=== PATIENT | male | born 1965 | race Caucasian/White ===

== ENCOUNTER → 2017-06-13 12:29 | Outpatient (CLI) | payer BC, SELFPAY ==
[2017-06-13 13:40] LABS: Absolute Lymphocyte Count 2.05 X10^3/ul (0.83-4.51); Absolute Neutrophil Count 2.7 X10^3/uL (2.0-7.7); Basophil# 0.02 X10^3/uL; Basophil% 0.4 % (0-1); Eosinophil# 0.04 X10^3/uL; Eosinophils% 0.7 % (0-5); Hematocrit 43.2 % (40-54); Hemoglobin 14.8 g/dl (13.0-16.5); Lymphocyte # 2.05 X10^3/ul (4.0); Lymphocyte % 38.2 % (19-41); Mean Corp Hgb Conc 34.3 g/gl (32-36); Mean Corpuscular Hgb 34.1 pg (27.0-32.0); Mean Corpuscular Volume 99.5 fL (80-94); Mean Platelet Vol. 9.3 fl (6.2-12.0); Monocyte# 0.57 X10^3/uL; Monocyte% 10.6 % (0-10); Neutrophil # 2.67 X10^3/uL (2.7-7.7); Neutrophil % 49.9 % (47-70); POSITIVE COUNT NO; POSITIVE DIFFERENTIAL NO; POSITIVE MORPHOLOGY NO; Platelet Count 180 K/mm3 (150-450); RBC Distribution Width CV 12.7 % (11.6-14.6); RBC Distribution Width SD 46.1 fl (35.1-43.9); Red Blood Count 4.34 M/mm3 (4.6-6.2); White Blood Count 5.4 K/mm3 (4.4-11.0)
[2017-06-13 14:53] LABS: AST(SGOT) 21 U/L (15-37); Alanine Aminotransfer ALT/SGPT 25 U/L (16-61); Alkaline Phosphatase 82 U/L (45-117); Anion Gap 7 (5-15); BUN 16 mg/dL (7-18); BUN/Creat Ratio 18.9 RATIO (10-20); Calcium,Total 8.7 mg/dL (8.5-10.1); Chloride 103 mmol/L (98-107); Cholesterol 200 mg/dL (200); Creatinine, Serum 0.84 mg/dL (0.70-1.30); EST Glomerular Filtration Rate 101 mL/min (>60); Est Glom Filt Rate - Afr Amer 123 mL/min (>60); Globulin 4.2 g/dL (2.2-4.2); Glucose 82 mg/dL (74-106); High Density Lipoprotein 40 mg/dL; Potassium 3.8 mmol/L (3.5-5.1); Protein, Total 8.2 g/dL (6.4-8.2); Sodium Level 139 mmol/L (136-145); Triglycerides 254 mg/dL; Very Low Density Lipoprotein 51 mg/dL (5-40)
[2017-06-13 16:47] LABS: HIV - WCH Preliminary Reactive (Nonreactive)
[2017-06-16 09:16] LABS: HIV-1 RNA by PCR, Quant. < 20 copies/mL (.)
== END ==
PROVIDERS: Family Provider Family Medicine; PCP Family Medicine
DX: B20 Human immunodeficiency virus [HIV] disease (principal)
CPT/HCPCS: 36415; 80053; 80061; 85025; 86703; 87536

== ENCOUNTER → 2017-06-14 13:16 | Outpatient (CLI) | payer BC, SELFPAY ==
[2017-06-15 14:08] LABS: Absolute CD4 Helper 695 /uL (359-1519); Basophils (Absolute) 0 x10E3/uL (0.0-0.2); CD4/CD8 Ratio 0.82 (0.92-3.72); Eosinophils 1 % (Not Estab.); Eosinophils (Absolute) 0 x10E3/uL (0.0-0.4); Hematocrit 42.4 % (37.5-51.0); Hemoglobin 15.1 g/dL (13.0-17.7); Immature Granulocytes 0 % (Not Estab.); Lymphs 38 % (Not Estab.); Lymphs (Absolute) 2.1 x10E3/uL (0.7-3.1); MCH 34.3 pg (26.6-33.0); MCHC 35.6 g/dL (31.5-35.7); MCV 96 fL (79-97); Monocytes 9 % (Not Estab.); Monocytes (Absolute) 0.5 x10E3/uL (0.1-0.9); Neutrophils 52 % (Not Estab.); Neutrophils (Absolute) 2.9 x10E3/uL (1.4-7.0); Percent % CD4 Pos. Lymph. 33.1 % (30.8-58.5); Percent % CD8 Pos. Lymph. 40.3 % (12.0-35.5); Platelets 181 x10E3/uL (150-379); RDW 12.8 % (12.3-15.4); WBC Count 5.5 x10E3/uL (3.4-10.8)
[2017-06-15 14:34] LABS: Immature Granulocytes Absolute 0 x10E3/uL (0.0-0.1)
== END ==
PROVIDERS: Family Provider Family Medicine; PCP Family Medicine
DX: B20 Human immunodeficiency virus [HIV] disease (principal)
CPT/HCPCS: 86360

== ENCOUNTER 2017-08-03 09:30 | Outpatient (RCR) | payer BC, SELFPAY ==
--- NOTE | 2017-07-20 15:47 | HP.PTEVAL_ITS ---
Patient's Visit Information YAIR MILLS is a 52 year old M referred to Physical Therapy by Alessandro Roberson with a diagnosis of Left Shoulder Pain. Date of Evaluation: 07/20/17 Physical Therapist: Ioana Cline - Visit Plan Frequency: 2x /Week Duration: 2 Weeks Plan: Focus on HEP for scap s/s. - Subjective Subjective: Left shoulder has been bothering him for years- 3-5 years- insidious onset- Has had and CANDE and has a torn RTC - physical therapy helped. Flared it back up flipping his house sledge hammer overhead April 2016- worked through it and had a - sucked it up until December then had surgery on his hand/ ulnar nerve and bilateral carpal tunnel- Cortisone injection drastically helped - and had another one a week ago. Helped but is confused about the ulnar nerve inflammation. Pain at end range flexion/abduction. Sleep: not disturbed- before it was miserable- thats when he knows he needs to get it taken care of. Left hand dominate. 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 Does have aches in the arm from the ulnar nerve distribution. PMhx: ulnar nerve and carpal tunnel, Meds: metroprolol, triumec, visomere.Shoulder pain is in the deltoid muscle. - Objective Posture: fh, rs, increased kyphosis- mildly raised at C7-T1. Gait: no deviation good arm swing/trunk rotation. Palpation: tender tip of acromion and upper trap. ROM: WFL- tight at end range Cervical: wnl with tightness. Strength: Scap: fair Shoulder: 4+/5 throughout Elbow: 5/5, Wrist: 5/5 Watermelon Harvesting Supervisor; equal. IMpingment: positive Empty Can: positive. Sensation/Reflex: WNL - Goals Goal 1:: Patient will be I with HEP and progression Goal Time Frame: 4-6 Weeks Goal 2:: Patient will maintain proper posture t/o tx session to demo increased scap s/s Goal Time Frame: 4-6 Weeks Goal 3:: Patient will report 0/10 pain for 1 week Goal Time Frame: 4-6 Weeks - Rehabilitation Potential Physical Therapy Diagnosis: Patient presents with hypmobility- he has decreased strength, flex and muscular endurance leading to poor posture and impingment of the shoulder Rehabilitation Potential: Good - Anticipated Interventions Patient/Client Instruction: Educate patient on: Benefits of Fitness Program For the Purpose of:: To improve ability to perform ADL's Therapeutic Exercise to Include: Strength training, Endurance training, Agility training, Body mechanics, Postural training, Flexibilty training, Gait and locomotor training, Scapular Strength/Stabilization For the Purpose of:: To improve muscle performance and motor function Thank you for the opportunity to evaluate your patient. For Medicare and Medicare HMO plans, please review the plan of care and approve it. It will need to be FAXED BACK to us at [phone] for Medicare purposes. Please let me know if there are questions or concerns regarding this plan of care. Physician Signature: Date:
--- NOTE | 2017-08-03 10:03 | HP.PTDCSUM ---
HP - PT D/C Summary It has been my pleasure to treat YAIR MILLS under orders from Alessandro Roberson, for the diagnosis of Left Shoulder Pain for a total of 5 visit(s). Discharge Date: Please see the following information for a summary of their discharge status. - Subjective Subjective: Patient reports that he has learned a lot at therapy and will continue the exercises at home. He would like a print out of HEP. He feels that he is 80% better. Still has some soreness but the sharp pin point pain is gone. happy with progress - Overall Improvement % Improvement: 80 - Objective Objective/Function: Posture: fh, rs, increased kyphosis- mildly raised at C7-T1- will correct with VC's and maintains for 5 minutes. Gait: no deviation good arm swing/trunk rotation. Palpation: tender along supraspinatus. ROM: WFL- tight at end range Cervical: wnl with tightness. Strength: Scap: fair Shoulder: 5/5 throughout Elbow: 5/5, Wrist: 5/5 Automobile Racer; equal. IMpingment: positive Empty Can: positive. Sensation/Reflex: - Goals Goal 1:: Patient will be I with HEP and progression Goal Progress: Goal Met Goal 2:: Patient will maintain proper posture t/o tx session to demo increased scap s/s Goal Progress: Progressing Goal 3:: Patient will report 0/10 pain for 1 week Goal Progress: Progressing - Plan Plan: Discharge to I HEP - D/C Information If there are questions or concerns regarding this patient's physical therapy, please feel free to call me at [phone]. Thank you for the referral of this patient. Sincerely, Ioana Cline
--- NOTE | 2017-08-03 10:23 | HP.PTDCSUM_ITS ---
HP - PT D/C Summary It has been my pleasure to treat YAIR MILLS under orders from Alessandro Roberson, for the diagnosis of Left Shoulder Pain for a total of 5 visit(s). Discharge Date: Please see the following information for a summary of their discharge status. - Subjective Subjective: Patient reports that he has learned a lot at therapy and will continue the exercises at home. He would like a print out of HEP. He feels that he is 80% better. Still has some soreness but the sharp pin point pain is gone. happy with progress - Overall Improvement % Improvement: 80 - Objective Objective/Function: Posture: fh, rs, increased kyphosis- mildly raised at C7-T1 - will correct with VC's and maintains for 5 minutes. Gait: no deviation good arm swing/trunk rotation. Palpation: tender along supraspinatus. ROM: WFL- tight at end range Cervical: wnl with tightness. Strength: Scap: fair Shoulder: 5/5 throughout Elbow: 5/5, Wrist: 5/5 Drafting Instructor; equal. IMpingment: positive Empty Can: positive. Sensation/Reflex: - Goals Goal 1:: Patient will be I with HEP and progression Goal Progress: Goal Met Goal 2:: Patient will maintain proper posture t/o tx session to demo increased scap s/s Goal Progress: Progressing Goal 3:: Patient will report 0/10 pain for 1 week Goal Progress: Progressing - Plan Plan: Discharge to I HEP - D/C Information If there are questions or concerns regarding this patient's physical therapy, please feel free to call me at [phone]. Thank you for the referral of this patient. Sincerely, Ioana Cline
== END 2017-08-03 18:31 | disposition home or self-care (01) ==
LOC: PT 09:30
PROVIDERS: Family Provider Family Medicine; PCP Family Medicine; Visit Provider Family Medicine
DX: M25.519 Pain in unspecified shoulder (principal)
CPT/HCPCS: 97110; 97161; 97164

== ENCOUNTER → 2017-08-11 13:34 | Outpatient (CLI) | payer BC, SELFPAY | PROVIDERS: Family Provider Family Medicine; PCP Family Medicine | DX: B20 Human immunodeficiency virus [HIV] disease (principal) | CPT/HCPCS: 36415; 84403 ==

== ENCOUNTER → 2018-01-27 09:08 | Outpatient (CLI) | payer BC, SELFPAY ==
[2018-01-27 11:11] LABS: Absolute Lymphocyte Count 1.95 X10^3/ul (0.83-4.51); Absolute Neutrophil Count 3.2 X10^3/uL (2.0-7.7); Basophil# 0.01 X10^3/uL; Basophil% 0.2 % (0-1); Eosinophil# 0.05 X10^3/uL; Eosinophils% 0.9 % (0-5); Hematocrit 45.2 % (40-54); Hemoglobin 15.1 g/dl (13.0-16.5); Lymphocyte # 1.95 X10^3/ul (4.0); Lymphocyte % 33.5 % (19-41); Mean Corp Hgb Conc 33.4 g/gl (32-36); Mean Corpuscular Hgb 34.2 pg (27.0-32.0); Mean Corpuscular Volume 102.5 fL (80-94); Monocyte% 10.3 % (0-10); Neutrophil # 3.19 X10^3/uL (2.7-7.7); Neutrophil % 54.8 % (47-70); POSITIVE COUNT NO; POSITIVE DIFFERENTIAL NO; POSITIVE MORPHOLOGY NO; Platelet Count 221 K/mm3 (150-450); RBC Distribution Width CV 12.5 % (11.6-14.6); RBC Distribution Width SD 46.3 fl (35.1-43.9); Red Blood Count 4.41 M/mm3 (4.6-6.2); White Blood Count 5.8 K/mm3 (4.4-11.0)
[2018-01-27 11:41] LABS: ALB/GLOB Ratio 1.1 RATIO (0.9-2.4); AST(SGOT) 24 U/L (15-37); Alanine Aminotransfer ALT/SGPT 33 U/L (16-61); Alkaline Phosphatase 82 U/L (45-117); Anion Gap 8 (5-15); BUN 15 mg/dL (7-18); BUN/Creat Ratio 19.1 RATIO (10-20); Calcium,Total 8.5 mg/dL (8.5-10.1); Chloride 104 mmol/L (98-107); Cholesterol 218 mg/dL (200); Creatinine, Serum 0.78 mg/dL (0.70-1.30); EST Glomerular Filtration Rate 110 mL/min (>60); Est Glom Filt Rate - Afr Amer 133 mL/min (>60); Globulin 3.7 g/dL (2.2-4.2); Glucose 92 mg/dL (74-106); High Density Lipoprotein 47 mg/dL; Potassium 3.9 mmol/L (3.5-5.1); Protein, Total 7.7 g/dL (6.4-8.2); Sodium Level 138 mmol/L (136-145); Triglycerides 226 mg/dL; Very Low Density Lipoprotein 45 mg/dL (5-40)
[2018-01-28 16:13] LABS: Absolute CD4 Helper 566 /uL (359-1519); Basophils (Absolute) 0 x10E3/uL (0.0-0.2); Eosinophils 1 % (Not Estab.); Eosinophils (Absolute) 0 x10E3/uL (0.0-0.4); Hematocrit 44.4 % (37.5-51.0); Hemoglobin 14.9 g/dL (13.0-17.7); Immature Granulocytes 0 % (Not Estab.); Lymphs 35 % (Not Estab.); MCH 33.9 pg (26.6-33.0); MCHC 33.6 g/dL (31.5-35.7); MCV 101 fL (79-97); Monocytes 11 % (Not Estab.); Monocytes (Absolute) 0.6 x10E3/uL (0.1-0.9); Neutrophils 53 % (Not Estab.); Neutrophils (Absolute) 3.1 x10E3/uL (1.4-7.0); Percent % CD4 Pos. Lymph. 28.3 % (30.8-58.5); Platelets 218 x10E3/uL (150-379); RDW 13.5 % (12.3-15.4); WBC Count 5.8 x10E3/uL (3.4-10.8)
[2018-01-29 08:40] LABS: Immature Granulocytes Absolute 0 x10E3/uL (0.0-0.1)
[2018-01-30 12:39] LABS: HIV-1 RNA by PCR, Quant. < 20 copies/mL (.)
[2018-02-03 03:22] LABS: Rapid Plasmin Reagin (RPR) NONREACTIVE (NONREACTIVE)
== END ==
PROVIDERS: Family Provider Family Medicine; PCP Family Medicine
DX: B20 Human immunodeficiency virus [HIV] disease (principal); Z79.2 Long term (current) use of antibiotics
CPT/HCPCS: 36415; 80053; 80061; 85025; 86361; 86592; 87536

== ENCOUNTER 2018-06-12 21:54 | Emergency (ER) | payer BC, SELFPAY ==
[2018-06-12 21:54] VITALS: BP 156/99; PULSE 100; RESP 16; TEMP 36.7; O2SAT 98; BMI 25.0
--- NOTE | 2018-06-12 22:15 | ED.VISSUMM ---
- ER Visit Summary Date of Service: 06/12/18 Chief Complaint: Left forearm pain History of Present Illness: The patient is a 53 M with pain to the left forearm that he noted while using the weedeater this afternoon. There is a small swollen area noted and family's concern for possible blood clot. He does not remember specific injury to that area. Physical Examination: Vital signs include blood pressure 156/99. Patient sitting upright in bed no acute distress. Left upper extremity examination reveals mild tenderness along the extensor surface of the left forearm. He has full range of motion but does have increased pain noted with wrist flexion. There is a small area of edema noted that likely represents a blood vessel. No overlying skin changes. Strong distal pulses are noted. Test Results: [] Emergency Department Course and Treatment: I expressed to the patient I believe he likely has tendinitis. He is treated with Naprosyn and prednisone. He will return tomorrow for an outpatient ultrasound of his upper arm to ensure no sign of clot. Treatment Plan: [] Disposition: Discharge Impression: Tendinitis left forearm This note was generated with [employer] dictation software. It may contain incorrect words, spelling, and punctuation that were not noted in review of the chart prior to signing ED Disposition - Plan for ED Patient: Disposition: Home or Assisted Living Instructions: ED Strain Muscle Ext Prescriptions: Naproxen [Naprosyn] 500 mg PO BID PRN PRN #20 tablet PRN Reason: Pain Prednisone [Deltasone] 40 mg PO DAILY #10 tablet Referrals: Alessandro Roberson MD [Primary Care Provider] - 1 Week
== END 2018-06-12 22:40 | disposition home or self-care (01) ==
PROVIDERS: Emergency Provider Emergency Medicine; Family Provider Family Medicine; PCP Family Medicine
DX: M77.9 Enthesopathy, unspecified (principal); K21.9 Gastro-esophageal reflux disease without esophagitis; Z79.899 Other long term (current) drug therapy
CPT/HCPCS: 99282

== ENCOUNTER → 2018-07-13 15:55 | Outpatient (CLI) | payer BC, SELFPAY ==
[2018-07-13 16:25] LABS: Absolute Lymphocyte Count 2.27 X10^3/ul (0.83-4.51); Absolute Neutrophil Count 3.6 X10^3/uL (2.0-7.7); Basophil# 0.02 X10^3/uL; Basophil% 0.3 % (0-1); Eosinophil# 0.06 X10^3/uL; Eosinophils% 0.9 % (0-5); Hematocrit 43.1 % (40-54); Hemoglobin 14.4 g/dl (13.0-16.5); Lymphocyte # 2.27 X10^3/ul (4.0); Lymphocyte % 33.8 % (19-41); Mean Corp Hgb Conc 33.4 g/gl (32-36); Mean Corpuscular Hgb 33.9 pg (27.0-32.0); Mean Corpuscular Volume 101.4 fL (80-94); Mean Platelet Vol. 8.9 fl (6.2-12.0); Monocyte# 0.73 X10^3/uL; Monocyte% 10.9 % (0-10); Neutrophil # 3.61 X10^3/uL (2.7-7.7); Neutrophil % 53.8 % (47-70); Platelet Count 210 K/mm3 (150-450); RBC Distribution Width CV 13.3 % (11.6-14.6); Red Blood Count 4.25 M/mm3 (4.6-6.2); White Blood Count 6.7 K/mm3 (4.4-11.0)
[2018-07-13 16:26] LABS: POSITIVE COUNT NO; POSITIVE DIFFERENTIAL NO; POSITIVE MORPHOLOGY NO
[2018-07-13 16:50] LABS: AST(SGOT) 26 U/L (15-37); Alanine Aminotransfer ALT/SGPT 30 U/L (16-61); Albumin, Serum 3.8 g/dL (3.2-5.0); Alkaline Phosphatase 78 U/L (45-117); Anion Gap 6 (5-15); BUN 16 mg/dL (7-18); BUN/Creat Ratio 19.2 RATIO (10-20); Calcium,Total 8.6 mg/dL (8.5-10.1); Chloride 105 mmol/L (98-107); Creatinine, Serum 0.83 mg/dL (0.70-1.30); EST Glomerular Filtration Rate 103 mL/min (>60); Est Glom Filt Rate - Afr Amer 124 mL/min (>60); Globulin 3.7 g/dL (2.2-4.2); Glucose 88 mg/dL (74-106); Protein, Total 7.5 g/dL (6.4-8.2); Sodium Level 140 mmol/L (136-145)
[2018-07-15 16:07] LABS: Absolute CD4 Helper 711 /uL (359-1519); Basophils (Absolute) 0 x10E3/uL (0.0-0.2); Eosinophils 1 % (Not Estab.); Eosinophils (Absolute) 0.1 x10E3/uL (0.0-0.4); Hematocrit 42.4 % (37.5-51.0); Hemoglobin 13.8 g/dL (13.0-17.7); Immature Granulocytes 0 % (Not Estab.); Lymphs 35 % (Not Estab.); Lymphs (Absolute) 2.3 x10E3/uL (0.7-3.1); MCH 33.7 pg (26.6-33.0); MCHC 32.5 g/dL (31.5-35.7); MCV 103 fL (79-97); Monocytes 10 % (Not Estab.); Monocytes (Absolute) 0.7 x10E3/uL (0.1-0.9); Neutrophils 54 % (Not Estab.); Neutrophils (Absolute) 3.5 x10E3/uL (1.4-7.0); Percent % CD4 Pos. Lymph. 30.9 % (30.8-58.5); Platelets 247 x10E3/uL (150-450); RDW 13.6 % (12.3-15.4); WBC Count 6.5 x10E3/uL (3.4-10.8)
[2018-07-17 08:50] LABS: Immature Granulocytes Absolute 0 x10E3/uL (0.0-0.1)
[2018-07-17 12:11] LABS: HIV-1 RNA by PCR, Quant. < 20 copies/mL (.)
== END ==
PROVIDERS: Family Provider Family Medicine; PCP Family Medicine
DX: B20 Human immunodeficiency virus [HIV] disease (principal); Z79.2 Long term (current) use of antibiotics
CPT/HCPCS: 36415; 80053; 85025; 86361; 87536

== ENCOUNTER → 2018-12-22 14:19 | Outpatient (CLI) | payer BC, SELFPAY ==
[2018-12-22 15:40] LABS: Absolute Lymphocyte Count 1.81 X10^3/uL (0.83-4.51); Absolute Neutrophil Count 3.5 X10^3/uL (2.0-7.7); Basophil# 0.02 X10^3/uL; Basophil% 0.3 % (0-1); Eosinophil# 0.06 X10^3/uL; Hematocrit 40.8 % (40-54); Hemoglobin 13.6 g/dL (13.0-16.5); Lymphocyte # 1.81 X10^3/ul (4.0); Mean Corp Hgb Conc 33.3 g/dL (32-36); Mean Corpuscular Hgb 33.9 pg (27.0-32.0); Mean Corpuscular Volume 101.7 fL (80-94); Mean Platelet Vol. 9.2 fl (6.2-12.0); Monocyte# 0.61 X10^3/uL; Monocyte% 10.1 % (0-10); NRBC Flagged by Analyzer 0 % (0-5); Neutrophil # 3.51 X10^3/uL (2.7-7.7); Neutrophil % 58.3 % (47-70); Platelet Count 188 K/mm3 (150-450); RBC Distribution Width CV 12.2 % (11.6-14.6); RBC Distribution Width SD 46.1 fl (35.1-43.9); Red Blood Count 4.01 M/mm3 (4.6-6.2)
[2018-12-22 16:20] LABS: ALB/GLOB Ratio 1.2 RATIO (0.9-2.4); AST(SGOT) 32 U/L (15-37); Alanine Aminotransfer ALT/SGPT 34 U/L (16-61); Albumin, Serum 3.9 g/dL (3.2-5.0); Alkaline Phosphatase 74 U/L (45-117); Anion Gap 6 (5-15); BUN 15 mg/dL (7-18); BUN/Creat Ratio 17.7 RATIO (10-20); Calcium,Total 8.8 mg/dL (8.5-10.1); Chloride 106 mmol/L (98-107); Creatinine, Serum 0.85 mg/dL (0.70-1.30); EST Glomerular Filtration Rate 101 mL/min (>60); Est Glom Filt Rate - Afr Amer 122 mL/min (>60); Globulin 3.2 g/dL (2.2-4.2); Glucose 77 mg/dL (74-106); Potassium 3.7 mmol/L (3.5-5.1); Protein, Total 7.1 g/dL (6.4-8.2); Sodium Level 140 mmol/L (136-145)
[2018-12-25 20:07] LABS: Absolute CD4 Helper 656 /uL (359-1519); Basophils (Absolute) 0 x10E3/uL (0.0-0.2); Eosinophils 1 % (Not Estab.); Eosinophils (Absolute) 0.1 x10E3/uL (0.0-0.4); Hematocrit 41.3 % (37.5-51.0); Hemoglobin 13.8 g/dL (13.0-17.7); Immature Granulocytes 0 % (Not Estab.); Lymphs 29 % (Not Estab.); Lymphs (Absolute) 1.7 x10E3/uL (0.7-3.1); MCH 34.1 pg (26.6-33.0); MCHC 33.4 g/dL (31.5-35.7); MCV 102 fL (79-97); Monocytes 10 % (Not Estab.); Monocytes (Absolute) 0.6 x10E3/uL (0.1-0.9); Neutrophils 60 % (Not Estab.); Neutrophils (Absolute) 3.5 x10E3/uL (1.4-7.0); Percent % CD4 Pos. Lymph. 38.6 % (30.8-58.5); Platelets 211 x10E3/uL (150-450); RBC Count 4.05 x10E6/uL (4.14-5.80); RDW 13.5 % (12.3-15.4); WBC Count 5.9 x10E3/uL (3.4-10.8)
[2018-12-25 20:42] LABS: Immature Granulocytes Absolute 0 x10E3/uL (0.0-0.1)
[2018-12-26 14:05] LABS: HIV-1 RNA by PCR, Quant. < 20 copies/mL (.)
[2018-12-28 03:11] LABS: Rapid Plasmin Reagin (RPR) NONREACTIVE (NONREACTIVE)
== END ==
PROVIDERS: Family Provider Family Medicine; PCP Family Medicine
DX: B20 Human immunodeficiency virus [HIV] disease (principal)
CPT/HCPCS: 36415; 80053; 85025; 86361; 86592; 87536

== ENCOUNTER → 2019-02-12 13:20 | Outpatient (CLI) | payer BC, SELFPAY ==
--- NOTE | 2019-01-15 04:52 | HP_ITS ---
Intake Vital Signs 01/15/19 Body Mass Index (BMI) 25.0 01/15/19 Height 5 ft 8 in 01/15/19 Weight: 158 lb 01/15/19 Body Mass Index (BMI) 24.0 01/15/19 Blood Pressure 129/84 H 01/15/19 Blood Pressure Location Rt brachial 01/15/19 Blood Pressure Position Sitting 01/15/19 Respiratory Rate 18 01/15/19 Pulse Rate 98 01/15/19 Pulse Source Monitor 01/15/19 Temperature 98.4 F 01/15/19 Temperature Source Oral 01/15/19 Pulse Ox 96 01/15/19 Oxygen Delivery Method room air Intake Visit Reasons: ABD PAIN/CRAMPING/WEIGHT LOSS Chief Complaint: abdominal pain/nausea/weight loss Customer Service Dispatcher Required: No Is patient in pain?: No Allergies amoxicillin [From Augmentin] Adverse Reaction (Verified 01/15/19 16:04) Hives clavulanic acid [From Augmentin] Adverse Reaction (Verified 01/15/19 16:04) Hives Medications Abacavir/Dolutegravir/Lamivudi [Triumeq 600-50-300 mg Tablet] 1 tab PO DAILY 06/12/18 [History Confirmed 01/15/19] Naproxen [Naprosyn] 500 mg PO BID PRN PRN #20 tab 06/12/18 [Rx Confirmed 01/15/19] Omeprazole 40 mg PO DAILY 06/12/18 [History Confirmed 01/15/19] Valacyclovir HCl [Valacyclovir] 1 tab PO DAILY 06/12/18 [History Confirmed 01/15/19] loperamide 2 mg capsule 6 mg PO BID cap 01/15/19 [History Confirmed 01/15/19] promethazine 12.5 mg tablet 12.5 mg PO Q6H 01/15/19 [History Confirmed 01/15/19] PFS Medical History (Updated 01/15/19 @ 16:49 by Jeremiah Raines MD) Diarrhea (Acute) Abdominal pain (Acute) GERD (gastroesophageal reflux disease) (Acute) AIDS (Acute) Abdominal pain (Acute) Anal condyloma (Acute) Anal dysplasia (Acute) Diarrhea (Acute) GERD (gastroesophageal reflux disease) (Acute) Nausea & vomiting (Acute) Weight loss (Acute) Surgical History (Updated 01/15/19 @ 15:52 by Kailey Soliz) History of bilateral carpal tunnel release (Acute) history left bicep tendon repair (Acute) history left ulnar nerve repair (Acute) Family History (Updated 01/15/19 @ 16:01 by Kailey Soliz) Mother Asthma Arthritis Diabetes Heart disease Hypertension High cholesterol Grandfather Cancer lung cancer Father Heart disease High cholesterol Hypertension Cancer skin cancer Social History (Updated 01/15/19 @ 16:52 by Jeremiah Raines MD) Smoking Status: Never smoker alcohol intake: never substance use type: does not use HPI HPI HPI: YAIR MILLS, is a 53 M who presents to the office today for HPI HPI Surgical H&P: Yes HPI: YAIR MILLS, is a 53 M who presents to the office today for surgical consultation. Patient is referred by Dr. Alessandro Roberson for surgical consultation regarding GERD and right lower quadrant abdominal pain and explosive diarrhea. A written copy of my surgical consult recommendations will be returned to. Patient claims that for over 2 years he has been having problems with awakening in the middle the night with right lower quadrant pain nausea volume vomiting and severe right lower quadrant pain. He then has explosive diarrhea. He has not noticed any bright red blood per rectum or melena. He states that after period of time he gets better. 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 He has had a 20 pound weight loss. Not sure if it simply secondary to his increased physical activity. He was just seen by his infectious disease physician Dr. Juno Garcia. Primary diagnosis is human immunodeficiency virus (HIV) disease (HCC). By report Dr. Garcia has been trying to get the patient to see a welfare interviewer for an extended period of time. The patient makes a comment that he has seen welfare interviewer Dr. Carrillo Eckert in the past in 2013 but that he missed something that then had to be treated by Dr. Ajit Friedman. This included a segment of squamous mucosa with low- grade dysplasia possibly from a condyloma which Dr. Friedman excised December 17, 2013 from the perianal area. Dr. Friedman apparently did not perform a colonoscopy at that time but rather a flexible sigmoidoscopy. An acidic acid wash was used and a raised lesion was destroyed with hot biopsy forceps posterior anus. As of December 22, 2018 HIV?1 RNA, PCR was less than 20. The patient has not had any additional abdominal imaging. Currently no CT scan or small bowel imaging. The patient states that he is not in any pain now. He states that physical exercise does not aggravate the pain. He claims that he is awakened at night with the discomfort. This can be intermittent. It was more severe 2 years ago then seemed to marianne and now seems to be recurring. He also complains of having GERD type symptoms. He states that his HIV medicines in the past aggressively gave him diarrhea for which he was taking significant amounts of loperamide greater than 12 tablets daily. Now he feels that he is down to more reasonable number of 6 or slightly more daily ROS General General: Yes weight change; no appetite, fatigue, colon cancer, breast cancer or weakness HEENT HEENT: No difficulty swallowing, eye injury, eye surgery, swollen glands or hoarseness Endo Endocrine: No thyroid disease, diabetes mellitus, thyroid cancer, Hair loss, heat intolerance or cold intolerance Skin Skin: Yes rash and changing moles Breast Breast: No left breast lump, right breast lump, nipple discharge, breast pain, abnormal mammogram, abnormal US or breast enlargement Musc Musculoskeletal: No back problems, arthritis, rheumatoid arthritis, gout or joint pain Cardio Cardiovascular: No murmur, pacemaker, heart disease, atrial fibrillation, high blood pressure, heart attack, heart stent, palpitations, shortness of breat with exertion or chest pain Psych Psychiatric: No depression, anxiety or hearing voices Resp Respiratory: No shortness of breath, No sleep apnea, No cough, No COPD, No asthma, No emphysema, No wheezing Gastro Gastrointestinal: Yes abdominal pain, Yes nausea or vomiting, Yes diarrhea, No constipation, No blood in stool, Yes acid reflux, No hemorrhoids, No ulcers, No gallbladder problem, No black,tarry stools Benito Hematologic: No blood thinners, No blood disorders, No bleeding, No anemia, No blood clots Neuro Neurologic: No system reviewed and no additional complaints, except as docu, No as per HPI, No abnormal walking, No abnormal hearing, No abnormal movements, No abnormal speech, No behavioral changes, No burning sensations, No confusion, No seizure-like activity, No unsteadiness, No dizziness, No localized weakness, No frequent falls, No headache(s), No lack of coordination, No loss of vision, No memory loss, No numbness, No other visual disturbances, No radiating pain, No restless legs, No sensory deficit, No fainting, No tingling, No tremor(s), No weakness, No other Exam Const General: cooperative, comfortable, no acute distress Nutritional Appearance: average body habitus Orientation: alert, awake, oriented x3 HENMT Head: normal to inspection Chest Breast Palpation: No nipple discharge Resp Effort & Inspection: normal respiratory effort Auscultation: clear to auscultation bilaterally Cardio Rate: regular rate Rhythm: regular rhythm Heart Sounds: no murmurs GI Palpation: soft, no hepatosplenomegaly Auscultation: normal bowel sounds Other: Inguinal areas nontender no gross defects Neuro Cognition: normal cognition Extrem General: no calf tenderness bilaterally Psych Affect: normal affect Assessment & Plan Problems 1. Gastroesophageal reflux disease, esophagitis presence not specified K21.9 2. Right lower quadrant abdominal pain R10.31 3. Diarrhea, unspecified type R19.7 Plan I appreciate the opportunity of assisting with his surgical care. 53-year-old gentleman with reflux symptoms right lower quadrant intermittent abdominal pain and explosive diarrhea. Dr. Garcia infectious diseases not of the opinion that this is related to the patient's HIV at this time. The patient is referred by both Dr. Garcia and Dr. Roberson to pursue endoscopic evaluation and the patient favors general surgery in part due to ability to expedite his investigation. I have proposed for him a esophagogastroduodenoscopy with anticipated kitchen biopsies as well as colonoscopy with anticipated random biopsies and polypectomy if indicated. He is aware of the technique, benefits, risks, alternatives. We will schedule and proceed at his discretion. I anticipate utilizing monitored anesthesia care. He has had an opportunity to ask and have questions answered. We will schedule and proceed as noted. Cc: Dr. Garcia and Dr. Karol Raines M.D., F.A.C.S. Coding Level of Care Code 47948 Diagnoses Gastroesophageal reflux disease, esophagitis presence not specified K21.9 ??Esophagitis presence: esophagitis presence not specified Right lower quadrant abdominal pain R10.31 ??Abdominal location: right lower quadrant Diarrhea, unspecified type R19.7 ??Diarrhea type: unspecified type 01/15/19 8704 <Electronically signed by Jeremiah smith MD> Date _ Jeremiah Raines MD
[2019-01-15 16:13] VITALS: BMI 25.0
== END ==
PROVIDERS: Family Provider Family Medicine; PCP Family Medicine; Referring Provider Family Medicine; Visit Provider Surgery
DX: Z00.00 Encounter for general adult medical examination without abnormal findings (principal)

== ENCOUNTER → 2020-01-22 10:39 | Outpatient (CLI) | payer BC, SELFPAY ==
[2019-01-15 16:13] VITALS: BMI 25.0
[2020-01-22 11:30] LABS: Absolute Lymphocyte Count 2.43 X10^3/uL (0.83-4.51); Absolute Neutrophil Count 3.2 X10^3/uL (2.0-7.7); Basophil# 0.03 X10^3/uL; Basophil% 0.5 % (0-1); Eosinophil# 0.05 X10^3/uL; Eosinophils% 0.8 % (0-5); Hematocrit 45.2 % (40-54); Hemoglobin 14.8 g/dL (13.0-16.5); Lymphocyte # 2.43 X10^3/ul (4.0); Lymphocyte % 38.1 % (19-41); Mean Corp Hgb Conc 32.7 g/dL (32-36); Mean Corpuscular Hgb 33.5 pg (27.0-32.0); Mean Corpuscular Volume 102.3 fL (80-94); Mean Platelet Vol. 8.6 fl (6.2-12.0); Monocyte# 0.62 X10^3/uL; Monocyte% 9.7 % (0-10); NRBC Flagged by Analyzer 0 % (0-5); Neutrophil # 3.21 X10^3/uL (2.7-7.7); Neutrophil % 50.4 % (47-70); Platelet Count 201 K/mm3 (150-450); RBC Distribution Width CV 12.5 % (11.6-14.6); Red Blood Count 4.42 M/mm3 (4.6-6.2); White Blood Count 6.4 K/mm3 (4.4-11.0)
[2020-01-22 11:57] LABS: AST(SGOT) 17 U/L (15-37); Alanine Aminotransfer ALT/SGPT 24 U/L (16-61); Albumin, Serum 3.9 g/dL (3.2-5.0); Alkaline Phosphatase 84 U/L (45-117); Bilirubin, Direct 0.11 mg/dL (0.00-0.30); Creatinine, Serum 0.91 mg/dL (0.70-1.30); EST Glomerular Filtration Rate 92 mL/min (>60); Est Glom Filt Rate - Afr Amer 111 mL/min (>60); Globulin 3.7 g/dL (2.2-4.2); Protein, Total 7.6 g/dL (6.4-8.2)
[2020-01-23 14:09] LABS: Absolute CD4 Helper 711 /uL (359-1519); Basophils (Absolute) 0 x10E3/uL (0.0-0.2); Eosinophils 1 % (Not Estab.); Eosinophils (Absolute) 0.1 x10E3/uL (0.0-0.4); Hematocrit 42.7 % (37.5-51.0); Hemoglobin 15.1 g/dL (13.0-17.7); Immature Granulocytes 1 % (Not Estab.); Lymphs 37 % (Not Estab.); Lymphs (Absolute) 2.3 x10E3/uL (0.7-3.1); MCH 34.5 pg (26.6-33.0); MCHC 35.4 g/dL (31.5-35.7); MCV 98 fL (79-97); Monocytes 10 % (Not Estab.); Monocytes (Absolute) 0.6 x10E3/uL (0.1-0.9); Neutrophils 50 % (Not Estab.); Neutrophils (Absolute) 3.3 x10E3/uL (1.4-7.0); Percent % CD4 Pos. Lymph. 30.9 % (30.8-58.5); Platelets 196 x10E3/uL (150-450); RBC Count 4.38 x10E6/uL (4.14-5.80); RDW 13.1 % (11.6-15.4); WBC Count 6.4 x10E3/uL (3.4-10.8)
[2020-01-23 15:17] LABS: Immature Granulocytes Absolute 0 x10E3/uL (0.0-0.1)
[2020-01-24 04:22] LABS: HIV-1 RNA by PCR, Quant. < 20 copies/mL (.)
== END ==
PROVIDERS: PCP Family Medicine; Referring Provider Internal Medicine Infectious Disease; Visit Provider Internal Medicine Infectious Disease
DX: B20 Human immunodeficiency virus [HIV] disease (principal); Z79.2 Long term (current) use of antibiotics
CPT/HCPCS: 36415; 80076; 82565; 85025; 86361; 87536

== ENCOUNTER → 2020-03-12 11:51 | Outpatient (CLI) | payer BC, SELFPAY ==
[2019-01-15 16:13] VITALS: BMI 25.0
[2020-03-12 15:29] LABS: Absolute Lymphocyte Count 1.81 X10^3/uL (0.83-4.51); Absolute Neutrophil Count 2.5 X10^3/uL (2.0-7.7); Basophil# 0.03 X10^3/uL; Basophil% 0.6 % (0-1); Eosinophil# 0.07 X10^3/uL; Eosinophils% 1.4 % (0-5); Hematocrit 41.2 % (40-54); Lymphocyte # 1.81 X10^3/ul (4.0); Lymphocyte % 36.6 % (19-41); Mean Corpuscular Hgb 34.2 pg (27.0-32.0); Mean Corpuscular Volume 100.7 fL (80-94); Mean Platelet Vol. 9.1 fl (6.2-12.0); Monocyte# 0.55 X10^3/uL; Monocyte% 11.1 % (0-10); NRBC Flagged by Analyzer 0 % (0-5); Neutrophil # 2.47 X10^3/uL (2.7-7.7); Neutrophil % 49.9 % (47-70); Platelet Count 201 K/mm3 (150-450); RBC Distribution Width CV 12.5 % (11.6-14.6); RBC Distribution Width SD 46.1 fl (35.1-43.9); Red Blood Count 4.09 M/mm3 (4.6-6.2)
[2020-03-12 15:46] LABS: ALB/GLOB Ratio 1.1 RATIO (0.9-2.4); AST(SGOT) 16 U/L (15-37); Alanine Aminotransfer ALT/SGPT 22 U/L (16-61); Albumin, Serum 3.8 g/dL (3.2-5.0); Alkaline Phosphatase 77 U/L (45-117); Anion Gap 6 (5-15); BUN 18 mg/dL (7-18); BUN/Creat Ratio 22.5 RATIO (10-20); Chloride 106 mmol/L (98-107); Cholesterol 196 mg/dL (200); EST Glomerular Filtration Rate 107 mL/min (>60); Est Glom Filt Rate - Afr Amer 129 mL/min (>60); Globulin 3.6 g/dL (2.2-4.2); Glucose 89 mg/dL (74-106); High Density Lipoprotein 50 mg/dL; Potassium 3.9 mmol/L (3.5-5.1); Protein, Total 7.4 g/dL (6.4-8.2); Sodium Level 140 mmol/L (136-145); Triglycerides 136 mg/dL; Very Low Density Lipoprotein 27 mg/dL (5-40)
== END ==
PROVIDERS: PCP Family Medicine; Referring Provider Family Medicine; Visit Provider Family Medicine
DX: Z01.818 Encounter for other preprocedural examination (principal)
CPT/HCPCS: 36415; 80053; 80061; 85025

== ENCOUNTER → 2020-09-02 14:45 | Outpatient (CLI) | payer BC, SELFPAY ==
[2019-01-15 16:13] VITALS: BMI 25.0
[2020-09-02 15:09] LABS: Absolute Lymphocyte Count 2.17 X10^3/uL (0.83-4.51); Basophil# 0.02 X10^3/uL; Basophil% 0.3 % (0-1); Eosinophil# 0.05 X10^3/uL; Eosinophils% 0.7 % (0-5); Hematocrit 44.7 % (40-54); Hemoglobin 15.4 g/dL (13.0-16.5); Lymphocyte # 2.17 X10^3/ul (0.83-4.51); Lymphocyte % 31.7 % (19-41); Mean Corp Hgb Conc 34.5 g/dL (32-36); Mean Corpuscular Hgb 33.6 pg (27.0-32.0); Mean Corpuscular Volume 97.6 fL (80-94); Mean Platelet Vol. 8.7 fl (6.2-12.0); Monocyte# 0.59 X10^3/uL; Monocyte% 8.6 % (0-10); NRBC Flagged by Analyzer 0 % (0-5); Neutrophil % 58.4 % (47-70); Platelet Count 217 K/mm3 (150-450); RBC Distribution Width CV 12.1 % (11.6-14.6); RBC Distribution Width SD 43.7 fl (35.1-43.9); Red Blood Count 4.58 M/mm3 (4.6-6.2); White Blood Count 6.9 K/mm3 (4.4-11.0)
[2020-09-02 15:33] LABS: Anion Gap 5 (5-15); BUN 14 mg/dL (7-18); BUN/Creat Ratio 17.4 RATIO (10-20); Calcium,Total 9.3 mg/dL (8.5-10.1); Chloride 102 mmol/L (98-107); EST Glomerular Filtration Rate 106 mL/min (>60); Est Glom Filt Rate - Afr Amer 128 mL/min (>60); Glucose 87 mg/dL (74-106); Potassium 3.6 mmol/L (3.5-5.1); Sodium Level 136 mmol/L (136-145)
[2020-09-04 16:08] LABS: Absolute CD4 Helper 754 /uL (359-1519); Basophils (Absolute) 0 x10E3/uL (0.0-0.2); Eosinophils 1 % (Not Estab.); Eosinophils (Absolute) 0.1 x10E3/uL (0.0-0.4); Hematocrit 44.2 % (37.5-51.0); Hemoglobin 15.3 g/dL (13.0-17.7); Immature Granulocytes 0 % (Not Estab.); Lymphs 31 % (Not Estab.); Lymphs (Absolute) 2.1 x10E3/uL (0.7-3.1); MCH 34.5 pg (26.6-33.0); MCHC 34.6 g/dL (31.5-35.7); MCV 100 fL (79-97); Monocytes 8 % (Not Estab.); Monocytes (Absolute) 0.6 x10E3/uL (0.1-0.9); Neutrophils 59 % (Not Estab.); Neutrophils (Absolute) 3.9 x10E3/uL (1.4-7.0); Percent % CD4 Pos. Lymph. 35.9 % (30.8-58.5); Platelets 235 x10E3/uL (150-450); RBC Count 4.44 x10E6/uL (4.14-5.80); RDW 12.3 % (11.6-15.4); WBC Count 6.7 x10E3/uL (3.4-10.8)
[2020-09-04 16:41] LABS: Immature Granulocytes Absolute 0 x10E3/uL (0.0-0.1)
[2020-09-05 13:02] LABS: HIV-1 RNA by PCR, Quant. < 20 copies/mL (.)
== END ==
PROVIDERS: PCP Family Medicine; Referring Provider Internal Medicine Infectious Disease; Visit Provider Internal Medicine Infectious Disease
DX: B20 Human immunodeficiency virus [HIV] disease (principal)
CPT/HCPCS: 36415; 80048; 85025; 86361; 87536

== ENCOUNTER → 2020-12-16 12:43 | Outpatient (CLI) | payer BC, SELFPAY ==
--- NOTE | 2020-12-16 13:05 | EKG12_ITS ---
Test Reason : PRE OP Blood Pressure : / mmHG Vent. Rate : 092 BPM Atrial Rate : 092 BPM P-R Int : 148 ms QRS Dur : 086 ms QT Int : 354 ms P-R-T Axes : 049 019 017 degrees QTc Int : 437 ms Normal sinus rhythm with sinus arrhythmia Normal ECG Confirmed by SHANNAN ROSAS, JENNA ([id number]), state editor DAMARI MARTE ([id number]) on 12/17/2020 9:28:29 AM Referred By: Brandon Mitchell Confirmed By:JENNA CAMPBELL MD
--- NOTE | 2020-12-16 13:06 | CT_ITS ---
STUDY: CT ABDOMEN AND PELVIS WITH CONTRAST REASON FOR EXAM: Male, 55 years old. Left inguinal hernia RADIATION DOSAGE (If Supplied By Facility): CTDIvol = ( 5.35 ) mGy, DLP = ( 407.94 ) mGycm TECHNIQUE: Transaxial images were obtained from the dome of the diaphragm to the symphysis pubis without oral contrast. IV 100ML ISOVUE 300 was administered. Sagittal and coronal images were reconstructed. Individualized dose optimization techniques were used for this CT. COMPARISON: Comparison is made with prior study dated 01/22/2011. FINDINGS: The visualized lung bases are unremarkable. Coronary artery calcification. Normal liver. Normal gallbladder and extrahepatic biliary system. Normal spleen. Normal pancreas. Normal bilateral adrenal glands. There is a 4 mm nonobstructive calculus in the upper pole calyx of the right kidney. Normal left kidney. Normal visualized stomach. Normal small intestine. Normal colon. The appendix is visualized and appears normal. There is scattered atherosclerotic calcification of the abdominal aorta, without a demonstrated aneurysm. Normal inferior vena cava. Normal retroperitoneum. Normal urinary bladder. Small left inguinal hernia containing nondilated small bowel. There are degenerative changes of the visualized lumbar spine. CT/Abdomen/Pelvis W IV Cont ONLY IMPRESSION: Small left inguinal hernia containing nondilated small bowel. Electronically Signed: Ector Funes MD at 13:43 EST , Service support ,
[2020-12-16 13:26] LABS: Hematocrit 42.3 % (40-54); Hemoglobin 14.4 g/dL (13.0-16.5); Mean Platelet Vol. 8.8 fl (6.2-12.0); Platelet Count 211 K/mm3 (150-450); RBC Distribution Width CV 12.6 % (11.6-14.6); RBC Distribution Width SD 46.7 fl (35.1-43.9); Red Blood Count 4.23 M/mm3 (4.6-6.2); White Blood Count 7.4 K/mm3 (4.4-11.0)
[2020-12-16 14:18] LABS: Anion Gap 5 (5-15); BUN 16 mg/dL (7-18); BUN/Creat Ratio 16.6 RATIO (10-20); Calcium,Total 9.2 mg/dL (8.5-10.1); Chloride 104 mmol/L (98-107); Creatinine, Serum 0.96 mg/dL (0.70-1.30); EST Glomerular Filtration Rate 86 mL/min (>60); Est Glom Filt Rate - Afr Amer 104 mL/min (>60); Glucose 133 mg/dL (74-106); Potassium 3.9 mmol/L (3.5-5.1); Sodium Level 137 mmol/L (136-145)
== END ==
PROVIDERS: Orthopaedic Surgery; PCP Family Medicine; Referring Provider Surgery; Visit Provider Surgery
DX: Z01.810 Encounter for preprocedural cardiovascular examination (principal); K40.90 Unilateral inguinal hernia, without obstruction or gangrene, not specified as recurrent; R10.31 Right lower quadrant pain
CPT/HCPCS: 36415; 74177; 80048; 85027; 93005; Q9967; A4216

== ENCOUNTER → 2021-01-19 08:28 | Outpatient (CLI) | payer BC, SELFPAY ==
[2021-01-19 10:15] LABS: Absolute Lymphocyte Count 2.06 X10^3/uL (0.83-4.51); Absolute Neutrophil Count 2.7 X10^3/uL (2.0-7.7); Basophil# 0.03 X10^3/uL; Basophil% 0.6 % (0-1); Eosinophil# 0.08 X10^3/uL; Eosinophils% 1.5 % (0-5); Hematocrit 41.3 % (40-54); Hemoglobin 13.8 g/dL (13.0-16.5); Lymphocyte # 2.06 X10^3/ul (0.83-4.51); Mean Corp Hgb Conc 33.4 g/dL (32-36); Mean Corpuscular Hgb 34.1 pg (27.0-32.0); Mean Platelet Vol. 8.8 fl (6.2-12.0); Monocyte# 0.53 X10^3/uL; Monocyte% 9.8 % (0-10); NRBC Flagged by Analyzer 0 % (0-5); Neutrophil % 49.7 % (47-70); Platelet Count 215 K/mm3 (150-450); RBC Distribution Width CV 12.6 % (11.6-14.6); RBC Distribution Width SD 47.8 fl (35.1-43.9); Red Blood Count 4.05 M/mm3 (4.6-6.2); White Blood Count 5.4 K/mm3 (4.4-11.0)
[2021-01-19 10:42] LABS: AST(SGOT) 18 U/L (15-37); Alanine Aminotransfer ALT/SGPT 24 U/L (16-61); Albumin, Serum 3.4 g/dL (3.2-5.0); Alkaline Phosphatase 79 U/L (45-117); Bilirubin, Direct 0.07 mg/dL (0.00-0.30); Globulin 3.8 g/dL (2.2-4.2); Protein, Total 7.2 g/dL (6.4-8.2)
[2021-01-20 13:07] LABS: Absolute CD4 Helper 657 /uL (359-1519); Basophils (Absolute) 0 x10E3/uL (0.0-0.2); Eosinophils 2 % (Not Estab.); Eosinophils (Absolute) 0.1 x10E3/uL (0.0-0.4); Hematocrit 40.1 % (37.5-51.0); Hemoglobin 13.9 g/dL (13.0-17.7); Immature Granulocytes 1 % (Not Estab.); Lymphs 38 % (Not Estab.); Lymphs (Absolute) 2.1 x10E3/uL (0.7-3.1); MCH 34.1 pg (26.6-33.0); MCHC 34.7 g/dL (31.5-35.7); MCV 98 fL (79-97); Monocytes 10 % (Not Estab.); Monocytes (Absolute) 0.6 x10E3/uL (0.1-0.9); Neutrophils 48 % (Not Estab.); Neutrophils (Absolute) 2.7 x10E3/uL (1.4-7.0); Percent % CD4 Pos. Lymph. 31.3 % (30.8-58.5); Platelets 211 x10E3/uL (150-450); RBC Count 4.08 x10E6/uL (4.14-5.80); RDW 12.6 % (11.6-15.4); WBC Count 5.6 x10E3/uL (3.4-10.8)
[2021-01-20 15:33] LABS: Immature Granulocytes Absolute 0 x10E3/uL (0.0-0.1)
[2021-01-21 16:19] LABS: HIV-1 RNA by PCR, Quant. < 20 copies/mL (.)
== END ==
PROVIDERS: PCP Internal Medicine; Referring Provider Internal Medicine Infectious Disease; Visit Provider Internal Medicine Infectious Disease
DX: B20 Human immunodeficiency virus [HIV] disease (principal)
CPT/HCPCS: 36415; 80076; 85025; 86361; 87536

== ENCOUNTER 2021-01-29 08:09 | Day surgery (SDC) | payer BC, SELFPAY ==
[2021-01-29] VITALS (9 sets, daily range): BP systolic 120–149; BP diastolic 70–99; PULSE 67–98; RESP 16; TEMP 36–36.4; O2SAT 95–99; BMI 24.5
--- NOTE | 2021-01-29 08:46 | HP.PCM_ITS ---
History and Physical Date of Admission: 01/29/21 Intake Vital Signs 01/05/21 13:21 Height 5 ft 8 in Weight: 160 lb BMI 24.3 BP 134/97 H Blood Pressure Location Rt brachial Position Sitting Respiration 18 Intake Visit Reasons: Hernia Surgery 01/12 Chief Complaint: hernia surgery Entry Level Account Representative Required: No Is patient in pain?: No Allergies amoxicillin [From Augmentin] Adverse Reaction (Verified 01/05/21 13:23) Hives clavulanic acid [From Augmentin] Adverse Reaction (Verified 01/05/21 13:23) Hives Medications itgqmaok-saxkvivtzsny-xdfdcia 1 tab PO DAILY 06/12/18 [History Confirmed 01/05/21] naproxen 500 mg PO BID PRN PRN #20 tab 06/12/18 [Rx Confirmed 01/05/21] omeprazole 40 mg PO DAILY 06/12/18 [History Confirmed 01/05/21] loperamide 2 mg capsule 6 mg PO BID cap 01/15/19 [History Confirmed 01/05/21] apremilast 30 mg tablet 30 mg PO BID 12/09/20 [History Confirmed 01/05/21] cetirizine 10 mg tablet 20 mg PO DAILY PRN tab 12/09/20 [History Confirmed 01/05/21] nelfinavir 250 mg tablet 750 mg PO TID 12/09/20 [History Confirmed 01/05/21] PFSH Medical History Abdominal pain Abdominal pain AIDS Anal condyloma Anal dysplasia Diarrhea Diarrhea GERD (gastroesophageal reflux disease) GERD (gastroesophageal reflux disease) Left inguinal hernia Nausea & vomiting Weight loss Surgical History history left bicep tendon repair history left ulnar nerve repair History of bilateral carpal tunnel release Family History Mother Asthma Arthritis Diabetes Heart disease Hypertension High cholesterol Grandfather Cancer lung cancer Father Heart disease High cholesterol Hypertension Cancer skin cancer Social History Smoking Status: Never smoker alcohol intake: never substance use type: does not use HPI HPI HPI: YAIR MILLS, is a 55 M who presents to the office today for consultation for inguinal hernia. The patient has a left inguinal hernia which is symptomatic. Patient is not having any symptoms on the opposite side. No nausea or vomiting. ROS General General: No weight change, appetite, fatigue, colon cancer, breast cancer or weakness HEENT HEENT: No difficulty swallowing, eye injury, eye surgery, swollen glands or hoarseness Endo Endocrine: No thyroid disease, diabetes mellitus, thyroid cancer, Hair loss, heat intolerance or cold intolerance Skin Skin: No rash or changing moles Breast Breast: No left breast lump, right breast lump, nipple discharge, breast pain, abnormal mammogram, abnormal US or breast enlargement Musc Musculoskeletal: No back problems, arthritis, rheumatoid arthritis, gout or join t pain Cardio Cardiovascular: No murmur, pacemaker, heart disease, atrial fibrillation, high blood pressure, heart attack, heart stent, palpitations, shortness of breat with exertion or chest pain Psych Psychiatric: No depression, anxiety or hearing voices Resp Respiratory: No shortness of breath, No sleep apnea, No cough, No COPD, No asthma, No emphysema and No wheezing Gastro Gastrointestinal: No abdominal pain, No nausea or vomiting, Yes diarrhea, No constipation, No blood in stool, Yes acid reflux, No hemorrhoids, No ulcers, No gallbladder problem and No black,tarry stools Benito Hematologic: No blood thinners, No blood disorders, No bleeding, No anemia and No blood clots Neuro Neurologic: No system reviewed and no additional complaints, except as documented, No as per HPI, No abnormal gait, No abnormal hearing, No abnormal movements, No abnormal speech, No behavioral changes, No burning sensations, No confusion, No convulsions, No disequilibrium, No dizziness, No localized weakness, No frequent falls, No headache(s), No lack of coordination, No loss of vision, No memory loss, No numbness, No other visual disturbances, No radicular pain, No restless legs, No sensory deficit, No syncope, No tingling, No tremor(s), No weakness and No other Exam Const General: cooperative Orientation: alert and oriented x3 HENMT Head: normal to inspection Neck Neck: normal visual inspection and full ROM Chest Chest palpation & inspection: normal inspection of the chest Resp Effort & Inspection: normal respiratory effort Auscultation: clear to auscultation bilaterally Cardio Rate: regular rate Rhythm: regular rhythm GI Inspection: non-distended Palpation: soft, hernia indirect inguinal on the left and nontender Skin General: no rashes or lesions noted Neuro General: patient alert and patient oriented x3 Extrem General: full ROM Psych Appearance: grossly normal Mental Status: mental status grossly normal Assessment and Plan Assessment and Plan (1) Left inguinal hernia: Status: Acute Plan - Dr. Shaheen Powers MD: Patient has a symptomatic left inguinal hernia. This was seen on CT scan as well. There is also a possible small right inguinal hernia on CT. I discussed inguinal hernia repair with him in detail. I discussed robotic assisted laparoscopic approach. I discussed the procedure in detail as well as the risks including but not limited to bleeding, infection, injury to other organ such as the bowel, spermatic cord, blood supply to the leg. I also discussed the possibility of chronic groin pain. Patient understands all the risks and is willing to proceed. Plan for robotic assisted laparoscopic left inguinal hernia repair with mesh. The patient would like the contralateral side repaired if hernia is present. Shaheen Powers MD Pager: [facility] [address] [place] [address] [address] [place] [address] Office: I have re-examined the patient. There are no clinical changes since date of exam.
[2021-01-29] MEDS: Lactated Ringers 1,000 ML 15 ML IV (08:53)
--- NOTE | 2021-01-29 09:45 | LIP_PTH ---
PATIENT: YAIR MILLS LOC: [facility] [place] U#:[id number] AGE/SX: 55/M ROOM: RE01/29/[address]: Dr. Shaheen Powers MD : [id number] BED: DIS: 01/29/2021 SPEC #: [id number] RECD: 01/29/21 10:53 STATUS: UBALDO SANDERS #: [id number] JOHN: 01/29/21 09:[address]: Shaheen Powers DEPT: SURGICAL PATHOLOGY RECD BY: Opal Solrozano ENTERED: 01/29/21 11:08 SP TYPE: LIPOMA OTHR DR: Dr. Edwina Johnson MD Tissues: Soft tissues, NOS Procedures: Surgery Specimen Level III HEADER OPERATION: Lap robotic inguinal hernia with mesh PRE-OP DIAGNOSIS: Left inguinal hernia TISSUE SUBMITTED: Lipoma of left cord MICROSCOPIC DIAGNOSIS Lipoma of left cord: Mature adipose tissue, consistent with lipoma. SJ:giulia 02/02/2021 MICROSCOPIC DESCRIPTION Slides are reviewed. GROSS DESCRIPTION Received in fixative is one container labeled with the patient's name and designated lipoma of left cord. The specimen consists of multiple irregular fragments of brandt-yellow fatty tissue that in aggregate measure 6 x 5.5 x 1 cm. Serial sections do not reveal mass lesions. Sections are submitted in two cassettes. / AM:giulia 01/29/21 TC:1 CPT: 19217
[2021-01-29] MEDS: Bupivacaine Mpf 0.5% 30 ML VIAL (10:30)
--- NOTE | 2021-01-29 11:02 | PCM.OPRPT ---
Problems Associated Problem List Diagnoses (1) Left inguinal hernia: Report of Operation Date of Procedure: 01/29/21 Pre-Operative Diagnosis: Left inguinal hernia Post-Operative Diagnosis: Same Surgery/Procedure Performed:: Robotic assisted laparoscopic left inguinal hernia repair with mesh Specimen's removed: Lipoma of the left cord Description of Procedure: Patient was brought back the operating room and general anesthesia was induced. The abdomen was prepped and draped in usual sterile fashion. An incision was made superior to the umbilicus deep to the fascia was was elevated and a Veress needle was placed into the abdomen. Drop test was performed and then the abdomen was insufflated 15 mmHg. Veress needle was removed and a camera port was placed into the abdomen. The camera was placed in the abdomen and inspected and there were no injuries from entry and the patient had a left inguinal hernia without right inguinal hernia. Under direct visualization a right lateral and left lateral 8 mm robotic port were placed. The patient was then placed in Trendelenburg position and the robot was docked. Next using electrocautery scissors the peritoneum in the left lower quadrant was incised and dissection was carried inferiorly until the hernia sac was identified and reduced. There is also a large lipoma of the left cord which was dissected free using electrocautery and removed. Next ProGrip mesh was trimmed and placed in the left lower quadrant and unfolded over the hernia defect allowing for good overlap. The peritoneum was then reapproximated using a running 3 OV lock suture. There was good coverage of the mesh completely with peritoneum. Next the robot was undocked and the ports were removed allowing the abdomen to desufflate. The incisions were injected with local anesthetic and then closed with interrupted 4-0 Monocryl sutures as well as Steri-Strips and OpSite's. The scrotum was checked at the end the case and contain both testicles. Patient was then awoken and taken to PACU in stable condition tolerated the procedure well. Grafts/Implants Used: ProGrip mesh in the left inguinal region Admit VTE Documentation VTE Mechan Device Prophylaxis: SCD's
--- NOTE | 2021-01-29 11:05 | EX.PCM.DISCH ---
Discharge Instructions Procedure Hernia Diet Discharge Diet: Light diet - advance as tolerated Activity Discharge Activity: May Not Drive (for 2-3 days or while taking narcotic pain meds.) and May Shower (with the bandage in place 1-2 days after surgery.) Lifting Restrictions: 20 pounds for 4 weeks. Additional Activity Instructions:: Climbing stairs is fine, walking is encouraged. Sitting in bed may be uncomfortable. Sitting up using your lateral muscles (sitting up sideways) is usually more comfortable. Do not drive, work heavy equipment of sign legal documents for 24 hours. If your hernia repair was an ingunial repair, you may have scrotal swelling, an ice pack and/or athletic support can provide more comfort. Pain medications may cause nausea, you should typically eat light foods as you take your pain medications. Pain medications may also cause constipation. If you have difficulty with this, discuss with your doctor. Dressing / Incision Call your doctor if your incision/area has: Continuous Slow Oozing, Sudden Increased Bleeding, Increased Pain/ Swelling, Increased Redness and Foul Smelling Discharge Call your doctor if you observe: Fever of 101 or Higher Suture Line Care: Avoid Pulling/Pushing and Avoid Pinching/Bending Remove Dressing in: 2 days Cleanse incision/area with: Soap & Water Follow Up Care Please Follow Up With: Shaheen Powers MD When: Please call to schedule 2 week follow up appointment. [phone] Test Results: Test results from this visit will be discussed in further detail at your follow-up appointment, if applicable. Discharge Plan Admission Attending Provider: Shaheen Powers Primary Care Provider: Edwina Johnson Discharge Orders/Prescriptions Prescriptions: New oxycodone-acetaminophen [Percocet] 5-325 mg tablet 1 tab PO Q4H PRN (Reason: pain) 5 Days Qty: 10 RF: 0 No Action loperamide [Imodium A-D] 2 mg capsule 6 mg PO PRN PRN (Reason: Constipation) RF: 0 cetirizine [Zyrtec] 10 mg tablet 20 mg PO DAILY PRN (Reason: ALLERGIES) RF: 0 valacyclovir 1 gram tablet 1,000 mg PO DAILY RF: 0 epinephrine 0.3 mg/0.3 mL auto-injector 0.3 mg IM Q5-15M PRN (Reason: anaphylaxis) Qty: 2 RF: 0 omeprazole 40 MG capsule,delayed release(DR/EC) 40 mg PO DAILY RF: 0 hmlwcbfs-gopzjcjtkexz-cssxcba 600-50- tablet 1 tab PO DAILY RF: 0 Referrals / Follow Up: Edwina Johnson MD [Primary Care Provider] - Disposition Disposition (needs filled in before D/C Order can be placed): Home, Self Care
[2021-01-29] MEDS: Acetaminophen 500 MG Tablet 1000 MG PO (11:57)
== END 2021-01-29 14:32 | disposition home or self-care (01) ==
LOC: SDC 08:12 → AC 08:15
PROVIDERS: PCP Internal Medicine; Referring Provider Surgery; Visit Provider Surgery
PROC: 0YQ64ZZ Repair Left Inguinal Region, Percutaneous Endoscopic Approach (ICD-10-PCS; CPT 49650; principal; 2021-01-29 09:25)
DX: K40.90 Unilateral inguinal hernia, without obstruction or gangrene, not specified as recurrent (principal); D17.6 Benign lipomatous neoplasm of spermatic cord; B20 Human immunodeficiency virus [HIV] disease; Z79.899 Other long term (current) drug therapy; K21.9 Gastro-esophageal reflux disease without esophagitis
CPT/HCPCS: 49650; S2900; 88304; J7120; J2405

== ENCOUNTER 2021-01-30 09:28 | Emergency (ER) | payer BC, SELFPAY ==
[2021-01-30 09:33] VITALS: BP 167/142; PULSE 67; RESP 18; TEMP 36.2; O2SAT 98; BMI 24.6
[2021-01-30 09:51] VITALS: BP 154/99; PULSE 81
--- NOTE | 2021-01-30 09:59 | EKG12_ITS ---
Test Reason : Blood Pressure : / mmHG Vent. Rate : 072 BPM Atrial Rate : 072 BPM P-R Int : 146 ms QRS Dur : 088 ms QT Int : 408 ms P-R-T Axes : 038 000 010 degrees QTc Int : 446 ms Normal sinus rhythm Normal ECG Confirmed by PHIL ROSAS, KELVIN ([id number]), state editor DAMARI MARTE ([id number]) on 02/03/2021 9:37:41 AM Referred By: МАРИЯ Confirmed By:KELVIN VILLARREAL MD
--- NOTE | 2021-01-30 09:59 | CT_ITS ---
STUDY: CTA CHEST REASON FOR EXAM: Male, 55 years old. Acute substernal chest pain RADIATION DOSAGE (If Supplied By Facility): CTDIvol = ( 12.53 ) mGy, DLP = ( 421.66 ) mGycm TECHNIQUE: The examination was performed with the intravenous administration of IV 100mL Isovue-370. Post-processing of the angiographic images was performed, with multiplanar reformation and 3D reconstruction. Individualized dose optimization techniques were used for this CT. COMPARISON: None. FINDINGS: Normal enhancement of the main pulmonary artery and right and left pulmonary arteries. Normal enhancement of the bilateral peripheral pulmonary arteries. There is no demonstrated pulmonary embolism. Normal thoracic aorta and visualized great vessels. There is no demonstrated aortic dissection. Normal heart and pericardium. Normal mediastinum. Normal hilar regions. Normal visualized trachea and bronchi. The lungs are well expanded. Chronic interstitial changes in both lung swan without a superimposed acute pulmonary process. Normal pleura. Normal chest wall structures. There are degenerative changes of thoracic spine. There is subcutaneous emphysema within the anterior pericardial fat as well as within the diaphragm, and a few bubbles of free intraperitoneal air. The free intraperitoneal air suggests a ruptured viscus, the source is not apparent on this study. The air within the anterior pericardial fat and diaphragm muscle is of unknown certain etiology. CT/CTA Chest W/WO Contrast IMPRESSION: No demonstrated PE, or thoracic aortic aneurysm or dissection Chronic interstitial changes in both lung swan without a superimposed acute pulmonary process There are bubbles of free intraperitoneal air as well as bubbles of air within the anterior pericardial fat and within the diaphragm muscle. Etiology of these is unknown, the free intraperitoneal air suggests a ruptured abdominal viscus Further evaluation with CT abd/pelvis suggested N.B. : The above Results were Read Back by Prabhu Espinoza MD to JAMES HSIEH MD, and understanding confirmed on 01/30/2021 11:05:17 (ET). Electronically Signed: Prabhu Espinoza MD at 11:06 EST , Service support ,
--- NOTE | 2021-01-30 10:01 | EX.ED.DYSGE1 ---
HPI History of Present Illness Chief Complaint: Chest Pain Informant: patient Narrative Narrative: Patient presents with chest discomfort. He also has pain across the back of his shoulders and neck area. He felt as though he needed to take a deep breath. No syncope or presyncope. Nothing specifically makes this better or worse. He states he just does not feel right. Patient had laparoscopic repair of left inguinal hernia done yesterday. That area is actually doing well. He is eating and drinking. He is urinating well. He has not moved his bowels yet but does not feel as though he needs to. He has had no fevers or chills. Nothing specifically makes his symptoms better or worse or changes them. [facility] Medical History Abdominal pain Abdominal pain AIDS Anal condyloma Anal dysplasia Arthritis Back pain Cancer Diarrhea Diarrhea Gastric reflux GERD (gastroesophageal reflux disease) GERD (gastroesophageal reflux disease) History of steroid therapy Kidney stones Left inguinal hernia Nausea & vomiting Weight loss Home Medications yxufkjzn-wjopxbckjvbn-ztsamok 1 tab PO DAILY 06/12/18 [History Last Taken Unknown] omeprazole 40 mg PO DAILY 06/12/18 [History Last Taken 01/29/21] loperamide 2 mg capsule 6 mg PO PRN PRN cap 01/15/19 [History Last Taken 01/29/21] cetirizine 10 mg tablet 20 mg PO DAILY PRN tab 12/09/20 [History Last Taken Unknown] epinephrine 0.3 mg/0.3 mL injection, auto-injector 0.3 mg IM Q5-15M PRN #2 ea 01/07/21 [Rx Last Taken Unknown] valacyclovir 1 gram tablet 1,000 mg PO DAILY 01/07/21 [History Last Taken Unknown] oxycodone-acetaminophen [Percocet] 1 tab PO Q4H PRN 5 Days #10 tab 01/29/21 [Rx Last Taken Unknown] tramadol 50 mg PO Q6H PRN 3 Days #12 tab 01/30/21 [Rx Last Taken Unknown] Allergy/AdvReac Type Severity Reaction Status Date / Time bee venom protein (honey bee) Allergy Severe Anaphylaxis Verified 01/29/21 08:41 adhesive tape AdvReac Rash Verified 01/29/21 08:41 amoxicillin [From Augmentin] AdvReac Hives Verified 01/29/21 08:41 clavulanic acid AdvReac Hives Verified 01/29/21 08:41 [From Augmentin] Family History Mother Asthma Arthritis Diabetes Heart disease Hypertension High cholesterol Grandfather Cancer lung cancer Father Heart disease High cholesterol Hypertension Cancer skin cancer Surgical History history left bicep tendon repair history left ulnar nerve repair History of bilateral carpal tunnel release History of shoulder surgery Social History Smoking Status: Never smoker alcohol intake: never substance use type: does not use ROS ROS ED Constitutional Constitutional ED: Denies chills or fever(s) Eyes Eyes: Denies blurry vision or diplopia ENT ENT ED: Denies rhinorrhea or sore throat Cardiovascular Cardiovascular: Reports chest pain; Denies palpitations or racing heartbeat Respiratory/Chest Respiratory/Chest: Reports dyspnea; Denies cough or sputum Gastrointestinal Gastrointestinal: Denies nausea or vomiting Genitourinary Genitourinary ED: Denies dysuria, hematuria or urinary frequency Musculoskeletal Musculoskeletal: Reports neck pain; Denies myalgias Integumentary Denies rash Neurologic Neurologic: Denies paresthesias or weakness Endocrine Endocrinology: Denies polydipsia or polyuria Allergic/Immunologic Allergic/Immunologic ED: Denies mouth swelling or urticaria EXAM Physical Exam Const Vital Signs: 01/30/21 09:33 01/30/21 09:51 01/30/21 10:18 Temperature 97.1 F L Temperature Source Temporal Pulse Rate 67 81 Respiratory Rate 18 Blood Pressure 167/142 H 154/99 H Blood Pressure Mean 150 117 Pulse Ox 98 Oxygen Delivery Method Room Air Room Air 01/30/21 12:02 01/30/21 12:52 Temperature Temperature Source Pulse Rate 70 85 Respiratory Rate 16 17 Blood Pressure 140/90 H 115/68 Blood Pressure Mean 106 83 Pulse Ox 99 94 Oxygen Delivery Method Room Air Positive well nourished and well developed General Appearance ED: well developed and NAD HEENT Reports moist mucous membranes Eyes General Eye ED: Negative for pale conjunctiva or scleral icterus Neck no JVD Chest Wall inspection of chest normal and palpation of chest normal Resp normal respiratory effort and clear to auscultation bilaterally Resp Narrative: Patient's lungs are clear. It does not appear to hurt at all with a deep breath. He does state that he feels as though he needs to take a deeper breath than normal. No asymmetry of breath sounds. No subcu air on palpation. Effort and Inspection: Negative for pain with movement Auscultation: Negative for rales, rhonchi or wheezes Cardio regular rate, regular rhythm and no murmurs GI normal to inspection, nondistended, normoactive bowel sounds GI Narrative: Patient's port sites look good. There is no abnormal tenderness around these areas, abdomen or the inguinal area. Considering he is 1 day postop, his exam is relatively benign. Palpation: soft Back/Spine no CVA tenderness Extremity normal to inspection Neuro oriented x3 Sensorium / Orientation: alert Psych mental status grossly normal Skin no rashes or lesions noted MDM MDM MDM Narrative Medical decision making narrative: Patient's blood work show mild nonspecific elevation white count 11.7. Electrolytes are normal. First troponin and second troponin are still negative. CT showed no pulmonary embolus dissection or aneurysm. There was some signs of free intraperitoneal air as well as some air bubbling into the diaphragm and pericardium. This is likely from his surgery. I rechecked the patient. He states he now knows what happened. He forgot that he has an allergy to Percocet. He states same thing happen when he last took it. He had forgotten all about this. He states he felt kind of tight in the chest and throat. He had a sense of uneasiness. His symptoms are now resolved. I will write for some tramadol which he has tolerated before. I told him not to take the Percocet again. I will call his surgeon, Dr. Powers to let him know the events and that this patient came to the emergency department the day following surgery. We discussed reasons to return with the patient. Lab Data Attestation: I reviewed the patient's lab results. Labs: Laboratory Results - last 24 hr 01/30/21 01/30/21 01/30/21 09:40 09:40 11:50 WBC 11.7 H RBC 4.38 L Hgb 15.2 Hct 44.5 MCV 101.6 H MCH 34.7 H MCHC 34.2 RDW Std Deviation 47.8 H RDW Coeff of Micheline 12.7 Plt Count 228 MPV 8.9 Immature Gran % (Auto) 0.400 Neut % (Auto) 64.9 Lymph % (Auto) 24.1 [place] % (Auto) 10.1 H Eos % (Auto) 0.3 Baso % (Auto) 0.2 Absolute Neuts (auto) 7.6 Absolute Lymphs (auto) 2.81 Nucleated RBC % 0 Sodium 138 Potassium 3.5 Chloride 104 Carbon Dioxide 29.0 Anion Gap 5 BUN 13 Creatinine 0.81 Estim Creat Clear Calc 99.69 Est GFR (MDRD) Af Amer 128 Est GFR (MDRD) Non-Af 105 BUN/Creatinine Ratio 16.1 Glucose 108 H Calcium 9.2 Troponin I High Sens < 3 L 4 Radiography Diagnostic Testing: Clinical Impression(s) from Imaging Studies Chest CTA 01/30/21 09:59 IMPRESSION: No demonstrated PE, or thoracic aortic aneurysm or dissection Chronic interstitial changes in both lung swan without a superimposed acute pulmonary process There are bubbles of free intraperitoneal air as well as bubbles of air within the anterior pericardial fat and within the diaphragm muscle. Etiology of these is unknown, the free intraperitoneal air suggests a ruptured abdominal viscus Further evaluation with CT abd/pelvis suggested N.B. : The above Results were Read Back by Prabhu Espinoza MD to JAMES VALE MD, and understanding confirmed on 01/30/2021 11:05:17 (ET). Electronically Signed: Prabhu Espinoza MD at 11:06 EST , Service support , ADDENDUM: 01/30/21 1113 IMPRESSION: No demonstrated PE, or thoracic aortic aneurysm or dissection Chronic interstitial changes in both lung swan without a superimposed acute pulmonary process There are bubbles of free intraperitoneal air as well as bubbles of air within the anterior pericardial fat and within the diaphragm muscle. Etiology of these is unknown, the free intraperitoneal air suggests a ruptured abdominal viscus Further evaluation with CT abd/pelvis suggested N.B. : The above Results were Read Back by Prabhu Espinoza MD to JAMES VALE MD, and understanding confirmed on 01/30/2021 11:05:17 (ET). Electronically Signed: Prabhu Espinoza MD at 11:06 EST , Service support , ADDENDUM: 01/30/21 1117 EKG Initial EKG: Comments: EKG done for chest pain read by me shows a normal sinus rhythm with rate of 72. There is some irregular baseline but no acute ST elevation or depression. No ectopy. SD interval, QRS duration and QTc are normal. No apparent significant change from 16 December 2020. Discharge Plan Triage Chief Complaint: Chest Pain ED Provider: James Vale Dx/Rx/DC Orders Clinical Impression: Chest pain, Medication adverse effect Instructions: ED Chest Pain, Noncardiac, ED Drug Reaction, Other Prescriptions: New tramadol 50 mg tablet 50 mg PO Q6H PRN (Reason: pain) 3 Days Qty: 12 RF: 0 No Action loperamide [Imodium A-D] 2 mg capsule 6 mg PO PRN PRN (Reason: Constipation) RF: 0 cetirizine [Zyrtec] 10 mg tablet 20 mg PO DAILY PRN (Reason: ALLERGIES) RF: 0 valacyclovir 1 gram tablet 1,000 mg PO DAILY RF: 0 epinephrine 0.3 mg/0.3 mL auto-injector 0.3 mg IM Q5-15M PRN (Reason: anaphylaxis) Qty: 2 RF: 0 omeprazole 40 MG capsule,delayed release(DR/EC) 40 mg PO DAILY RF: 0 gjorzgvy-xphqabdiygke-enjspwp 600-50- tablet 1 tab PO DAILY RF: 0 oxycodone-acetaminophen [Percocet] 5-325 mg tablet 1 tab PO Q4H PRN (Reason: pain) 5 Days Qty: 10 RF: 0 Primary Care Provider: Alessandro Roberson Referrals: Alessandro Roberson MD [Primary Care Provider] - Disposition Disposition: Home, Self Care
[2021-01-30 10:12] LABS: Absolute Lymphocyte Count 2.81 X10^3/uL (0.83-4.51); Absolute Neutrophil Count 7.6 X10^3/uL (2.0-7.7); Basophil# 0.02 X10^3/uL; Basophil% 0.2 % (0-1); Eosinophil# 0.04 X10^3/uL; Eosinophils% 0.3 % (0-5); Hematocrit 44.5 % (40-54); Hemoglobin 15.2 g/dL (13.0-16.5); Lymphocyte # 2.81 X10^3/ul (0.83-4.51); Lymphocyte % 24.1 % (19-41); Mean Corp Hgb Conc 34.2 g/dL (32-36); Mean Corpuscular Hgb 34.7 pg (27.0-32.0); Mean Corpuscular Volume 101.6 fL (80-94); Mean Platelet Vol. 8.9 fl (6.2-12.0); Monocyte# 1.18 X10^3/uL; Monocyte% 10.1 % (0-10); NRBC Flagged by Analyzer 0 % (0-5); Neutrophil # 7.58 X10^3/uL (2.7-7.7); Neutrophil % 64.9 % (47-70); Platelet Count 228 K/mm3 (150-450); RBC Distribution Width CV 12.7 % (11.6-14.6); RBC Distribution Width SD 47.8 fl (35.1-43.9); Red Blood Count 4.38 M/mm3 (4.6-6.2); White Blood Count 11.7 K/mm3 (4.4-11.0)
[2021-01-30] MEDS: Ondansetron 4 MG/2 ML Vial IV (10:12)
[2021-01-30] MEDS: Morphine 4 MG/ML Syringe IV (10:12)
[2021-01-30 10:34] LABS: Anion Gap 5 (5-15); BUN 13 mg/dL (7-18); BUN/Creat Ratio 16.1 RATIO (10-20); Calcium,Total 9.2 mg/dL (8.5-10.1); Chloride 104 mmol/L (98-107); Creatinine, Serum 0.81 mg/dL (0.70-1.30); EST Glomerular Filtration Rate 105 mL/min (>60); Est Glom Filt Rate - Afr Amer 128 mL/min (>60); Estimated Creatinine Clearance 99.69 ml/min; Glucose 108 mg/dL (74-106); Potassium 3.5 mmol/L (3.5-5.1); Sodium Level 138 mmol/L (136-145); Troponin-I HS < 3 pg/mL (3.0-78.0)
[2021-01-30 12:02] VITALS: BP 140/90; PULSE 70; RESP 16; O2SAT 99
[2021-01-30 12:15] LABS: Troponin-I HS 4 pg/mL (3.0-78.0)
[2021-01-30] MEDS: Acetaminophen 500 MG Tablet 1000 MG PO (12:45)
[2021-01-30 12:52] VITALS: BP 115/68; PULSE 85; RESP 17; O2SAT 94
== END 2021-01-30 13:34 | disposition home or self-care (01) ==
PROVIDERS: Emergency Provider Emergency Medicine; PCP Family Medicine
DX: R07.89 Other chest pain (principal); M54.2 Cervicalgia; M25.512 Pain in left shoulder; M25.511 Pain in right shoulder; T40.2X5A Adverse effect of other opioids, initial encounter; Y92.9 Unspecified place or not applicable; M19.90 Unspecified osteoarthritis, unspecified site; K21.9 Gastro-esophageal reflux disease without esophagitis; Z79.899 Other long term (current) drug therapy
CPT/HCPCS: 71275; 80048; 84484; 85025; 93005; 96374; 96375; 99284; J7030; Q9967; A4216; J2405

== ENCOUNTER → 2021-06-03 | Outpatient (CLI) | payer MEDICAID, SELFPAY ==
[2021-06-03 17:10] LABS: Hematocrit 40.6 % (40-54); Hemoglobin 13.9 g/dL (13.0-16.5); Mean Corp Hgb Conc 34.2 g/dL (32-36); Mean Corpuscular Hgb 34.5 pg (27.0-32.0); Mean Corpuscular Volume 100.7 fL (80-94); Platelet Count 213 K/mm3 (150-450); RBC Distribution Width CV 12.2 % (11.6-14.6); RBC Distribution Width SD 45.5 fl (35.1-43.9); Red Blood Count 4.03 M/mm3 (4.6-6.2); White Blood Count 5.3 K/mm3 (4.4-11.0)
[2021-06-03 19:11] LABS: Anion Gap 7 (5-15); BUN 12 mg/dL (7-18); BUN/Creat Ratio 14.5 RATIO (10-20); Calcium,Total 8.6 mg/dL (8.5-10.1); Chloride 111 mmol/L (98-107); Creatinine, Serum 0.82 mg/dL (0.70-1.30); EST Glomerular Filtration Rate 103 mL/min (>60); Est Glom Filt Rate - Afr Amer 124 mL/min (>60); Glucose 128 mg/dL (74-106); Potassium 3.7 mmol/L (3.5-5.1); Sodium Level 142 mmol/L (136-145)
[2021-06-04 09:36] LABS: Syphilis Antibodies Non-reactive
[2021-06-05 14:09] LABS: Absolute CD4 Helper 844 /uL (359-1519); Basophils (Absolute) 0 x10E3/uL (0.0-0.2); Eosinophils 2 % (Not Estab.); Eosinophils (Absolute) 0.1 x10E3/uL (0.0-0.4); Hematocrit 41.1 % (37.5-51.0); Hemoglobin 14.2 g/dL (13.0-17.7); Immature Granulocytes 0 % (Not Estab.); Lymphs 36 % (Not Estab.); MCH 34.8 pg (26.6-33.0); MCHC 34.5 g/dL (31.5-35.7); MCV 101 fL (79-97); Monocytes 10 % (Not Estab.); Monocytes (Absolute) 0.5 x10E3/uL (0.1-0.9); Neutrophils 51 % (Not Estab.); Neutrophils (Absolute) 2.8 x10E3/uL (1.4-7.0); Percent % CD4 Pos. Lymph. 42.2 % (30.8-58.5); Platelets 215 x10E3/uL (150-450); RBC Count 4.08 x10E6/uL (4.14-5.80); RDW 12.6 % (11.6-15.4); WBC Count 5.4 x10E3/uL (3.4-10.8)
[2021-06-05 18:08] LABS: Immature Granulocytes Absolute 0 x10E3/uL (0.0-0.1)
[2021-06-09 11:09] LABS: HIV-1 RNA by PCR, Quant. < 20 copies/mL (.)
== END | disposition home or self-care (01) ==
LOC: BIMLAB 16:01 → LAB 16:23
PROVIDERS: PCP Family Medicine; Visit Provider Internal Medicine Infectious Disease
DX: B20 Human immunodeficiency virus [HIV] disease (principal)
CPT/HCPCS: 36415; 80048; 85027; 86361; 86780; 87536

== ENCOUNTER 2021-06-22 00:11 | Emergency (ER) | payer MEDICAID, SELFPAY ==
[2021-06-22 00:12] VITALS: BP 159/101; PULSE 68; RESP 18; TEMP 36; O2SAT 98; BMI 25.0
--- NOTE | 2021-06-22 00:21 | CT_ITS ---
STUDY: CT ABDOMEN AND PELVIS WITHOUT CONTRAST REASON FOR EXAM: Male, 56 years old. Pain RADIATION DOSAGE (If Supplied By Facility): CTDIvol = ( 7.54 ) mGy, DLP = ( 500.97 ) mGycm TECHNIQUE: Transaxial images were obtained from the dome of the diaphragm to the symphysis pubis without oral contrast, and without intravenous contrast. Sagittal and coronal images were reconstructed. Individualized dose optimization techniques were used for this CT. COMPARISON: None. FINDINGS: The visualized lung bases are unremarkable. The visualized portions of the heart are within normal limits. Normal liver. Normal gallbladder and extrahepatic biliary system. Normal spleen. Normal pancreas. Normal bilateral adrenal glands. Normal right kidney. Normal left kidney. Normal visualized stomach. Normal small intestine. Normal colon. The appendix is visualized and appears normal. Normal abdominal aorta. Normal inferior vena cava. Normal retroperitoneum. Normal urinary bladder. Normal abdominal wall. Normal osseous structures. CT/Abdomen/Pelvis without Cont IMPRESSION: Normal unenhanced CT of the abdomen and pelvis. Electronically Signed: Salvador Soto MD at 3:19 EDT ,
--- NOTE | 2021-06-22 00:22 | EDS_ITS ---
HPI History of Present Illness Chief Complaint: Flank Pain Informant: patient Narrative Narrative: Patient states that an hour or so ago he was going into move his bowels. He had the sudden onset of right lateral flank pain. It was sharp. He started with nausea and vomiting. It is now moved to the right lower quadrant. He states he has had kidney stones but this is nothing like a kidney stone. He felt perfectly fine before this happened. He has not been ill recently. He has not noted blood in the urine. Nothing makes it better or worse. Of note, he has an allergy to Percocet but he has had morphine without any problems in the past. [facility] Medical History Abdominal pain Abdominal pain AIDS Anal condyloma Anal dysplasia Arthritis Back pain Cancer Diarrhea Diarrhea Gastric reflux GERD (gastroesophageal reflux disease) GERD (gastroesophageal reflux disease) History of steroid therapy Kidney stones Left inguinal hernia Nausea & vomiting Weight loss Home Medications tasxtwdc-pgzmjvytlyfr-tiqmgoq 1 tab PO DAILY 06/12/18 [History Last Taken Unknown] valacyclovir 1 gram tablet 1,000 mg PO DAILY 01/07/21 [History Last Taken Unknown] omeprazole 40 mg capsule,delayed release 40 mg PO DAILY #90 cap 02/10/21 [Rx Last Taken Unknown] naproxen 500 mg PO BID #20 tab 06/22/21 [Rx Last Taken Unknown] promethazine 25 mg PO Q6H PRN #10 tab 06/22/21 [Rx Last Taken Unknown] tamsulosin [Flomax] 0.4 mg PO DAILY #10 cap 06/22/21 [Rx Last Taken Unknown] tramadol 50 mg PO Q6H PRN 3 Days #12 tab 06/22/21 [Rx Last Taken Unknown] Allergy/AdvReac Type Severity Reaction Status Date / Time bee venom protein (honey bee) Allergy Severe Anaphylaxis Verified 06/22/21 00:14 acetaminophen [From Percocet] Allergy chest Verified 06/22/21 00:14 tightness, HTN adhesive tape AdvReac Rash Verified 06/22/21 00:14 amoxicillin [From Augmentin] AdvReac Hives Verified 06/22/21 00:14 clavulanic acid AdvReac Hives Verified 06/22/21 00:14 [From Augmentin] oxycodone [From Percocet] AdvReac elevated Verified 06/22/21 00:14 bp, felt funny, chest tightness Family History Mother Asthma Arthritis Diabetes Heart disease Hypertension High cholesterol Grandfather Cancer lung cancer Father Heart disease High cholesterol Hypertension Cancer skin cancer Surgical History history left bicep tendon repair history left ulnar nerve repair History of bilateral carpal tunnel release History of left inguinal hernia repair History of shoulder surgery Social History Smoking Status: Never smoker alcohol intake: never substance use type: does not use ROS ROS ED Constitutional Constitutional ED: Denies chills or fever(s) Eyes Eyes: Denies blurry vision ENT ENT ED: Denies rhinorrhea or sore throat Cardiovascular Cardiovascular: Denies chest pain or palpitations Respiratory/Chest Respiratory/Chest: Denies cough or dyspnea Gastrointestinal Gastrointestinal: Reports abdominal pain, nausea and vomiting; Denies constipation, diarrhea or melena Genitourinary Genitourinary ED: Denies dysuria, hematuria or urinary frequency Musculoskeletal Musculoskeletal: Reports back pain and other Details: Right flank pain Integumentary Denies rash Neurologic Neurologic: Denies paresthesias or weakness Endocrine Endocrinology: Denies polydipsia or polyuria Allergic/Immunologic Allergic/Immunologic ED: Denies urticaria EXAM Physical Exam Const Vital Signs: 06/22/21 00:12 06/22/21 03:21 Temperature 96.8 F L Temperature Source Temporal Pulse Rate 68 97 Respiratory Rate 18 16 Blood Pressure 159/101 H 133/89 H Blood Pressure Mean 120 103 Pulse Ox 98 96 Oxygen Delivery Method Room Air Room Air Positive well nourished and well developed Constitutional Narrative: Patient looks uncomfortable General Appearance ED: well developed; Negative for cyanotic or diaphoretic HEENT Reports moist mucous membranes Eyes General Eye ED: Negative for pale conjunctiva or scleral icterus Neck no JVD Chest Wall inspection of chest normal Resp normal respiratory effort and clear to auscultation bilaterally Cardio regular rate and regular rhythm GI normal to inspection, nondistended, normoactive bowel sounds and non-tender GI Narrative: Patient is in discomfort but there is no obvious tenderness. Palpation: soft Back/Spine Back/Spine Narrative: Mild right CVA tender General Back: CVA tenderness Extremity normal to inspection Neuro oriented x3 Sensorium / Orientation: alert Psych mental status grossly normal Skin no rashes or lesions noted Skin Narrative: No vesicles. MDM MDM MDM Narrative Medical decision making narrative: Blood work shows normal CBC. Electrolytes show minimally decreased potassium. Liver function tests are overall unremarkable. Urine shows a large number of red cells. CAT scan was read as normal. However, there is perinephric stranding hydronephrosis and a 3 to 4 mm stone at the proximal mid ureteral area. This is consistent with his area of pain his presentation his urinalysis and his exam. On recheck, the pain is essentially completely gone. He feels as though he is p assed it but he has not seen it in the urine. There is a good chance this may be in the bladder. It took moderate mount of pain meds to get this patient controlled. But he is essentially pain-free now. Plan will still be to get him home. We will have him follow-up with urology. We discussed reasons to return which would include increased pain, vomiting, fevers. Lab Data Attestation: I reviewed the patient's lab results. Labs: Laboratory Results - last 24 hr 06/22/21 06/22/21 06/22/21 00:15 00:15 02:10 WBC 9.1 RBC 4.23 L Hgb 14.7 Hct 43.1 MCV 101.9 H MCH 34.8 H MCHC 34.1 RDW Std Deviation 45.8 H RDW Coeff of Micheline 12.2 Plt Count 271 MPV 8.7 Immature Gran % (Auto) 0.400 Neut % (Auto) 38.9 L Lymph % (Auto) 48.7 H [place] % (Auto) 10.6 H Eos % (Auto) 1.1 Baso % (Auto) 0.3 Absolute Neuts (auto) 3.5 Absolute Lymphs (auto) 4.43 Nucleated RBC % 0 Sodium 142 Potassium 3.2 L Chloride 107 Carbon Dioxide 28.0 Anion Gap 7 BUN 18 Creatinine 1.10 Estim Creat Clear Calc 72.55 Est GFR (MDRD) Af Amer 89 Est GFR (MDRD) Non-Af 74 BUN/Creatinine Ratio 16.4 Glucose 113 H Calcium 8.6 Total Bilirubin 0.50 AST 32 ALT 35 Alkaline Phosphatase 70 Total Protein 7.7 Albumin 4.0 Globulin 3.7 Albumin/Globulin Ratio 1.1 Urine Color Yellow Urine Clarity Clear Urine pH 7.0 Ur Specific [place] 1.010 Urine Protein 15 H Urine Glucose (UA) Normal Urine Ketones 15 H Urine Occult Blood 250 H Urine Nitrite Negative Urine Bilirubin Negative Urine Urobilinogen Normal Ur Leukocyte Esterase Negative Urine RBC 50-100 SEEN Urine WBC 0-5 SEEN Ur Squamous Epith Cells 0 SEEN Urine Bacteria RARE Urine Mucus 0 SEEN Radiography Diagnostic Testing: Clinical Impression(s) from Imaging Studies Abdomen/Pelvis CT 06/22/21 00:21 IMPRESSION: Normal unenhanced CT of the abdomen and pelvis. Electronically Signed: Salvador Soto MD at 3:19 EDT , Discharge Plan Triage Chief Complaint: Flank Pain ED Provider: Shin Vale Dx/Rx/DC Orders Clinical Impression: Kidney stone on right side Instructions: ED Kidney Stone w/ Colic Prescriptions: New naproxen 500 MG tablet 500 mg PO BID Qty: 20 RF: 0 tramadol 50 mg tablet 50 mg PO Q6H PRN (Reason: pain) 3 Days Qty: 12 RF: 0 tamsulosin [Flomax] 0.4 mg capsule 0.4 mg PO DAILY Qty: 10 RF: 0 promethazine 25 mg tablet 25 mg PO Q6H PRN (Reason: nausea and vomiting) Qty: 10 RF: 0 No Action valacyclovir 1 gram tablet 1,000 mg PO DAILY RF: 0 omeprazole 40 mg capsule,delayed release(DR/EC) 40 mg PO DAILY Qty: 90 RF: 3 udkzlezg-mitakrxpsxwd-qzmkgoi 600-50- tablet 1 tab PO DAILY RF: 0 Primary Care Provider: Alessandro Roberson Referrals: Tang Andrea MD [STAFF PHYSICIAN] - 3-5 Days Alessandro Roberson MD [Primary Care Provider] - Disposition Disposition: Home, Self Care
[2021-06-22 00:27] LABS: Absolute Lymphocyte Count 4.43 X10^3/uL (0.83-4.51); Absolute Neutrophil Count 3.5 X10^3/uL (2.0-7.7); Basophil# 0.03 X10^3/uL; Basophil% 0.3 % (0-1); Eosinophils% 1.1 % (0-5); Hematocrit 43.1 % (40-54); Hemoglobin 14.7 g/dL (13.0-16.5); Lymphocyte # 4.43 X10^3/ul (0.83-4.51); Lymphocyte % 48.7 % (19-41); Mean Corp Hgb Conc 34.1 g/dL (32-36); Mean Corpuscular Hgb 34.8 pg (27.0-32.0); Mean Corpuscular Volume 101.9 fL (80-94); Mean Platelet Vol. 8.7 fl (6.2-12.0); Monocyte# 0.96 X10^3/uL; Monocyte% 10.6 % (0-10); NRBC Flagged by Analyzer 0 % (0-5); Neutrophil # 3.53 X10^3/uL (2.7-7.7); Neutrophil % 38.9 % (47-70); Platelet Count 271 K/mm3 (150-450); RBC Distribution Width CV 12.2 % (11.6-14.6); RBC Distribution Width SD 45.8 fl (35.1-43.9); Red Blood Count 4.23 M/mm3 (4.6-6.2); White Blood Count 9.1 K/mm3 (4.4-11.0)
[2021-06-22] MEDS: Morphine 4 MG/ML Syringe IV ×2 (00:30→01:08)
[2021-06-22] MEDS: Ondansetron 4 MG/2 ML Vial IV (00:31)
[2021-06-22] MEDS: DiphenhydrAMINE 50 MG/ML Syringe 25 MG IV (00:32)
[2021-06-22] MEDS: 0.9% Normal Saline 1,000 ML 1000 ML IV (00:32)
[2021-06-22 00:43] LABS: ALB/GLOB Ratio 1.1 RATIO (0.9-2.4); AST(SGOT) 32 U/L (15-37); Alanine Aminotransfer ALT/SGPT 35 U/L (16-61); Alkaline Phosphatase 70 U/L (45-117); Anion Gap 7 (5-15); BUN 18 mg/dL (7-18); BUN/Creat Ratio 16.4 RATIO (10-20); Calcium,Total 8.6 mg/dL (8.5-10.1); Chloride 107 mmol/L (98-107); EST Glomerular Filtration Rate 74 mL/min (>60); Est Glom Filt Rate - Afr Amer 89 mL/min (>60); Estimated Creatinine Clearance 72.55 ml/min; Globulin 3.7 g/dL (2.2-4.2); Glucose 113 mg/dL (74-106); Potassium 3.2 mmol/L (3.5-5.1); Protein, Total 7.7 g/dL (6.4-8.2); Sodium Level 142 mmol/L (136-145)
[2021-06-22] MEDS: HYDROmorphone 1 MG/ML Syringe IV (01:38)
[2021-06-22 02:14] LABS: Mucous, Urine 0 SEEN /hpf (<or=2+); Squamous Epithelial Cells - UA 0 SEEN /hpf (0-5)
[2021-06-22 02:15] LABS: Color, Urine Yellow (Yellow); Glucose, Dipstick Normal (Normal); Ketone-Dipstick 15 mg/dl (Negative); Leukocyte Esterase-Dipstick Negative /ul (Negative); Nitrite-Dipstick Negative (Negative); Occult Blood-Urine 250 /ul (Negative); Protein-Dipstick 15 mg/dl (Negative); Urine Bilirubin Dipstick Negative (Negative); Urine Clarity Clear (Clear); Urine Urobilinogen Normal (Normal)
[2021-06-22 02:25] LABS: Bacteria RARE /hpf (None Seen); Red Blood Cells-Urine 50-100 SEEN /hpf (0-5); White Blood Cells 0-5 SEEN /hpf (0-5)
[2021-06-22 03:21] VITALS: BP 133/89; PULSE 97; RESP 16; O2SAT 96
[2021-06-22 04:24] VITALS: BP 131/89; PULSE 115; RESP 20; O2SAT 96
== END 2021-06-22 04:26 | disposition home or self-care (01) ==
PROVIDERS: Emergency Provider Emergency Medicine; PCP Family Medicine; Visit Provider Emergency Medicine
DX: N13.2 Hydronephrosis with renal and ureteral calculous obstruction (principal); M19.90 Unspecified osteoarthritis, unspecified site; K21.9 Gastro-esophageal reflux disease without esophagitis; Z79.1 Long term (current) use of non-steroidal anti-inflammatories (NSAID); Z79.899 Other long term (current) drug therapy; Z87.442 Personal history of urinary calculi
CPT/HCPCS: 74176; 80053; 81001; 85025; 96361; 96374; 96375; 96376; 99284; J7030; A4216; J2405

== ENCOUNTER → 2021-06-25 | Outpatient (CLI) | payer MEDICAID, SELFPAY ==
[2021-06-25 12:32] LABS: Erythrocyte Sedimentation Rate 11 mm/hr (0-20)
[2021-06-25 12:39] LABS: Absolute Neutrophil Count 2.1 X10^3/uL (2.0-7.7); Basophil# 0.02 X10^3/uL; Basophil% 0.4 % (0-1); Eosinophil# 0.07 X10^3/uL; Eosinophils% 1.6 % (0-5); Hematocrit 41.4 % (40-54); Lymphocyte % 37.9 % (19-41); Mean Corp Hgb Conc 33.8 g/dL (32-36); Mean Corpuscular Hgb 34.4 pg (27.0-32.0); Mean Corpuscular Volume 101.7 fL (80-94); Mean Platelet Vol. 9.2 fl (6.2-12.0); Monocyte# 0.59 X10^3/uL; Monocyte% 13.2 % (0-10); NRBC Flagged by Analyzer 0.4 % (0-5); Neutrophil # 2.09 X10^3/uL (2.7-7.7); Neutrophil % 46.7 % (47-70); Platelet Count 226 K/mm3 (150-450); Red Blood Count 4.07 M/mm3 (4.6-6.2); White Blood Count 4.5 K/mm3 (4.4-11.0)
[2021-06-25 12:40] LABS: Vitamin D,25 Hydroxy 21.9 ng/mL
[2021-06-25 12:48] LABS: ALB/GLOB Ratio 1.1 RATIO (0.9-2.4); AST(SGOT) 20 U/L (15-37); Alanine Aminotransfer ALT/SGPT 28 U/L (16-61); Albumin, Serum 3.8 g/dL (3.2-5.0); Alkaline Phosphatase 72 U/L (45-117); Anion Gap 5 (5-15); BUN 20 mg/dL (7-18); BUN/Creat Ratio 28.6 RATIO (10-20); CRP 5.14 mg/L (0.0-3.0); Calcium,Total 8.4 mg/dL (8.5-10.1); Chloride 106 mmol/L (98-107); EST Glomerular Filtration Rate 124 mL/min (>60); Est Glom Filt Rate - Afr Amer 150 mL/min (>60); Free T3 3.3 pg/mL (2.18-3.98); Globulin 3.6 g/dL (2.2-4.2); Glucose 107 mg/dL (74-106); Magnesium 1.9 mg/dL (1.6-2.6); Potassium 3.7 mmol/L (3.5-5.1); Protein, Total 7.4 g/dL (6.4-8.2); Sodium Level 138 mmol/L (136-145); T4 Free Direct 1.02 ng/dL (0.76-1.46); Thyroid Stim Hormone (TSH) 0.96 uIU/mL (0.358-3.74)
[2021-06-25 12:55] LABS: Rheumatoid Factor < 10.0 IU/mL (<15)
[2021-06-25 13:34] LABS: Vitamin B12 280 pg/mL (211-911)
[2021-06-25 14:36] LABS: Mucous, Urine 0 SEEN /hpf (<or=2+)
[2021-06-25 15:26] LABS: Color, Urine Straw (Yellow); Glucose, Dipstick Normal (Normal); Ketone-Dipstick Negative (Negative); Leukocyte Esterase-Dipstick 25 /ul (Negative); Nitrite-Dipstick Negative (Negative); Occult Blood-Urine 25 /ul (Negative); Protein-Dipstick 15 mg/dl (Negative); Urine Bilirubin Dipstick Negative (Negative); Urine Clarity Clear (Clear); Urine Urobilinogen Normal (Normal)
[2021-06-25 15:49] LABS: Bacteria RARE /hpf (None Seen); Red Blood Cells-Urine 0-5 SEEN /hpf (0-5); Squamous Epithelial Cells - UA 0-5 SEEN /hpf (0-5); White Blood Cells 0-5 SEEN /hpf (0-5)
[2021-06-26 16:18] LABS: ANTINUCLEAR ANTIBODIES DIRECT Negative (Negative)
[2021-06-28 21:44] LABS: CCP IgG Antibodies 5 units (0-19)
== END | disposition home or self-care (01) ==
LOC: BIMLAB 10:11
PROVIDERS: PCP Internal Medicine; Referring Provider Internal Medicine; Visit Provider Internal Medicine
DX: M79.89 Other specified soft tissue disorders (principal); M25.60 Stiffness of unspecified joint, not elsewhere classified; L40.9 Psoriasis, unspecified; N20.0 Calculus of kidney; R71.8 Other abnormality of red blood cells
CPT/HCPCS: 36415; 80053; 81001; 82306; 82607; 82746; 83735; 84439; 84443; 84481; 85025; 85652; 86038; 86140; 86200; 86225; 86235; 86431

== ENCOUNTER → 2021-07-07 | Outpatient (CLI) | payer MEDICAID, SELFPAY ==
[2021-07-07 16:38] LABS: Hemoglobin A1c 5.4 % (3.8-5.6)
== END | disposition home or self-care (01) ==
LOC: LAB 15:30
PROVIDERS: PCP Internal Medicine; Referring Provider Internal Medicine; Visit Provider Internal Medicine
DX: R73.9 Hyperglycemia, unspecified (principal)
CPT/HCPCS: 36415; 83036

== ENCOUNTER → 2021-08-11 | Outpatient (CLI) | payer MEDICAID, SELFPAY ==
[2021-08-11 15:02] LABS: Mucous, Urine 0 SEEN /hpf (<or=2+)
[2021-08-11 16:51] LABS: Color, Urine Yellow (Yellow); Glucose, Dipstick Normal (Normal); Ketone-Dipstick Negative (Negative); Leukocyte Esterase-Dipstick Negative /ul (Negative); Nitrite-Dipstick Negative (Negative); Occult Blood-Urine Negative /ul (Negative); Protein-Dipstick 15 mg/dl (Negative); Urine Bilirubin Dipstick Negative (Negative); Urine Clarity Clear (Clear); Urine Urobilinogen Normal (Normal)
[2021-08-11 17:00] LABS: Red Blood Cells-Urine 0-5 SEEN /hpf (0-5); Squamous Epithelial Cells - UA 0-5 SEEN /hpf (0-5)
[2021-08-11 17:01] LABS: Bacteria RARE /hpf (None Seen); White Blood Cells 5-10 SEEN /hpf (0-5)
== END | disposition home or self-care (01) ==
LOC: BIMLAB 15:00
PROVIDERS: PCP Internal Medicine; Visit Provider Physician Assistant
DX: R39.9 Unspecified symptoms and signs involving the genitourinary system (principal)
CPT/HCPCS: 81001; 87086

== ENCOUNTER 2021-08-14 23:51 | Emergency (ER) | payer MEDICAID, SELFPAY ==
[2021-08-14 23:52] VITALS: BP 140/108; PULSE 110; RESP 15; TEMP 36.6; O2SAT 96; BMI 25.4
--- NOTE | 2021-08-15 00:36 | CT_ITS ---
EXAM: CT ABDOMEN AND PELVIS WITH INTRAVENOUS CONTRAST CLINICAL INDICATION: abd pain TECHNIQUE: Helically acquired images were obtained of the abdomen and pelvis with intravenous contrast. This CT exam was performed using one or more of the following dose reduction techniques: automated exposure control, adjustment of the mA and/or kV according to patient size, and/or use of iterative reconstruction technique. This report was created using [employer] report generation technology. CONTRAST: IV 100mL Isovue-300 COMPARISON: CT of 06/22/2021 FINDINGS: LOWER THORAX: Mild-moderate coronary artery calcification present. Lung bases are clear. No significant pericardial effusion. ABDOMEN: LIVER: Mild fatty infiltration of the liver. GALLBLADDER AND BILE DUCTS: Unremarkable. No calcified gallstones. No gallbladder distention or wall edema. No intra- or extrahepatic biliary ductal dilation. PANCREAS: Mild pancreatic atrophy. No findings of acute pancreatitis. No focal cystic or solid mass. SPLEEN: Unremarkable. Normal size without focal cystic or solid mass. ADRENALS: Unremarkable. No nodules. KIDNEYS AND URETERS: Asymmetric enlargement and edema of the right kidney which shows a diminished nephrogram and asymmetric perirenal stranding, along with a thin ribbon of perirenal fluid. Mild-moderate right hydronephrosis and hydroureter are present secondary to a 4 mm ovoid stone which lies at the UVJ. No other renal or ureteral stones are identified. The left kidney and left ureter are unremarkable. STOMACH AND BOWEL: Unremarkable. No stomach or bowel distention. No focal inflammatory change. PELVIS: APPENDIX: Normal. No evidence of acute appendicitis. BLADDER: Urinary bladder is nearly empty. REPRODUCTIVE: Unremarkable as visualized. No mass. ABDOMEN and PELVIS: INTRAPERITONEAL SPACE: Unremarkable. No ascites or other fluid collection. No free air. BONES/JOINTS: Lumbar degenerative disc disease including vacuum disc phenomenon at the L4/5 level. No suspicious lytic or blastic abnormality. SOFT TISSUES: Small fat-filled inguinal hernias are present. VASCULATURE: Minimally calcific abdominal aorta. Abdominal aorta is non-dilated. LYMPH NODES: Scattered small nonspecific mesenteric lymph nodes are present, unchanged. No adenopathy is identified. OTHER FINDINGS: Dosage: Total DLP: 755.73 mGy-cm and CTDI: 11.[address]/Abdomen/Pelvis W IV Cont ONLY IMPRESSION: Mild to moderate right hydronephrosis due to a 4 mm stone lies within the distal ureter at UVJ. Electronically Signed: Nikhil Humphries MD at 2:07 EDT ,
[2021-08-15] MEDS: Morphine 4 MG/ML Syringe IV (00:46)
[2021-08-15] MEDS: 0.9% Normal Saline 1,000 ML 999 ML IV (00:46)
[2021-08-15] MEDS: Ondansetron 4 MG/2 ML Vial IV (00:46)
[2021-08-15 01:01] LABS: Mucous, Urine 0 SEEN /hpf (<or=2+); Squamous Epithelial Cells - UA 0 SEEN /hpf (0-5)
[2021-08-15 01:02] LABS: Absolute Lymphocyte Count 2.71 X10^3/uL (0.83-4.51); Absolute Neutrophil Count 4.7 X10^3/uL (2.0-7.7); Basophil# 0.05 X10^3/uL; Basophil% 0.6 % (0-1); Eosinophil# 0.09 X10^3/uL; Eosinophils% 1.1 % (0-5); Hematocrit 42.8 % (40-54); Hemoglobin 14.8 g/dL (13.0-16.5); Lymphocyte # 2.71 X10^3/ul (0.83-4.51); Lymphocyte % 31.9 % (19-41); Mean Corp Hgb Conc 34.6 g/dL (32-36); Mean Corpuscular Hgb 34.7 pg (27.0-32.0); Mean Corpuscular Volume 100.2 fL (80-94); Mean Platelet Vol. 8.6 fl (6.2-12.0); Monocyte# 0.89 X10^3/uL; Monocyte% 10.5 % (0-10); NRBC Flagged by Analyzer 0 % (0-5); Neutrophil # 4.67 X10^3/uL (2.7-7.7); Platelet Count 229 K/mm3 (150-450); RBC Distribution Width CV 12.1 % (11.6-14.6); RBC Distribution Width SD 44.4 fl (35.1-43.9); Red Blood Count 4.27 M/mm3 (4.6-6.2); White Blood Count 8.5 K/mm3 (4.4-11.0)
[2021-08-15 01:03] LABS: Color, Urine Amber (Yellow); Glucose, Dipstick Normal (Normal); Ketone-Dipstick 5 mg/dl (Negative); Leukocyte Esterase-Dipstick Negative /ul (Negative); Nitrite-Dipstick Positive (Negative); Occult Blood-Urine 250 /ul (Negative); Protein-Dipstick 100 mg/dl (Negative); Urine Clarity Cloudy (Clear); Urine Urobilinogen 8 mg/dl (Normal)
[2021-08-15 01:12] LABS: Urine Bilirubin Dipstick 3 mg/dL (Negative)
[2021-08-15 01:14] LABS: Red Blood Cells-Urine 10-25 SEEN /hpf (0-5)
[2021-08-15 01:16] LABS: Bacteria 1+ /hpf (None Seen); White Blood Cells 5-10 SEEN /hpf (0-5)
[2021-08-15] MEDS: HYDROmorphone 1 MG/ML Syringe IV (01:35)
[2021-08-15 01:50] LABS: AST(SGOT) 30 U/L (15-37); Alanine Aminotransfer ALT/SGPT 29 U/L (16-61); Albumin, Serum 3.9 g/dL (3.2-5.0); Alkaline Phosphatase 79 U/L (45-117); Anion Gap 9 (5-15); BUN 22 mg/dL (7-18); BUN/Creat Ratio 14.3 RATIO (10-20); Bilirubin, Direct < 0.05 mg/dL (0.00-0.30); Calcium,Total 8.3 mg/dL (8.5-10.1); Chloride 104 mmol/L (98-107); Creatinine, Serum 1.54 mg/dL (0.70-1.30); EST Glomerular Filtration Rate 50 mL/min (>60); Est Glom Filt Rate - Afr Amer 60 mL/min (>60); Estimated Creatinine Clearance 51.82 ml/min; Globulin 3.6 g/dL (2.2-4.2); Glucose 115 mg/dL (74-106); Lipase 86 U/L (73-393); Potassium 3.9 mmol/L (3.5-5.1); Protein, Total 7.5 g/dL (6.4-8.2); Sodium Level 138 mmol/L (136-145)
[2021-08-15] MEDS: Ceftriaxone 1 GM/50 ML BAG IV (02:13)
--- NOTE | 2021-08-15 02:47 | EX.ED.DYSGE1 ---
HPI History of Present Illness Chief Complaint: Flank Pain Narrative Narrative: Patient is a 56-year-old male with past medical history of psoriasis GERD and previous kidney stone. He was seen about 5 weeks ago and reportedly diagnosed with a right-sided kidney stone. He states he was doing well but in the last few days has had sensation that he has had difficulty urinating. He states he has been seen by his doctor and placed on antibiotic. He states this was done as they feel that his symptoms are related to an inflamed or infected prostate. He states he has been taking this med with minimal symptom improvement. He reports now that he has increased pain in his right lower abdomen and is concerned for repeat kidney stone and therefore comes in for evaluation. [facility] Medical History (Updated 08/15/21 @ 04:[address] Wolf Da Silva, ) Abdominal pain Abdominal pain AIDS Anal condyloma Anal dysplasia Arthritis Back pain Cancer Diarrhea Diarrhea Gastric reflux GERD (gastroesophageal reflux disease) GERD (gastroesophageal reflux disease) History of kidney stones History of steroid therapy Kidney stones Left inguinal hernia Nausea & vomiting Pain in both testicles Rectal pain Weight loss Home Medications abacavir 600 mg-dolutegravir 50 mg-lamivudine 300 mg tablet 1 tab PO DAILY 06/12/18 [History Last Taken Unknown] valacyclovir 1 gram tablet 1,000 mg PO DAILY 01/07/21 [History Last Taken Unknown] omeprazole 40 mg capsule,delayed release 40 mg PO DAILY #90 caps 02/10/21 [Rx Last Taken Unknown] promethazine 25 mg tablet 25 mg PO Q6H PRN nausea and vomiting #10 tabs 06/22/21 [Rx Last Taken Unknown] sulfamethoxazole 800 mg-trimethoprim 160 mg tablet (Bactrim DS) 1 tab PO BID 2 weeks #28 tabs 08/11/21 [Rx Last Taken Unknown] tramadol 50 mg tablet (Ultram) 50 mg PO Q8H PRN Pain 08/11/21 [History Last Taken Unknown] meloxicam 15 mg tablet 15 mg PO DAILY PRN pain #14 tabs 08/14/21 [Rx Last Taken Unknown] Diltiazem 2% / Lidocaine 5% ointment (compound) #60 grams 08/15/21 [Rx Last Taken Unknown] hydrocodone-acetaminophen 5-325mg 5mg-325mg 1 tab PO Q6H PRN pain 5 days #20 tabs 08/15/21 [Rx Last Taken Unknown] ketorolac 10 mg tablet 10 mg PO Q6H PRN pain 5 days #20 tabs 08/15/21 [Rx Last Taken Unknown] tamsulosin 0.4 mg capsule (Flomax) 0.4 mg PO DAILY 08/15/21 [History Last Taken Unknown] tamsulosin 0.4 mg capsule (Flomax) 0.4 mg PO DAILY #14 caps 08/15/21 [Rx Last Taken Unknown] Allergy/AdvReac Type Severity Reaction Status Date / Time bee venom protein (honey bee) Allergy Severe Anaphylaxis Verified 08/14/21 23:56 acetaminophen [From Percocet] Allergy chest Verified 08/14/21 23:56 tightness, HTN adhesive tape AdvReac Rash Verified 08/14/21 23:56 amoxicillin [From Augmentin] AdvReac Hives Verified 08/14/21 23:56 clavulanic acid AdvReac Hives Verified 08/14/21 23:56 [From Augmentin] oxycodone [From Percocet] AdvReac elevated Verified 08/14/21 23:56 bp, felt funny, chest tightness Family History Mother Asthma Arthritis Diabetes Heart disease Hypertension High cholesterol Grandfather Cancer lung cancer Father Heart disease High cholesterol Hypertension Cancer skin cancer Surgical History history left bicep tendon repair history left ulnar nerve repair History of bilateral carpal tunnel release History of left inguinal hernia repair History of shoulder surgery Social History Smoking Status: Never smoker alcohol intake: never substance use type: does not use ROS ROS ED Constitutional Constitutional ED: Denies chills or fever(s) ENT ENT ED: Denies sore throat Cardiovascular Cardiovascular: Denies chest pain Respiratory/Chest Respiratory/Chest: Denies cough or dyspnea Gastrointestinal Gastrointestinal: Reports abdominal pain; Denies diarrhea, nausea or vomiting Genitourinary Genitourinary ED: Reports urinary frequency and other Details: Positive rectal pain ; Denies dysuria Musculoskeletal Musculoskeletal: Reports back pain; Denies myalgias Integumentary Denies rash Neurologic Neurologic: Denies headache(s) Hematologic/Lymphatic Hematologic/Lymphatic: Denies easy bleeding or easy bruising EXAM Physical Exam Const Vital Signs: 08/14/21 23:52 08/15/21 00:20 08/15/21 03:34 Temperature 97.8 F Temperature Source Temporal Pulse Rate 110 H 78 Respiratory Rate 15 18 Respiratory Effort Normal Non-Labored Respiratory Pattern Normal Blood Pressure 140/108 H 132/72 H Blood Pressure Mean 118 Pulse Ox 96 99 Oxygen Delivery Method Room Air Positive well nourished and well developed General Appearance ED: well developed Eyes PERRL and EOMs intact bilaterally Neck supple Resp normal respiratory effort and clear to auscultation bilaterally Cardio regular rate and regular rhythm Rate: other Other Details: Radial pulses are plus 2 out of 4 bilaterally are equal and symmetric GI non-distended GI Narrative: Minutes soft and nondistended with normoactive bowel sounds. There is pain with palpation in the right lower quadrant without voluntary guarding or rigidity. No pulsatile mass or fluid wave Auscultation: normoactive bowel sounds Palpation: soft Narrative: Rectal exam displays no external hemorrhoid anal fissure or abscess. Rectal tone is normal. Prostate feels slightly enlarged but otherwise there is no nodule or goiter. No rectal discharge present. No pain with manipulation of the prostate gland. Back/Spine Back/Spine Narrative: Positive right-sided CVA pain Extremity normal to inspection Neuro oriented x3 and CN's II-XII intact bilaterally Sensorium / Orientation: alert Psych mental status grossly normal Skin no rashes or lesions noted MDM MDM MDM Narrative Medical decision making narrative: Patient presented to the ER hypertensive and mildly tachycardic but I felt this was secondary to pain. His exam is most consistent with a repeat kidney stone so basic labs and a CT were obtained. Labs revealed no signs of acute kidney injury or urosepsis. There is mild bacteria present on the urine sample. Therefore the urine was sent for culture and patient was given 1 g of Rocephin. The CT scan confirmed a 4 mm stone in the right UVJ with hydronephrosis. Despite this he has just mild elevation to his creatinine at 1.54 which is not classified as acute kidney injury. The patient was given morphine Dilaudid and Toradol and did have improvement of his kidney stone pain. He reported persistent pain in the rectum however as he described as a spasm. As the exam does not reveal any obvious cause I feel it is most like related to proctalgia fugax. Patient will be started on diltiazem topical cream to see if this helps with symptoms. However at this time as patient does not have signs of urosepsis or AFUA and his pain has been improved he can be discharged and follow-up with urology on an outpatient basis Lab Data Attestation: I reviewed the patient's lab results. Labs: Laboratory Results - last 24 hr 08/15/21 08/15/21 08/15/21 00:49 00:49 00:49 WBC 8.5 RBC 4.27 L Hgb 14.8 Hct 42.8 MCV 100.2 H MCH 34.7 H MCHC 34.6 RDW Std Deviation 44.4 H RDW Coeff of Micheline 12.1 Plt Count 229 MPV 8.6 Immature Gran % (Auto) 0.900 Neut % (Auto) 55.0 Lymph % (Auto) 31.9 [place] % (Auto) 10.5 H Eos % (Auto) 1.1 Baso % (Auto) 0.6 Absolute Neuts (auto) 4.7 Absolute Lymphs (auto) 2.71 Nucleated RBC % 0 Sodium 138 Potassium 3.9 Chloride 104 Carbon Dioxide 25.0 Anion Gap 9 BUN 22 H Creatinine 1.54 H Estim Creat Clear Calc 51.82 Est GFR (MDRD) Af Amer 60 Est GFR (MDRD) Non-Af 50 L BUN/Creatinine Ratio 14.3 Glucose 115 H Calcium 8.3 L Total Bilirubin 0.20 Direct Bilirubin < 0.05 AST 30 ALT 29 Alkaline Phosphatase 79 Total Protein 7.5 Albumin 3.9 Globulin 3.6 Lipase 86 Urine Color [place]a Urine Clarity Cloudy Urine pH 5.0 Ur Specific [place] 1.030 Urine Protein 100 H Urine Glucose (UA) Normal Urine Ketones 5 H Urine Occult Blood 250 H Urine Nitrite Positive H Urine Bilirubin 3 H Urine Urobilinogen 8 H Ur Leukocyte Esterase Negative Urine RBC 10-25 SEEN Urine WBC 5-10 SEEN Ur Squamous Epith Cells 0 SEEN Urine Bacteria 1+ Urine Mucus 0 SEEN Radiography Diagnostic Testing: Clinical Impression(s) from Imaging Studies Abdomen/Pelvis CT 08/15/21 00:36 IMPRESSION: Mild to moderate right hydronephrosis due to a 4 mm stone lies within the distal ureter at UVJ. Electronically Signed: Nikhil Humphries MD at 2:07 EDT , Discharge Plan Triage Chief Complaint: Flank Pain ED Provider: Wolf Da Silva Dx/Rx/DC Orders Clinical Impression: Renal colic, Kidney stone, Proctalgia fugax Instructions: ED Kidney Stone w/ Colic Prescriptions: New tamsulosin [Flomax] 0.4 mg capsule 0.4 mg PO DAILY Qty: 14 0RF hydrocodone-acetaminophen 5-325 mg tablet 1 tab PO Q6H PRN (Reason: pain) 5 Days Qty: 20 0RF ketorolac 10 mg tablet 10 mg PO Q6H PRN (Reason: pain) 5 Days Qty: 20 0RF (DME) Diltiazem 2% / Lidocaine 5% ointment (compound) Ointment See Rx Instructions .Route Qty: 60 0RF Rx Instructions: Apply externally to the rectum 3 times a day as needed pain No Action valacyclovir 1 gram tablet 1,000 mg PO DAILY omeprazole 40 mg capsule,delayed release(DR/EC) 40 mg PO DAILY Qty: 90 3RF tramadol [Ultram] 50 mg tablet 50 mg PO Q8H PRN (Reason: Pain) sulfamethoxazole-trimethoprim [Bactrim DS] 800-160 mg tablet 1 tab PO BID 14 Days Qty: 28 0RF meloxicam 15 mg tablet 15 mg PO DAILY PRN (Reason: pain) Qty: 14 1RF aprtkuby-gflprbqzhpja-rwuhoov 600-50- tablet 1 tab PO DAILY promethazine 25 mg tablet 25 mg PO Q6H PRN (Reason: nausea and vomiting) Qty: 10 0RF tamsulosin [Flomax] 0.4 mg Capsule 0.4 mg PO DAILY Primary Care Provider: Edwina Johnson Referrals: Tang Andrea MD [STAFF PHYSICIAN] - 3-5 Days if not improving Edwina Johnson MD [Primary Care Provider] - Activity Restrictions/Additional Instructions: Please continue your Bactrim as previously directed secondary to the bacteria found in your urine sample today. Take the other prescribed medications to help resolve your kidney stone pain. Please return to the ER for repeat evaluation if your pain is not controlled with the outpatient medications or you develop a fever over 100.4. Disposition Disposition: Home, Self Care Discharge Date/Time: 08/15/21 03:34
[2021-08-15] MEDS: Ketorolac 30 MG/ML Syringe IV (02:54)
[2021-08-15 03:34] VITALS: BP 132/72; PULSE 78; RESP 18; O2SAT 99
== END 2021-08-15 03:34 | disposition home or self-care (01) ==
PROVIDERS: Emergency Provider Emergency Medicine; PCP Internal Medicine; Visit Provider Emergency Medicine
DX: N13.6 Pyonephrosis (principal); B20 Human immunodeficiency virus [HIV] disease; K21.9 Gastro-esophageal reflux disease without esophagitis; K59.4 Anal spasm; Z79.899 Other long term (current) drug therapy; M19.90 Unspecified osteoarthritis, unspecified site; Z87.442 Personal history of urinary calculi
CPT/HCPCS: 74177; 80048; 80076; 81001; 83690; 85025; 87086; 96361; 96365; 96375; 99283; A4216; J2405

== ENCOUNTER → 2021-08-14 | Outpatient (CLI) | payer MEDICAID, SELFPAY ==
[2021-08-14 13:21] LABS: PSA,Total - Annual Screen 1.36 ng/mL (0.00-4.00)
== END | disposition home or self-care (01) ==
LOC: LAB 12:05
PROVIDERS: PCP Internal Medicine; Visit Provider Physician Assistant
DX: Z12.5 Encounter for screening for malignant neoplasm of prostate (principal)
CPT/HCPCS: 36415; 84153; G0103

== ENCOUNTER → 2021-11-23 | Outpatient (CLI) | payer MEDICAID, SELFPAY ==
--- NOTE | 2021-11-23 08:07 | RAD_ITS ---
STUDY: X-RAY - ESOPHAGUS (BARIUM SWALLOW) WITH FLUOROSCOPY REASON FOR EXAM: Male, 56 years old. ACID REFLUX TECHNIQUE: 14 view(s) of the esophagus were obtained following swallowing of barium. FLUOROSCOPY TIME (if supplied): (37 seconds) minutes/seconds COMPARISON: None. FINDINGS: There is no demonstrated esophageal foreign body. There is no demonstrated stricture or mucosal abnormality. Normal gastroesophageal junction, without a demonstrated hiatal hernia. The patient ingested a 12 mm tablet of barium without any difficulty. Normal visualized aortic arch and descending thoracic aorta. Normal visualized pulmonary parenchyma. Normal visualized osseous structures of the thorax. RAD/Esophagus Dual Contrast IMPRESSION: Normal plain film x-ray examination (barium swallow) of the esophagus. Electronically Signed: Ector Funes MD at 14:00 EDT ,
== END | disposition home or self-care (01) ==
LOC: RAD 07:55
PROVIDERS: PCP Internal Medicine; Visit Provider Otolaryngology
DX: K21.9 Gastro-esophageal reflux disease without esophagitis (principal)
CPT/HCPCS: 74221

== ENCOUNTER → 2021-11-25 | Outpatient (CLI) | payer MEDICAID, SELFPAY ==
[2021-12-03 02:07] LABS: Clam <0.10 kU/L (Class 0); Codfish <0.10 kU/L (Class 0); Corn <0.10 kU/L (Class 0); Egg, White <0.10 kU/L (Class 0); Milk (Cow) <0.10 kU/L (Class 0); Peanut <0.10 kU/L (Class 0); SCALLOP <0.10 kU/L (Class 0); Shrimp <0.10 kU/L (Class 0); Soybean <0.10 kU/L (Class 0); Walnut, (Food) <0.10 kU/L (Class 0); Wheat <0.10 kU/L (Class 0)
[2021-12-03 17:36] LABS: SESAME SEED <0.10 kU/L (Class 0)
[2021-12-04 12:08] LABS: Alternaria tenuis <0.10 kU/L (Class 0); Ash, White <0.10 kU/L (Class 0); Aspergillus fumigatus <0.10 kU/L (Class 0); Bermuda Grass <0.10 kU/L (Class 0); Birch <0.10 kU/L (Class 0); Black Walnut <0.10 kU/L (Class 0); Cat Hair / Dander,Stand <0.10 kU/L (Class 0); Cedar, Mountain <0.10 kU/L (Class 0); Cladosporium herbarum <0.10 kU/L (Class 0); Cockroach, American <0.10 kU/L (Class 0); Cottonwood <0.10 kU/L (Class 0); D farinae Mite <0.10 kU/L (Class 0); D pteronyssinus <0.10 kU/L (Class 0); Dog Epithelia <0.10 kU/L (Class 0); Elm, American White <0.10 kU/L (Class 0); Immunoglobulin E 27 IU/mL (6-495); Maple/Box Elder <0.10 kU/L (Class 0); Mulberry, White <0.10 kU/L (Class 0); Oak, White <0.10 kU/L (Class 0); Pecan <0.10 kU/L (Class 0); Penicillium Notatum <0.10 kU/L (Class 0); Pigweed, Rough <0.10 kU/L (Class 0); Ragweed, Short/Common <0.10 kU/L (Class 0); Russian Thistle <0.10 kU/L (Class 0); Sheep Sorrel <0.10 kU/L (Class 0); Sycamore, American <0.10 kU/L (Class 0); Timothy Grass <0.10 kU/L (Class 0)
[2021-12-04 14:51] LABS: Mouse Urine <0.10 kU/L (Class 0)
== END | disposition home or self-care (01) ==
LOC: LABSPEC 09:21 → LAB 09:25
PROVIDERS: PCP Internal Medicine; Visit Provider Otolaryngology
DX: T78.40XA Allergy, unspecified, initial encounter (principal)
CPT/HCPCS: 36415; 82785; 86003

== ENCOUNTER 2021-12-25 09:57 | Day surgery (SDC) | payer MEDICAID, SELFPAY ==
--- NOTE | 2021-11-23 08:16 | EKG12_ITS ---
Test Reason : OREOP Blood Pressure : / mmHG Vent. Rate : 079 BPM Atrial Rate : 079 BPM P-R Int : 152 ms QRS Dur : 084 ms QT Int : 366 ms P-R-T Axes : 038 -02 -03 degrees QTc Int : 419 ms Normal sinus rhythm Normal ECG Confirmed by SHANNAN ROSAS, JENNA ([id number]), video editor DAMARI MARTE ([id number]) on 11/24/2021 10:58:48 AM Referred By: Brandon Kirk Confirmed By:JENNA CAMPBELL MD
[2021-11-23 09:52] LABS: Absolute Lymphocyte Count 2.16 X10^3/uL (0.83-4.51); Basophil# 0.03 X10^3/uL; Basophil% 0.5 % (0-1); Eosinophil# 0.06 X10^3/uL; Hematocrit 45.5 % (40-54); Hemoglobin 15.4 g/dL (13.0-16.5); Lymphocyte # 2.16 X10^3/ul (0.83-4.51); Lymphocyte % 36.6 % (19-41); Mean Corp Hgb Conc 33.8 g/dL (32-36); Mean Corpuscular Hgb 33.6 pg (27.0-32.0); Mean Corpuscular Volume 99.3 fL (80-94); Mean Platelet Vol. 9.2 fl (6.2-12.0); Monocyte# 0.67 X10^3/uL; Monocyte% 11.4 % (0-10); NRBC Flagged by Analyzer 0 % (0-5); Neutrophil # 2.96 X10^3/uL (2.7-7.7); Neutrophil % 50.2 % (47-70); Platelet Count 208 K/mm3 (150-450); RBC Distribution Width CV 12.4 % (11.6-14.6); RBC Distribution Width SD 45.5 fl (35.1-43.9); Red Blood Count 4.58 M/mm3 (4.6-6.2); White Blood Count 5.9 K/mm3 (4.4-11.0)
[2021-11-23 10:13] LABS: Anion Gap 8 (5-15); BUN 15 mg/dL (7-18); Calcium,Total 8.8 mg/dL (8.5-10.1); Chloride 104 mmol/L (98-107); Creatinine, Serum 0.88 mg/dL (0.70-1.30); EST Glomerular Filtration Rate 95 mL/min (>60); Est Glom Filt Rate - Afr Amer 114 mL/min (>60); Glucose 106 mg/dL (74-106); Potassium 4.1 mmol/L (3.5-5.1); Sodium Level 140 mmol/L (136-145)
[2021-12-25] VITALS (7 sets, daily range): BP systolic 101–123; BP diastolic 70–84; PULSE 77–100; RESP 16–18; TEMP 36.1–37.2; O2SAT 81–97; BMI 25.7
[2021-12-25] MEDS: Lactated Ringers 1,000 ML 15 ML IV (10:32)
[2021-12-25] MEDS: Cefazolin 2 GM in 0.9% Normal Saline 100 ML IV (11:42)
[2021-12-25] MEDS: Bupivacaine 0.25%-Epi/Pf 1:200,000 10 ML (12:12)
[2021-12-25] MEDS: Epinephrine (1 mg/ml) 1 MG/ML VIAL ×2 (12:12→12:40)
--- NOTE | 2021-12-25 13:20 | PCM.OPRPT ---
Report of Operation Date of Procedure: 12/25/21 Pre-Operative Diagnosis: Subacromial impingement syndrome, AC joint arthritis, rotator cuff tear right shoulder Post-Operative Diagnosis: same Surgery/Procedure Performed:: ASD, Garrick procedure, rotator cuff repair right shoulder Surgeon: Brandon Kirk short haul driver: Gerardo Gant Type of Anesthesia: General/Regional Anesthesiologist: Joshua Foreman Estimated Blood Loss (mL): 5 cc Admit VTE Documentation VTE Present on Admission: No VTE Mechan Device Prophylaxis: SCD's VTE Pharm Prophylaxis ordered?: No Reason prophylaxis not ordered:: Treatment Not Indicated
== END 2021-12-25 15:43 | disposition home or self-care (01) ==
LOC: SDC 09:58 → AC 09:59
PROVIDERS: PCP Internal Medicine; Referring Provider Orthopaedic Surgery; Visit Provider Orthopaedic Surgery
PROC: (CPT 29827; principal; 2021-12-25 11:10)
DX: S43.421A Sprain of right rotator cuff capsule, initial encounter (principal); X58.XXXA Exposure to other specified factors, initial encounter; M75.41 Impingement syndrome of right shoulder; M19.011 Primary osteoarthritis, right shoulder
CPT/HCPCS: 29824; 29826; 29827; 64415; 36415; 80048; 85025; 87081; 93005; C1776; J7120; J2405

== ENCOUNTER → 2022-01-06 | Outpatient (CLI) | payer MEDICAID, SELFPAY ==
[2022-01-06 14:28] LABS: Hematocrit 40.9 % (40-54); Hemoglobin 13.7 g/dL (13.0-16.5); Mean Corp Hgb Conc 33.5 g/dL (32-36); Mean Corpuscular Hgb 33.3 pg (27.0-32.0); Mean Corpuscular Volume 99.5 fL (80-94); Mean Platelet Vol. 8.6 fl (6.2-12.0); Platelet Count 248 K/mm3 (150-450); RBC Distribution Width CV 12.1 % (11.6-14.6); RBC Distribution Width SD 44.3 fl (35.1-43.9); Red Blood Count 4.11 M/mm3 (4.6-6.2)
[2022-01-06 14:50] LABS: Anion Gap 4 (5-15); BUN 19 mg/dL (7-18); BUN/Creat Ratio 24.1 RATIO (10-20); Calcium,Total 9.5 mg/dL (8.5-10.1); Chloride 102 mmol/L (98-107); Creatinine, Serum 0.79 mg/dL (0.70-1.30); EST Glomerular Filtration Rate 108 mL/min (>60); Est Glom Filt Rate - Afr Amer 131 mL/min (>60); Glucose 133 mg/dL (74-106); Potassium 3.5 mmol/L (3.5-5.1); Sodium Level 136 mmol/L (136-145)
[2022-01-06 15:41] LABS: Hepatitis B Surface Antibody Non-Reactive
[2022-01-08 05:07] LABS: HEPATITIS B SURFACE AG Negative (Negative); Hep C Antibodies <0.1 s/co ratio (0.0-0.9); Hepatitis A IgM Antibody Negative (Negative); Hepatitis B Core AB IgM Negative (Negative)
[2022-01-08 10:38] LABS: Hepatitis A AB, Total Negative (Negative)
[2022-01-12 11:35] LABS: HIV-1 RNA by PCR, Quant. < 20 copies/mL (.)
== END | disposition home or self-care (01) ==
PROVIDERS: PCP Internal Medicine; Referring Provider Internal Medicine Infectious Disease; Visit Provider Internal Medicine Infectious Disease
DX: B20 Human immunodeficiency virus [HIV] disease (principal)
CPT/HCPCS: 36415; 80048; 80074; 85027; 86706; 86708; 87536

== ENCOUNTER → 2022-01-21 | Outpatient (CLI) | payer MEDICAID, SELFPAY ==
[2022-01-21 18:10] LABS: PSA,Total- Diagnostic 1.52 ng/mL (0.0-4.0)
== END | disposition home or self-care (01) ==
LOC: LAB 16:56
PROVIDERS: PCP Internal Medicine; Visit Provider Urology
DX: N20.1 Calculus of ureter (principal)
CPT/HCPCS: 36415; 84153

== ENCOUNTER → 2022-01-28 | Outpatient (CLI) | payer MEDICAID, SELFPAY ==
--- NOTE | 2022-01-28 12:19 | RAD_ITS ---
EXAM: XR ABDOMEN, 1 VIEW CLINICAL INDICATION: SCREENING OF MILGNANT NEOPLASM OF PROSTATE TECHNIQUE: Frontal supine view of the abdomen/pelvis. This report was created using [employer] report generation technology. COMPARISON: None. FINDINGS: LOWER THORAX: No acute pathology. GASTROINTESTINAL TRACT: Unremarkable. Non-obstructive. No bowel or stomach distention. ORGANS: Unremarkable as visualized. No organomegaly. No abnormal calcifications. BONES/JOINTS: No acute pathology. SOFT TISSUES: No acute pathology. RAD/Abdomen Single View IMPRESSION: Non-obstructive bowel gas pattern. Electronically Signed: Sincere Stafford MD at 20:29 EST ,
== END | disposition home or self-care (01) ==
PROVIDERS: PCP Internal Medicine; Visit Provider Urology
DX: Z12.5 Encounter for screening for malignant neoplasm of prostate (principal)
CPT/HCPCS: 74018

== ENCOUNTER → 2022-07-20 | Outpatient (CLI) | payer MEDICAID, SELFPAY ==
[2022-07-20 14:33] LABS: Erythrocyte Sedimentation Rate 5 mm/hr (0-20)
[2022-07-20 14:34] LABS: Hematocrit 46.8 % (40-54); Hemoglobin 15.8 g/dL (13.0-16.5); Mean Corp Hgb Conc 33.8 g/dL (32-36); Mean Corpuscular Hgb 33.8 pg (27.0-32.0); Mean Platelet Vol. 8.9 fl (6.2-12.0); Platelet Count 213 K/mm3 (150-450); RBC Distribution Width CV 12.3 % (11.6-14.6); RBC Distribution Width SD 45.7 fl (35.1-43.9); Red Blood Count 4.68 M/mm3 (4.6-6.2); White Blood Count 6.5 K/mm3 (4.4-11.0)
[2022-07-20 14:53] LABS: Hemoglobin A1c 5.4 % (3.8-5.6)
[2022-07-20 14:59] LABS: Vitamin D,25 Hydroxy 26.4 ng/mL
[2022-07-20 15:01] LABS: AST(SGOT) 20 U/L (15-37); Alanine Aminotransfer ALT/SGPT 24 U/L (16-61); Alkaline Phosphatase 86 U/L (45-117); Anion Gap 5 (5-15); BUN 16 mg/dL (7-18); CRP < 2.90 mg/L (0.0-3.0); Chloride 103 mmol/L (98-107); Cholesterol 220 mg/dL (200); Creatinine, Serum 0.76 mg/dL (0.70-1.30); EST Glomerular Filtration Rate 112 mL/min (>60); Est Glom Filt Rate - Afr Amer 136 mL/min (>60); Glucose 86 mg/dL (74-106); High Density Lipoprotein 37 mg/dL; Sodium Level 136 mmol/L (136-145); Triglycerides 482 mg/dL
[2022-07-22 16:09] LABS: Absolute CD4 Helper 895 /uL (359-1519); Basophils (Absolute) 0 x10E3/uL (0.0-0.2); Eosinophils 1 % (Not Estab.); Eosinophils (Absolute) 0.1 x10E3/uL (0.0-0.4); Hematocrit 46.1 % (37.5-51.0); Immature Granulocytes 0 % (Not Estab.); Immature Granulocytes Absolute 0 x10E3/uL (0.0-0.1); Lymphs 40 % (Not Estab.); Lymphs (Absolute) 2.5 x10E3/uL (0.7-3.1); MCH 34.2 pg (26.6-33.0); MCHC 34.7 g/dL (31.5-35.7); MCV 99 fL (79-97); Monocytes 9 % (Not Estab.); Monocytes (Absolute) 0.6 x10E3/uL (0.1-0.9); Neutrophils 49 % (Not Estab.); Neutrophils (Absolute) 3.1 x10E3/uL (1.4-7.0); Percent % CD4 Pos. Lymph. 35.8 % (30.8-58.5); Platelets 217 x10E3/uL (150-450); RBC Count 4.68 x10E6/uL (4.14-5.80); RDW 12.5 % (11.6-15.4); WBC Count 6.3 x10E3/uL (3.4-10.8)
[2022-07-23 02:07] LABS: HIV-1 RNA by PCR, Quant. < 20 copies/mL (.)
== END | disposition home or self-care (01) ==
PROVIDERS: PCP Internal Medicine; Referring Provider Internal Medicine Infectious Disease; Visit Provider Internal Medicine Infectious Disease
DX: Z00.00 Encounter for general adult medical examination without abnormal findings (principal); B20 Human immunodeficiency virus [HIV] disease; K21.9 Gastro-esophageal reflux disease without esophagitis; E55.9 Vitamin D deficiency, unspecified; R73.9 Hyperglycemia, unspecified
CPT/HCPCS: 80053; 80061; 82306; 83036; 85027; 85652; 86140; 86361; 87536

== ENCOUNTER → 2022-08-03 | Outpatient (CLI) | payer MEDICAID, SELFPAY ==
--- NOTE | 2022-08-03 11:18 | RAD_ITS ---
STUDY: X-RAY - ORBITS REASON FOR EXAM: Male, 57 years old. X-RAY PRIOR TO MRI, H/O OBJECT IN EYE AT AGE 18 TECHNIQUE: 2 view(s) of the orbits were obtained. COMPARISON: None. FINDINGS: Normal bilateral orbits without a metallic orbital foreign body. Normal visualized facial bones. Normal paranasal sinuses. The soft tissue structures are unremarkable. RAD/Orbits for Foreign Body IMPRESSION: No demonstrated metallic orbital foreign body. The patient is cleared for an MRI examination. Electronically Signed: Reyes Mckenzie MD at 11:48 EDT ,
== END | disposition home or self-care (01) ==
LOC: RAD 11:17
PROVIDERS: PCP Internal Medicine; Referring Provider Orthopaedic Surgery; Visit Provider Orthopaedic Surgery
DX: M48.061 Spinal stenosis, lumbar region without neurogenic claudication (principal)
CPT/HCPCS: 70030

== ENCOUNTER 2022-08-12 06:06 | Day surgery (SDC) | payer MEDICAID, SELFPAY ==
[2022-08-12 06:38] VITALS: BP 127/88; PULSE 93; RESP 16; TEMP 36.6; O2SAT 98; BMI 26.0
[2022-08-12] MEDS: Lactated Ringers 1,000 ML 15 ML IV (06:56)
--- NOTE | 2022-08-12 08:16 | PCM.OPRPT ---
Report of Operation Date of Procedure: 08/12/22 Pre-Operative Diagnosis: A-1 stenosing tenosynovitis right thumb Post-Operative Diagnosis: same Surgery/Procedure Performed:: Right thumb A-1 raphael release Description of Surgical Findings:: Report of Operation Date of Procedure: Preoperative Diagnosis: A1 stenosing tenosynovitis, right thumb Postoperative Diagnosis: same Procedure Performed: Release A1 raphael, right thumbr Anesthesia: IV Regional Anesthesiologist: Joshua Foreman M.D. Description of Procedure: With appropriate informed consent, the patient was taken to the operative suite. After the induction of regional anesthesia, the right upper extremity was prepared and draped sterilely. Subsequently, a transverse incision was made in the base of theright thumb on the volar aspect overlying the annular raphael with #15 blade scalpel. Hemostasis was perfected with bipolar electrocautery. Dissection was carried down to the flexor tendon sheath. Retractors were placed medially and laterally for protection of neurovascular structures. Thereafter, the annular raphael was incised with a combination of scalpel and scissor dissection. The flexor tendon was inspected and I was able to take the right thumb through a full range of motion without any catching, locking or triggering. Subsequently, the wound was irrigated and closed with interrupted sutures of 4-0 nylon. A sterile well-padded dressing and Chandra wrap were applied. The tourniquet was released. Excellent blood flow returned to the right upper extremity. The patient was transferred to the PACU in stable and satisfactory condition. Brandon Kirk DO Surgeon: Brandon Kirk structural design engineer: None Type of Anesthesia: Block,Nancy Anesthesiologist: Joshua Foreman Admit VTE Documentation VTE Present on Admission: No VTE Mechan Device Prophylaxis: SCD's VTE Pharm Prophylaxis ordered?: No Reason prophylaxis not ordered:: Treatment Not Indicated
[2022-08-12 08:30] VITALS: BP 121/93; BP 127/88; PULSE 76; RESP 16; TEMP 36.1; O2SAT 98
[2022-08-12 08:35] VITALS: BP 127/88; BP 136/101; PULSE 67; RESP 16; O2SAT 97
[2022-08-12 08:40] VITALS: BP 127/88; BP 133/97; PULSE 78; RESP 16; O2SAT 98
[2022-08-12 08:45] VITALS: BP 117/84; BP 127/88; PULSE 70; RESP 16; TEMP 36.1; O2SAT 100
[2022-08-12 09:22] VITALS: BP 127/88
== END 2022-08-12 09:25 | disposition home or self-care (01) ==
LOC: SDC 06:06 → AC 06:07
PROVIDERS: PCP Internal Medicine; Referring Provider Orthopaedic Surgery; Visit Provider Orthopaedic Surgery
PROC: (CPT 26055; principal; 2022-08-12 07:20)
DX: M65.311 Trigger thumb, right thumb (principal); B20 Human immunodeficiency virus [HIV] disease; M65.841 Other synovitis and tenosynovitis, right hand; Z79.899 Other long term (current) drug therapy; E66.3 Overweight; Z68.26 Body mass index [BMI] 26.0-26.9, adult
CPT/HCPCS: 26055; J7120

== ENCOUNTER → 2022-12-13 | Outpatient (CLI) | payer MEDICAID, SELFPAY ==
--- NOTE | 2022-12-13 13:25 | RAD_ITS ---
STUDY: X-RAY - ABDOMEN/PELVIS REASON FOR EXAM: Male, 57 years old. Screening for renal calculi. TECHNIQUE: Single AP view of the abdomen / pelvis 2 images. COMPARISON: None. FINDINGS: Normal visualized lung bases. There is an unremarkable bowel gas pattern. There is no demonstrated free abdominal air. The visualized liver, spleen and kidneys are grossly normal in size and morphology. No abnormal calcifications. Normal soft tissue structures. Normal visualized osseous structures. RAD/Abdomen Single View IMPRESSION: Normal x-ray examination of the abdomen and pelvis. Electronically Signed: Gerardo Hamm MD at 9:19 EST ,
[2022-12-13 13:38] LABS: Hemoglobin 14.6 g/dL (13.0-16.5); Mean Corp Hgb Conc 34.8 g/dL (32-36); Mean Corpuscular Hgb 34.5 pg (27.0-32.0); Mean Corpuscular Volume 99.3 fL (80-94); Mean Platelet Vol. 8.8 fl (6.2-12.0); Platelet Count 201 K/mm3 (150-450); RBC Distribution Width CV 12.5 % (11.6-14.6); RBC Distribution Width SD 45.4 fl (35.1-43.9); Red Blood Count 4.23 M/mm3 (4.6-6.2); White Blood Count 5.7 K/mm3 (4.4-11.0)
[2022-12-13 14:09] LABS: Anion Gap 5 (5-15); BUN 14 mg/dL (7-18); BUN/Creat Ratio 16.6 RATIO (10-20); Chloride 103 mmol/L (98-107); Cholesterol 207 mg/dL (200); Creatinine, Serum 0.84 mg/dL (0.70-1.30); EST Glomerular Filtration Rate 100 mL/min (>60); Est Glom Filt Rate - Afr Amer 121 mL/min (>60); Glucose 96 mg/dL (74-106); High Density Lipoprotein 41 mg/dL; PSA,Total - Annual Screen 1.48 ng/mL (0.00-4.00); Sodium Level 137 mmol/L (136-145); Triglycerides 213 mg/dL; Very Low Density Lipoprotein 43 mg/dL (5-40)
[2022-12-15 14:09] LABS: Absolute CD4 Helper 842 /uL (359-1519); Basophils (Absolute) 0 x10E3/uL (0.0-0.2); Eosinophils 1 % (Not Estab.); Eosinophils (Absolute) 0.1 x10E3/uL (0.0-0.4); Hematocrit 42.5 % (37.5-51.0); Hemoglobin 14.5 g/dL (13.0-17.7); Immature Granulocytes 0 % (Not Estab.); Immature Granulocytes Absolute 0 x10E3/uL (0.0-0.1); Lymphs 41 % (Not Estab.); Lymphs (Absolute) 2.3 x10E3/uL (0.7-3.1); MCH 34.5 pg (26.6-33.0); MCHC 34.1 g/dL (31.5-35.7); MCV 101 fL (79-97); Monocytes 9 % (Not Estab.); Monocytes (Absolute) 0.5 x10E3/uL (0.1-0.9); Neutrophils 48 % (Not Estab.); Neutrophils (Absolute) 2.7 x10E3/uL (1.4-7.0); Percent % CD4 Pos. Lymph. 36.6 % (30.8-58.5); Platelets 201 x10E3/uL (150-450); RDW 12.6 % (11.6-15.4); WBC Count 5.6 x10E3/uL (3.4-10.8)
[2022-12-16 15:08] LABS: HIV-1 RNA by PCR, Quant. < 20 copies/mL (.)
== END | disposition home or self-care (01) ==
LOC: LAB 13:00
PROVIDERS: PCP Internal Medicine; Visit Provider Urology
DX: N20.1 Calculus of ureter (principal); B20 Human immunodeficiency virus [HIV] disease; Z12.5 Encounter for screening for malignant neoplasm of prostate
CPT/HCPCS: 36415; 74018; 80048; 80061; 84153; 85027; 86361; 87536; G0103

== ENCOUNTER → 2023-05-16 | Outpatient (CLI) | payer MEDICAID, SELFPAY ==
[2023-05-16 08:56] LABS: Squamous Epithelial Cells - UA 0 SEEN /hpf (0-5)
[2023-05-16 09:44] LABS: Absolute Neutrophil Count 2.7 X10^3/uL (2.0-7.7); Basophil# 0.02 X10^3/uL; Basophil% 0.4 % (0-1); Color, Urine Yellow (Yellow); Eosinophil# 0.06 X10^3/uL; Eosinophils% 1.1 % (0-5); Glucose, Dipstick Normal (Normal); Hematocrit 42.5 % (40-54); Hemoglobin 14.3 g/dL (13.0-16.5); Ketone-Dipstick 5 mg/dl (Negative); Leukocyte Esterase-Dipstick 25 /ul (Negative); Lymphocyte % 35.9 % (19-41); Mean Corp Hgb Conc 33.6 g/dL (32-36); Mean Corpuscular Hgb 33.6 pg (27.0-32.0); Mean Corpuscular Volume 99.8 fL (80-94); Mean Platelet Vol. 8.9 fl (6.2-12.0); Monocyte# 0.63 X10^3/uL; Monocyte% 11.9 % (0-10); NRBC Flagged by Analyzer 0 % (0-5); Neutrophil # 2.66 X10^3/uL (2.7-7.7); Neutrophil % 50.3 % (47-70); Nitrite-Dipstick Negative (Negative); Occult Blood-Urine 10 /ul (Negative); Platelet Count 205 K/mm3 (150-450); Protein-Dipstick 30 mg/dl (Negative); RBC Distribution Width CV 12.7 % (11.6-14.6); RBC Distribution Width SD 46.3 fl (35.1-43.9); Red Blood Count 4.26 M/mm3 (4.6-6.2); Urine Clarity Sl. Cloudy (Clear); Urine Urobilinogen 1 mg/dl (Normal); White Blood Count 5.3 K/mm3 (4.4-11.0)
[2023-05-16 09:45] LABS: Urine Bilirubin Dipstick 1 mg/dL (Negative)
[2023-05-16 09:50] LABS: Mucous, Urine 2+ /hpf (<or=2+)
[2023-05-16 09:51] LABS: Bacteria 1+ /hpf (None Seen); Red Blood Cells-Urine 0-5 SEEN /hpf (0-5); White Blood Cells 0-5 SEEN /hpf (0-5)
[2023-05-16 09:59] LABS: Prothrombin Time (Protime)PT. 12.8 SECONDS (11.7-14.9)
[2023-05-16 10:00] LABS: Partial Thromboplast Time 26.9 Seconds (24.1-36.2)
[2023-05-16 10:13] LABS: Vitamin D,25 Hydroxy 36.5 ng/mL
[2023-05-16 10:27] LABS: AST(SGOT) 29 U/L (15-37); Alanine Aminotransfer ALT/SGPT 30 U/L (16-61); Albumin, Serum 3.8 g/dL (3.2-5.0); Alkaline Phosphatase 76 U/L (45-117); Anion Gap 8 (5-15); BUN 18 mg/dL (7-18); BUN/Creat Ratio 20.1 RATIO (10-20); Calcium,Total 8.9 mg/dL (8.5-10.1); Chloride 105 mmol/L (98-107); Cholesterol 185 mg/dL (200); EST Glomerular Filtration Rate 93 mL/min (>60); Est Glom Filt Rate - Afr Amer 112 mL/min (>60); Globulin 3.7 g/dL (2.2-4.2); Glucose 99 mg/dL (74-106); High Density Lipoprotein 37 mg/dL; Magnesium 1.7 mg/dL (1.6-2.6); Potassium 3.7 mmol/L (3.5-5.1); Protein, Total 7.5 g/dL (6.4-8.2); Sodium Level 141 mmol/L (136-145); Thyroid Stim Hormone (TSH) 1.25 uIU/mL (0.358-3.74); Triglycerides 212 mg/dL; Very Low Density Lipoprotein 42 mg/dL (5-40)
== END | disposition home or self-care (01) ==
LOC: LAB 08:53
PROVIDERS: PCP Internal Medicine; Referring Provider Internal Medicine; Visit Provider Internal Medicine
DX: Z01.818 Encounter for other preprocedural examination (principal); M51.26 Other intervertebral disc displacement, lumbar region; M51.36 Other intervertebral disc degeneration, lumbar region; E55.9 Vitamin D deficiency, unspecified; Z13.220 Encounter for screening for lipoid disorders
CPT/HCPCS: 36415; 80053; 80061; 81001; 82306; 83735; 84443; 85025; 85610; 85730

== ENCOUNTER → 2023-07-08 | Outpatient (CLI) | payer MEDICAID, SELFPAY ==
[2023-07-11 16:09] LABS: Absolute CD4 Helper 939 /uL (359-1519); Basophils (Absolute) 0.1 x10E3/uL (0.0-0.2); Eosinophils 2 % (Not Estab.); Eosinophils (Absolute) 0.1 x10E3/uL (0.0-0.4); Hematocrit 41.8 % (37.5-51.0); Hemoglobin 14.4 g/dL (13.0-17.7); Immature Granulocytes 0 % (Not Estab.); Immature Granulocytes Absolute 0 x10E3/uL (0.0-0.1); Lymphs 38 % (Not Estab.); Lymphs (Absolute) 2.6 x10E3/uL (0.7-3.1); MCH 33.8 pg (26.6-33.0); MCHC 34.4 g/dL (31.5-35.7); MCV 98 fL (79-97); Monocytes 9 % (Not Estab.); Monocytes (Absolute) 0.6 x10E3/uL (0.1-0.9); Neutrophils 50 % (Not Estab.); Neutrophils (Absolute) 3.4 x10E3/uL (1.4-7.0); Percent % CD4 Pos. Lymph. 36.1 % (30.8-58.5); Platelets 233 x10E3/uL (150-450); RBC Count 4.26 x10E6/uL (4.14-5.80); RDW 12.3 % (11.6-15.4); WBC Count 6.7 x10E3/uL (3.4-10.8)
[2023-07-12 02:07] LABS: HIV-1 RNA by PCR, Quant. 40 copies/mL (.); LOG10 HIV-1 RNA 1.602 (.)
== END | disposition home or self-care (01) ==
PROVIDERS: PCP Internal Medicine; Referring Provider Internal Medicine Infectious Disease; Visit Provider Internal Medicine Infectious Disease
DX: B20 Human immunodeficiency virus [HIV] disease (principal)
CPT/HCPCS: 36415; 80048; 86361; 87536

== ENCOUNTER → 2023-12-05 | Outpatient (CLI) | payer MEDICAID, SELFPAY ==
[2023-12-05 16:43] LABS: Hematocrit 44.3 % (40-54); Hemoglobin 14.9 g/dL (13.0-16.5); Mean Corp Hgb Conc 33.6 g/dL (32-36); Mean Corpuscular Hgb 33.4 pg (27.0-32.0); Mean Corpuscular Volume 99.3 fL (80-94); Mean Platelet Vol. 8.6 fl (6.2-12.0); Platelet Count 216 K/mm3 (150-450); RBC Distribution Width CV 12.7 % (11.6-14.6); RBC Distribution Width SD 45.7 fl (35.1-43.9); Red Blood Count 4.46 M/mm3 (4.6-6.2)
--- NOTE | 2023-12-05 16:44 | RAD_ITS ---
EXAM: XR ABDOMEN, 1 VIEW CLINICAL INDICATION: PERSONAL HISTORY OF URINARY CALCULI -- Z87.442 TECHNIQUE: Frontal supine view of the abdomen/pelvis. COMPARISON: 12/13/2022. FINDINGS: LOWER THORAX: No acute pathology. GASTROINTESTINAL TRACT: Unremarkable. Non-obstructive. No bowel or stomach distention. ORGANS: Unremarkable as visualized. No organomegaly. No abnormal calcifications. BONES/JOINTS: No acute pathology. SOFT TISSUES: No acute pathology. RAD/Abdomen Single View IMPRESSION: Non-obstructive bowel gas pattern. Electronically Signed: Brandon Guajardo MD at 0:48 EDT ,
[2023-12-05 17:21] LABS: Anion Gap 4 (5-15); BUN 16 mg/dL (7-18); BUN/Creat Ratio 16.8 RATIO (10-20); Calcium,Total 9.2 mg/dL (8.5-10.1); Chloride 105 mmol/L (98-107); Creatinine, Serum 0.95 mg/dL (0.70-1.30); EST Glomerular Filtration Rate 86 mL/min (>60); Est Glom Filt Rate - Afr Amer 104 mL/min (>60); Glucose 122 mg/dL (74-106); Potassium 3.8 mmol/L (3.5-5.1); Sodium Level 136 mmol/L (136-145)
[2023-12-07 16:10] LABS: Absolute CD4 Helper 784 /uL (359-1519); Basophils (Absolute) 0 x10E3/uL (0.0-0.2); Eosinophils 1 % (Not Estab.); Eosinophils (Absolute) 0.1 x10E3/uL (0.0-0.4); Hematocrit 45.3 % (37.5-51.0); Hemoglobin 15.3 g/dL (13.0-17.7); Immature Granulocytes 0 % (Not Estab.); Immature Granulocytes Absolute 0 x10E3/uL (0.0-0.1); Lymphs 24 % (Not Estab.); MCH 34.7 pg (26.6-33.0); MCHC 33.8 g/dL (31.5-35.7); MCV 103 fL (79-97); Monocytes 8 % (Not Estab.); Monocytes (Absolute) 0.6 x10E3/uL (0.1-0.9); Neutrophils 67 % (Not Estab.); Neutrophils (Absolute) 5.4 x10E3/uL (1.4-7.0); Percent % CD4 Pos. Lymph. 39.2 % (30.8-58.5); Platelets 240 x10E3/uL (150-450); RBC Count 4.41 x10E6/uL (4.14-5.80); RDW 12.9 % (11.6-15.4); WBC Count 8.1 x10E3/uL (3.4-10.8)
[2023-12-08 05:07] LABS: HIV-1 RNA by PCR, Quant. < 20 copies/mL (.)
== END | disposition home or self-care (01) ==
PROVIDERS: PCP Internal Medicine; Referring Provider Urology; Visit Provider Urology
DX: B20 Human immunodeficiency virus [HIV] disease (principal); Z87.442 Personal history of urinary calculi
CPT/HCPCS: 36415; 74018; 80048; 85027; 86361; 87536

== ENCOUNTER → 2023-12-30 | Outpatient (CLI) | payer MEDICAID, SELFPAY ==
[2023-12-30 17:12] LABS: PSA,Total - Annual Screen 3.04 ng/mL (0.00-4.00)
[2024-01-08 11:07] LABS: Testosterone, % Free 3.34 % (1.50-4.20); Testosterone, Free 11.76 ng/dL (5.00-21.00); Testosterone, Total 352 ng/dL (264-916)
== END | disposition home or self-care (01) ==
LOC: LAB 15:45
PROVIDERS: Internal Medicine; Referring Provider Urology; Visit Provider Urology
DX: Z12.5 Encounter for screening for malignant neoplasm of prostate (principal); S46.111A Strain of muscle, fascia and tendon of long head of biceps, right arm, initial encounter
CPT/HCPCS: 36415; 84153; 84402; 84403; G0103

== ENCOUNTER → 2024-01-19 | Outpatient (CLI) | payer MEDICAID, SELFPAY ==
[2024-01-19 15:10] LABS: PSA,Total- Diagnostic 2.14 ng/mL (0.0-4.0)
== END | disposition home or self-care (01) ==
LOC: LAB 13:58
PROVIDERS: PCP Internal Medicine; Referring Provider Physician Assistant; Visit Provider Physician Assistant
DX: R97.20 Elevated prostate specific antigen [PSA] (principal)
CPT/HCPCS: 36415; 84153

== ENCOUNTER → 2024-06-05 | Outpatient (CLI) | payer MEDICAID, SELFPAY ==
[2024-06-05 17:58] LABS: Hematocrit 40.5 % (40-54); Hemoglobin 14.2 g/dL (13.0-16.5); Mean Corp Hgb Conc 35.1 g/dL (32-36); Mean Corpuscular Hgb 35.1 pg (27.0-32.0); Mean Platelet Vol. 8.8 fl (6.2-12.0); Platelet Count 216 K/mm3 (150-450); RBC Distribution Width CV 12.6 % (11.6-14.6); RBC Distribution Width SD 46.2 fl (35.1-43.9); Red Blood Count 4.05 M/mm3 (4.6-6.2); White Blood Count 6.3 K/mm3 (4.4-11.0)
[2024-06-05 20:22] LABS: Anion Gap 11 (5-15); BUN 14 mg/dL (4-19); BUN/Creat Ratio 16.4 RATIO (10-20); Calcium,Total 9.1 mg/dL (7.6-11.0); Carbon Dioxide 23.8 mmol/L (21.0-32.0); Chloride 102 mmol/L (98-108); Creatinine, Serum 0.84 mg/dL (0.70-1.20); EST Glomerular Filtration Rate 101 (>60); Glucose 98 mg/dL (70-99); Potassium 3.9 mmol/L (3.3-5.1); Sodium Level 136 mmol/L (133-145)
[2024-06-05 21:16] LABS: PSA,Total- Diagnostic 1.55 ng/mL (0.00-4.00)
[2024-06-07 14:08] LABS: Absolute CD4 Helper 392 /uL (359-1519); Basophils (Absolute) 0 x10E3/uL (0.0-0.2); Eosinophils 1 % (Not Estab.); Eosinophils (Absolute) 0.1 x10E3/uL (0.0-0.4); Hematocrit 42.2 % (37.5-51.0); Hemoglobin 14.3 g/dL (13.0-17.7); Immature Granulocytes 0 % (Not Estab.); Immature Granulocytes Absolute 0 x10E3/uL (0.0-0.1); Lymphs 23 % (Not Estab.); Lymphs (Absolute) 1.4 x10E3/uL (0.7-3.1); MCH 34.5 pg (26.6-33.0); MCHC 33.9 g/dL (31.5-35.7); MCV 102 fL (79-97); Monocytes 7 % (Not Estab.); Monocytes (Absolute) 0.4 x10E3/uL (0.1-0.9); Neutrophils 69 % (Not Estab.); Neutrophils (Absolute) 4.1 x10E3/uL (1.4-7.0); Platelets 234 x10E3/uL (150-450); RBC Count 4.14 x10E6/uL (4.14-5.80); RDW 12.7 % (11.6-15.4)
[2024-06-09 04:07] LABS: HIV-1 RNA by PCR, Quant. < 20 copies/mL (.)
== END | disposition home or self-care (01) ==
PROVIDERS: Internal Medicine Infectious Disease; PCP Internal Medicine; Referring Provider Urology; Visit Provider Urology
DX: B20 Human immunodeficiency virus [HIV] disease (principal); R97.20 Elevated prostate specific antigen [PSA]
CPT/HCPCS: 36415; 80048; 84153; 85027; 86361; 87536

== ENCOUNTER → 2024-08-30 | Outpatient (CLI) | payer MEDICAID, SELFPAY | END | disposition home or self-care (01) | LOC: LABSPEC 08-31 07:55 | PROVIDERS: PCP Internal Medicine; Visit Provider Physician Assistant Surgical | DX: R82.90 Unspecified abnormal findings in urine (principal) | CPT/HCPCS: 87086 ==

== ENCOUNTER → 2024-10-05 | Outpatient (CLI) | payer MEDICAID, SELFPAY ==
[2024-10-05 10:20] LABS: AST(SGOT) 25 U/L (<=37); Alanine Aminotransfer ALT/SGPT 15 U/L (<=46); Albumin, Serum 4.4 g/dL (3.5-5.0); Alkaline Phosphatase 80 U/L (40-129); Anion Gap 12 (5-15); BUN 12 mg/dL (4-19); BUN/Creat Ratio 13.7 RATIO (10-20); Calcium,Total 9.2 mg/dL (7.6-11.0); Carbon Dioxide 24.9 mmol/L (21.0-32.0); Chloride 101 mmol/L (98-108); Cholesterol 215 mg/dL (<=200); Globulin 3.0 g/dL (2.2-4.2); Glucose 98 mg/dL (70-99); Low Density Lipoprotein Calc. 130 mg/dL; Potassium 4.0 mmol/L (3.3-5.1); Triglycerides 208 mg/dL; Very Low Density Lipoprotein 42 mg/dL (5-40); cholesterol:hdl ratio screen 4.99
[2024-10-05 10:26] LABS: CRP < 3.00 mg/L (0.0-3.0); Free T3 3.6 pg/mL (2.18-3.98); Vitamin B12 337 pg/mL (180-914); Vitamin D,25 Hydroxy 23.1 ng/mL (30-100)
[2024-10-09 15:07] LABS: ANTINUCLEAR ANTIBODIES DIRECT Negative (Negative)
== END | disposition home or self-care (01) ==
LOC: LAB 08:16
PROVIDERS: PCP Internal Medicine; Referring Provider Internal Medicine; Visit Provider Internal Medicine
DX: Z00.00 Encounter for general adult medical examination without abnormal findings (principal); Z13.220 Encounter for screening for lipoid disorders; E53.8 Deficiency of other specified B group vitamins; E55.9 Vitamin D deficiency, unspecified; M25.60 Stiffness of unspecified joint, not elsewhere classified; S46.111A Strain of muscle, fascia and tendon of long head of biceps, right arm, initial encounter; X58.XXXA Exposure to other specified factors, initial encounter; M76.61 Achilles tendinitis, right leg; M76.62 Achilles tendinitis, left leg; M51.369 Other intervertebral disc degeneration, lumbar region without mention of lumbar back pain or lower extremity pain; R73.9 Hyperglycemia, unspecified
CPT/HCPCS: 36415; 80053; 80061; 82306; 82607; 83036; 84402; 84439; 84443; 84481; 85652; 86038; 86140; 86225

== ENCOUNTER 2024-10-11 09:44 | Outpatient (RCR) | payer MEDICAID, SELFPAY ==
--- NOTE | 2024-10-11 10:46 | HP.PTEVAL ---
Patient's Visit Information Visit Information Visit Information: YAIR MILLS is a 59 year old M referred to Physical Therapy by Dr. Pramod Fisher MD with a diagnosis of B achilles pain and L knee pain. Date of Evaluation: 10/11/24 Physical Therapist: Joshua Echols, DPT, OCS, CSCS Visit Plan Frequency: Every Other Week Duration: 4-6 Weeks Plan: Pt wishes to rest from Tabata, stretch daily and work through this himself and f/u in one month as needed for ecccentrics, ex progression and monitor improvement. next achilles eccentrics, quad eccentrics, hip strength if desired adn ensure resting from aggravation but still working out. Subjective Subjective: B heel pain and L knee pain. Been working out and achilles hurt. Started working out in June to get in shape, does Y classes , tabata mostly, some stretching classes 3x/week. Hurts day after workout. Runs, jumps, skips, hops. These are the ones that hurt him. Used to do TM prior to class and was sore prior a little bit. Achilles B 0-4/10 L >R. L knee pain also with calcification in quad tendon on L on x rays. employed retired. Sleep is not interrupted. hobbies: life travel motor home, does everything regardless .Basic ADLs are no problem. Yard work is going OK but painful. Pain B acchilles: Pain Intensity (Out of 10): 1 Pain Intensity Range: 0 and 3 Comment: worse day after workout. Objective Objective: Walks into PT wihtout pain today and no antalgia, transfers chair and bed I. Feels stiff in calf and L quad. Tender to palpation B achilles insertion slightly, L quad medially at patella. Full aROM hips and knees with strength 4/5 hips abd ext adn flexion and 5/5 knee ext adn flexion without pain. ankle strength is 5/5, tightness in DF ROM at -2 AROM, PF/ev/inv WFL. PROM DF to 0 B. reflexes 1/3 patella and achilles B. Heel and toe walk without pain today. Balance/Special Test Scores Lower Extremity Functional Score: 43 Goals Goal 1:: I appropriate HEP for stretching adn ecc quad and achilles strength to minimzie future rpoblems. Goal Time Frame: 4-6 Weeks Goal 2:: Pain in achilles and L knee 1/10 at worst adn 90% better Goal Time Frame: 4-6 Weeks Rehabilitation Potential Physical Therapy Diagnosis: stiffness and poor ex progreession giving overuse symptoms. Rehabilitation Potential: Good Anticipated Interventions Patient/Client Instruction: Educate patient on: Condition and Plan of Care For the Purpose of:: To decrease pain, To increase ROM, To improve nutrient delivery to tissue and To increase tolerance to activity/condition/position Therapeutic Exercise to Include: Strength training, Flexibilty training and Passive ROM Comment: rest For the Purpose of:: To decrease pain, To increase ROM and To improve nutrient delivery to tissue Text: Thank you for the opportunity to evaluate your patient. For Medicare and Medicare HMO plans, please review the plan of care and approve it. It will need to be FAXED BACK to us at [phone] for Medicare purposes. For Medicare only, by signing this I certify the plan of care. Please let me know if there are questions or concerns regarding this plan of care. Physician Signature: Date:
--- NOTE | 2024-12-26 14:36 | HP.PT.NRP ---
Patient Information Patient Information: YAIR MILLS was seen in my office for initial evaluation on 10/11/24. The following Plan of Care was established for this patient: POC Established Initial Frequency: Every Other Week Initial Duration: 4-6 Weeks Anticipated Interventions Patient/Client Instruction: Educate patient on: Condition and Plan of Care For the Purpose of:: To decrease pain, To increase ROM, To improve nutrient delivery to tissue and To increase tolerance to activity/condition/position Therapeutic Exercise to Include: Strength training, Flexibilty training and Passive ROM For the Purpose of:: To decrease pain, To increase ROM and To improve nutrient delivery to tissue Last Seen Last Seen: This patient was last seen in our office 10/11/24. Pertinent comments regarding their Physical therapy will appear below: Pt seen for IE and POC established. He was to f.u a month later but did not attend or schedule. It has been over a month and I will disocntinue from my care. At this point I will be discontinuing this patient from physical therapy. I would be happy to see this patient again in the future if found appropriate by the physician. Thank you! Joshua Echols, DPT, OCS, CSCS Balance/Gait/Functional tests Balance/Special Test Scores Lower Extremity Functional Score: 43
== END 2024-10-11 19:00 | disposition home or self-care (01) ==
LOC: PT 09:44
PROVIDERS: PCP Internal Medicine; Referring Provider Orthopaedic Surgery Sports Medicine; Visit Provider Orthopaedic Surgery Sports Medicine
DX: M25.562 Pain in left knee (principal); M76.62 Achilles tendinitis, left leg; M76.61 Achilles tendinitis, right leg
CPT/HCPCS: 97161

== ENCOUNTER → 2024-10-23 | Outpatient (CLI) | payer MEDICAID, SELFPAY ==
[2024-10-23 10:43] LABS: Hematocrit 42.5 % (40-54); Hemoglobin 14.2 g/dL (13.0-16.5); Immature Granulocytes Count 0.030 X10^3/uL (0.0-0.0); Mean Corp Hgb Conc 33.4 g/dL (32-36); Mean Corpuscular Volume 99.1 fL (80-94); Mean Platelet Vol. 9.1 fl (6.2-12.0); NRBC Flagged by Analyzer 0 % (0-5); Platelet Count 235 K/mm3 (150-450); RBC Distribution Width CV 12.1 % (11.6-14.6); RBC Distribution Width SD 44.2 fl (35.1-43.9); Red Blood Count 4.29 M/mm3 (4.6-6.2); White Blood Count 6.3 K/mm3 (4.4-11.0)
[2024-10-23 11:46] LABS: AST(SGOT) 41 U/L (<=37); Alanine Aminotransfer ALT/SGPT 24 U/L (<=46); Albumin, Serum 4.1 g/dL (3.5-5.0); Alkaline Phosphatase 78 U/L (40-129); Calcium,Total 9.2 mg/dL (7.6-11.0); Chloride 103 mmol/L (98-108); Potassium 3.7 mmol/L (3.3-5.1)
[2024-10-23 11:58] LABS: Amylase 73 U/L (28-100); Anion Gap 13 (5-15); BUN 13 mg/dL (4-19); BUN/Creat Ratio 13.6 RATIO (10-20); CRP 53.60 mg/L (0.0-3.0); Carbon Dioxide 24.0 mmol/L (21.0-32.0); Globulin 3.6 g/dL (2.2-4.2); Glucose 102 mg/dL (70-99); Lipase 139 U/L (13-75); Magnesium 2.1 mg/dL (1.5-2.2)
== END | disposition home or self-care (01) ==
LOC: LAB 09:12
PROVIDERS: PCP Internal Medicine; Referring Provider Internal Medicine; Visit Provider Internal Medicine
DX: R10.10 Upper abdominal pain, unspecified (principal)
CPT/HCPCS: 36415; 80053; 82150; 83690; 83735; 85025; 86140

== ENCOUNTER 2024-10-24 16:51 | Emergency (ER) | payer MEDICAID, SELFPAY ==
[2024-10-24 16:52] VITALS: BP 163/100; PULSE 130; RESP 17; TEMP 36.6; O2SAT 100
[2024-10-24 16:56] VITALS: BMI 27.0
--- NOTE | 2024-10-24 17:02 | EKG12_ITS ---
Test Reason : TACHY Blood Pressure : */* mmHG Vent. Rate : 121 BPM Atrial Rate : 121 BPM P-R Int : 162 ms QRS Dur : 84 ms QT Int : 308 ms P-R-T Axes : 35 1 7 degrees QTcB Int : 437 ms Sinus tachycardia Otherwise normal ECG Confirmed by PHIL ROSAS, KELVIN ([id number]), social media editor TALISHA ZAMORANO ([id number]) on 10/26/2024 10:40:09 AM Referred By: TB Confirmed By: KELVIN VILLARREAL MD
--- NOTE | 2024-10-24 17:31 | RAD_ITS ---
PROCEDURE: RIGHT ANKLE MIN 3 VIEWS 10/24/2024 REASON FOR EXAM: PAIN TECHNIQUE: Procedure Code: RADANK Modality: DX Procedure: ANKLE MIN 3 VIEWS Laterality: Right COMPARISON: None. FINDINGS: No acute fracture or dislocation. Alignment is anatomic. Preserved joint spaces. No aggressive osseous lesion. No marked soft tissue swelling or radiopaque foreign body. RAD/Ankle min 3 Views IMPRESSION: No acute fracture or dislocation. Reading Location: [facility]
--- NOTE | 2024-10-24 17:32 | CT_ITS ---
PROCEDURE: ABDOMEN/PELVIS W IV CONT ONLY 10/24/2024 REASON FOR EXAM: EPIGASTRIC ABDOMINAL PAIN TECHNIQUE: Procedure Code: CTABDPELIV Modality: CT Procedure: ABDOMEN/PELVIS W IV CONT ONLY Coronal and Sagittal reconstruction series were provided. CONTRAST: Isovue 370 VOLUME: 100 mL One or more dose reduction techniques were used (e.g., Automated exposure control, adjustment of the mA and/or kV according to patient size, use of iterative reconstruction technique. RADIATION DOSE SUMMARY: CTDlvol: 15.73 mGy DLP: 823.19 mGycm COMPARISON: None. FINDINGS: Lung bases: Clear. Liver: Unremarkable. Gallbladder: Unremarkable. No biliary dilation. Spleen: Unremarkable. Pancreas: Unremarkable. Adrenals: Unremarkable. Kidneys: No hydronephrosis or nephrolithiasis. Bladder: Unremarkable. Reproductive Organs: Unremarkable. Bowel: No bowel wall thickening or bowel obstruction. Appendix: Unremarkable. Lymph nodes: No lymphadenopathy. Vasculature: No aneurysm. Peritoneum / Retroperitoneum: No free air or free fluid. Bones: No acute bony abnormalities. CT/Abdomen/Pelvis W IV Cont ONLY IMPRESSION: No acute abdominopelvic abnormalities. Reading Location: [facility]
[2024-10-24] MEDS: 0.9% Normal Saline (1000mL) 1,000 ML 999 ML IV (17:54)
[2024-10-24 17:57] LABS: Hematocrit 44.4 % (40-54); Hemoglobin 15.0 g/dL (13.0-16.5); Immature Granulocytes Count 0.040 X10^3/uL (0.0-0.0); Mean Corp Hgb Conc 33.8 g/dL (32-36); Mean Corpuscular Volume 98.0 fL (80-94); Mean Platelet Vol. 8.6 fl (6.2-12.0); NRBC Flagged by Analyzer 0 % (0-5); Platelet Count 232 K/mm3 (150-450); RBC Distribution Width CV 12.1 % (11.6-14.6); RBC Distribution Width SD 43.8 fl (35.1-43.9); Red Blood Count 4.53 M/mm3 (4.6-6.2); White Blood Count 8.3 K/mm3 (4.4-11.0)
--- NOTE | 2024-10-24 18:10 | RAD_ITS ---
PROCEDURE: CHEST 1 VIEW (PORTABLE) 10/24/2024 REASON FOR EXAM: EPIGASTIC PAIN TECHNIQUE: Frontal view of the chest. COMPARISON: None. FINDINGS: Cardiomegaly, with central vascular congestion, and probable interstitial pulmonary edema. No pneumothorax or sizable pleural effusion. Mild degenerative changes of the spine. RAD/Chest 1 View (Portable) IMPRESSION: Cardiomegaly, with vascular congestion and interstitial edema. No airspace consolidation or sizable pleural effusion. Reading Location: [facility]
[2024-10-24 18:27] LABS: AST(SGOT) 48 U/L (<=37); Alanine Aminotransfer ALT/SGPT 28 U/L (<=46); Albumin, Serum 4.5 g/dL (3.5-5.0); Alkaline Phosphatase 79 U/L (40-129); Anion Gap 14 (5-15); BUN 14 mg/dL (4-19); BUN/Creat Ratio 13.1 RATIO (10-20); Bilirubin, Direct 0.15 mg/dL (0.00-0.30); Calcium,Total 10.3 mg/dL (7.6-11.0); Carbon Dioxide 23.5 mmol/L (21.0-32.0); Chloride 105 mmol/L (98-108); Estimated Creatinine Clearance 71.25 ml/min (50-250); Globulin 3.8 g/dL (2.2-4.2); Glucose 86 mg/dL (70-99); Lipase 64 U/L (13-75); Potassium 4.1 mmol/L (3.3-5.1); Troponin T High Sensitivity 9 ng/L (<=22)
--- NOTE | 2024-10-24 18:31 | EX.ED.DYSGE1 ---
HPI History of Present Illness Chief Complaint: Abd Pain Narrative Narrative: Chief complaint and HPI: 59-year-old male with past medical history of GERD, HIV/AIDS presents for evaluation of acute pancreatitis. Patient states over the weekend he was at a wedding in which he developed epigastric abdominal pain. States the pain improved but then worsened. Saw his PCP outpatient who told him that his labs showed pancreatitis. He was scheduled for an outpatient CT abdomen pelvis but pain worsened and was told to come to the ED by PCP. He states prior to arrival to the emergency department, he did trip in his trailer at home in which he twisted his right ankle. Currently swollen and endorsing pain. Denies any numbness or tingling. Denies daily alcohol use. Previous abdominal surgery of her hernia. Denies any blood thinners. Denies any fever, chills, shortness of breath, chest pain, diarrhea, constipation, dysuria. Does endorse nausea. Review of systems: See HPI Medications: As listed on the chart Allergies: As listed on the chart PFSH: Per chart Vital signs: As listed on the chart. Reviewed. Physical exam: Gen: A&O x3 Head: Normocephalic, atraumatic Eyes: No sclera icterus, conjunctiva clear ENT: Moist mucous membranes Neck: Trachea midline, No JVD CV: Tachycardic, regular rhythm, no murmurs, no peripheral edema Resp: Lungs CTA BL, no w/r/c GI: Abd soft, non-distended, tender to palpation in the epigastrium, no r/r/g Musc: Full ROM in all extremities except limited in the right ankle secondary to pain and swelling, DP/PT pulses +2 bilaterally, sensation intact, good capillary refill, Achilles intact without tenderness, patient has tenderness to palpation of the ankle mostly at the lateral malleolus where most of the swelling is located Skin: Warm, dry Neuro: Alert, oriented, grossly intact, sensation intact Psych: Cooperative, appropriate mood and affect [facility] Medical History (Updated 10/23/24 @ 12:[address] Edwina Johnson MD) Acute pancreatitis Upper abdominal pain Left knee pain Achilles tendinitis of both lower extremities Rupture of right long head biceps tendon Normal exam Right shoulder pain Loss of hearing History of edema Non-smoker PONV (postoperative nausea and vomiting) Rectal pain Pain in both testicles History of kidney stones Cancer Arthritis Back pain Gastric reflux Left inguinal hernia Diarrhea Abdominal pain GERD (gastroesophageal reflux disease) AIDS Anal condyloma Anal dysplasia Weight loss Home Medications ?Medication ?Instructions ?Recorded ?Last Taken ?Type valacyclovir 1 gram tablet 1,000 mg PO QHS HIV 01/07/21 Unknown History abacavir 600 mg-dolutegravir 50 1 tab PO QHS HIV 05/16/23 Unknown History mg-lamivudine 300 mg tablet (Triumeq) omeprazole 40 mg capsule,delayed 40 mg PO QHS GERD #90 caps 01/04/24 Unknown Rx release epinephrine 0.3 mg/0.3 mL 0.3 mg (0.3 mL) IM Q5-15M PRN 01/17/24 Unknown Rx injection, auto-injector anaphylaxis #2 ea cetirizine 5 mg tablet (Zyrtec) 5 mg PO QDAY PRN allergy symptoms 10/23/24 Unknown History Allergy/AdvReac Type Severity Reaction Status Date / Time bee venom protein (honey bee) Allergy Severe Anaphylaxis Verified 10/23/24 08:29 adhesive tape AdvReac Rash Verified 10/23/24 08:29 amoxicillin (From Augmentin) AdvReac Hives Verified 10/23/24 08:29 clavulanic acid (From AdvReac Hives Verified 10/23/24 08:29 Augmentin) oxycodone (From Percocet) AdvReac elevated Verified 10/23/24 08:29 bp, felt funny, chest tightness Family History Mother Asthma Arthritis Diabetes Heart disease Hypertension High cholesterol Grandfather Cancer lung cancer Father Heart disease High cholesterol Hypertension Cancer skin cancer Surgical History H/O lumbosacral spine surgery Hx of arthroscopy of shoulder History of esophagogastroduodenoscopy (EGD) History of colonoscopy History of left inguinal hernia repair History of shoulder surgery history left bicep tendon repair history left ulnar nerve repair History of bilateral carpal tunnel release Social History Smoking Status: Never smoker alcohol intake: never substance use type: does not use EXAM Physical Exam Const Vital Signs: 10/24/24 16:52 10/24/24 18:52 10/24/24 20:00 Temperature 97.9 F Temperature Source Oral Pulse Rate 130 H 117 H 100 Respiratory Rate 17 22 H 16 Blood Pressure 163/100 H 125/90 H 129/96 H Blood Pressure Mean 121 101 107 Pulse Ox 100 99 100 Oxygen Delivery Method Room Air MDM MDM MDM Narrative Medical decision making narrative: 59-year-old male with past medical history of GERD, HIV/AIDS presents for evaluation of acute pancreatitis. Patient states over the weekend he was at a wedding in which he developed epigastric abdominal pain. States the pain improved but then worsened. Saw his PCP outpatient who told him that his labs showed pancreatitis. He was scheduled for an outpatient CT abdomen pelvis but pain worsened and was told to come to the ED by PCP. Complains of right ankle pain as he twisted it prior to arrival. Differential diagnosis includes but is not limited to acute pancreatitis, pseudocyst, electrolyte abnormality, dehydration, UTI, fracture, sprain. NS bolus, morphine, Zofran ordered. Abdominal pain workup ordered including CT abdomen and pelvis. Will obtain x-ray of the ankle. Suspect less likely cardiac etiology. EKG reviewed. EKG and chest x-ray reviewed. Will level on BNP as patient has no history of heart failure. CBC without leukocytosis or anemia. Platelets unremarkable. CMP unremarkable except for mildly elevated AST of 48. No hyperbilirubinemia. Lipase unremarkable. Troponin unremarkable x2. Lactic acid unremarkable. At this point in time, no clear etiology to explain patient's abdominal pain. He states it is in his epigastrium and radiates to his back. Low suspicion for dissection however cannot rule out. Will obtain CTA of the chest. X-ray of the ankle was personally reviewed interpreted by me, ED physician. No fracture or dislocation. Radiology in agreement. Pain and swelling likely due to sprain. Aircast ordered with crutches as needed. BNP unremarkable. CTA negative for dissection or PE. Patient has small hiatal hernia. Hepatic steatosis. Heart normal in size. No pericardial effusion. UA negative for UTI. At this point in time, no clear etiology to explain patient's epigastric abdominal pain. On reevaluation he states that his abdominal pain has resolved. He still endorses pain in the ankle. Patient stable to discharge home. Follow-up with orthopedics for his right ankle sprain. Follow-up with primary care physician for his epigastric pain. May be secondary to his known GERD. Return back to the ED if symptoms change or worsen. Motrin and Tylenol as needed for pain. Was given education on RICE therapy. He confirmed understand the plan. Patient stable to discharge home. Vitals have improved with pain management. EKG: Interpreted by me/EM physician: EKG shows sinus tachycardia with a heart rate of 121. No acute ischemic changes. Diagnostic: Interpreted by me/EM physician: X-ray shows cardiomegaly with mild vascular congestion. No large effusion, pneumothorax, pneumonia. Radiology in agreement. Impression: 1. Epigastric abdominal pain 2. Right ankle sprain Lab Data Labs: Laboratory Results - last 24 hr 10/24/24 10/24/24 10/24/24 17:45 19:21 19:55 WBC 8.3 RBC 4.53 L Hgb 15.0 Hct 44.4 MCV 98.0 H MCH 33.1 H MCHC 33.8 RDW Std Deviation 43.8 RDW Coeff of Micheline 12.1 Plt Count 232 MPV 8.6 Immature Gran % (Auto) 0.500 Neut % (Auto) 63.9 Lymph % (Auto) 22.9 [place] % (Auto) 10.9 H Eos % (Auto) 1.3 Baso % (Auto) 0.5 Absolute Neuts (auto) 5.3 Absolute Lymphs (auto) 1.90 Nucleated RBC % 0 Sodium 142 Potassium 4.1 Chloride 105 Carbon Dioxide 23.5 Anion Gap 14 BUN 14 Creatinine 1.08 Estim Creat Clear Calc 71.25 Est GFR (MDRD) Non-Af 79 BUN/Creatinine Ratio 13.1 Glucose 86 Lactic Acid < 1.0 Calcium 10.3 Total Bilirubin 0.37 Direct Bilirubin 0.15 AST 48 H ALT 28 Alkaline Phosphatase 79 Troponin T High Sens 9 Troponin T Hi Sens 2 Hr 9 NT pro BNP II < 36 Total Protein 8.3 Albumin 4.5 Globulin 3.8 Lipase 64 Urine Color Straw Urine Clarity Clear Urine pH 6.0 Ur Specific [place] 1.010 Urine Protein 15 H Urine Glucose (UA) Normal Urine Ketones 15 H Urine Occult Blood 10 H Urine Nitrite Negative Urine Bilirubin Negative Urine Urobilinogen Normal Ur Leukocyte Esterase Negative Urine RBC 0-5 SEEN Urine WBC 0-5 SEEN Ur Squamous Epith Cells 0-5 SEEN Urine Bacteria 0 SEEN Urine Mucus 0 SEEN Radiography Diagnostic Testing: Clinical Impression(s) from Imaging Studies Ankle X-Ray 10/24/24 17:31 IMPRESSION: No acute fracture or dislocation. Reading Location: [id number] Abdomen/Pelvis CT 10/24/24 17:32 IMPRESSION: No acute abdominopelvic abnormalities. Reading Location: [id number] Chest X-Ray 10/24/24 18:10 IMPRESSION: Cardiomegaly, with vascular congestion and interstitial edema. No airspace consolidation or sizable pleural effusion. Reading Location: [id number] Chest CTA 10/24/24 18:44 IMPRESSION: No acute intrathoracic pathology. No aortic aneurysm or dissection. Reading Location: [id number] Discharge Plan Triage Chief Complaint: Abd Pain ED Provider: Zack Prabhakar Dx/Rx/DC Orders Prescriptions: No Action valacyclovir 1 gram tablet 1,000 mg PO QHS omeprazole 40 mg capsule,delayed release(DR/EC) 40 mg PO QHS Qty: 90 3RF cetirizine [Zyrtec] 5 mg tablet 5 mg PO QDAY PRN (Reason: allergy symptoms) Triumeq 600-50-300 mg tablet 1 tab PO QHS epinephrine 0.3 mg/0.3 mL auto-injector 0.3 mg IM Q5-15M PRN (Reason: anaphylaxis) Qty: 2 1RF Rx Instructions: do not exceed 3 doses per episode Primary Care Provider: Edwina Johnson Referrals: Edwina Johnson MD [Primary Care Provider, Internal Medicine - [facility]] Print Language: Syriac
--- NOTE | 2024-10-24 18:44 | CT_ITS ---
PROCEDURE: CTA CHEST W/WO CONTRAST 10/24/2024 REASON FOR EXAM: DISSECTION TECHNIQUE: Procedure Code: [id number] Modality: CT Procedure: CTA CHEST W/WO CONTRAST Multiplanar Sagittal and Coronal images were obtained. 3D post processing was performed. CONTRAST: Isovue 370 VOLUME: 100 mL One or more dose reduction techniques were used (e.g., Automated exposure control, adjustment of the mA and/or kV according to patient size, use of iterative reconstruction technique). RADIATION DOSE SUMMARY: DLP: 514.35 mGycm COMPARISON: CTA chest 01/30/2021. FINDINGS: THORACIC AORTA: Normal in course and caliber. No aneurysm or dissection. No significant atherosclerotic disease. Conventional three-vessel aortic arch branching. PULMONARY VESSELS: Normal in caliber. No pulmonary arterial emboli. MEDIASTINUM: Unremarkable. No lymphadenopathy. HEART: Normal in size. No pericardial effusion. No significant coronary artery calcification. LUNGS/PLEURA: Clear. No airspace consolidation or findings of pulmonary edema. No pneumothorax or pleural effusions. The central airways are patent. UPPER ABDOMEN: Small hiatal hernia. Hepatic steatosis. BONES: Mild degenerative changes of the thoracic spine. CT/CTA Chest W/WO Contrast IMPRESSION: No acute intrathoracic pathology. No aortic aneurysm or dissection. Reading [facility]
[2024-10-24 18:52] VITALS: BP 125/90; PULSE 117; RESP 22; O2SAT 99
[2024-10-24] MEDS: Famotidine 200 MG/20 ML MDV 20 MG in 0.9% Normal Saline (Pres. free 8 ML 300 MG IV (18:55)
[2024-10-24 19:31] LABS: Mucous, Urine 0 SEEN /hpf (<or=2+)
[2024-10-24 19:32] LABS: Color, Urine Straw (Yellow); Glucose, Dipstick Normal (Normal); Ketone-Dipstick 15 mg/dl (Negative); Leukocyte Esterase-Dipstick Negative /ul (Negative); Nitrite-Dipstick Negative (Negative); Occult Blood-Urine 10 /ul (Negative); Protein-Dipstick 15 mg/dl (Negative); Specific Gravity, Urine 1.010 (1.002-1.030); Urine Bilirubin Dipstick Negative (Negative)
[2024-10-24 19:39] LABS: Pro- Brain NATRIURETIC PEPTIDE < 36 pg/mL (<=900)
[2024-10-24 19:49] LABS: Red Blood Cells-Urine 0-5 SEEN /hpf (0-5); Squamous Epithelial Cells - UA 0-5 SEEN /hpf (0-5)
[2024-10-24 20:00] VITALS: BP 129/96; PULSE 100; RESP 16; O2SAT 100
[2024-10-24 20:26] LABS: Troponin T High Sens 2 HR 9 ng/L (<=22)
[2024-10-24 21:05] VITALS: BP 131/96; PULSE 97; RESP 20; TEMP 36.8; O2SAT 99
== END 2024-10-24 21:07 | disposition home or self-care (01) ==
PROVIDERS: Emergency Provider Surgery; PCP Internal Medicine; Visit Provider Surgery
DX: R10.13 Epigastric pain (principal); Z21 Asymptomatic human immunodeficiency virus [HIV] infection status; S93.401A Sprain of unspecified ligament of right ankle, initial encounter; K21.9 Gastro-esophageal reflux disease without esophagitis; Z79.899 Other long term (current) drug therapy; X58.XXXA Exposure to other specified factors, initial encounter
CPT/HCPCS: 71045; 71275; 73610; 74177; 80048; 80076; 81001; 83605; 83690; 83880; 84484; 85025; 93005; 96361; 96365; 96375; 99285; Q9967; A4216; J2405

== ENCOUNTER 2024-11-07 14:15 | Outpatient (CLI) | payer MEDICAID, SELFPAY ==
[2024-11-07 15:58] LABS: CRP 17.00 mg/L (0.0-3.0); LDH 182 U/L (87-241)
[2024-11-12 22:07] LABS: Anti-Chromatin <0.2 AI (0.0-0.9); Anti-Jo <0.2 AI (0.0-0.9); Anti-dsDNA Ab <1 IU/mL (0-9); Egg, Whole <0.10 kU/L (Class 0); Mussels <0.10 kU/L (Class 0); SJOGREN'S Anti-SS-A test < 0.2 AI (0.0-0.9); SJOGREN'S Anti-SS-B test < 0.2 AI (0.0-0.9)
[2024-11-27 12:08] LABS: ACCA 26 units (0-90); ALCA 3 units (0-60); Albumin 3.9 g/dL (2.9-4.4); Cytoplasmic Ab (C-ANCA) <1:20 titer (Neg:<1:20); Gamma Globulin 1.5 g/dL (0.4-1.8); Immunoglobulin A 344 mg/dL (90-386); Immunoglobulin G 1372 mg/dL (603-1613); Immunoglobulin M 214 mg/dL (20-172); PROEL- TOTAL PROTEIN 7.6 g/dL (6.0-8.5); Perinuclear Ab (P-ANCA) <1:20 titer (Neg:<1:20)
== END 2024-11-07 23:59 | disposition home or self-care (01) ==
LOC: LAB 14:17
PROVIDERS: PCP Internal Medicine; Referring Provider Internal Medicine Gastroenterology; Visit Provider Internal Medicine Gastroenterology
DX: K85.90 Acute pancreatitis without necrosis or infection, unspecified (principal); K62.82 Dysplasia of anus; K21.9 Gastro-esophageal reflux disease without esophagitis; K44.9 Diaphragmatic hernia without obstruction or gangrene
CPT/HCPCS: 36415; 82784; 82785; 83516; 83615; 84165; 85652; 86003; 86005; 86036; 86037; 86140; 86225; 86235; 86255; 86334; 86671

== ENCOUNTER → 2024-11-08 | Outpatient (CLI) | payer MEDICAID, SELFPAY ==
[2024-11-12 08:07] LABS: Pancreatic Elastase, Fecal 157 (>200)
[2024-11-13 09:08] LABS: Calprotectin, Stool 157 ug/g (0-120); Fats, Neutral Normal (.); Fats, Total Normal (.)
== END | disposition home or self-care (01) ==
LOC: LABSPEC 10:40
PROVIDERS: PCP Internal Medicine; Referring Provider Internal Medicine Gastroenterology; Visit Provider Internal Medicine Gastroenterology
DX: K85.90 Acute pancreatitis without necrosis or infection, unspecified (principal); K62.82 Dysplasia of anus; K44.9 Diaphragmatic hernia without obstruction or gangrene; K21.9 Gastro-esophageal reflux disease without esophagitis; K58.0 Irritable bowel syndrome with diarrhea
CPT/HCPCS: 82274; 82653; 82705; 83630; 83993; 87177; 87209; 87329; 87493; 87506

== ENCOUNTER 2024-12-03 06:32 | Day surgery (SDC) | payer MEDICAID, SELFPAY ==
[2024-12-03] VITALS (7 sets, daily range): BP systolic 104–121; BP diastolic 68–90; PULSE 73–94; RESP 16–18; TEMP 36.1–36.8; O2SAT 96–98; BMI 26.1
--- OUTSIDE RECORDS SUMMARY | 2024-12-03 06:36 | XMS RPT_ITS | CCD ---
Author Organization [facility] Care Team Providers Care Straightener Hand Name Role Phone CHRIS ELLIS Referring Unavailable AB DENNY Attending Unavailable AB DENNY Primary Care Unavailable AB DENNY Admitting Unavailable Dr. Alessandro Roberson Primary Care Provider [phone] Dr. Alessandro Roberson Referring Provider Dr. Edwina Johnson Attending Provider [phone] Dr. Edwina Johnson Primary Care Provider Dr. Edwina Johnson Referring Provider [phone] Dr. Edwina Johnson Attending Provider [phone] Dr. Edwina Johnson Primary Care Provider Dr. Edwina Johnson Referring Provider [phone] [facility] [place] Attending Provider Unavailab le Unavailable Primary Care Provider Unavailluz elena e Unavailable Primary Care Provider Unavailabl e Dr. Edwina Johnson Primary Care Provider Dr. Edwina Johnson Referring Provider [phone] Dr. Alessandro Meza Attending Provider Dr. Chris Ellis Referring Provider Dr. Edwina Johnson Primary Care Provider Dr. Alessandro Meza Attending Provider [phone] Dr. Chris Ellis Referring Provider Tito Beatty MD Unavailable [phone] Tito Beatty MD Unavailable HOLGER GRANT Referring Unavailable PROVIDER, UNKNOWN Attending Unavailable PROVIDER, UNKNOWN Admitting Unavailable PROVIDER, UNKNOWN Admitting Unavailable PATIENT, SELF Referring Unavailable PROVIDER, UNKNOWN Attending Unavailable PROVIDER, UNKNOWN Admitting Unavailable HOLGER GRANT Referring Unavailable PROVIDER, UNKNOWN Attending Unavailable PROVIDER, UNKNOWN Admitting Unavailable PROVIDER, UNKNOWN Attending Unavailable Juanitazion ROSAS Holger Francis Unavailable Dr. Edwina Johnson Primary Care Provider Dr. Edwina Johnson Referring Provider Dr. Kyler Lao Attending Provider Dr. Edwina Johnson Attending Provider RICHARDSON GAUTHIER Referring Unavailable Elizabeth ROSAS, Dr. Bland Primary Care Provider Dr. Edwina Johnson MD Referring Provider Len Trejo Attending Provider [phone] MINNA VERAS MD Attending Provider MINNA VERAS MD Referring Provider Dr. Jeremiah Syed MD Other Provider Roderick Christine Attending Provider Roderick Christine Attending Provider Dr. Edwina Johnson MD Attending Provider Dr. Edwina Johnson MD Primary Care Provider Dr. Edwina Johnson MD Referring Provider Pramod Fisher MD Attending Provider Dr. Dhruv Novak MD Attending Provider Pramod Fisher MD Other Provider Pramod Fisher MD Referring Provider Dr. Edwina Johnson MD Primary Care Physician Roderick Christine Attending Physician Dr. Edwina Johnson MD Attending Physician Pramod Fisher MD Attending Physician Dr. Dhruv Novak MD Attending Physician Pramod Fisher MD Nurse Practitioner [phone] Vanna DONIS, [facility] Vanna DONIS, Dr. Dixon Attending Physician Friend DO, Dr. Green Attending Physician [phone] Friend DO, Dr. Green Referring Provider Elizabeth, Edwina Primary Care Unavailable Peter Mitchell Referring Unavailable Peter Mitchell Attending Unavailable Care Physician, No Primary Primary Care Unava ilable Elizabeth, Edwina Consulting Unavailable MINNA VERAS Referring Unavailable MINNA VERAS Attending Unavailable Jeremiah Syed Referring Unavailable Jeremiah Syed Attending Unavailable Care Physician, No Primary Primary Care Unava ilable Elizabeth, Edwina Referring Unavailable Pteer Mitchell Attending Unavailable Elizabeth, Edwina Primary Care Unavailable Mollsuman Pramod Referring Unavailable Mollison Pramod Attending Unavailable Elizabeth, Edwina Primary Care Unavailable Roderick Christine Attending Unavailable Elizabeth, Edwina Primary Care Unavailable Elizabeth, Edwina Primary Care Unavailable Lee Gauthier Attending Unavailable MINNA VERAS Consulting Unavailable Lee Gauthier Referring Unavailable Elizabeth, Edwina Referring Unavailable Mollison Pramod Consulting Unavailable Elizabeth, Edwnia Primary Care Unavailable ElizabethGhazalen Attending Unavailable Elizabeth, Edwina Referring Unavailable ElizabethGhazalen Attending Unavailable Elizabeth, Edwina Primary Care Unavailable Peter Mitchell Attending Unavailable Elizabeth, Edwina Primary Care Unavailable FriendPeter Referring Unavailable Elizabeth, Edwina Primary Care Unavailable Zack Prabhakar Attending Unavailabl e Elizabeth, Edwina Primary Care Unavailable Elizabeth, Edwina Referring Unavailable Roderick Christine Attending Unavailable Elizabeth, Edwina Primary Care Unavailable Elizabeth, Edwina Referring Unavailable Len Trejo Attending Unavailable Care Physician, No Primary Primary Care Unava ilable ElizabethEdwina Attending Unavailable Elizabeth, Edwina Referring Unavailable Len Trejo Attending Unavailable Elizabeth, Edwina Primary Care Unavailable Elizabeth, Edwina Primary Care Unavailable Dhruv Novak Attending Unavailable Edwina Johnson Referring Unavailable Pramod Fisher Attending Unavailable Edwina Johnson Primary Care Unavailable Edwina Johnson Primary Care Unavailable Edwina Johnson Attending Unavailable Edwina Johnson Referring Unavailable Peter Mitchell Attending Unavailable Jeremiah Syed Consulting Unavailable MINNA VERAS Referring Unavailable MINNA VERAS Attending Unavailable Edwina Johnson Primary Care Unavailable Care Physician, No Primary Referring Unava ilable Care Physician, No Primary Primary Care Unava ilable Len Trejo Attending Unavailable Pramod Fisher Attending Unavailable Care Physician, No Primary Referring Unava ilable Care Physician, No Primary Primary Care Unava ilable Edwina Johnson Primary Care Unavailable Edwina Johnson Attending Unavailable Edwina Johnson Primary Care Unavailable Jeremiah Syed Consulting Unavailable MINNA VERAS Referring Unavailable MINNA VERAS Attending Unavailable Allergies Allergy Classification Reported Allergen(s) Allergy Type Date of Onset Reaction(s) Facility (8 sources) Acetaminophen Drug Allergy 02-10-19 22 chest tightness, HTN [facility] Work Phone: (20 sources) Adhesive Tape; Translations: [adhesive tape] Propensity to adverse reactions 02-10-19 Rash [facility] Comment on above: PT STATES HE IS OK W ITH IV DRSGS (20 sources) Amoxicillin Drug Allergy 02-10-19 22 [facility] (20 sources) Clavulanate Drug Allergy 02-10-19 22 [facility] (20 sources) oxyCODONE Drug Allergy 02-10-19 22 elevated bp, felt funny, chest tightness [facility] (20 sources) bee venom protein (honey bee) Allergy to substance 02-10-19 Anaphylaxis [facility] (4 sources) Acetaminophen / oxyCODONE; Translations: [PERCOCET] Drug Allergy 07-20-19 23 [facility]ache [facility] (4 sources) Amoxicillin / Clavulanate; Translations: [AMOCLAN] Drug Allergy 07-20-19 23 [facility] Bee Sting; Translations: [SINAI-KIT BEE STING] Propensity to adverse reactions to drug 07-20-19 23 [facility] ([facility]) Amoxicillin Drug Allergy 12-01-19 [facility] (1 source) Clavulanate Drug Allergy 12-01-19 [facility] (1 source) oxyCODONE Drug Allergy 12-01-19 [facility] (1 source) bee venom protein (honey bee) Drug allergy (disorder) 12-01-19 [facility] Medications Current Medications Medication Drug Class(es) Dates Sig (Normalized) Sig (Original) abacavir 600 mg / dolutegravir 50 mg / lamiVUDine 300 mg oral tablet (20 sources) Human Immunodeficiency Virus Nucleoside Analog Reverse Transcriptase Inhibitor, Hepatitis B Virus Nucleoside Analog Reverse Transcriptase Inhibitor, Human Immunodeficiency Virus Integrase Strand Transfer Inhibitor Start: 03-20-2021 take 1 tablet by mouth once daily Triumeq 600-50-300 MG TABS per tablet Take 1 Tablet by mouth daily. 0 08/11/2021 Active Start: 06-12-2018 End: 05-16-2023 take 1 tablet by mouth at bedtime Start: 06-12-2018 take 1 tablet by mouth once da [facility]Lddiifj[facility]-Rtsfloc Active 1 TABLET PO DAILY June 12, 2018 12:00am acetaminophen 325 mg / HYDROcodone bitartrate 5 mg oral tablet (4 sources) Opioid Agonist Start: 08-15-2021 take 1 tablet by mouth every six hours Hydrocodone-Acetaminophen Active 1 TABLET PO EVERY 6 HOURS 26 06August 15, 2021 cetirizine hydrochloride 5 mg oral tablet (7 sources) Histamine-1 Receptor Antagonist Start: 10-23-2024 take 1 tablet by mouth once daily as needed Start: 12-09-2020 take 2 tablets by mo [facility] once daily Cetirizine (Zyrtec) 10 mg tablet Active 20 MG PO DAILY December 09, 2020 9:03am [id number] 0.3 ml EPINEPHrine 1 mg/ml auto-injector (20 sources) alpha-Adrenergic Agonist, beta-Adrenergic Agonist, Catecholamine Start: 01-17-2024 Start: 01-07-2021 End: 01-07-2021 Epinephrine 0.3 mg/0.3 mL au to-injector Discontinued 0.3 mg IM every 5 to 15 minutes as needed January 07, 2021 1:00am January 07, 2021 2:52pm do not exceed 3 doses per episode Fish Oils (1 source) Start: 07-21-2022 fish oil Active PO 1 time daily July 21, 2022 12:00am 1-2 gms ketorolac tromethamine 10 mg oral tablet (4 sources) Nonsteroidal Anti-inflammatory Drug, Cyclooxygenase Inhibitor Start: 08-15-2021 take 10 mg by mouth every six hours Ketorolac Active 10 MG PO EVERY 6 HOURS 20 August 15, 2021 12:00am loperamide hydrochloride 2 mg oral capsule (1 source) Opioid Agonist Start: 01-15-2019 Loperamide (Imodium A-D) 2 mg capsule Active 6 MG PO NEEDED January 15, 2019 5:10pm meloxicam 15 mg oral tablet (4 sources) Nonsteroidal Anti-inflammatory Drug Start: 08-14-2021 take 15 mg by mouth once daily Meloxicam Active 15 MG PO DAILY August 14, 2021 12:00am promethazine hydrochloride 25 mg oral tablet (20 sources) Phenothiazine Start: 06-22-2021 take 25 mg by mouth every six hours Promethazine Active 25 MG PO EVERY 6 HOURS June 22, 2021 12:00am Start: 01-15-2019 End: 12-09-2020 take 1 tablet by mouth every six hours Promethazine 12.5 mg tablet Discontinued 12.5 mg PO EVERY 6 HOURS January 15, 2019 1:00am December 09, 2020 9:02am sulfaSALAzine 500 mg oral tablet (2 sources) Aminosalicylate Start: 09-24-2021 take 2 tablets by mouth twice daily sulfaSALAzine (AZULFIDINE) 500 MG tablet Take 2 Tablets by mouth 2 times daily. 120 Tablet 2 09/24/2021 Active tamsulosin hydrochloride 0.4 mg oral capsule (20 sources) alpha-Adrenergic Ly Start: 08-15-2021 take 1 capsule by mouth once daily Tamsulosin (Flomax) 0.4 mg Capsule Active 0.4 MG PO DAILY August 15, 2021 12:00am Start: 06-22-2021 End: 07-09-2021 take 1 capsule by mouth once daily Tamsulosin (Flomax) 0.4 mg capsule Discontinued 0.4 mg PO DAILY June 22, 2021 12:00am July 09, 2021 9:28am traMADol hydrochloride 50 mg oral tablet (20 sources) Opioid Agonist Start: 08-11-2021 take 1 tablet by mouth every eight hours Tramadol (Ultram) 50 mg tablet Active 50 MG PO Q8H August 11, 2021 12:00am Start: 06-22-2021 End: 07-09-2021 take 1 tablet by mouth every six hours as needed for pain Tramadol 50 mg tablet Discontinued 50 mg PO EVERY 6 HOURS as needed for pain 12 3 June 22, 2021 12:00am July 09, 2021 9:28am Calculus of right kidney Calculus of kidney Start: 01-30-2021 take 50 mg by mouth every six hours Tramadol Active 50 MG PO EVERY 6 HOURS 12 January 30, 2021 2:13pm valACYclovir 1000 mg oral tablet (20 sources) Herpesvirus Nucleoside Analog DNA Polymerase Inhibitor, Herpes Simplex Virus Nucleoside Analog DNA Polymerase Inhibitor, Herpes Zoster Virus Nucleoside Analog DNA Polymerase Inhibitor Start: 09-01-2021 valACYclovir (VALTR EX) 1 GM tablet Start: 01-07-2021 Start: 01-07-2021 take 1000 mg by mout h at bedtime Valacyclovir Active 1000 MG PO AT BEDTIME January 07, 2021 1:00am Start: 06-12-2018 End: 12-09-2020 Valacyclovir 1000 MG tablet Discontinued 1 {tbl} PO DAILY June 12, 2018 12:00am December 09, 2020 9:02am Start: 06-12-2018 End: 12-09-2020 take 1 tablet by mouth once daily Valacyclovir Discontinued 1 TABLET PO DAILY June 12, 2018 12:00am December 09, 2020 9:02am Completed/Discontinued Medications Medication Drug Class(es) Dates Sig (Normalized) Sig (Original) 8 hr acetaminophen 650 mg extended release oral tablet (16 sources) Start: 08-05-2022 End: 09-05-2023 Acetaminophen (Arthritis Pain Reliever) 650 mg tablet extended release Discontinued 1300 mg PO Q12H August 05, 2022 12:00am September 05, 2023 1:04pm PAIN acetaminophen 325 mg / oxyCODONE hydrochloride 5 mg oral tablet (20 sources) Opioid Agonist Start: 01-29-2021 End: 02-05-2021 Oxycodone-Acetamin ophen (Percocet) 5-325 mg tablet Discontinued 1 {tbl} PO Q4H as needed for pain 10 5 0 January 29, 2021 February 05, 2021 10:28am Left inguinal hernia apremilast 30 mg oral tablet (20 sources) Start: 12-09-2020 End: 01-07-2021 take 1 tablet by mouth twice daily Apremilast (Otezla) 30 mg tablet Discontinued 30 mg PO TWICE A DAY December 09, 2020 12:00am January 07, 2021 2:29pm azithromycin 250 mg oral tablet (12 sources) Macrolide Antimicrobial Start: 06-05-2024 End: 08-30-2024 Azithromycin 250 mg tablet Discontinued 250 mg PO .COMPLEX 12 0 June 05, 2024 12:00am August 30, 2024 5:40pm 2 tablets (500 mg) on day 1, then 1 tablet daily on days 2 through 11 Diltiazem 2% / Lidocaine 5% Ointment (Compound) (11 sources) Start: 08-15-2021 End: 02-10-2022 Diltiazem 2% / Lidocaine 5% Ointment (Compound) Discontinued 0 .Route 60 August 14, 2021 11:00pm February 10, 2022 9:28am Apply externally to the rectum 3 times a day as needed pain Start: 08-15-2021 End: 02-10-2022 Diltiazem 2% / Lidocaine 5% Ointment (Compound) Discontinued 0 .Route 60 August 15, 2021 12:00am February 10, 2022 10:28am Apply externally to the rectum 3 times a day as needed pain Start: 08-15-2021 Diltiazem 2% / Lidocaine 5% Ointment (Compound) Active 0 .Route 60 August 14, 2021 11:00pm Apply externally to the rectum 3 times a day as needed pain Start: 08-15-2021 Diltiazem 2% / Lidocaine 5% Ointment (Compound) Active 0 .Route 60 August 15, 2021 12:00am Apply externally to the rectum 3 times a day as needed pain Diltiazem 2% / Lidocaine 5% Ointment (Compound) ointment (12 sources) Start: 08-15-2021 End: 02-10-2022 Diltiazem 2% / Lidocaine 5% Ointment (Compound) ointment Discontinued 0 .Route 60 0 August 15, 2021 12:00am February 10, 2022 10:28am Apply externally to the rectum 3 times a day as needed pain doxycycline monohydrate 100 mg oral tablet (12 sources) Tetracycline-class Drug Start: 08-30-2024 End: 09-09-2024 take 1 tablet by mouth twice daily Doxycycline Monohydrate 100 mg tablet Discontinued 100 mg PO TWICE A DAY August 30, 2024 12:00am September 08, 2024 12:00am September 09, 2024 12:08am methylPREDNISolone 4 mg oral tablet (12 sources) Corticosteroid Start: 06-05-2024 End: 08-30-2024 take 1 tablet by mouth once Methylprednisolone (Medrol (Willis)) 4 mg tablets,dose pack Discontinued 0 PO per package directions June 05, 2024 12:00am August 30, 2024 5:40pm PO PER PKG DIR naproxen 500 mg oral tablet (20 sources) Nonsteroidal Anti-inflammatory Drug Start: 06-22-2021 End: 07-09-2021 take 1 tablet by mouth twice daily Naproxen 500 MG tablet Discontinued 500 mg PO TWICE A DAY June 22, 2021 12:00am July 09, 2021 9:29am Start: 06-12-2018 End: 01-07-2021 take 1 tablet by mouth twice daily as needed for pain Naproxen 500 MG tablet Discontinued 500 mg PO TWICE DAILY NEEDED as needed for Pain June 12, 2018 10:27pm January 07, 2021 2:29pm nelfinavir 250 mg oral tablet (20 sources) Protease Inhibitor Start: 12-09-2020 End: 01-07-2021 take 1 tablet by mouth three times daily Nelfinavir (Viracept) 250 mg tablet Discontinued 750 mg PO THREE TIMES A DAY December 09, 2020 12:00am January 07, 2021 2:29pm administer with a meal Nirmatrelvir-Riton avir (19 sources) Start: 01-14-2022 End: 02-10-2022 Nirmatrelvir-Ritona vir (Paxlovid (Eua)) 300 mg (150 mg x 2)-100 mg tablets,dose pack Discontinued 0 PO .COMPLEX 30 0 January 14, 2022 1:00am February 10, 2022 10:28am take TWO 150 mg tablets of nirmatrelvir with ONE 100 mg tablet of ritonavir twice daily for 5 days PO Start: 01-14-2022 End: 02-10-2022 Nirmatrelvir-Ritonavir (Paxl ovid (Eua)) 300 mg (150 mg x 2)-100 mg tablets,dose pack Discontinued 0 PO .COMPLEX January 14, 2022 12:00am February 10, 2022 9:28am take TWO 150 mg tablets of nirmatrelvir with ONE 100 mg tablet of ritonavir twice daily for 5 days PO Start: 01-14-2022 End: 02-10-2022 Nirmatrelvir-Ritonavir (Paxl ovid (Eua)) 300 mg (150 mg x 2)-100 mg tablets,dose pack Discontinued 0 PO .COMPLEX January 14, 2022 1:00am February 10, 2022 10:28am take TWO 150 mg tablets of nirmatrelvir with ONE 100 mg tablet of ritonavir twice daily for 5 days PO Start: 01-14-2022 Nirmatrelvir-R itonavir (Paxlovid (Eua)) 300 mg (150 mg x 2)- 100 mg tablets,dose pack Active 0 PO .COMPLEX January 14, 2022 12:00am take TWO 150 mg tablets of nirmatrelvir with ONE 100 mg tablet of ritonavir twice daily for 5 days PO nitrofurantoin 100 mg oral tablet (20 sources) Nitrofuran Antibacterial Start: 08-11-2021 End: 08-11-2021 take 1 capsule by mouth twice daily at mealtime Nitrofurantoin 100 mg capsule Discontinued 100 mg PO TWICE A DAY August 11, 2021 12:00am August 11, 2021 3:22pm must administer with a meal/food omeprazole 40 mg delayed release oral capsule (20 sources) Proton Pump Inhibitor Start: 06-12-2018 End: 01-04-2024 take 1 capsule by mouth once daily Omeprazole 40 mg capsule,delayed release(DR/EC) Discontinued 40 mg PO DAILY 90 February 10, 2022 1:45pm August 05, 2022 11:12am GERD predniSONE 20 mg oral tablet (20 sources) Start: 06-12-2018 End: 01-15-2019 take 2 tablets by mouth once daily at mealtime Prednisone 20 MG tablet Discontinued 40 mg PO DAILY June 12, 2018 12:00am January 15, 2019 5:08pm With food Start: 06-12-2018 End: 01-15-2019 take 40 mg by mouth once daily at mealtime Prednisone Discontinued 40 MG PO DAILY June 12, 2018 12:00am January 15, 2019 5:08pm With food 72 hr scopolamine 0.0139 mg/hr transdermal system (20 sources) Anticholinergic Start: 01-30-2024 End: 09-17-2024 Scopolamine Base 1 mg over 3 days patch 3 day Discontinued 1 NMA TD Every 3 Days as needed for motion sickness 4 0 January 30, 2024 1:00am September 17, 2024 8:28am Start: 06-25-2021 End: 08-11-2021 Scopolamine Base 1 mg over 3 days patch 3 day Discontinued 1 NMA TD Every 3 Days as needed for motion sickness 4 0 June 25, 2021 12:00am August 11, 2021 2:50pm Start: 06-25-2021 End: 08-11-2021 Scopolamine Base Discontinue d 1 PATCH TD Every 3 Days June 25, 2021 12:00am August 11, 2021 2:50pm sulfamethoxazole 800 mg / trimethoprim 160 mg oral tablet (20 sources) Dihydrofolate Reductase Inhibitor Antibacterial, Sulfonamide Antimicrobial Start: 08-11-2021 End: 08-25-2021 Sulfamethoxazole-Trimethopri m (Bactrim Ds) 800-160 mg tablet Discontinued 1 {tbl} PO TWICE A DAY 28 14 0 August 11, 2021 12:00am August 24, 2021 12:00am August 25, 2021 12:02am terbinafine 250 mg oral tablet (12 sources) Allylamine Antifungal Start: 12-29-2023 End: 09-17-2024 take 1 tablet by mouth once daily Terbinafine Hcl 250 mg tablet Discontinued 250 mg PO daily December 29, 2023 1:00am September 17, 2024 8:29am Problems Active Problems Problem Classification Problem Date Documented Da te Episodic/Chronic Abdominal hernia (20 sources) Left inguinal hernia ; Translations: [Unilateral inguinal hernia, without obstruction or gangrene, not specified as recurrent] 01-06-2021 Episodic Abdominal pain (20 sources) Abdominal pain; Translations: [Unspecified abdominal pain] Onset: 5 01-15-2019 Episodic Anal and rectal conditions (20 sources) Rectal pain; Translations: [Other specified diseases of anus and rectum] 08-23-2021 Episodic Calculus of urinary tract (20 sources) Kidney stone; Translations: [Calculus of kidney] 08-23-2021 Episodic Diabetes mellitus without complication (20 sources) Hyperglycemia; Translations: [Hyperglycemia, unspecified] Episodic E Codes: Adverse effects of medical drugs (20 sources) Adverse reaction to drug; Translations: [Adverse effect of unspecified drugs, medicaments and biological substances, initial encounter] 02-07-2021 Episodic Esophageal disorders (20 sources) Gastroesophageal reflux disease; Translations: [Gastro-esophageal reflux disease without esophagitis] 01-15-2019 Chronic Esophageal disorders (8 sources) Esophageal disorders Genitourinary symptoms and ill-defined conditions (1 source) Unspecified abnormal findings in urine; Translations: [Unspecified abnormal findings in urine] Onset: Episodic HIV infection (20 sources) Human immunodeficiency virus carrier; Translations: [Asymptomatic human immunodeficiency virus [HIV] infection status] Onset: 5 Chronic Inflammatory conditions of male genital organs (20 sources) Inflammatory disease of prostate, unspecified; Translations: [Prostatitis, unspecified] Episodic Nonspecific chest pain (20 sources) Chest pain; Translations: [Chest pain, unspecified] 02-07-2021 Episodic Other connective tissue disease (20 sources) Swelling of hand; Translations: [Other specified soft tissue disorders] 06-25-2021 Episodic Other connective tissue disease (7 sources) Other specified soft tissue disorders; Translations: [Swelling of limb] Episodic Other connective tissue disease (19 sources) Achilles tendinitis; Translations: [Achilles tendinitis, right leg] 09-17-2024 Episodic Other connective tissue disease (10 sources) Bilateral achilles tendonitis; Translations: [Achilles tendinitis, right leg] 09-17-2024 Episodic Other connective tissue disease (1 source) Achilles tendinitis, right leg; Translations: [Achilles tendinitis, right leg] Onset: 5 Episodic Other connective tissue disease (1 source) Achilles tendinitis, left leg; Translations: [Achilles tendinitis, left leg] Onset: 5 Episodic Other gastrointestinal disorders (20 sources) Diarrhea; Translations: [Diarrhea, unspecified] 01-15-2019 Episodic Other hematologic conditions (20 sources) MCV - raised; Translations: [Other abnormality of red blood cells] 06-25-2021 Episodic Other inflammatory condition of skin (20 sources) Psoriasis; Translations: [Psoriasis, unspecified] 06-25-2021 Chronic Other inflammatory condition of skin (5 sources) Psoriasis, unspecified; Translations: [Other psoriasis] Onset: 3 Chronic Other inflammatory condition of skin (10 sources) Psoriatic arthritis; Translations: [Arthropathic psoriasis, unspecified] Onset: 2 09-14-2021 Chronic Other male genital disorders (20 sources) Bilateral testicular pain; Translations: [Right testicular pain] 08-11-2021 Episodic Other non-traumatic joint disorders (20 sources) Joint stiffness; Translations: [Stiffness of unspecified joint, not elsewhere classified] 06-25-2021 Episodic Other non-traumatic joint disorders (8 sources) Stiffness of unspecified joint, not elsewhere classified; Translations: [Stiffness of joint, not elsewhere classified, site unspecified] Onset: 5 Episodic Other non-traumatic joint disorders (1 source) Pain in unspecified joint; Translations: [Pain in unspecified joint] Onset: 3 Episodic Other non-traumatic joint disorders (12 sources) Pain in right shoulder; Translations: [Right shoulder pain] 09-05-2023 Episodic Other non-traumatic joint disorders (20 sources) Pain in left knee; Translations: [Left knee pain] Onset: 5 10-04-2024 Episodic Other non-traumatic joint disorders (3 sources) Knee pain Episodic Pancreatic disorders (not diabetes) (9 sources) Acute pancreatitis; Translations: [Acute pancreatitis without necrosis or infection, unspecified] Onset: 5 10-23-2024 Episodic Spondylosis; intervertebral disc disorders; other back problems (20 sources) Other intervertebral disc displacement, lumbar region; 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] 01-25-2023 Chronic Sprains and strains (18 sources) Rupture of tendon of biceps, long head; Translations: [Strain of muscle, fascia and tendon of long head of biceps, right arm, initial encounter] Onset: 5 12-29-2023 Episodic Unclassified (1 source) Invalid ICD10 Description; Translations: [Invalid ICD10 Description] Onset: 1 Unclassified (9 sources) Z12.11 - Encounter for screening for malignant neoplasm of colon,K21.9 - Gastro-esophageal reflux disease without esophagitis Unclassified (9 sources) M76.61 - Achilles tendinitis, right leg,M76.62 - Achilles tendinitis, left leg Unclassified (3 sources) Achilles tendinitis of both lower extremities Unclassified (8 sources) M76.61 - Achilles tendinitis, right leg,M76.62 - Achilles tendinitis, left leg,M25.562 - Pain in left knee Unclassified (5 sources) Patient encounter status Past or Other Problems Problem Classification Problem Date Documented Da te Episodic/Chronic Other male genital disorders (1 source) Left testicular pain; Translations: [Left testicular pain] Onset: 08-30-2024 Episodic Other screening for suspected conditions (not mental disorders or infectious disease) (20 sources) Patient encounter status; Translations: [Encounter for screening for malignant neoplasm of colon] Onset: 01-25-2024 12-13-2020 Episodic Unclassified (20 sources) history left bicep tendon repair 08-29-2021 Unclassified (20 sources) history left ulnar nerve repair 08-29-2021 Results Test Name Value Interpretation Reference Range Facility [facility] 11-27-2024 Atypical pANCA <1:20 Normal Neg:<1:20 [facility] Comment on above: Result Comment: The atypical pANCA pattern has been observed in a significant percentage of patients with ulcerative colitis, primary sclerosing cholangitis and autoimmune hepatitis. Performed at: - [facility] [id number] Medical Equipment Repair Technician: Carrillo Finn PhD, Phone: [phone] Performed at: [facility] [id number] Medical Equipment Repair Technician: Estuardo Masters MD, Phone: [phone] Performed By: #### L 400.0001 #### [facility] [address] [facility] [place], [place], [id number] Cytoplasmic Ab <1:20 Normal Neg:<1:20 [facility] Comment on above: Performed By: #### L 400.0001 #### [facility] [address] [place], [address] Perinuclear Ab. <1:20 Normal Neg:<1:20 [facility] Comment on above: Result Comment: The presence of positive fluorescence exhibiting P-ANCA or C-ANCA patterns alone is not specific for the diagnosis of Lauren's Granulomatosis (WG) or microscopic polyangiitis. Decisions about treatment should not be based solely on ANCA IFA results. The International ANCA Group Consensus recommends follow up testing of positive sera with both VA- 3 and MPO-ANCA enzyme immunoassays. As many as 5% serum samples are positive only by EIA. Ref. AM J Clin Pathol 1999;111:507-513. Performed By: #### L 400.0001 #### [facility] [address] [facility] [address] Celiac Disease Profileon ENDOMYSIAL IGA Negative Normal Negative [facility] Comment on above: Performed By: #### L 400.0001 #### [facility] [address] [place], [address] tTG IGA <2 Normal 0-3 [facility] Comment on above: Result Comment: Nega tive 0 - 3 Weak Positive 4 - 10 Positive >10 Tissue Transglutaminase (tTG) has been identified as the endomysial antigen. Studies have demonstr- ated that endomysial IgA antibodies have over 99% specificity for gluten sensitive enteropathy. Performed By: #### L 400.0001 #### [facility] [address] [place], [place], [address] ANTHONY + Protein Elect, Serumon 11-27-2024 Albumin [Mass/Vol] 3.9 g/dL Normal 2.9-4.4 [facility] Comment on above: Order Comment: N Performed By: #### L 500.2500, L3890.0200, L3890.4000, L100.0500 #### [facility] [address] [place], [address] Albumin/Globulin [Mass ratio] 1.1 {ratio} Normal 0.7-1.7 [facility] Comment on above: Order Comment: N Performed By: #### L 500.2500, L3890.0200, L3890.4000, L100.0500 #### [facility] [address] [place], [address] PWPRO-6-SVWZ 0.3 g/dL Normal 0.0-0.4 [facility] Comment on above: Order Comment: N Performed By: #### L 500.2500, L3890.0200, L3890.4000, L100.0500 #### [facility] [address] [place], [address] [id number] 0.8 g/dL Normal 0.4-1.0 [facility] Comment on above: Order Comment: N Performed By: #### L 500.2500, L3890.0200, L3890.4000, L100.0500 #### [facility] [address] [place], [address] BETA GLOBULIN 1.2 g/dL Normal 0.7-1.3 [facility] Comment on above: Order Comment: N Performed By: #### L 500.2500, L3890.0200, L3890.4000, L100.0500 #### [facility] [address] [place], [address] GAMMA GLOBULIN 1.5 g/dL Normal 0.4-1.8 [facility] Comment on above: Order Comment: N Performed By: #### L 500.2500, L3890.0200, L3890.4000, L100.0500 #### [facility] [address] [place], [address] Globulin (S) [Mass/Vol] 3.7 g/dL Normal 2.2-3.9 [facility] Comment on above: Order Comment: N Performed By: #### L 500.2500, L3890.0200, L3890.4000, L100.0500 #### [facility] [address] [place], [address] ANTHONY RESULT,S Comment Normal . [facility] Comment on above: Order Comment: N Result Comment: No m onoclonality detected. Performed By: #### L 500.2500, L3890.0200, L3890.4000, L100.0500 #### [facility] [address] [place], [address] IMMUNOGLOB A QN 344 mg/dL Normal 90-386 [facility] Comment on above: Order Comment: N Performed By: #### L 500.2500, L3890.0200, L3890.4000, L100.0500 #### [facility] [address] [place], [address] IMMUNOGLOB G QN 1372 mg/dL Normal 603-1613 [facility] Comment on above: Order Comment: N Performed By: #### L 500.2500, L3890.0200, L3890.4000, L100.0500 #### [facility] [address] [place], [address] IMMUNOGLOB M QN 214 mg/dL High 20-172 [facility] Comment on above: Order Comment: N Performed By: #### L 500.2500, L3890.0200, L3890.4000, L100.0500 #### [facility] [address] [place], [address] M-Montrell Not Observed Normal Not Observed [facility] Comment on above: Order Comment: N Performed By: #### L 500.2500, L3890.0200, L3890.4000, L100.0500 #### [facility] [address] [place], [address] NOTE: Comment Normal . [facility] Comment on above: Order Comment: N Result Comment: Prot ein electrophoresis scan will follow via computer, mail, or tire stripper delivery. Performed By: #### L 500.2500, L3890.0200, L3890.4000, L100.0500 #### [facility] [address] [place], [address] Protein [Mass/Vol] 7.6 g/dL Normal 6.0-8.5 [facility] Comment on above: Order Comment: N Performed By: #### L 500.2500, L3890.0200, L3890.4000, L100.0500 #### [facility] [address] [place], [address] Immunoglobulins G/A/M/Saleem IMMUNOGLOB E QN 20 IU/mL Normal 6-495 [facility] Comment on above: Order Comment: N Performed By: #### L 500.2500, L3890.0200, L3890.4000, L100.0500 #### [facility] [address] [place], [address] L2100.0000on 11-27-2024 ACCA 26 units Normal 0-90 [facility] Comment on above: Result Comment: Nega tive: <80 Equivocal: 80-90 Positive: >90 Performed By: #### L 500.2500, L3890.0200, L3890.4000, L100.0500 #### [facility] [address] [place], [address] ALCA 3 units Normal 0-60 [facility] Comment on above: Result Comment: Nega tive:<55 Equivocal: 55-60 Positive: >60 Performed By: #### L 500.2500, L3890.0200, L3890.4000, L100.0500 #### [facility] [address] [place], [address] AMCA TNP Normal . [facility] Comment on above: Result Comment: Test not performed. Unable to perform test due to current unavailability of reagents or discontinuation of test. Negative: <90 Equivocal: 90-100 Positive: >100 This test was developed and its performance characteristics determined by [facility]. It has not been cleared or approved by the Food and Drug Administration. The FDA has determined that such clearance or approval is not necessary. Performed By: #### L 500.2500, L3890.0200, L3890.4000, L100.0500 #### [facility] [address] [place], [address] Atypical pANCA Negative Normal Negative [facility] Comment on above: Performed By: #### L 500.2500, L3890.0200, L3890.4000, L100.0500 #### [facility] [address] [place], [address] COMMENT Performed Normal . [facility] Comment on above: Performed By: #### L 500.2500, L3890.0200, L3890.4000, L100.0500 #### [facility] [address] [place], [address] Annabelle 22 units Normal 0-50 [facility] Comment on above: Result Comment: Nega tive: <45 Equivocal: 45-50 Positive: >50 Performed By: #### L 500.2500, L3890.0200, L3890.4000, L100.0500 #### [facility] [address] [place], [address] Urgent Care Visit Reporton 1 Urgent Care Visit Report [facility] [address] , [address] [place], [place] [address] OFFICE VISIT Date of Service: 11/26/24 MR#: [id number] Acct: [id number] Name: YAIR FRIEDMAN Rep #: [id number] : 1965 Provider: GARRETT Rocha Age/Sex: 59/M Location: [facility] Status: Signed Intake Vital Signs 10/24/24 16:52 11/26/24 09:16 Height 5 ft 8 in 5 ft 8 in Weight: 174 lb BMI 26.4 Body Surface Area 97.8 BP 142/84 H Blood Pressure Location Lt brachial Position Sitting Pulse 89 Pulse Source Monitor Temp 97.8 F Temp Source Oral Pulse Oximetry (%) 97 Oxygen Delivery Method room air Intake Visit Reasons: ST/STIFF NECK/LEONARD Chief Complaint: Stiff Neck, Headache Accompanied by: Self Allergies bee venom protein (honey bee) Allergy (Severe, Verified 11/26/24 09:09) Anaphylaxis adhesive tape Adverse Reaction (Verified 11/26/24 09:09) Rash amoxicillin (From Augmentin) Adverse Reaction (Verified 11/26/24 09:09) Hives clavulanic acid (From Augmentin) Adverse Reaction (Verified 11/26/24 09:09) Hives oxycodone (From Percocet) Adverse Reaction (Verified 11/26/24 09:09) elevated bp, felt funny, chest tightness Medications ???Medication ???Instructions ???Recorded ???Confirmed ???Type valacyclovir 1 gram tablet 1,000 mg PO QHS HIV 01/07/2111/26 History abacavir 600 mg-dolutegravir 50 1 tab PO QHS HIV 05/16/23 11/26/24 History mg-lamivudine 300 mg tablet (Triumeq) omeprazole 40 mg capsule,delayed 40 mg PO QHS GERD #90 caps 01/03/ 4 11/26/24 Rx release epinephrine 0.3 mg/0.3 mL 0.3 mg (0.3 mL) IM Q5-15M PRN 01/0711/26/24 Rx injection, auto-injector anaphylaxis #2 ea cetirizine 5 mg tablet (Zyrtec) 5 mg PO QDAY PRN allergy symptoms 10/23/24 11/26/24 History methylprednisolone 4 mg tablets in See Rx Instructions PO PER PKG D IR 11/26/24 11/26/24 Rx a dose pack (Medrol (Willis)) #21 tabs Nurse's Note: Scratchy throat, headache, stiff neck, sore back of neck, bilateral jaw and ear pain. Visited grand nephew . exposed to strep. [facility] Medical History Acute pancreatitis Upper abdominal pain Left knee pain Achilles tendinitis of both lower extremities Rupture of right long head biceps tendon Normal exam Right shoulder pain Loss of hearing History of edema Non-smoker PONV (postoperative nausea and vomiting) Rectal pain Pain in both testicles History of kidney stones Cancer Arthritis Back pain Gastric reflux Left inguinal hernia Diarrhea Abdominal pain GERD (gastroesophageal reflux disease) AIDS Anal condyloma Anal dysplasia Weight loss Surgical History H/O lumbosacral spine surgery Hx of arthroscopy of shoulder History of esophagogastroduodenoscopy (EGD) History of colonoscopy History of left inguinal hernia repair History of shoulder surgery history left bicep tendon repair history left ulnar nerve repair History of bilateral carpal tunnel release Family History Mother Asthma Arthritis Diabetes Heart disease Hypertension High cholesterol Grandfather Cancer lung cancer Father Heart disease High cholesterol Hypertension Cancer skin cancer Social History Smoking Status: Never smoker alcohol intake: never substance use type: does not use HPI HPI Chief Complaint: Stiff Neck, Headache Details: YAIR FRIEDMAN, is a 59 M who presents to the office today for [facility] for approximately 4-day history of persistent scratchy throat, headache, stiff/sore back of neck, bilateral jaw and ear pain. Visited grand nephew last who was diagnosed with strep throat and wants to ensure he does not have the same. Notes swollen tender anterior cervical lymph nodes in front of neck, no cough, no fever. Painful swallowing appreciated though no difficulty swallowing/drooling. No rash. No complaints of chest pressure/shortness of breath/dyspnea on exertion. No einn-brw-mrsmgrb products taken to assist. No other associated symptoms and no other alleviating/aggravating factors. ROS Const Constitutional: No other (As above) Exam Const General: cooperative, healthy appearing and no acute distress Orientation: alert, awake HENMT Head: normal to inspection Ears: hearing grossly normal bilaterally, external ears normal, TM's normal bilaterally and EAC's normal Nose: external nose normal, nares normal, septum normal and no nasal discharge Face and sinus: normal facial exam, sinuses nontender and face symmetric Mouth: oral mucosae normal, lip normal, tongue normal and oropharynx normal Throat: p (more content not included)... Normal [facility] M7400.3302on 11-14-2024 M7400.3302 ___ TESTING PERFORMED AT [facility]. ORIGINAL REPORT ON FILE IN LAB CONTAINS ADDITIONAL TEST SITE INFORMATION. ___ Giardia Lamblia EIA NEGATIVE Normal [facility] Comment on above: Performed By: #### L 100.0100, L501.5200, L501.6710, L501.2400, L501.2450, L500.4050 #### [facility] [address] [place], [place], [address] Ova and Parasites [id number] OP OVA AND PARASITES EX AM, ROUTINE These results were obtained using wet preparation(s) and trichrome stained smear. This test does not include testing for Crytosporidium parvum, Cyclospora, or Microsporidia. One negative specimen does not rule out the possibility of a parasitic infection. ___ TESTING PERFORMED AT [facility]. ORIGINAL REPORT ON FILE IN LAB CONTAINS ADDITIONAL TEST SITE INFORMATION. ___ Ova/Parasite Exam NO OVA, CYSTS, OR PARASITES FOUND. Normal [facility] Comment on above: Performed By: #### L 100.0100, L501.5200, L501.6710, L501.2400, L501.2450, L500.4050 #### [facility] [address] [place], [place], [address] Calprotectin, Stoolon [address] 157 ug/g Abnormal 0-120 [facility] Comment on above: Order Comment: Test( s) 229961-Btlh, Neutral; 651384-Vdyl, Totalwas developed and its performance characteristicsdetermined by [employer]. It has not been cleared or approvedby the Food and Drug Administration. Result Comment: Conc entration Interpretation Follow-Up < 5 - 50 ug/g Normal None >50 -120 ug/g Borderline Re-evaluate in 4-6 weeks >120 ug/g Abnormal Repeat as clinically indicated Performed at: [address] [id number] Medical Equipment Repair Technician: Carrillo Finn PhD, Phone: [phone] Performed at: [address] [id number] Medical Equipment Repair Technician: Estuardo Matsers MD, Phone: [phone] Performed By: #### L 100.0100, L501.5200, L501.6710, L501.2400, L501.2450, L500.4050 #### [facility] [address] [place], [place], [address] Fecal Fat, Qualitativeon FATS, NEUTRAL Normal Normal . [facility] Comment on above: Order Comment: Test( s) 083565-Bqur, Neutral; 919906-Xgfj, Totalwas developed and its performance characteristicsdetermined by [employer]. It has not been cleared or approvedby the Food and Drug Administration. Result Comment: Norm al (<60 Droplets/HPF) Performed By: #### L 100.0100, L501.5200, L501.6710, L501.2400, L501.2450, L500.4050 #### [facility] [address] [place], [address] FATS, TOTAL Normal Normal . [facility] Comment on above: Order Comment: Test( s) 585277-Hsaw, Neutral; 395790-Nlmm, Totalwas developed and its performance characteristicsdetermined by [employer]. It has not been cleared or approvedby the Food and Drug Administration. Result Comment: Norm al (<100 Droplets/HPF) Performed By: #### L 100.0100, L501.5200, L501.6710, L501.2400, L501.2450, L500.4050 #### [facility] [address] [place], [address] [facility] Comprehensive Panelon ANTI-DNA (DS)AB <1 Normal 0-9 [facility] Comment on above: Result Comment: Nega tive <5 Equivocal 5 - 9 Positive >9 Performed By: #### L 500.2500, L3890.0200, L3890.4000, L100.0500 #### [facility] [address] [place], [address] ANTI-SS-A < 0.2 Normal 0.0-0.9 [facility] Comment on above: Performed By: #### L 500.2500, L3890.0200, L3890.4000, L100.0500 #### [facility] [address] [place], [address] ANTI-SS-B < 0.2 Normal 0.0-0.9 [facility] Comment on above: Performed By: #### L 500.2500, L3890.0200, L3890.4000, L100.0500 #### [facility] [address] [place], [address] Allergen, Food Profile 14on 11-12-2024 BEEF <0.10 Normal Class 0 [facility] Comment on above: Performed By: #### L 500.2500, L3890.0200, L3890.4000, L100.0500 #### [facility] [address] [place], [address] CHOCOLATE <0.10 Normal Class 0 [facility] Comment on above: Performed By: #### L 500.2500, L3890.0200, L3890.4000, L100.0500 #### [facility] [address] [place], [address] CODFISH <0.10 Normal Class 0 [facility] Comment on above: Performed By: #### L 500.2500, L3890.0200, L3890.4000, L100.0500 #### [facility] [address] [place], [address] COMMENT Comment Normal . [facility] Comment on above: Result Comment: Latoya patel of Specific IgE Class Description of Class ----- < 0.10 0 Negative 0.10 - 0.31 0/I Equivocal/Low 0.32 - 0.55 I Low 0.56 - 1.40 II Moderate 1.41 - 3.90 III High 3.91 - 19.00 IV Very High 19.01 - 100.00 V Very High >100.00 Very High Performed By: #### L 500.2500, L3890.0200, L3890.4000, L100.0500 #### [facility] [address] [place], [address] CORN <0.10 Normal Class 0 [facility] Comment on above: Performed By: #### L 500.2500, L3890.0200, L3890.4000, L100.0500 #### [facility] [address] [place], [address] EGG, WHOLE <0.10 Normal Class 0 [facility] Comment on above: Result Comment: Perf ormed at: [facility] [id number] Medical Equipment Repair Technician: Carrillo Finn PhD, Phone: [phone] Performed at: - [facility] [id number] Medical Equipment Repair Technician: Estuardo Masters MD, Phone: [phone] Performed By: #### L 500.2500, L3890.0200, L3890.4000, L100.0500 #### [facility] [address] [place], [address] MILK (COW) <0.10 Normal Class 0 [facility] Comment on above: Performed By: #### L 500.2500, L3890.0200, L3890.4000, L100.0500 #### [facility] [address] [place], [place], [facility] MUSSELS <0.10 Normal Class 0 [facility] Comment on above: Performed By: #### L 500.2500, L3890.0200, L3890.4000, L100.0500 #### [facility] [address] [place], [address] PEANUT <0.10 Normal Class 0 [facility] Comment on above: Performed By: #### L 500.2500, L3890.0200, L3890.4000, L100.0500 #### [facility] [address] [place], [address] PORK <0.10 Normal Class 0 [facility] Comment on above: Performed By: #### L 500.2500, L3890.0200, L3890.4000, L100.0500 #### [facility] [address] [place], [address] SALMON <0.10 Normal Class 0 [facility] Comment on above: Performed By: #### L 500.2500, L3890.0200, L3890.4000, L100.0500 #### [facility] [address] [place], [address] SHRIMP <0.10 Normal Class 0 [facility] Comment on above: Performed By: #### L 500.2500, L3890.0200, L3890.4000, L100.0500 #### [facility] [address] [place], [address] SOYBEAN <0.10 Normal Class 0 [facility] Comment on above: Performed By: #### L 500.2500, L3890.0200, L3890.4000, L100.0500 #### [facility] [address] [place], [place], [facility] TUNA 0.10 kU/L Abnormal Class 0/I [facility] Comment on above: Performed By: #### L 500.2500, L3890.0200, L3890.4000, L100.0500 #### [facility] [address] [place], [address] WHEAT 0.15 kU/L Abnormal Class 0/I [facility] Comment on above: Performed By: #### L 500.2500, L3890.0200, L3890.4000, L100.0500 #### [facility] [address] [place], [place], [facility] L7000.0750on 11-12-2024 P ELASTASE,FECA 157 Low >200 [facility] Comment on above: Result Comment: Resu lt Units: ug Elast./g Severe Pancreatic Insufficiency: <100 Moderate Pancreatic Insufficiency: 100 - 200 Normal: >200 Performed at: [facility] [address] [id number] Medical Equipment Repair Technician: Estuardo Masters MD, Phone: [phone] Performed By: #### L 100.0100, L501.5200, L501.6710, L501.2400, L501.2450, L500.4050 #### [facility] [address] [place], [place], [address] CDIFF (PCR)on 11-08-2024 CDIFF Pending 027 027 NAP1-B1 Presumptive Negative *for epidemiolologic???use C. Diff PCR Negative- No toxigenic C. Diff Detected Normal [facility] Comment on above: Performed By: #### L 400.0001 #### [facility] [address] [place], [place], [id number] Calprotectin stoolOrdered By : Peter Mitchell on 11-08-2024 Calprotectin stool 157 ug/g High 0-120 [facility] Comment on above: Concentration Interp retation Follow-Up< 5 - 50 ug/g Normal None>50 -120 ug/g Borderline Re-evaluate in 4-6 weeks >120 ug/g Abnormal Repeat as clinically indicatedPerformed at: [facility] [address] [id number] Director: Carrillo Finn PhD, Phone: [phone] at: [facility] [address] [id number] Director: Estuardo Masters MD, Phone: [phone] Clostridium difficile detect ion by polymerase chain reactionOrdered By: Peter Mitchell on 11-08-2024 C. difficile DNA EBONY+probe Ql (Unsp spec) [facility] ENTERIC PATHOGEN PANEL STOOL on 11-08-2024 EP PANEL CAMPYLOBACTER Not Detected Norovirus Not Detected Rotavirus Not Detected Salmonella Not Detected Shiga Toxin Not Detected Shigella sp. Not Detected VIBRIO Not Detected Yersinia Not Detected Normal [facility] Comment on above: Performed By: #### L 400.0001 #### [facility] [address] [place], [place], [id number] Fecal fat detectionOrdered B y: Peter Mitchell on 11-08-2024 Fat Ql (Stl) Normal . [facility] Comment on above: Normal (<100 Droplet s/HPF) No Panel InformationOrdered By: Peter Mitchell on 11-08-2024 Stool Neutral Fats Normal . [facility] Comment on above: Normal (<60 Droplets /HPF) Stool Lactoferrin/WBCon WBCST Normal Reference Ran ge = Negative Fecal WBC Lactoferrin Negative: No Fecal WBC Lactoferrin present Normal [facility] Comment on above: Performed By: #### L 400.0001 #### [facility] [address] [place], [place], [id number] Stool Occult Blood iFOBon STOB Negative Normal [facility] Comment on above: Performed By: #### L 400.0001 #### [facility] [address] [place], [place], [id number] Stool gastrointestinal hemog lobin detection by immunologic methodOrdered By: Peter Mitchell on 11-08-2024 Lower GI hemoglobin IA Ql (Stl) [facility] Stool lactoferrin detection by immunoassayOrdered By: Peter Mitchell on 11-08-2024 Lactoferrin IA Ql (Stl) [facility] Stool pancreatic elastase me asurement (mass/mass)Ordered By: Peter Mitchell on 11-08-2024 Elastase.pancreatic (Stl) [Mass/Mass] 157 Low >200 [facility] Comment on above: Result Units: ug Brynn st./g Severe Pancreatic Insufficiency: <100 Moderate Pancreatic Insufficiency: 100 - 200 Normal: >200Performed at: - [facility] [id number] Director: Estuardo Mastres MD, Phone: [phone] CRPon 11-07-2024 C-REACTIVE PROT 17.00 mg/L High 0.0-3.0 [facility] Comment on above: Performed By: #### L 500.2500, L3890.0200, L3890.4000, L100.0500 #### [facility] [address] [place], [place], [id number] Erythrocyte Sed Rateon 11-07 SED RATE 21 mm/hr High 0-20 [facility] Comment on above: Performed By: #### L 500.2500, L3890.0200, L3890.4000, L100.0500 #### [facility] [address] [place], [place], [id number] Erythrocyte sedimentation ra teOrdered By: Peter Mitchell on 11-07-2024 ESR (Bld) [Velocity] 21 mm/h High 0-20 [facility] [facility] Gastroenterology Visit Repor ton 11-07-2024 Gastroenterology Visit Report [facility] Gastroenterology [address] [place] [address] OFFICE VISIT Date of Service: 11/07/24 MR#: [id number] Acct: [id number] Name: YAIR FRIEDMAN Rep #: [id number] : 1965 Provider: Peter Mitchell DO Age/Sex: 59/M Location: [facility] [place] Status: Signed Intake Vital Signs 09/17/24 08:33 10/24/24 16:52 Height 5 ft 8 in 5 ft 8 in Intake Visit Reasons: GERD PRE COLONOSCOPY Allergies bee venom protein (honey bee) Allergy (Severe, Verified 10/23/24 08:29) Anaphylaxis adhesive tape Adverse Reaction (Verified 10/23/24 08:29) Rash amoxicillin (From Augmentin) Adverse Reaction (Verified 10/23/24 08:29) Hives clavulanic acid (From Augmentin) Adverse Reaction (Verified 10/23/24 08:29) Hives oxycodone (From Percocet) Adverse Reaction (Verified 10/23/24 08:29) elevated bp, felt funny, chest tightness Medications ???Medication ???Instructions ???Recorded ???Confirmed ???Type valacyclovir 1 gram tablet 1,000 mg PO QHS HIV 01/07/2111/07 History abacavir 600 mg-dolutegravir 50 1 tab PO QHS HIV 05/16/23 11/07/24 History mg-lamivudine 300 mg tablet (Triumeq) omeprazole 40 mg capsule,delayed 40 mg PO QHS GERD #90 caps 01/03/2 4 11/07/24 Rx release epinephrine 0.3 mg/0.3 mL 0.3 mg (0.3 mL) IM Q5-15M PRN 01/0711/07/24 Rx injection, auto-injector anaphylaxis #2 ea cetirizine 5 mg tablet (Zyrtec) 5 mg PO QDAY PRN allergy symptoms 10/23/24 11/07/24 History Nurse's Note: Pt was scheduled for EGD and Colonoscopy after todays visit for 12/03. Reviewed prep in office and was given prep instructions sheet. [facility] Medical History Acute pancreatitis Upper abdominal pain Left knee pain Achilles tendinitis of both lower extremities Rupture of right long head biceps tendon Normal exam Right shoulder pain Loss of hearing History of edema Non-smoker PONV (postoperative nausea and vomiting) Rectal pain Pain in both testicles History of kidney stones Cancer Arthritis Back pain Gastric reflux Left inguinal hernia Diarrhea Abdominal pain GERD (gastroesophageal reflux disease) AIDS Anal condyloma Anal dysplasia Weight loss Surgical History H/O lumbosacral spine surgery Hx of arthroscopy of shoulder History of esophagogastroduodenoscopy (EGD) History of colonoscopy History of left inguinal hernia repair History of shoulder surgery history left bicep tendon repair history left ulnar nerve repair History of bilateral carpal tunnel release Family History Mother Asthma Arthritis Diabetes Heart disease Hypertension High cholesterol Grandfather Cancer lung cancer Father Heart disease High cholesterol Hypertension Cancer skin cancer Social History Smoking Status: Never smoker alcohol intake: never substance use type: does not use HPI HPI Details: YAIR FRIEDMAN, is a 59 M who presents to the office today for initial consult. 59-year-old gentleman with a long history of gastroesophageal reflux disease, currently managed on Nexium therapy. 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 He expresses concern about the potential long-term effects of his conditions. HIV:???On triple therapy, CD4 count of 298, and negative viral load on recent blood work. He also admits to 20 to 25-year history of diarrhea. He says that his diarrhea is mostly fatty associated with cramping and urgency. He denies any fever or nocturnal symptoms. He also has???intermittent abdominal pain and elevated lipase, but with a normal CT scan.??? ROS Const Constitutional: Positive for fatigue; No fever(s) or weight change ENT ENT: No difficulty swallowing Gastro GI: Positive for diarrhea; No abdominal pain, belching, bloating, change in bowel habits, change in stool character, coffee ground emesis, constipation, cramping, heartburn, difficulty swallowing, feeling full early, excessive flatus, incontinent of stools, Vomiting blood/hematemesis, Blood in stool, loose stools, Black,tarry stools, nausea/dyspepsia, pain with swallowing, vomiting or other Musc Musculoskeletal: Positive for joint pain, back pain, joint swelling, numbness, stiffness and tingling Skin Skin: No yellowing of the eye or itchy eyes Neuro Neurology: Positive for numbness and tingling Psych Psychiatric: No anxiety and No depression Endo Endocrine: Positive for fatigue; No weight change Aller/Imm Allergy/Immunologic: No itchy eyes Benito/Ly (more content not included)... Normal [facility] LDHon 11-07-2024 LDH 182 U/L Normal 87-241 [facility] Comment on above: Order Comment: 1 Performed By: #### L 500.2500, L3890.0200, L3890.4000, L100.0500 #### [facility] [address] [place], [address] Laboratory - Miscellaneous t estsOrdered By: Peter Friend on 11-07-2024 Service comment (Unsp spec) [Interp] Comment . [facility] Comment on above: Levels of Specific I gE Class Description of Class ----- < 0.10 0 Negative 0.10 - 0.31 0/I Equivocal/Low 0.32 - 0.55 I Low 0.56 - 1.40 II Moderate 1.41 - 3.90 III High 3.91 - 19.00 IV Very High 19.01 - 100.00 V Very High >100.00 Very High Lactate dehydrogenase (LDH) measurementOrdered By: Peter Mitchell on 11-07-2024 LDH [Catalytic activity/Vol] 182 U/L 87-241 [facility] Serum DNA double strand anti body assay (units/volume)Ordered By: Peter Mitchell on 11-07-2024 DNA double strand Ab Qn (S) [IU]/mL 0-9 [facility] Comment on above: Negative <5 Equivoca l 5 - 9 Positive >9 Serum Scl-70 antibody assay (units/volume)Ordered By: Peter Mitchell on 11-07-2024 SCL-70 extractable nuclear Ab Qn (S) TNP [facility] Comment on above: Test not performed SCL-70 extractable nuclear Ab Qn (S) <0.2 AI 0.0-0.9 [facility] Comment on above: Previous reported re sult: TNP AIEdited by: ROSA on 11/12/24:2206 AMENDED REPORT 11/12/242206 ANTISCLER previously reported as: Test not performed Serum beef IgE antibody assa y (units/volume)Ordered By: Peter Mitchell on 11-07-2024 Beef IgE Qn (S) <0.10 kU/L Class 0 [facility] Serum codfish IgE antibody a ssay (units/volume)Ordered By: Peter Mitchell on 11-07-2024 Codfish IgE Qn (S) <0.10 kU/L Class 0 [facility] Serum corn IgE antibody assa y (units/volume)Ordered By: Peter Mitchell on 11-07-2024 [place] IgE Qn (S) <0.10 kU/L Class 0 [facility] Serum cow milk IgE antibody assay (units/volume)Ordered By: Peter Mitchell on 11-07-2024 Cow milk IgE Qn (S) <0.10 kU/L Class 0 [facility] Serum or plasma C reactive p rotein measurement (mass/volume)Ordered By: Peter Mitchell on 11-07-2024 CRP [Mass/Vol] 17.00 mg/L High 0.0-3.0 [facility] Serum peanut IgE antibody as say (units/volume)Ordered By: Peter Mitchell on 11-07-2024 Peanut IgE Qn (S) <0.10 kU/L Class 0 [facility] Serum pork IgE antibody assa y (units/volume)Ordered By: Peter Mitchell on 11-07-2024 Pork IgE Qn (S) <0.10 kU/L Class 0 [facility] Serum salmon IgE antibody as say (units/volume)Ordered By: Peter Mitchell on 11-07-2024 [place] IgE Qn (S) <0.10 kU/L Class 0 [facility] Serum soybean IgE antibody a ssay (units/volume)Ordered By: Peter Mitchell on 11-07-2024 Soybean IgE Qn (S) <0.10 kU/L Class 0 [facility] Serum tuna IgE antibody assa y (units/volume)Ordered By: Peter Mitchell on 11-07-2024 Tuna IgE Qn (S) 0.10 kU/L High Class 0/I [facility] Serum wheat IgE antibody ass ay (units/volume)Ordered By: Peter Mitchell on 11-07-2024 Wheat IgE Qn (S) 0.15 kU/L High Class 0/I [facility] Serum whole egg IgE antibody assay (units/volume)Ordered By: Peter Mitchell on 11-07-2024 Whole Egg IgE Qn (S) <0.10 kU/L Class 0 [facility] Comment on above: Performed at: [address] [id number] Director: Carrillo Finn PhD, Phone: [phone] at: - [facility] [id number] Director: Estuardo Masters MD, Phone: [phone] Lead EKGon 10-24-2024 12 Lead EKG [facility] Cardiovascular Services [address] [place] [address] 12 Lead EKG 10/24/24 1702 MR#: [id number] Acct: [id number] Name: YAIR FRIEDMAN Callie Rep #: [id number] : 1965 59 From: Dhruv Novak MD Attending Dr: Status: DEP ER Ordering Dr: Zack Prabhakar DO Date: 5 Location: ED Sex: M C Admitted: Test Reason : TACHY Blood Pressure : */* mmHG Vent. Rate : 121 BPM Atrial Rate : 121 BPM P-R Int : 162 ms QRS Dur : 84 ms QT Int : 308 ms P-R-T Axes : 35 1 7 degrees QTcB Int : 437 ms Sinus tachycardia Otherwise normal ECG Confirmed by DHRUV NOVAK MD ([id number]), editor in chief TALISHA ZAMORANO ([id number]) on 10/26/2024 10:40:09 AM Referred By: TB Confirmed By: DHRUV NOVAK MD 10/26/24 1040 Date Dhruv Novak MD CC: Dr. Zack Prabhakar DO; Dr. Edwina Johnson MD Signed Normal [facility] Abdomen/Pelvis W IV Cont ONL Yon 10-24-2024 Abdomen/Pelvis W IV Cont ONLY [facility] Imaging Services [address] [place] [address] [id number] Abdomen/Pelvis W IV Cont ONLY MR#: [id number] Acct: [id number] Name: YAIR FRIEDMAN Rep #: [id number] : 1965 M 59 From: Myra Colindres MD PCP: Dr. Edwina Johnson MD Status: REG ER Study: Abdomen/Pelvis W IV Cont ONLY Date of Exam: Exam# [id number] Ordering Dr: Zack Prabhakar DO PROCEDURE: ABDOMEN/PELVIS W IV CONT ONLY 10/24/2024 REASON FOR EXAM: EPIGASTRIC ABDOMINAL PAIN TECHNIQUE: Procedure Code: CTABDPELIV Modality: CT Procedure: ABDOMEN/PELVIS W IV CONT ONLY Coronal and Sagittal reconstruction series were provided. CONTRAST: Isovue 370 VOLUME: 100 mL One or more dose reduction techniques were used (e.g., Automated exposure control, adjustment of the mA and/or kV according to patient size, use of iterative reconstruction technique. RADIATION DOSE SUMMARY: CTDlvol: 15.73 mGy DLP: 823.19 mGycm COMPARISON: None. FINDINGS: Lung bases: Clear. Liver: Unremarkable. Gallbladder: Unremarkable. No biliary dilation. Spleen: Unremarkable. Pancreas: Unremarkable. Adrenals: Unremarkable. Kidneys: No hydronephrosis or nephrolithiasis. Bladder: Unremarkable. Reproductive Organs: Unremarkable. Bowel: No bowel wall thickening or bowel obstruction. Appendix: Unremarkable. Lymph nodes: No lymphadenopathy. Vasculature: No aneurysm. Peritoneum / Retroperitoneum: No free air or free fluid. Bones: No acute bony abnormalities. CT/Abdomen/Pelvis W IV Cont ONLY IMPRESSION: No acute abdominopelvic abnormalities. Reading Location: [facility] CC: Dr. Zack Prabhakar DO; Dr. Edwina Johnson MD Barrelhead Inspector: Signed Normal [facility] Absolute lymphocyte countOrd ered By: Zack Prabhakar on 10-24-2024 Lymphocytes Auto (Unsp spec) [#/Vol] 1.90 10*3/uL 0.83-4.51 [facility] Absolute neutrophil countOrd ered By: [facility] on 10-24-2024 Neutrophils (Bld) [#/Vol] 5.3 10*3/uL 2.0-7.7 [facility] Anion gap in Serum or Plasma Ordered By: Zack Prabhakar on 10-24-2024 Anion gap [Moles/Vol] 14 mmol/L 5-15 [facility] Ankle min 3 Viewson 10-25-19 25 Ankle min 3 Views [facility] Imaging Services [address] [place], [place] [id number] Ankle min 3 Views MR#: [id number] Acct: [id number] Name: YAIR FRIEDMAN Rep #: [id number] : 1965 M 59 From: Josue Jorge MD PCP: Dr. Edwina Johnson MD Status: REG ER Study: Ankle min 3 Views Date of Exam: 10/24/24 Exam# [id number] Ordering Dr: Zack Prabhakar DO PROCEDURE: RIGHT ANKLE MIN 3 VIEWS 10/24/2024 REASON FOR EXAM: PAIN TECHNIQUE: Procedure Code: TIFFANY Modality: DX Procedure: ANKLE MIN 3 VIEWS Laterality: Right COMPARISON: None. FINDINGS: No acute fracture or dislocation. Alignment is anatomic. Preserved joint spaces. No aggressive osseous lesion. No marked soft tissue swelling or radiopaque foreign body. RAD/Ankle min 3 Views IMPRESSION: No acute fracture or dislocation. Reading Location: [facility] CC: Dr. Zack Prabhakar DO; Dr. Edwina Johnson MD Barrelhead Inspector: Signed Normal [facility] Automated lymphocyte count a s percentage of total leukocytesOrdered By: Zack Prabhakar on 10-24-2024 Lymphocytes/100 WBC Auto (Unsp spec) 22.9 % [facility] BUN/creatinine ratioOrdered By: Zack Prabhakar on 10-24-2024 Urea nitrogen/Creatinine [Mass ratio] 13.1 mg/mg 11-26 [facility] Basic Metabolic Profile (BMP )on 10-24-2024 BUN/CRE 13.1 RATIO Normal 11-26 [facility] Comment on above: Performed By: #### L 500.2500, L3890.0200, L3890.4000, L100.0500 #### [facility] [address] [place], [address] Calcium [Mass/Vol] 10.3 mg/dL Normal 7.6-11.0 [facility] Comment on above: Performed By: #### L 500.2500, L3890.0200, L3890.4000, L100.0500 #### [facility] [address] [place], [address] Chloride [Moles/Vol] 105 mmol/L Normal 98-108 [facility] Comment on above: Performed By: #### L 500.2500, L3890.0200, L3890.4000, L100.0500 #### [facility] [address] [place], [address] CO2 [Moles/Vol] 23.5 mmol/L Normal 21.0-32.0 [facility] Comment on above: Performed By: #### L 500.2500, L3890.0200, L3890.4000, L100.0500 #### [facility] [address] [place], [address] Creatinine [Mass/Vol] 1.08 mg/dL Normal 0.70-1.20 [facility] Comment on above: Performed By: #### L 500.2500, L3890.0200, L3890.4000, L100.0500 #### [facility] [address] [place], [address] ECRCL 71.25 ml/min Normal 50-250 [facility] Comment on above: Performed By: #### L 500.2500, L3890.0200, L3890.4000, L100.0500 #### [facility] [address] [place], [address] GAP 14 Normal 5-15 [facility] Comment on above: Performed By: #### L 500.2500, L3890.0200, L3890.4000, L100.0500 #### [facility] [address] [place], [address] GFR/1.73 sq M.predicted among non-blacks MDRD (S/P/Bld) [Vol rate/Area] 79 mL/min/{1.73_m2} Normal >60 [facility] Comment on above: Result Comment: mL/m in/1.73m2 CKD-EPI Creatinine Equation (2020) Performed By: #### L 500.2500, L3890.0200, L3890.4000, L100.0500 #### [facility] [address] [place], [address] Glucose [Mass/Vol] 86 mg/dL Normal 70-99 [facility] Comment on above: Performed By: #### L 500.2500, L3890.0200, L3890.4000, L100.0500 #### [facility] [address] [place], [address] Potassium [Moles/Vol] 4.1 mmol/L Normal 3.3-5.1 [facility] Comment on above: Performed By: #### L 500.2500, L3890.0200, L3890.4000, L100.0500 #### [facility] [address] [place], [address] Sodium [Moles/Vol] 142 mmol/L Normal 133-145 [facility] Comment on above: Performed By: #### L 500.2500, L3890.0200, L3890.4000, L100.0500 #### [facility] [address] [place], [address] Urea nitrogen [Mass/Vol] 14 mg/dL Normal 4-19 [facility] Comment on above: Performed By: #### L 500.2500, L3890.0200, L3890.4000, L100.0500 #### [facility] [address] [place], [address] Basophil percentageOrdered B y: Zack Prabhakar on 10-24-2024 Basophils/100 WBC (Bld) 0.5 % 0-1 [facility] Bilirubin Test strip Ql (U)O rdered By: Zack Prabhakar on 10-24-2024 Bilirubin Ql (U) Negative Negative [facility] Bilirubin directOrdered By: Zack Prabhakar on 10-24-2024 Bilirubin.direct [Mass/Vol] 0.15 mg/dL 0.00-0.30 [facility] Bilirubin, totalOrdered By: Zack Prabhakar on 10-24-2024 Bilirubin [Mass/Vol] 0.37 mg/dL 0.00-1.30 [facility] CBC W/Diff, Automatedon 10-08 Absolute Lymph 1.90 X10 3/uL Normal 0.83-4.51 [facility] Comment on above: Performed By: #### L 500.2500, L3890.0200, L3890.4000, L100.0500 #### [facility] [address] [place], [address] Absolute Neut 5.3 X10 3/uL Normal 2.0-7.7 [facility] Comment on above: Performed By: #### L 500.2500, L3890.0200, L3890.4000, L100.0500 #### [facility] [address] [place], [address] Basophils/100 WBC (Bld) 0.5 % Normal 0-1 [facility] Comment on above: Performed By: #### L 500.2500, L3890.0200, L3890.4000, L100.0500 #### [facility] [address] [place], [address] Eosinophils/100 WBC (Bld) 1.3 % Normal 0-5 [facility] Comment on above: Performed By: #### L 500.2500, L3890.0200, L3890.4000, L100.0500 #### [facility] [address] [place], [address] Erythrocyte distribution width (RBC) [Ratio] 12.1 % Normal 11.6-14.6 [facility] Comment on above: Performed By: #### L 500.2500, L3890.0200, L3890.4000, L100.0500 #### [facility] [address] [place], [address] Hematocrit (Bld) [Volume fraction] 44.4 % Normal 40-54 [facility] Comment on above: Performed By: #### L 500.2500, L3890.0200, L3890.4000, L100.0500 #### [facility] [address] [place], [address] Hemoglobin (Bld) [Mass/Vol] 15.0 g/dL Normal 13.0-16.5 [facility] Comment on above: Performed By: #### L 500.2500, L3890.0200, L3890.4000, L100.0500 #### [facility] [address] [place], [address] IG% 0.500 Normal 0.0-0.9 [facility] Comment on above: Result Comment: IG% - Immature Granulocytes (promyelocytes, myelocytes and metamyelocytes) > 1% indicates that a LEFT SHIFT is Present. Performed By: #### L 500.2500, L3890.0200, L3890.4000, L100.0500 #### [facility] [address] [place], [address] Lymphocytes/100 WBC (Bld) 22.9 % Normal 19-41 [facility] Comment on above: Performed By: #### L 500.2500, L3890.0200, L3890.4000, L100.0500 #### [facility] [address] [place], [address] MCH (RBC) [Entitic mass] 33.1 pg High 27.0-32.0 [facility] Comment on above: Performed By: #### L 500.2500, L3890.0200, L3890.4000, L100.0500 #### [facility] [address] [place], [address] MCHC (RBC) [Mass/Vol] 33.8 g/dL Normal 32-36 [facility] Comment on above: Performed By: #### L 500.2500, L3890.0200, L3890.4000, L100.0500 #### [facility] [address] [place], [address] MCV (RBC) [Entitic vol] 98.0 fL High 80-94 [facility] Comment on above: Performed By: #### L 500.2500, L3890.0200, L3890.4000, L100.0500 #### [facility] [address] [place], [address] Monocytes/100 WBC (Bld) 10.9 % High 0-10 [facility] Comment on above: Performed By: #### L 500.2500, L3890.0200, L3890.4000, L100.0500 #### [facility] [address] [place], [address] Neutrophils/100 WBC (Bld) 63.9 % Normal 47-70 [facility] Comment on above: Performed By: #### L 500.2500, L3890.0200, L3890.4000, L100.0500 #### [facility] [address] [place], [address] Nucleated RBC (Bld) [#/Vol] 0 10*3/uL Normal 0-5 [facility] Comment on above: Performed By: #### L 500.2500, L3890.0200, L3890.4000, L100.0500 #### [facility] [address] [place], [address] Platelet mean volume (Bld) [Entitic vol] 8.6 fL Normal 6.2-12.0 [facility] Comment on above: Performed By: #### L 500.2500, L3890.0200, L3890.4000, L100.0500 #### [facility] [address] [place], [address] Platelets (Bld) [#/Vol] 232 10*3/uL Normal 150-450 [facility] Comment on above: Performed By: #### L 500.2500, L3890.0200, L3890.4000, L100.0500 #### [facility] [address] [place], [address] RBC (Bld) [#/Vol] 4.53 10*6/uL Low 4.6-6.2 [facility] Comment on above: Performed By: #### L 500.2500, L3890.0200, L3890.4000, L100.0500 #### [facility] [address] [place], [address] RDW SD 43.8 fl Normal 35.1-43.9 [facility] Comment on above: Performed By: #### L 500.2500, L3890.0200, L3890.4000, L100.0500 #### [facility] [address] [place], [address] WBC (Bld) [#/Vol] 8.3 10*3/uL Normal 4.4-11.0 [facility] Comment on above: Performed By: #### L 500.2500, L3890.0200, L3890.4000, L100.0500 #### [facility] [address] [place], [address] CTA Chest W/WO Contraston CTA Chest W/WO Contrast [facility] Imaging Services [address] [place] [address] CTA Chest W/WO Contrast MR#: [id number] Acct: [id number] Name: YAIR FRIEDMAN Callie Rep #: [id number] : 1965 M 59 From: Josue Jorge MD PCP: Dr. Edwina Johnson MD Status: [facility] ER Study: CTA Chest W/WO Contrast Date of Exam: 10/24/24 Exam# [id number] Ordering Dr: Zack Prabhakar DO PROCEDURE: CTA CHEST W/WO CONTRAST 10/24/2024 REASON FOR EXAM: DISSECTION TECHNIQUE: Procedure Code: CTCTACHWW Modality: CT Procedure: CTA CHEST W/WO CONTRAST Multiplanar Sagittal and Coronal images were obtained. 3D post processing was performed. CONTRAST: Isovue 370 VOLUME: 100 mL One or more dose reduction techniques were used (e.g., Automated exposure control, adjustment of the mA and/or kV according to patient size, use of iterative reconstruction technique). RADIATION DOSE SUMMARY: DLP: 514.35 mGycm COMPARISON: CTA chest 01/30/2021. FINDINGS: THORACIC AORTA: Normal in course and caliber. No aneurysm or dissection. No significant atherosclerotic disease. Conventional three-vessel aortic arch branching. PULMONARY VESSELS: Normal in caliber. No pulmonary arterial emboli. MEDIASTINUM: Unremarkable. No lymphadenopathy. HEART: Normal in size. No pericardial effusion. No significant coronary artery calcification. LUNGS/PLEURA: Clear. No airspace consolidation or findings of pulmonary edema. No pneumothorax or pleural effusions. The central airways are patent. UPPER ABDOMEN: Small hiatal hernia. Hepatic steatosis. BONES: Mild degenerative changes of the thoracic spine. CT/CTA Chest W/WO Contrast IMPRESSION: No acute intrathoracic pathology. No aortic aneurysm or dissection. Reading Location: [facility] CC: Dr. Zack Prabhakar DO; Dr. Edwina Johnson MD Barrelhead Inspector: Signed Normal [facility] Carbon dioxide, total [Moles /volume] in Central venous bloodOrdered By: Zack Prabhakar on 10-24-2024 CO2 [Moles/Vol] 23.5 mmol/L 21.0-32.0 [facility] Chest 1 View (Portable)on Chest 1 View (Portable) [facility] Imaging Services [address] [place], [place] [id number] Chest 1 View (Portable) MR#: [id number] Acct: [id number] Name: YAIR FRIEDMAN Callie Rep #: [id number] : 1965 M 59 From: Josue Jorge MD PCP: Dr. Edwina Johnson MD Status: REG ER Study: Chest 1 View (Portable) Date of Exam: 10/24/24 Exam# [id number] Ordering Dr: Zack Prabhakar DO PROCEDURE: CHEST 1 VIEW (PORTABLE) 10/24/2024 REASON FOR EXAM: EPIGASTIC PAIN TECHNIQUE: Frontal view of the chest. COMPARISON: None. FINDINGS: Cardiomegaly, with central vascular congestion, and probable interstitial pulmonary edema. No pneumothorax or sizable pleural effusion. Mild degenerative changes of the spine. RAD/Chest 1 View (Portable) IMPRESSION: Cardiomegaly, with vascular congestion and interstitial edema. No airspace consolidation or sizable pleural effusion. Reading Location: [facility] CC: Dr. Zack Prabhakar DO; Dr. Edwina Johnson MD Barrelhead Inspector: Signed Normal [facility] Chloride assayOrdered By: Cayetano Prabhakar on 10-24-2024 Chloride [Moles/Vol] 105 mmol/L 98-108 [facility] Emergency Department Summary on 10-24-2024 Emergency Department Summary [facility] Medical Records Department [address] [place] [address] Emergency Department Summary 10/24/24 MR#: [id number] Acct: [id number] Name: YAIR FRIEDMAN Rep #: [id number] : 1965 59 From: Zack Prabhakar DO PCP: Dr. Edwina Johnson MD Status:REG ER Location: ED HPI History of Present Illness Chief Complaint: Abd Pain Narrative Narrative: Chief complaint and HPI: 59-year-old male with past medical history of GERD, HIV/AIDS presents for evaluation of acute pancreatitis. Patient states over the weekend he was at a wedding in which he developed epigastric abdominal pain. States the pain improved but then worsened. Saw his PCP outpatient who told him that his labs showed pancreatitis. He was scheduled for an outpatient CT abdomen pelvis but pain worsened and was told to come to the ED by PCP. He states prior to arrival to the emergency department, he did trip in his trailer at home in which he twisted his right ankle. Currently swollen and endorsing pain. Denies any numbness or tingling. Denies daily alcohol use. Previous abdominal surgery of her hernia. Denies any blood thinners. Denies any fever, chills, shortness of breath, chest pain, diarrhea, constipation, dysuria. Does endorse nausea. Review of systems: See HPI Medications: As listed on the chart Allergies: As listed on the chart PFSH: Per chart Vital signs: As listed on the chart. Reviewed. Physical exam: Gen: A O x3 Head: Normocephalic, atraumatic Eyes: No sclera icterus, conjunctiva clear ENT: Moist mucous membranes Neck: Trachea midline, No JVD CV: Tachycardic, regular rhythm, no murmurs, no peripheral edema Resp: Lungs CTA BL, no w/r/c GI: Abd soft, non-distended, tender to palpation in the epigastrium, no r/r/g Musc: Full ROM in all extremities except limited in the right ankle secondary to pain and swelling, DP/PT pulses +2 bilaterally, sensation intact, good capillary refill, Achilles intact without tenderness, patient has tenderness to palpation of the ankle mostly at the lateral malleolus where most of the swelling is located Skin: Warm, dry Neuro: Alert, oriented, grossly intact, sensation intact Psych: Cooperative, appropriate mood and affect [facility] Medical History (Updated 10/23/24 @ 12:[address] Edwina Johnson MD) Acute pancreatitis Upper abdominal pain Left knee pain Achilles tendinitis of both lower extremities Rupture of right long head biceps tendon Normal exam Right shoulder pain Loss of hearing History of edema Non-smoker PONV (postoperative nausea and vomiting) Rectal pain Pain in both testicles History of kidney stones Cancer Arthritis Back pain Gastric reflux Left inguinal hernia Diarrhea Abdominal pain GERD (gastroesophageal reflux disease) AIDS Anal condyloma Anal dysplasia Weight loss Home Medications ???Medication ???Instructions ???Recorded ???Last Taken ???Type valacyclovir 1 gram tablet 1,000 mg PO QHS HIV 01/07/21 Unkno wn History abacavir 600 mg-dolutegravir 50 1 tab PO QHS HIV 05/16/23 Unknown History mg-lamivudine 300 mg tablet (Triumeq) omeprazole 40 mg capsule,delayed 40 mg PO QHS GERD #90 caps 01/03/ 4 Unknown Rx release epinephrine 0.3 mg/0.3 mL 0.3 mg (0.3 mL) IM Q5-15M PRN 01/07 Unknown Rx injection, auto-injector anaphylaxis #2 ea cetirizine 5 mg tablet (Zyrtec) 5 mg PO QDAY PRN allergy symptoms 10/23/24 Unknown History Allergy/AdvReac Type Severity Reaction Status Date / Time bee venom protein (honey bee) Allergy Severe Anaphylaxis Verified 10/23/24 08:29 adhesive tape AdvReac Rash Verified 10/23/24 08:29 amoxicillin (From Augmentin) AdvReac Hives Verified 10/23/24 08:29 clavulanic acid (From AdvReac Hives Verified 10/23/24 08:29 Augmentin) oxycodone (From Percocet) AdvReac elevated Verified 10/23/24 08:29 bp, felt funny, chest tightness Family History Mother Asthma Arthritis Diabetes Heart disease Hypertension High cholesterol Grandfather Cancer lung cancer Father Heart disease High cholesterol Hypertension Cancer skin cancer Surgical History H/O lumbosacral spine surgery Hx of arthroscopy of shoulder History of esophagogastroduodenoscopy (EGD) History of colonoscopy History of left inguinal hernia repair History of shoulder surgery history left bicep tendon repair history left ulnar nerve repair History of bilateral carpal tunnel release Social History Smoking Status: Never smoker alcohol intake: never substance use type: does not use EXAM Physical Exam Const Vital Signs: 10/24/24 16:52 10/24/24 18:52 10/24/24 20:00 Tempera (more content not included)... Normal [facility] Eosinophil percentageOrdered By: Zack Prabhakar on 10-24-2024 Eosinophils/100 WBC (Bld) 1.3 % 0-5 [facility] Erythrocyte distribution wid th ratioOrdered By: Zack Prabhakar on 10-24-2024 Erythrocyte distribution width (RBC) [Ratio] 12.1 % 11.6-14.6 [facility] Erythrocyte distribution wid th standard deviationOrdered By: Zackgaye Oneil on 10-24-2024 Erythrocyte distribution width (RBC) [Ratio] 43.8 fl 35.1-43.9 [facility] Glomerular filtration rate ( GFR) estimation/1.73 sq m using serum, plasma, or whole bOrdered By: Zack Errol on 10-24-2024 GFR/1.73 sq M.predicted among non-blacks MDRD (S/P/Bld) [Vol rate/Area] 79 mL/min/{1.73_m2} >60 [facility] Comment on above: mL/min/1.73m2 CKD-EP I Creatinine Equation (2020) Hematocrit Auto (Bld) [Volum e fraction]Or[facility] By: [facility] on 10-24-2024 Hematocrit (Bld) [Volume fraction] 44.4 % 40-54 [facility] Hemoglobin measurementOrdere d By: [facility] on 10-24-2024 Hemoglobin (Bld) [Mass/Vol] 15.0 g/dL 13.0-16.5 [facility] Immature granulocytes/100 WB C Auto (Bld)Ordered By: [facility] on 10-24-2024 Immature granulocytes/100 WBC (Bld) 0.500 % 0.0-0.9 [facility] Comment on above: IG% - Immature Granu locytes (promyelocytes, myelocytes and metamyelocytes) > 1% indicates that a LEFT SHIFT is Present. Ketones Test strip Ql (U)Ord ered By: [facility] 10-24-2024 Ketones Ql (U) 15 mg/dl High Negative [facility] L501.4021on 10-24-2024 Trop T High Sen 9 ng/L Normal <=22 [facility] Comment on above: Performed By: #### L 500.2500, L3890.0200, L3890.4000, L100.0500 #### [facility] [place] [address], [address] Laboratory - Chemistry and C hemistry - challengeOrdered By: Zack Prabhakar on 10-24-2024 AST [Catalytic activity/Vol] 48 U/L High <38 [facility] Lactic Acidon 10-24-2024 Lactate [Moles/Vol] mmol/L Normal 0.0-2.0 [facility] Comment on above: Order Comment: Y Performed By: #### L 500.2500, L3890.0200, L3890.4000, L100.0500 #### [facility] [address] [place], [place], [id number] Lactic acid measurementOrder ed By: Zack Prabhakar on 10-24-2024 Lactate [Moles/Vol] mmol/L 0.0-2.0 [facility] Lipaseon 10-24-2024 Lipase [Catalytic activity/Vol] 64 U/L Normal 13-75 [facility] Comment on above: Result Comment: Yuriy cohn note: LIPASE revised reference range effective 22. New Lipase methodology. Expected to produce lower values than the previous assay method. NEW Reference Range: 13 - 75 U/L Performed By: #### L 500.2500, L3890.0200, L3890.4000, L100.0500 #### [facility] [address] [place], [place], [address] Lipase measurementOrdered By : Zack Prabhakar on 10-24-2024 Lipase [Catalytic activity/Vol] 64 U/L 13- [facility] Comment on above: Please note:LIPASE r evised reference range effective 22. New Lipase methodology. Expected to produce lower values than the previous assay method. NEW Reference Range: 13 - 75 U/L Liver Profileon 10-24-2024 Albumin [Mass/Vol] 4.5 g/dL Normal 3.5-5.0 [facility] Comment on above: Performed By: #### L 500.2500, L3890.0200, L3890.4000, L100.0500 #### [facility] [address] [place], [address] ALK PHOS 79 U/L Normal 40-129 [facility] Comment on above: Performed By: #### L 500.2500, L3890.0200, L3890.4000, L100.0500 #### [facility] [address] [place], [address] ALT [Catalytic activity/Vol] 28 U/L Normal <=46 [facility] Comment on above: Performed By: #### L 500.2500, L3890.0200, L3890.4000, L100.0500 #### [facility] [address] [place], [address] AST [Catalytic activity/Vol] 48 U/L High <=37 [facility] Comment on above: Performed By: #### L 500.2500, L3890.0200, L3890.4000, L100.0500 #### [facility] [address] [place], [address] Bilirubin [Mass/Vol] 0.37 mg/dL Normal 0.00-1.30 [facility] Comment on above: Performed By: #### L 500.2500, L3890.0200, L3890.4000, L100.0500 #### [facility] [address] [place], [address] Bilirubin.direct [Mass/Vol] 0.15 mg/dL Normal 0.00-0.30 [facility] Comment on above: Performed By: #### L 500.2500, L3890.0200, L3890.4000, L100.0500 #### [facility] [address] [place], [address] Globulin (S) [Mass/Vol] 3.8 g/dL Normal 2.2-4.2 [facility] Comment on above: Performed By: #### L 500.2500, L3890.0200, L3890.4000, L100.0500 #### [facility] [address] [place], [address] T PROT 8.3 g/dL Normal 5.9-8.4 [facility] Comment on above: Performed By: #### L 500.2500, L3890.0200, L3890.4000, L100.0500 #### [facility] [address] [place], [address] MCV (mean corpuscular volume ) determinationOrdered By: Zack Prabhakar on 10-24-2024 MCV (RBC) [Entitic vol] 98.0 fL High 80-94 [facility] Mean corpuscular hemoglobin (MCH) determinationOrdered By: Zack Prabhakar on 10-24-2024 MCH (RBC) [Entitic mass] 33.1 pg High 27.0-32.0 [facility] Mean corpuscular hemoglobin concentration (MCHC) determinationOrdered By: Zack Prabhakar on 10-24-2024 MCHC (RBC) [Mass/Vol] 33.8 g/dL 32-36 [facility] Mean platelet volume determi nationOrdered By: Zack Prabhakar on 10-24-2024 Platelet mean volume (Bld) [Entitic vol] 8.6 fL 6.2-12.0 [facility] Microscopic analysis of urin e for red blood cells (RBC)Ordered By: Zack Prabhakar on 10-24-2024 Microscopic analysis of urine for red blood cells (RBC) 0-5 SEEN /hpf 0-5 [facility] Monocyte percentageOrdered B y: Zack Prabhakar on 10-24-2024 Monocytes/100 WBC (Bld) 10.9 % High 0-10 [facility] Mucus LM Ql (Urine sed)Order ed By: Zack Prabhakar on 10-24-2024 Mucus Ql (Urine sed) 0 SEEN /hpf [facility] Natriuretic peptide.B prohor magda N-Terminal [Mass/volume] in Serum or PlasmaOrdered By: Zack Prabhakar on 10-24-2024 Natriuretic peptide.B prohormone N-Terminal [Mass/Vol] < 36 pg/mL <900 [facility] Comment on above: Heart Failure Unlike ly: < 300 pg/mLHeart Failure Likely< 50 Years: > 450 pg/mL50-75 Years: > 900 pg/mL>75 Years: > 1800 pg/mL Neutrophil percentageOrdered By: Zack Prabhakar on 10-24-2024 Neutrophils/100 WBC (Bld) 63.9 % 47-70 [facility] Nitrite Test strip Ql (U)Ord ered By: Zack Prabhakar on 10-24-2024 Nitrite Ql (U) Negative Negative [facility] Nucleated red blood cell per centageOrdered By: Zack Prabhakar on 10-24-2024 Nucleated RBC/100 WBC (Bld) [Ratio] 0 % 0-5 [facility] Platelet countOrdered By: Cayetano Prabhakar on 10-24-2024 Platelets (Bld) [#/Vol] 232 10*3/uL 150-450 [facility] Potassium measurement (mass/ volume)Ordered By: Zack Prabhakar on 10-24-2024 Potassium (Unsp spec) [Mass/Vol] 4.1 mmol/L 3.3-5.1 [facility] Pro- Brain NATRIURETIC PEPTI George 10-24-2024 proBNP < 36 Normal <=900 [facility] Comment on above: Result Comment: Hear t Failure Unlikely: < 300 pg/mL Heart Failure Likely < 50 Years: > 450 pg/mL 50-75 Years: > 900 pg/mL >75 Years: > 1800 pg/mL Performed By: #### L 500.2500, L3890.0200, L3890.4000, L100.0500 #### [facility] [address] [place], [address] Protein Test strip Ql (U)Ord ered By: Zack Prabhakar on 10-24-2024 Protein Ql (U) 15 mg/dl High Negative [facility] RBC Auto (Bld) [#/Vol]Ordere d By: Zack Prabhakar on 10-24-2024 RBC (Bld) [#/Vol] 4.53 10*6/uL Low 4.6-6.2 [facility] Serum creatinine measurement (mass/volume)Ordered By: Zack Prabhakar on 10-24-2024 Creatinine [Mass/Vol] 1.08 mg/dL 0.70-1.20 [facility] Serum globulin measurementOr dered By: Zack Prabhakar on 10-24-2024 Globulin (S) [Mass/Vol] 3.8 g/dL 2.2-4.2 [facility] Serum glucose measurement (m ass/volume)Ordered By: Zack Prabhakar on 10-24-2024 Glucose [Mass/Vol] 86 mg/dL 70-99 [facility] Serum or plasma alanine byrd otransferase (ALT) measurementOrdered By: Zack Prabhakar on 10-24-2024 ALT [Catalytic activity/Vol] 28 U/L <47 [facility] Serum or plasma albumin gentry urement (mass/volume)Ordered By: Zack Oneil on 10-24-2024 Albumin [Mass/Vol] 4.5 g/dL 3.5-5.0 [facility] Serum or plasma alkaline sully sphatase measurementOrdered By: Zack Prabhakar on 10-24-2024 ALP [Catalytic activity/Vol] 79 U/L 40-129 [facility] Serum or plasma calcium gentry urement (mass/volume)Ordered By: Zack Oneil on 10-24-2024 Calcium [Mass/Vol] 10.3 mg/dL 7.6-11.0 [facility] Serum or plasma urea nitroge n measurement (mass/volume)Ordered By: Zack Prabhakar on 10-24-2024 Urea nitrogen [Mass/Vol] 14 mg/dL 4-19 [facility] Sodium levelOrdered By: Colton Prabhakar on 10-24-2024 Sodium [Moles/Vol] 142 mmol/L 133-145 [facility] Squamous epithelial cells de tection in urine sediment by light microscopyOrdered By: Zack Prabhakar on 10-24-2024 Epithelial cells.squamous LM Ql (Urine sed) 0-5 SEEN /hpf 0-5 [facility] Total proteinOrdered By: Jovani Prabhakar on 10-24-2024 Protein [Mass/Vol] 8.3 g/dL 5.9-8.4 [facility] Troponin T HS 2 HRon 025 Trop T High Sen 9 ng/L Normal <=22 [facility] Comment on above: Performed By: #### L 100.0100, L501.5200, L501.6710, L501.2400, L501.2450, L500.4050 #### [facility] [address] [place], [place], [id number] (382) Troponin T.cardiac [Mass/vol ume] in Serum or Plasma by High sensitivity methodOrdered By: Zack Prabhakar on 10-24-2024 Troponin T.cardiac High sensitivity method [Mass/Vol] 9 ng/L <22 [facility] Troponin T.cardiac High sensitivity method [Mass/Vol] 9 ng/L <22 [facility] Urinalysis, Completeon 10-24 EPI,SQUAMOUS 0-5 SEEN Normal 0-5 [facility] Comment on above: Order Comment: CLEAN CATCH Performed By: #### L 400.0001 #### [facility] [address] [place], [place], [phone] (038) RBC 0-5 SEEN Normal 0-5 [facility] Comment on above: Order Comment: CLEAN CATCH Performed By: #### L 400.0001 #### [facility] [address] [place], [address] WBC 0-5 SEEN Normal 0-5 [facility] Comment on above: Order Comment: CLEAN CATCH Performed By: #### L 400.0001 #### [facility] [address] [place], [address] BACTERIA 0 SEEN Normal None Seen [facility] Comment on above: Order Comment: CLEAN CATCH Performed By: #### L 400.0001 #### [facility] [address] [place], [place], [id number] Mucus Ql (Urine sed) 0 SEEN Normal [facility] Comment on above: Order Comment: CLEAN CATCH Performed By: #### L 400.0001 #### [facility] [address] [place], [place], [id number] Urine clarityOrdered By: Jovani Prabhakar on 10-24-2024 Clarity (U) Clear Clear [facility] Urine color determinationOrd ered By: Zack Prabhakar on 10-24-2024 Color (U) Straw Yellow [facility] Urine glucose detectionOrder ed By: Zack Prabhakar on 10-24-2024 Glucose Ql (U) Normal mg/dl Normal [facility] Urine leukocyte esterase det ection by dipstickOrdered By: Zack Prabhakar on 10-24-2024 Leukocyte esterase Test strip Ql (U) Negative Negative [facility] Urine pHOrdered By: Zack Norton on 10-24-2024 pH (U) 6.0 [pH] 5.0 - 8.0 [facility] Urine sediment bacteria coun t by microscopy (number/high power field)Ordered By: Zack Prabhakar on 10-24-2024 Bacteria LM.HPF (Urine sed) [#/Area] 0 /[HPF] None Seen [facility] Urine specific gravity measu rementOrdered By: Zack Prabhakar on 10-24-2024 Specific gravity (U) [Rel density] 1.010 1.002-1.03 0 [facility] Urine urobilinogen measureme ntOrdered By: Zack Prabhakar on 10-24-2024 Urobilinogen Ql (U) Normal mg/dl Normal [facility] White blood cell (WBC) count Ordered By: Zack Prabhakar on 09-17-2025 WBC (Bld) [#/Vol] 8.3 10*3/uL 4.4-11.0 [facility] White blood cell countOrdere d By: Zack Prabhakar on 10-24-2024 White blood cell count 0-5 SEEN /hpf 0-5 [facility] Absolute lymphocyte countOrd ered By: Edwina Johnson on 10-23-2024 Lymphocytes Auto (Unsp spec) [#/Vol] 2.30 10*3/uL 0.83-4.51 [facility] Absolute neutrophil countOrd ered By: Edwina Johnson on 10-23-2024 Neutrophils (Bld) [#/Vol] 3.0 10*3/uL 2.0-7.7 [facility] Amylaseon 10-23-2024 ANGIE 73 U/L Normal 28-100 [facility] Comment on above: Performed By: #### L 100.0100, L501.5200, L501.6710, L501.2400, L501.2450, L500.4050 #### [facility] [address] [place], [address] Anion gap in Serum or Plasma Ordered By: Edwina Johnson on 10-23-2024 Anion gap [Moles/Vol] 13 mmol/L 5-15 [facility] Comment on above: Previous reported re sult: 13 Edited by: AUTOINS on 10/23/24:1158 AMENDED REPORT 10/23/24 1158 GAP previously reported as: 13 Automated lymphocyte count a s percentage of total leukocytesOrdered By: Edwina Johnson on 10-23-2024 Lymphocytes/100 WBC Auto (Unsp spec) 36.5 % - [facility] BUN/creatinine ratioOrdered By: Edwina Johnson on 10-23-2024 Urea nitrogen/Creatinine [Mass ratio] 13.6 mg/mg 10-20 [facility] Comment on above: Previous reported re sult: 13.8 RATIOEdited by: AUTOINChai on 10/23/24:1158 AMENDED REPORT 10/23/24 1158 BUN/CRE previously reported as: 13.8 RATIO Basophil percentageOrdered B y: Edwina Johnson on 10-23-2024 Basophils/100 WBC (Bld) 0.8 % 0-1 [facility] Bilirubin, totalOrdered By: Edwina Johnson on 10-23-2024 Bilirubin [Mass/Vol] 0.29 mg/dL 0.00-1.30 [facility] CBC W/Diff, Automatedon 10-08 Absolute Lymph 2.30 X10 3/uL Normal 0.83-4.51 [facility] Comment on above: Performed By: #### L 100.0100, L501.5200, L501.6710, L501.2400, L501.2450, L500.4050 #### [facility] [address] [place], [address] Absolute Neut 3.0 X10 3/uL Normal 2.0-7.7 [facility] Comment on above: Performed By: #### L 100.0100, L501.5200, L501.6710, L501.2400, L501.2450, L500.4050 #### [facility] [address] [place], [address] Basophils/100 WBC (Bld) 0.8 % Normal 0-1 [facility] Comment on above: Performed By: #### L 100.0100, L501.5200, L501.6710, L501.2400, L501.2450, L500.4050 #### [facility] [address] [place], [address] Eosinophils/100 WBC (Bld) 2.7 % Normal 0-5 [facility] Comment on above: Performed By: #### L 100.0100, L501.5200, L501.6710, L501.2400, L501.2450, L500.4050 #### [facility] [address] [place], [address] Erythrocyte distribution width (RBC) [Ratio] 12.1 % Normal 11.6-14.6 [facility] Comment on above: Performed By: #### L 100.0100, L501.5200, L501.6710, L501.2400, L501.2450, L500.4050 #### [facility] [address] [place], [address] Hematocrit (Bld) [Volume fraction] 42.5 % Normal 40-54 [facility] Comment on above: Performed By: #### L 100.0100, L501.5200, L501.6710, L501.2400, L501.2450, L500.4050 #### [facility] [address] [place], [address] Hemoglobin (Bld) [Mass/Vol] 14.2 g/dL Normal 13.0-16.5 [facility] Comment on above: Performed By: #### L 100.0100, L501.5200, L501.6710, L501.2400, L501.2450, L500.4050 #### [facility] [address] [place], [address] IG% 0.500 Normal 0.0-0.9 [facility] Comment on above: Result Comment: IG% - Immature Granulocytes (promyelocytes, myelocytes and metamyelocytes) > 1% indicates that a LEFT SHIFT is Present. Performed By: #### L 100.0100, L501.5200, L501.6710, L501.2400, L501.2450, L500.4050 #### [facility] [address] [place], [address] Lymphocytes/100 WBC (Bld) 36.5 % Normal 19-41 [facility] Comment on above: Performed By: #### L 100.0100, L501.5200, L501.6710, L501.2400, L501.2450, L500.4050 #### [facility] [address] [place], [address] MCH (RBC) [Entitic mass] 33.1 pg High 27.0-32.0 [facility] Comment on above: Performed By: #### L 100.0100, L501.5200, L501.6710, L501.2400, L501.2450, L500.4050 #### [facility] [address] [place], [address] MCHC (RBC) [Mass/Vol] 33.4 g/dL Normal 32-36 [facility] Comment on above: Performed By: #### L 100.0100, L501.5200, L501.6710, L501.2400, L501.2450, L500.4050 #### [facility] [address] [place], [address] MCV (RBC) [Entitic vol] 99.1 fL High 80-94 [facility] Comment on above: Performed By: #### L 100.0100, L501.5200, L501.6710, L501.2400, L501.2450, L500.4050 #### [facility] [address] [place], [address] Monocytes/100 WBC (Bld) 12.8 % High 0-10 [facility] Comment on above: Performed By: #### L 100.0100, L501.5200, L501.6710, L501.2400, L501.2450, L500.4050 #### [facility] [address] [place], [address] Neutrophils/100 WBC (Bld) 46.7 % Low 47-70 [facility] Comment on above: Performed By: #### L 100.0100, L501.5200, L501.6710, L501.2400, L501.2450, L500.4050 #### [facility] [address] [place], [address] Nucleated RBC (Bld) [#/Vol] 0 10*3/uL Normal 0-5 [facility] Comment on above: Performed By: #### L 100.0100, L501.5200, L501.6710, L501.2400, L501.2450, L500.4050 #### [facility] [address] [place], [address] Platelet mean volume (Bld) [Entitic vol] 9.1 fL Normal 6.2-12.0 [facility] Comment on above: Performed By: #### L 100.0100, L501.5200, L501.6710, L501.2400, L501.2450, L500.4050 #### [facility] [address] [place], [address] Platelets (Bld) [#/Vol] 235 10*3/uL Normal 150-450 [facility] Comment on above: Performed By: #### L 100.0100, L501.5200, L501.6710, L501.2400, L501.2450, L500.4050 #### [facility] [address] [place], [address] RBC (Bld) [#/Vol] 4.29 10*6/uL Low 4.6-6.2 [facility] Comment on above: Performed By: #### L 100.0100, L501.5200, L501.6710, L501.2400, L501.2450, L500.4050 #### [facility] [address] [place], [address] RDW SD 44.2 fl High 35.1-43.9 [facility] Comment on above: Performed By: #### L 100.0100, L501.5200, L501.6710, L501.2400, L501.2450, L500.4050 #### [facility] [address] [place], [address] WBC (Bld) [#/Vol] 6.3 10*3/uL Normal 4.4-11.0 [facility] Comment on above: Performed By: #### L 100.0100, L501.5200, L501.6710, L501.2400, L501.2450, L500.4050 #### [facility] [address] [place], [address] CRPon 10-23-2024 C-REACTIVE PROT 53.60 mg/L High 0.0-3.0 [facility] Comment on above: Performed By: #### L 500.2500, L3890.0200, L3890.4000, L100.0500 #### [facility] [address] [place], [address] Carbon dioxide, total [Moles /volume] in Central venous bloodOrdered By: Edwina Johnson on 10-23-2024 CO2 [Moles/Vol] 24.0 mmol/L 21.0-32.0 [facility] Comment on above: Previous reported re sult: 24.1 mmol/LEdited by: BENITEZ on 10/23/24:1158 AMENDED REPORT 10/23/24 115 CO2 previously reported as: 24.1 mmol/L Chloride assayOrdered By: Layla Johnson on 10-23-2024 Chloride [Moles/Vol] 103 mmol/L 98-108 [facility] Comprehensive Metabolic Prof ilon 10-23-2024 Albumin/Globulin [Mass ratio] 1.1 {ratio} Normal 0.9-2.4 [facility] Comment on above: Result Comment: AMENDED REPORT 10/23/24 1158 A/G previously reported as: 1.2 RATIO Performed By: #### L 100.0100, L501.5200, L501.6710, L501.2400, L501.2450, L500.4050 #### [facility] [address] [place], [address] BUN/CRE 13.6 RATIO Normal 10-20 [facility] Comment on above: Result Comment: AMENDED REPORT 10/23/241157 BUN/CRE previously reported as: 13.8 RATIO Performed By: #### L 100.0100, L501.5200, L501.6710, L501.2400, L501.2450, L500.4050 #### [facility] [address] [place], [address] CO2 [Moles/Vol] 24.0 mmol/L Normal 21.0-32.0 [facility] Comment on above: Result Comment: AMENDED REPORT 10/23/241157 CO2 previously reported as: 24.1 mmol/L Performed By: #### L 100.0100, L501.5200, L501.6710, L501.2400, L501.2450, L500.4050 #### [facility] [address] [place], [address] Creatinine [Mass/Vol] 0.92 mg/dL Normal 0.70-1.20 [facility] Comment on above: Result Comment: AMENDED REPORT 10/23/241157 CREAT,SERUM previously reported as: 0.90 mg/dL Performed By: #### L 100.0100, L501.5200, L501.6710, L501.2400, L501.2450, L500.4050 #### [facility] [address] [place], [address] GAP 13 Normal 5-15 [facility] Comment on above: Result Comment: AMENDED REPORT 10/23/241157 GAP previously reported as: 13 Performed By: #### L 100.0100, L501.5200, L501.6710, L501.2400, L501.2450, L500.4050 #### [facility] [address] [place], [address] Globulin (S) [Mass/Vol] 3.6 g/dL Normal 2.2-4.2 [facility] Comment on above: Result Comment: AMENDED REPORT 10/23/241157 GLOB previously reported as: 3.5 g/dL Performed By: #### L 100.0100, L501.5200, L501.6710, L501.2400, L501.2450, L500.4050 #### [facility] [address] [place], [address] Glucose [Mass/Vol] 102 mg/dL High 70-99 [facility] Comment on above: Result Comment: AMENDED REPORT 10/23/241157 GLU previously reported as: 101 H mg/dL Performed By: #### L 100.0100, L501.5200, L501.6710, L501.2400, L501.2450, L500.4050 #### [facility] [address] [place], [address] T PROT 7.7 g/dL Normal 5.9-8.4 [facility] Comment on above: Result Comment: AMENDED REPORT 10/23/241157 T PROT previously reported as: 7.6 g/dL Performed By: #### L 100.0100, L501.5200, L501.6710, L501.2400, L501.2450, L500.4050 #### [facility] [address] [place], [address] Urea nitrogen [Mass/Vol] 13 mg/dL Normal 4-19 [facility] Comment on above: Performed By: #### L 100.0100, L501.5200, L501.6710, L501.2400, L501.2450, L500.4050 #### [facility] [address] [place], [address] Eosinophil percentageOrdered By: Edwina Johnson on 10-23-2024 Eosinophils/100 WBC (Bld) 2.7 % 0-5 [facility] Erythrocyte distribution wid th ratioOrdered By: Edwina Johnson on 10-23-2024 Erythrocyte distribution width (RBC) [Ratio] 12.1 % 11.6-14.6 [facility] Erythrocyte distribution wid th standard deviationOrdered By: Edwina Johnson on 10-23-2024 Erythrocyte distribution width (RBC) [Ratio] 44.2 fl High 35.1-43.9 [facility] Glomerular filtration rate ( GFR) estimation/1.73 sq m using serum, plasma, or whole bOrdered By: Edwina Johnson on 10-23-2024 GFR/1.73 sq M.predicted among non-blacks MDRD (S/P/Bld) [Vol rate/Area] 98 mL/min/{1.73_m2} >60 [facility] Comment on above: mL/min/1.73m2 CKD-EP I Creatinine Equation (2020) Hematocrit Auto (Bld) [Volum e fraction]Ordered By: Edwina Johnson on 10-23-2024 Hematocrit (Bld) [Volume fraction] 42.5 % 40-54 [facility] Hemoglobin measurementOrdere d By: Edwina Johnson on 10-23-2024 Hemoglobin (Bld) [Mass/Vol] 14.2 g/dL 13.0-16.5 [facility] Immature granulocytes/100 WB C Auto (Bld)Ordered By: Edwina Johnson on 10-23-2024 Immature granulocytes/100 WBC (Bld) 0.500 % 0.0-0.9 [facility] Comment on above: IG% - Immature Granu locytes (promyelocytes, myelocytes and metamyelocytes) > 1% indicates that a LEFT SHIFT is Present. Laboratory - Chemistry and C hemistry - challengeOrdered By: Edwina Johnson on 10-23-2024 AST [Catalytic activity/Vol] 41 U/L High <38 [facility] Lipaseon 10-23-2024 Lipase [Catalytic activity/Vol] 139 U/L High 13-75 [facility] Comment on above: Result Comment: Plea se note: LIPASE revised reference range effective 22. New Lipase methodology. Expected to produce lower values than the previous assay method. NEW Reference Range: 13 - 75 U/L Performed By: #### L 100.0100, L501.5200, L501.6710, L501.2400, L501.2450, L500.4050 #### [facility] [address] [place], [address] Lipase measurementOrdered By : Edwina Johnson on 10-23-2024 Lipase [Catalytic activity/Vol] 139 U/L High 13-75 [facility] Comment on above: Please note:LIPASE r evised reference range effective 22. New Lipase methodology. Expected to produce lower values than the previous assay method. NEW Reference Range: 13 - 75 U/L MCV (mean corpuscular volume ) determinationOrdered By: Edwina Johnson on 10-23-2024 MCV (RBC) [Entitic vol] 99.1 fL High 80-94 [facility] MR/BMS.IMBon 10-23-2024 MR/BMS.IMB [facility] [address] [place] [address] OFFICE VISIT Date of Service: 10/23/24 MR#: [id number] Acct: [id number] Name: YAIR FRIEDMAN Rep #: [id number] : 1965 Provider: Dr. 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 Accompanied by: Self Is patient in pain?: Yes (LUQ ) Pain scale (1-10): 1 Allergies bee venom protein (honey bee) Allergy (Severe, Verified 10/23/24 08:29) Anaphylaxis adhesive tape Adverse Reaction (Verified 10/23/24 08:29) Rash amoxicillin (From Augmentin) Adverse Reaction (Verified 10/23/24 08:29) Hives clavulanic acid (From Augmentin) Adverse Reaction (Verified 10/23/24 08:29) Hives oxycodone (From Percocet) Adverse Reaction (Verified 10/23/24 08:29) elevated bp, felt funny, chest tightness Medications ???Medication ???Instructions ???Recorded ???Confirmed ???Type valacyclovir 1 gram tablet 1,000 mg PO QHS HIV 01/07/2110/23 History abacavir 600 mg-dolutegravir 50 1 tab PO QHS HIV 05/16/23 10/23/24 History mg-lamivudine 300 mg tablet (Triumeq) omeprazole 40 mg capsule,delayed 40 mg PO QHS GERD #90 caps 01/03/ 4 10/23/24 Rx release epinephrine 0.3 mg/0.3 mL 0.3 mg (0.3 mL) IM Q5-15M PRN 01/0710/23/24 Rx injection, auto-injector anaphylaxis #2 ea cetirizine 5 mg tablet (Zyrtec) 5 mg PO QDAY PRN 10/23/24 10/23/24 History PFSH Medical History (Updated 10/23/24 @ 08:[address] Edwina Johnson MD) Upper abdominal pain Left knee pain Achilles tendinitis of both lower extremities Rupture of right long head biceps tendon Normal exam Right shoulder pain Loss of hearing History of edema Non-smoker PONV (postoperative nausea and vomiting) Rectal pain Pain in both testicles History of kidney stones Cancer Arthritis Back pain Gastric reflux Left inguinal hernia Diarrhea Abdominal pain GERD (gastroesophageal reflux disease) AIDS Anal condyloma Anal dysplasia Weight loss Surgical History H/O lumbosacral spine surgery Hx of arthroscopy of shoulder History of esophagogastroduodenoscopy (EGD) History of colonoscopy History of left inguinal hernia repair History of shoulder surgery history left bicep tendon repair history left ulnar nerve repair History of bilateral carpal tunnel release Family History Mother Asthma Arthritis Diabetes Heart disease Hypertension High cholesterol Grandfather Cancer lung cancer Father Heart disease High cholesterol Hypertension Cancer skin cancer Social History Smoking Status: Never smoker alcohol intake: never substance use type: does not use HPI HPI Details: YAIR FRIEDMAN, is a 59 M who presents to the office today for an acute care follow-up visit. Patient states that intermittently since he returned from [place] he has noticed some slight changes to bowel movements. He is usually fairly soft but not diarrhea in terms of his bowel movements but had a few episodes where it was smelly, oily type of BM. Also noted some vague upper abdominal discomfort at times but not anything severe. Starting last week, that pain became much more intense in the upper abdomen, radiating into the upper back under the shoulder blade. On it was persistent throughout the day. He did not present to ER. He had no nausea or vomiting. By Tuesday perhaps similar but slowly abating, on Tuesday was continuing to get better. Mostly gone on Tuesday but it still vaguely present in the upper abdomen he states, with a little discomfort going into the back but quite mild. At its worst he states it was perhaps a 4 or 5 that is grading it relative to a prior history of a kidney stone. He has not had any rashes. No jaundice was reported. He had no fever or chills but on Tuesday just did not feel well. He did check temp but it was normal. He is currently having his usual softer bowel movement the last few days. Appetite has been okay. Food in the stomach did not increase pain. He thought that decreasing the amount of food that he was eating might help the pain on and Tuesday but it did not seem to make much difference. Laying down flat in bed seems to be worse so he did get up at times during the night to sit up in the chair and try and fall asleep although he was still having the pain. Review of systems per chart. Physical exam. Vital signs on chart. Sclera are clear. No cervical or supraclavicular lymph nodes enlarged or tender. No clear thyromegaly. No thyr (more content not included)... Normal [facility] Magnesiumon 10-23-2024 Magnesium [Mass/Vol] 2.1 mg/dL Normal 1.5-2.2 [facility] Comment on above: Performed By: #### L 100.0100, L501.5200, L501.6710, L501.2400, L501.2450, L500.4050 #### [facility] [address] [place], [address] Magnesium measurement (mass/ volume)Ordered By: Edwina Johnson on 10-23-2024 Magnesium (Unsp spec) [Mass/Vol] 2.1 mg/dL 1.5-2.2 [facility] Mean corpuscular hemoglobin (MCH) determinationOrdered By: Edwina Johnson on 10-23-2024 MCH (RBC) [Entitic mass] 33.1 pg High 27.0-32.0 [facility] Mean corpuscular hemoglobin concentration (MCHC) determinationOrdered By: Edwina Johnson on 10-23-2024 MCHC (RBC) [Mass/Vol] 33.4 g/dL 32-36 [facility] Mean platelet volume determi nationOrdered By: Edwina Johnson on 10-23-2024 Platelet mean volume (Bld) [Entitic vol] 9.1 fL 6.2-12.0 [facility] Monocyte percentageOrdered B y: Edwina Johnson on 10-23-2024 Monocytes/100 WBC (Bld) 12.8 % High 0-10 [facility] Neutrophil percentageOrdered By: Edwina Johnson on 10-23-2024 Neutrophils/100 WBC (Bld) 46.7 % Low 47-70 [facility] Nucleated red blood cell per centageOrdered By: Edwina Johnson on 10-23-2024 Nucleated RBC/100 WBC (Bld) [Ratio] 0 % 0-5 [facility] Platelet countOrdered By: Layla Johnson on 10-23-2024 Platelets (Bld) [#/Vol] 235 10*3/uL 150-450 [facility] Potassium measurement (mass/ volume)Ordered By: Edwina Johnson on 10-23-2024 Potassium (Unsp spec) [Mass/Vol] 3.7 mmol/L 3.3-5.1 [facility] RBC Auto (Bld) [#/Vol]Ordere d By: Edwina Johnson on 10-23-2024 RBC (Bld) [#/Vol] 4.29 10*6/uL Low 4.6-6.2 [facility] Serum creatinine measurement (mass/volume)Ordered By: Edwina Johnson on 10-23-2024 Creatinine [Mass/Vol] 0.92 mg/dL 0.70-1.20 [facility] Comment on above: Previous reported re sult: 0.90 mg/dLEdited by: NORBERTOS on 10/23/24:1158 AMENDED REPORT 10/23/24 1158 CREAT,SERUM previously reported as: 0.90 mg/dL Serum globulin measurementOr dered By: Edwina Johnson on 10-23-2024 Globulin (S) [Mass/Vol] 3.6 g/dL 2.2-4.2 [facility] Comment on above: Previous reported re sult: 3.5 g/dLEdited by: BENITEZ on 10/23/24:1158 AMENDED REPORT 10/23/24 1158 GLOB previously reported as: 3.5 g/dL Serum glucose measurement (m ass/volume)Ordered By: Edwina Johnson on 10-23-2024 Glucose [Mass/Vol] 102 mg/dL High 70-99 [facility] Comment on above: Previous reported re sult: 101 mg/dLEdited by: NORBERTOS on 10/23/24:1158 AMENDED REPORT 10/23/24 1158 GLU previously reported as: 101 H mg/dL Serum or plasma C reactive p rotein measurement (mass/volume)Ordered By: Edwina Johnson on 10-23-2024 CRP [Mass/Vol] 53.60 mg/L High 0.0-3.0 [facility] Serum or plasma alanine byrd otransferase (ALT) measurementOrdered By: Edwina Johnson on 10-23-2024 ALT [Catalytic activity/Vol] 24 U/L <47 [facility] Serum or plasma albumin gentry urement (mass/volume)Ordered By: Edwina Johnson on 10-23-2024 Albumin [Mass/Vol] 4.1 g/dL 3.5-5.0 [facility] Serum or plasma albumin/glob ulin mass ratioOrdered By: Edwina Johnson on 10-23-2024 Albumin/Globulin [Mass ratio] 1.1 {ratio} 0.9-2.4 [facility] Comment on above: Previous reported re sult: 1.2 RATIOEdited by: NORBERTOS on 10/23/24:1158 AMENDED REPORT 10/23/24 1158 A/G previously reported as: 1.2 [facility]IO Serum or plasma alkaline sully sphatase measurementOrdered By: Edwina Johnson on 10-23-2024 ALP [Catalytic activity/Vol] 78 U/L 40-129 [facility] Serum or plasma amylase gentry urement (enzymatic activity/volume)Ordered By: Edwina Johnson on 10-23-2024 Amylase [Catalytic activity/Vol] 73 U/L 28-100 [facility] Serum or plasma calcium gentry urement (mass/volume)Ordered By: Edwina Johnson on 10-23-2024 Calcium [Mass/Vol] 9.2 mg/dL 7.6-11.0 [facility] Serum or plasma urea nitroge n measurement (mass/volume)Ordered By: Edwina Johnson on 10-23-2024 Urea nitrogen [Mass/Vol] 13 mg/dL 4-19 [facility] Sodium levelOrdered By: Vandana Johnson on 10-23-2024 Sodium [Moles/Vol] 139 mmol/L 133-145 [facility] Total proteinOrdered By: Ghazal Johnson on 10-23-2024 Protein [Mass/Vol] 7.7 g/dL 5.9-8.4 [facility] Comment on above: Previous reported re sult: 7.6 g/dLEdited by: BENITEZ on 10/23/24:1158 AMENDED REPORT 10/23/24 1158 T PROT previously reported as: 7.6 g/dL White blood cell (WBC) count Ordered By: Edwina Johnson on 10-23-2024 WBC (Bld) [#/Vol] 6.3 10*3/uL 4.4-11.0 [facility] Testosterone Freeon 10-15-19 TESTOSTER FREE 8.5 pg/mL Normal 7.2-24.0 [facility] Comment on above: Result Comment: Perf ormed at: - [facility] [address] [id number] Medical Equipment Repair Technician: Estuardo Masters MD, Phone: [phone] Performed By: #### L 500.4487, U5346.5908, H4034.5994, X924.9824 #### [facility] [address] [place], [address] Inital Evaluation (1) - PTon 10-11-2024 Inital Evaluation (1) - PT [facility] [address] [place] [address] / REHABILITATION SERVICES INITIAL EVALUATION MR#: [id number] Acct: [id number] Name: YAIR FRIEDMAN Rep #: [id number] : 1965 59 From: Joshua Echols DPT, OCS, CSCS Referring Dr.: Dr. Pramod Fisher MD Status: R EG R Insurance: [facility] SELF PAY INSURANCE Patient's Visit Information Visit Information Visit Information: YAIR FRIEDMAN is a 59 year old M referred to Physical Therapy by Dr. Pramod Fisher MD with a diagnosis of B achilles pain and L knee pain. Date of Evaluation: 10/11/24 Physical Therapist: Joshua Echols DPT, OCS, CSCS Visit Plan Frequency: Every Other Week Duration: 4-6 Weeks Plan: Pt wishes to rest from [place], stretch daily and work through this himself and f/u in one month as needed for ecccentrics, ex progression and monitor improvement. next achilles eccentrics, quad eccentrics, hip strength if desired adn ensure resting from aggravation but still working out. Subjective Subjective: B heel pain and L knee pain. Been working out and achilles hurt. Started working out in June to get in shape, does Y classes , tabata mostly, some stretching classes 3x/week. Hurts day after workout. Runs, jumps, skips, hops. These are the ones that hurt him. Used to do TM prior to class and was sore prior a little bit. Achilles B 0-4/10 L >R. L knee pain also with calcification in quad tendon on L on x rays. employed retired. Sleep is not interrupted. hobbies: life travel motor home, does everything regardless .Basic ADLs are no problem. Yard work is going OK but painful. Pain B acchilles: Pain Intensity (Out of 10): 1 Pain Intensity Range: 0 and 3 Comment: worse day after workout. Objective Objective: Walks into PT wihtout pain today and no antalgia, transfers chair and bed I. Feels stiff in calf and L quad. Tender to palpation B achilles insertion slightly, L quad medially at patella. Full aROM hips and knees with strength 4/5 hips abd ext adn flexion and 5/5 knee ext adn flexion without pain. ankle strength is 5/5, tightness in DF ROM at -2 AROM, PF/ev/inv WFL. PROM DF to 0 B. reflexes 1/3 patella and achilles B. Heel and toe walk without pain today. Balance/Special Test Scores Lower Extremity Functional Score: 43 Goals Goal 1:: I appropriate HEP for stretching adn ecc quad and achilles strength to minimzie future rpoblems. Goal Time Frame: 4-6 Weeks Goal 2:: Pain in achilles and L knee 1/10 at worst adn 90% better Goal Time Frame: 4-6 Weeks Rehabilitation Potential Physical Therapy Diagnosis: stiffness and poor ex progreession giving overuse symptoms. Rehabilitation Potential: Good Anticipated Interventions Patient/Client Instruction: Educate patient on: Condition and Plan of Care For the Purpose of:: To decrease pain, To increase ROM, To improve nutrient delivery to tissue and To increase tolerance to activity/condition/position Therapeutic Exercise to Include: Strength training, Flexibilty training and Passive ROM Comment: rest For the Purpose of:: To decrease pain, To increase ROM and To improve nutrient delivery to tissue Text: Thank you for the opportunity to evaluate your patient. For Medicare and Medicare HMO plans, please review the plan of care and approve it. It will need to be FAXED BACK to us at [phone] for Medicare purposes. For Medicare only, by signing this I certify the plan of care. Please let me know if there are questions or concerns regarding this plan of care. Physician Signature: Date: 10/11/24 1046 CC: Dr. Edwina Johnson MD; Dr. Pramod Fisher MD EBG Signed Normal [facility] w/ Reflex Mult Confirmon 10-09-2024 [facility] Negative Normal Negative [facility] Comment on above: Result Comment: Perf ormed at: - [facility] [address] [id number] Medical Equipment Repair Technician: Carrillo Finn PhD, Phone: [phone] Performed By: #### L 500.2500, L3890.0200, L3890.4000, L100.0500 #### [facility] [address] [place], [address] Anion gap in Serum or Plasma Ordered By: Edwina Johnson on 10-05-2024 Anion gap [Moles/Vol] 12 mmol/L 5-15 [facility] BUN/creatinine ratioOrdered By: Edwina Johnson on 10-05-2024 Urea nitrogen/Creatinine [Mass ratio] 13.7 mg/mg 10-20 [facility] Bilirubin, totalOrdered By: Edwina Johnson on 10-05-2024 Bilirubin [Mass/Vol] 0.39 mg/dL 0.00-1.30 [facility] CRPon 10-05-2024 C-REACTIVE PROT < 3.00 Normal 0.0-3.0 [facility] Comment on above: Performed By: #### L 500.2500, L3890.0200, L3890.4000, L100.0500 #### [facility] [address] [place], [address] Calculated very low density lipoprotein (VLDL) cholesterol measurementOrdered By: Edwina Johnson on 10-05-2024 Calculated very low density lipoprotein (VLDL) cholesterol measurement 42 mg/dL High 5-40 [facility] Carbon dioxide, total [Moles /volume] in Central venous bloodOrdered By: Edwina Johnson on 10-05-2024 CO2 [Moles/Vol] 24.9 mmol/L 21.0-32.0 [facility] Chloride assayOrdered By: Layla Johnson on 10-05-2024 Chloride [Moles/Vol] 101 mmol/L 98-108 [facility] Comprehensive Metabolic Prof ilon 10-05-2024 Albumin [Mass/Vol] 4.4 g/dL Normal 3.5-5.0 [facility] Comment on above: Performed By: #### L 500.2500, L3890.0200, L3890.4000, L100.0500 #### [facility] [address] [place], [address] Albumin/Globulin [Mass ratio] 1.5 {ratio} Normal 0.9-2.4 [facility] Comment on above: Performed By: #### L 500.2500, L3890.0200, L3890.4000, L100.0500 #### [facility] [address] [place], [address] ALK PHOS 80 U/L Normal 40-129 [facility] Comment on above: Performed By: #### L 500.2500, L3890.0200, L3890.4000, L100.0500 #### [facility] [address] [place], [address] ALT [Catalytic activity/Vol] 15 U/L Normal <=46 [facility] Comment on above: Performed By: #### L 500.2500, L3890.0200, L3890.4000, L100.0500 #### [facility] [address] [place], [address] AST [Catalytic activity/Vol] 25 U/L Normal <=37 [facility] Comment on above: Performed By: #### L 500.2500, L3890.0200, L3890.4000, L100.0500 #### [facility] [address] [place], [address] Bilirubin [Mass/Vol] 0.39 mg/dL Normal 0.00-1.30 [facility] Comment on above: Performed By: #### L 500.2500, L3890.0200, L3890.4000, L100.0500 #### [facility] [address] [place], [address] BUN/CRE 13.7 RATIO Normal 10-20 [facility] Comment on above: Performed By: #### L 500.2500, L3890.0200, L3890.4000, L100.0500 #### [facility] [address] [place], [address] Calcium [Mass/Vol] 9.2 mg/dL Normal 7.6-11.0 [facility] Comment on above: Performed By: #### L 500.2500, L3890.0200, L3890.4000, L100.0500 #### [facility] [address] [place], [address] Chloride [Moles/Vol] 101 mmol/L Normal 98-108 [facility] Comment on above: Performed By: #### L 500.2500, L3890.0200, L3890.4000, L100.0500 #### [facility] [address] [place], [address] CO2 [Moles/Vol] 24.9 mmol/L Normal 21.0-32.0 [facility] Comment on above: Performed By: #### L 500.2500, L3890.0200, L3890.4000, L100.0500 #### [facility] [address] [place], [address] Creatinine [Mass/Vol] 0.88 mg/dL Normal 0.70-1.20 [facility] Comment on above: Performed By: #### L 500.2500, L3890.0200, L3890.4000, L100.0500 #### [facility] [address] [place], [address] GAP 12 Normal 5-15 [facility] Comment on above: Performed By: #### L 500.2500, L3890.0200, L3890.4000, L100.0500 #### [facility] [address] [place], [address] GFR/1.73 sq M.predicted among non-blacks MDRD (S/P/Bld) [Vol rate/Area] 99 mL/min/{1.73_m2} Normal >60 [facility] Comment on above: Result Comment: mL/m in/1.73m2 CKD-EPI Creatinine Equation (2020) Performed By: #### L 500.2500, L3890.0200, L3890.4000, L100.0500 #### [facility] [address] [place], [address] Globulin (S) [Mass/Vol] 3.0 g/dL Normal 2.2-4.2 [facility] Comment on above: Performed By: #### L 500.2500, L3890.0200, L3890.4000, L100.0500 #### [facility] [address] [place], [address] Glucose [Mass/Vol] 98 mg/dL Normal 70-99 [facility] Comment on above: Performed By: #### L 500.2500, L3890.0200, L3890.4000, L100.0500 #### [facility] [address] [place], [address] Potassium [Moles/Vol] 4.0 mmol/L Normal 3.3-5.1 [facility] Comment on above: Performed By: #### L 500.2500, L3890.0200, L3890.4000, L100.0500 #### [facility] [address] [place], [address] Sodium [Moles/Vol] 137 mmol/L Normal 133-145 [facility] Comment on above: Performed By: #### L 500.2500, L3890.0200, L3890.4000, L100.0500 #### [facility] [address] [place], [address] T PROT 7.4 g/dL Normal 5.9-8.4 [facility] Comment on above: Performed By: #### L 500.2500, L3890.0200, L3890.4000, L100.0500 #### [facility] [address] [place], [address] Urea nitrogen [Mass/Vol] 12 mg/dL Normal 4-19 [facility] Comment on above: Performed By: #### L 500.2500, L3890.0200, L3890.4000, L100.0500 #### [facility] [address] [place], [address] Erythrocyte Sed Rateon 10-05 SED RATE 2 mm/hr Normal 0-20 [facility] Comment on above: Performed By: #### L 500.2500, L3890.0200, L3890.4000, L100.0500 #### [facility] [address] [place], [address] Erythrocyte sedimentation ra teOrdered By: Edwina Johnson on 10-05-2024 ESR (Bld) [Velocity] 2 mm/h 0-20 [facility] Free T3on 10-05-2024 Free T3 [Mass/Vol] 3.6 pg/mL Normal 2.18-3.98 [facility] Comment on above: Performed By: #### L 500.2500, L3890.0200, L3890.4000, L100.0500 #### [facility] [address] [place], [address] Free R3Evbypam By: Edwina valdez on 10-05-2024 Free T3 [Mass/Vol] 3.6 pg/mL 2.18-3.98 [facility] Glomerular filtration rate ( GFR) estimation/1.73 sq m using serum, plasma, or whole bOrdered By: Edwina Johnson on 10-05-2024 GFR/1.73 sq M.predicted among non-blacks MDRD (S/P/Bld) [Vol rate/Area] 99 mL/min/{1.73_m2} >60 [facility] Comment on above: mL/min/1.73m2 CKD-EP I Creatinine Equation (2020) Hemoglobin A1con 10-05-2024 HbA1c (Bld) [Mass fraction] 5.5 % Normal <=5.6 [facility] Comment on above: Result Comment: Norm al < 5.7 % Prediabetic 5.7 - 6.4 % Diabetic >or= 6.5 % Please note range changes. Performed By: #### L 500.2500, L3890.0200, L3890.4000, L100.0500 #### [facility] [address] [place], [place], [address] Hemoglobin A1c percentageOrd ered By: Edwina Johnson on 10-05-2024 HbA1c (Bld) [Mass fraction] 5.5 % <5.7 [facility] Comment on above: Normal < 5.7 % Predi abetic 5.7 - 6.4 % Diabetic >or= 6.5 % Please note range changes. LDL calc ser/plasOrdered By: Edwina Johnson on 10-05-2024 Cholesterol in LDL [Mass/Vol] 130 mg/dL [facility] Comment on above: Futdqgrcoa=614-253 m g/dL & Higher Ziew=579 mg/dL or greaterFriedwald Equation for LDL-C Laboratory - Chemistry and C hemistry - challengeOrdered By: Edwina Johnson on 10-05-2024 AST [Catalytic activity/Vol] 25 U/L <38 [facility] Lipid Profileon 10-05-2024 CHOL:HDL 4.99 Normal [facility] Comment on above: Performed By: #### L 500.2500, L3890.0200, L3890.4000, L100.0500 #### [facility] [address] [place], [address] Cholesterol [Mass/Vol] 215 mg/dL High <=200 [facility] Comment on above: Result Comment: Chol esterol level, Desirable <200 mg/dL Borderline high cholesterol 200-239 mg/dL High cholesterol >=240 mg/dL Recommendations of the NCEP Adult Treatment Panel for the following risk-cutoff thresholds for the [place] population. Performed By: #### L 500.2500, L3890.0200, L3890.4000, L100.0500 #### [facility] [address] [place], [address] Cholesterol in HDL [Mass/Vol] 43 mg/dL Normal [facility] Comment on above: Result Comment: Erin onal Cholesterol Education Program (NCEP) guidelines: <40 mg/dL: Low HDL-cholesterol (major risk factor for CHD) >= 60 mg/dL: High HDL-cholesterol (negative risk factor for CHD) HDL-cholesterol is affected by a number of factors, e.g. smoking, exercise, hormones, sex and age. Performed By: #### L 500.2500, L3890.0200, L3890.4000, L100.0500 #### [facility] [address] [place], [address] Cholesterol in LDL [Mass/Vol] 130 mg/dL Normal [facility] Comment on above: Result Comment: Bord nuwjgg=453-505 mg/dL Higher Qvuo=214 mg/dL or greater Friedwald Equation for LDL-C Performed By: #### L 500.2500, L3890.0200, L3890.4000, L100.0500 #### [facility] [address] [place], [address] Cholesterol in VLDL [Mass/Vol] 42 mg/dL High 5-40 [facility] Comment on above: Performed By: #### L 500.2500, L3890.0200, L3890.4000, L100.0500 #### [facility] [address] [place], [address] Triglyceride [Mass/Vol] 208 mg/dL High [facility] Comment on above: Result Comment: The drugs N-Acetylcysteine and Metamizole may falsely depress this assay. Normal range: <150 mg/dL Borderline High: 150-199 mg/dL High: 200-499 mg/dL Very High: >500 mg/dL Performed By: #### L 500.2500, L3890.0200, L3890.4000, L100.0500 #### [facility] [address] [place], [address] Potassium measurement (mass/ volume)Ordered By: Edwina Johnson on 10-05-2024 Potassium (Unsp spec) [Mass/Vol] 4.0 mmol/L 3.3-5.1 [facility] Screening total cholesterol/ high density lipoprotein (HDL) cholesterol ratioOrdered By: Edwina Johnson on 10-05-2024 Cholesterol.total/Cho lesterol in HDL [Mass ratio] 4.99 {ratio} [facility] Serum DNA double strand anti body assay (units/volume)Ordered By: Edwina Johnson on 10-05-2024 DNA double strand Ab Qn (S) Not Reportable [facility] Serum Scl-70 antibody assay (units/volume)Ordered By: Edwina Johnson on 10-05-2024 SCL-70 extractable nuclear Ab Qn (S) TNP [facility] Comment on above: Test not performed Serum creatinine measurement (mass/volume)Ordered By: Edwina Johnson on 10-05-2024 Creatinine [Mass/Vol] 0.88 mg/dL 0.70-1.20 [facility] Serum globulin measurementOr dered By: Edwina Johnson on 10-05-2024 Globulin (S) [Mass/Vol] 3.0 g/dL 2.2-4.2 [facility] Serum glucose measurement (m ass/volume)Ordered By: Edwina Johnson on 10-05-2024 Glucose [Mass/Vol] 98 mg/dL 70-99 [facility] Serum or plasma C reactive p rotein measurement (mass/volume)Ordered By: Edwina Johnson on 10-05-2024 CRP [Mass/Vol] mg/L 0.0-3.0 [facility] Serum or plasma alanine byrd otransferase (ALT) measurementOrdered By: Edwina Johnson on 10-05-2024 ALT [Catalytic activity/Vol] 15 U/L <47 [facility] Serum or plasma albumin gentry urement (mass/volume)Ordered By: Edwina Johnson on 10-05-2024 Albumin [Mass/Vol] 4.4 g/dL 3.5-5.0 [facility] Serum or plasma albumin/glob ulin mass ratioOrdered By: Edwina Johnson on 10-05-2024 Albumin/Globulin [Mass ratio] 1.5 {ratio} 0.9-2.4 [facility] Serum or plasma alkaline sully sphatase measurementOrdered By: Edwina Johnson on 10-05-2024 ALP [Catalytic activity/Vol] 80 U/L 40-129 [facility] Serum or plasma calcium gentry urement (mass/volume)Ordered By: Edwina Johnson on 10-05-2024 Calcium [Mass/Vol] 9.2 mg/dL 7.6-11.0 [facility] Serum or plasma cholesterol in HDL measurement (mass/volume)Ordered By: Edwina Johnson on 10-05-2024 Cholesterol in HDL [Mass/Vol] 43 mg/dL >40 [facility] Comment on above: National Cholesterol Education Program (NCEP) guidelines:<40 mg/dL: Low HDL-cholesterol (major risk factor for CHD)>= 60 mg/dL: High HDL-cholesterol (negative risk factor for CHD)HDL-cholesterol is affected by a number of factors, e.g. smoking, exercise, hormones, sex and age. Serum or plasma cholesterol measurement (mass/volume)Ordered By: Edwina Johnson on 10-05-2024 Cholesterol [Mass/Vol] 215 mg/dL High <201 [facility] Comment on above: Cholesterol level, D esirable <200 mg/dLBorderline high cholesterol 200-239 mg/dLHigh cholesterol >=240 mg/dLRecommendations of the NCEP Adult Treatment Panel for the following risk-cutoff thresholds for the [place] population. Serum or plasma free testost erone measurement (mass/volume)Ordered By: Edwina Johnson on 10-05-2024 Testosterone Free [Mass/Vol] 8.5 pg/mL 7.2-24.0 [facility] Comment on above: Performed at: [address] [id number] Director: Estuardo Masters MD, Phone: [phone] Serum or plasma urea nitroge n measurement (mass/volume)Ordered By: Edwina Johnson on 10-05-2024 Urea nitrogen [Mass/Vol] 12 mg/dL 4-19 [facility] Sodium levelOrdered By: Vandana Johnson on 10-05-2024 Sodium [Moles/Vol] 137 mmol/L 133-145 [facility] T4 Free Directon 10-05-2024 T4 FREE DIRECT 1.20 ng/dL Normal 0.76-1.46 [facility] Comment on above: Performed By: #### L 500.2500, L3890.0200, L3890.4000, L100.0500 #### [facility] [address] [place], [place], [id number] T4 freeOrdered By: Edwina valdez on 10-05-2024 Free T4 [Mass/Vol] 1.20 ng/dL 0.76-1.46 [facility] TSH DL <= 0.005 mIU/L QnOrde red By: Edwina Johnson on 10-05-2024 TSH Qn 3.340 uIU/mL 0.300-4.20 0 [facility] Thyroid Stim Hormone (TSH)on 10-05-2024 TSH 3.340 uIU/mL Normal 0.300-4.20 0 [facility] Comment on above: Performed By: #### L 500.2500, L3890.0200, L3890.4000, L100.0500 #### [facility] [address] [facility] [place], [address] Total proteinOrdered By: Ghazal Johnson on 10-05-2024 Protein [Mass/Vol] 7.4 g/dL 5.9-8.4 [facility] Triglycerides measurementOrd ered By: Edwina Johnson on 10-05-2024 Triglyceride [Mass/Vol] 208 mg/dL High <199 [facility] Comment on above: The drugs N-Acetylcy steine and Metamizole may falsely depress this assay. Normal range: <150 mg/dLBorderline High: 150-199 mg/dLHigh: 200-499 mg/dLVery High: >500 mg/dL Vitamin B12on 10-05-2024 Cobalamin (Vitamin B12) [Mass/Vol] 337 pg/mL Normal 180-914 [facility] Comment on above: Performed By: #### L 500.2500, L3890.0200, L3890.4000, L100.0500 #### [facility] [address] [place], [address] Vitamin B12 ser/plasOrdered By: Edwina Johnson on 10-05-2024 Cobalamin (Vitamin B12) [Mass/Vol] 337 pg/mL 180-914 [facility] Vitamin D,25 Hydroxyon 10-05 Vitamin D 25-OH 23.1 ng/mL Low 30-100 [facility] Comment on above: Result Comment: Lcara min D Status Deficiency: <20 ng/mL (50nmol/L) Insufficiency: 20-30 ng/mL (50-75 nmol/L) Sufficiency: 30-100 ng/mL (75-250 nmol/L) Toxicity: >100 ng/mL (>250 nmol/L) Performed By: #### L 500.2500, L3890.0200, L3890.4000, L100.0500 #### [facility] [address] [place], [address] Foot min 3 Viewson 5 Foot min 3 Views [facility] Imaging Services [address] [place] [address] Foot min 3 Views MR#: [id number] Acct: [id number] Name: YAIR FRIEDMAN Rep #: [id number] : 1965 M 59 From: Annabel Peters MD PCP: Dr. Edwina Johnson MD Status: DEP AMB Study: Foot min 3 Views Date of Exam: 10/04/24 Exam# [id number] Ordering Dr: Pramod Fisher MD PROCEDURE: FOOT MIN 3 VIEWS 10/04/2024 REASON FOR EXAM: PAIN, PT "HAVING ISSUES WITH TENDONS IN LEGS" TECHNIQUE: FOOT MIN 3 VIEWS RIGHT AND LEFT Laterality: Bilateral COMPARISON: None. FINDINGS: BONES: No acute fracture or focal osseous lesion. JOINTS: No dislocation. The joint spaces are normal. SOFT TISSUES: The soft tissues are unremarkable. RAD/Foot min 3 Views IMPRESSION: NEGATIVE BILATERAL FOOT SERIES Reading Location: [facility] CC: Dr. Edwina Johnson MD; Dr. Pramod Fisher MD Barrelhead Inspector: Signed Normal [facility] Foot min 3 Views [facility] Imaging Services [address] [place] [address] Foot min 3 Views MR#: [id number] Acct: [id number] Name: YAIR FRIEDMAN Rep #: [id number] : 1965 M 59 From: Annabel Peters MD PCP: Dr. Edwina Johnson MD Status: DEP AMB Study: Foot min 3 Views Date of Exam: 10/04/24 Exam# [id number] Ordering Dr: Pramod Fisher MD PROCEDURE: FOOT MIN 3 VIEWS 10/04/2024 REASON FOR EXAM: PAIN, PT "HAVING ISSUES WITH TENDONS IN LEGS" TECHNIQUE: FOOT MIN 3 VIEWS RIGHT AND LEFT Laterality: Bilateral COMPARISON: None. FINDINGS: BONES: No acute fracture or focal osseous lesion. JOINTS: No dislocation. The joint spaces are normal. SOFT TISSUES: The soft tissues are unremarkable. RAD/Foot min 3 Views IMPRESSION: NEGATIVE BILATERAL FOOT SERIES Reading Location: [facility] CC: Dr. Edwina Johnson MD; Dr. Pramod Fisher MD Barrelhead Inspector: Signed Normal [facility] Knee 4 or More Viewson 10-04 Knee 4 or More Views [facility] Imaging Services [address] [place] [address] Knee 4 or More Views MR#: [id number] Acct: [id number] Name: YAIR FRIEDMAN Rep #: [id number] : 1965 M 59 From: Annabel Peters MD PCP: Dr. Edwina Johnson MD Status: DEP AMB Study: Knee 4 or More Views Date of Exam: 10/04/24 Exam# [id number] Ordering Dr: Pramod Fisher MD PROCEDURE: KNEE 4 OR MORE VIEWS 10/04/2024 REASON FOR EXAM: PAIN, PT "HAVING ISSUES WITH TENDONS IN LEGS" TECHNIQUE: KNEE 4 OR MORE VIEWS Laterality: Left COMPARISON: None FINDINGS: BONES: No acute fracture or focal osseous lesion. Small superior patellar enthesophyte and spur. JOINTS: Minimal suprapatellar joint effusion. No dislocation. The joint spaces are preserved. SOFT TISSUES: The soft tissues are unremarkable. RAD/Knee 4 or More Views IMPRESSION: 1. No acute osseous abnormality. 2. Minimal knee joint effusion. Reading Location: [facility] CC: Dr. Edwina Johnson MD; Dr. Pramod Fisher MD Barrelhead Inspector: Signed Normal [facility] Orthopedic Visit Reporton Orthopedic Visit Report [facility] [address] [place], [place] [id number] OFFICE VISIT Date of Service: 10/04/24 MR#: [id number] Acct: [id number] Name: YAIR FRIEDMAN Rep #: [id number] : 1965 Provider: Dr. Pramod joe MD Age/Sex: 59/M Location: [facility] Status: Signed Intake Vital Signs 09/17/24 08:33 10/04/24 09:56 Height 5 ft 8 in 5 ft 8 in Weight: 176 lb 2 oz 176 lb 2 oz BMI 26.7 26.7 BP 122/82 H Blood Pressure Location Lt brachial Position Sitting Respiration 16 Pulse 87 Pulse Source Monitor Temp 98.6 F Temp Source Temporal Pulse Oximetry (%) 96 Oxygen Delivery Method room air Intake Visit Reasons: BILATERAL LEGS Chief Complaint: Bilateral Leg Pain Accompanied by: Self Is patient in pain?: Yes Pain scale (1-10): 1 Allergies bee venom protein (honey bee) Allergy (Severe, Verified 10/04/24 09:57) Anaphylaxis adhesive tape Adverse Reaction (Verified 10/04/24 09:57) Rash amoxicillin (From Augmentin) Adverse Reaction (Verified 10/04/24 09:57) Hives clavulanic acid (From Augmentin) Adverse Reaction (Verified 10/04/24 09:57) Hives oxycodone (From Percocet) Adverse Reaction (Verified 10/04/24 09:57) elevated bp, felt funny, chest tightness Medications ???Medication ???Instructions ???Recorded ???Confirmed ???Type valacyclovir 1 gram tablet 1,000 mg PO QHS HIV 01/07/2110/04 History abacavir 600 mg-dolutegravir 50 1 tab PO QHS HIV 05/16/23 10/04/24 History mg-lamivudine 300 mg tablet (Triumeq) omeprazole 40 mg capsule,delayed 40 mg PO QHS GERD #90 caps 01/03/2 4 10/04/24 Rx release epinephrine 0.3 mg/0.3 mL 0.3 mg (0.3 mL) IM Q5-15M PRN 01/0710/04/24 Rx injection, auto-injector anaphylaxis #2 ea [facility] Medical History (Updated 10/04/24 @ 10:22 by Pramod Fisher MD) Left knee pain Achilles tendinitis of both lower extremities Rupture of right long head biceps tendon Normal exam Right shoulder pain Loss of hearing History of edema Non-smoker PONV (postoperative nausea and vomiting) Rectal pain Pain in both testicles History of kidney stones Cancer Arthritis Back pain Gastric reflux Left inguinal hernia Diarrhea Abdominal pain GERD (gastroesophageal reflux disease) AIDS Anal condyloma Anal dysplasia Weight loss Surgical History H/O lumbosacral spine surgery Hx of arthroscopy of shoulder History of esophagogastroduodenoscopy (EGD) History of colonoscopy History of left inguinal hernia repair History of shoulder surgery history left bicep tendon repair history left ulnar nerve repair History of bilateral carpal tunnel release Family History Mother Asthma Arthritis Diabetes Heart disease Hypertension High cholesterol Grandfather Cancer lung cancer Father Heart disease High cholesterol Hypertension Cancer skin cancer Social History Smoking Status: Never smoker alcohol intake: never substance use type: does not use HPI BILATERAL LEGS Details: This documentation accurately reflects the service provided and the decisions made by me, Dr. Pramod Fisher MD 10/04/24 0921. Part of today???s visit was documented by [ ], acting as scribe. YAIR FRIEDMAN is a 59 year old M here today for bilateral heel pain and left knee pain. worse with running. 10/10 on the left achilles and 1/10 on the right. left knee quads insertion pain. does tabata class stepper, jump rope, cardio and weights. started in June. may do up to 20-30 reps every 30 seconds, for an hour = over 1000 reps per hour, multiple times a week. has had RC issues, biceps issues, elbow, knee and achilles pain. Ortho Exam General General: Yes no acute distress Neurologic: Yes alert and Yes oriented x3 Psychologic: Yes reasonable and appropriate Right Knee Patella Translation: 2 Left Knee Skin/Wound: Yes CDI, No ecchymosis, No erythema and No swelling Knee ROM: Yes ROM-Flexion 0-140 Examination: No med jt line tenderness, No Lat jt line tenderness, No TTP inf pole patella, No Crepitus, No Pain with flexion, No Finn's Test, No TTP Patellar tendon, No TTP Tibial tubercle, No TTP Pes Anserine and No Illiotibial band tenderness Quad Atrophy: No Stability: NML: Anterior Drawer, NML: Jose Carlos, NML: Posterior Drawer, NML: Valgus 0, NML: Valgus 30, NML: Varus 0 and NML: Varus 30 Apprehension with Lateral Translation: No Patella Translation: 2 Patellar Tilt Normal: Yes Patella Grind: No KNEE: normal gait, NVI, normal alignment, very fit appearing individual, high muscle tone. Right Foot/Ankle Skin/Wound: Yes CDI; No Ecchymosis, Soft Tissue Swelling or Erythema E (more content not included)... Normal [facility] MR/Ankur 09-17-2024 MR/BMS.IMB [facility] [address] [place], [place] [address] OFFICE VISIT Date of Service: 09/17/24 MR#: [id number] Acct: [id number] Name: YAIR FRIEDMAN Rep #: [id number] : 1965 Provider: Dr. 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 Accompanied by: Self Is patient in pain?: No Allergies bee venom protein (honey bee) Allergy (Severe, Verified 09/17/24 08:25) Anaphylaxis adhesive tape Adverse Reaction (Verified 09/17/24 08:25) Rash amoxicillin (From Augmentin) Adverse Reaction (Verified 09/17/24 08:25) Hives clavulanic acid (From Augmentin) Adverse Reaction (Verified 09/17/24 08:25) Hives oxycodone (From Percocet) Adverse Reaction (Verified 09/17/24 08:25) elevated bp, felt funny, chest tightness Medications ???Medication ???Instructions ???Recorded ???Confirmed ???Type valacyclovir 1 gram tablet 1,000 mg PO QHS HIV 01/07/2109/17 History abacavir 600 mg-dolutegravir 50 1 tab PO QHS HIV 05/16/23 09/17/24 History mg-lamivudine 300 mg tablet (Triumeq) omeprazole 40 mg capsule,delayed 40 mg PO QHS GERD #90 caps 01/03/2 4 09/17/24 Rx release epinephrine 0.3 mg/0.3 mL 0.3 mg (0.3 mL) IM Q5-15M PRN 01/0709/17/24 Rx injection, auto-injector anaphylaxis #2 ea [facility] Medical History (Updated 09/17/24 @ 09:[address] Edwina Johnson MD) Achilles tendinitis of both lower extremities Rupture of right long head biceps tendon Normal exam Right shoulder pain Loss of hearing History of edema Non-smoker PONV (postoperative nausea and vomiting) Rectal pain Pain in both testicles History of kidney stones Cancer Arthritis Back pain Gastric reflux Left inguinal hernia Diarrhea Abdominal pain GERD (gastroesophageal reflux disease) AIDS Anal condyloma Anal dysplasia Weight loss Surgical History H/O lumbosacral spine surgery Hx of arthroscopy of shoulder History of esophagogastroduodenoscopy (EGD) History of colonoscopy History of left inguinal hernia repair History of shoulder surgery history left bicep tendon repair history left ulnar nerve repair History of bilateral carpal tunnel release Family History Mother Asthma Arthritis Diabetes Heart disease Hypertension High cholesterol Grandfather Cancer lung cancer Father Heart disease High cholesterol Hypertension Cancer skin cancer Social History Smoking Status: Never smoker alcohol intake: never substance use type: does not use HPI HPI Chief Complaint: Bilateral Achilles tendon pain; Left knee pain Details: YAIR FRIEDMAN, is a 59 M who presents to the office today for annual wellness follow-up. Patient has a history of GERD, HIV positive, following with infectious disease, Dr. Kunal ram, on Triumeq. He takes omeprazole 40 mg nightly. He is on Katiuska acyclovir 1000 mg p.o. nightly, terbinafine through Dr. Syed. Overall he seems to be doing okay however he has noted a number of concerns about some joint and muscle tightness, particular at the ankles as well as in the calf muscles,, but also tenderness and discomfort, bilateral Achilles. He points specifically to the location of the Achilles tendon insertion. He has been much more physically active since returning from [place] in June of this year. He is engaged in an exercise regimen program, engaged in a number of different types of physical activities including jump rope, jumping jacks, presumably for cardio, as well as some strength training. He does point out that he has had bilateral shoulder surgeries, for rotator cuff but also last year, had rupture of the right long head biceps tendon. He did get evaluated by orthopedics however at that point they discussed and did not proceed to repair. He does have some questions about that in terms of the fact that without that long head functioning, he notes with specific activities such as using a screwdriver or other tools where he has to rotate the forearm as well as certain exercises that he is doing through his exercise regimen where he would prefer to have that functionality back. Josephine (more content not included)... Normal [facility] Urine Cultureon 09-01-2024 URC Culture exhibits no growth. Normal [facility] Comment on above: Performed By: #### L 100.0100, L501.5200, L501.6710, L501.2400, L501.2450, L500.4050 #### [facility] [address] [place], [address] Urine cultureOrdered By: Jer Mullen on 08-31-2024 Bacteria identified Cx Nom (U) Culture exhibits no growth. [facility] - Chemistry and C hemistry - challengeOrdered By: Roderick Mullen on 08-30-2024 Bilirubin Ql (U) Negative [facility] Glucose Ql (U) Negative [facility] Ketones Ql (U) Negative [facility] pH (U) 6.0 [pH] [facility] Specific gravity (U) [Rel density] 1.025 [facility] Urobilinogen (U) [Mass/Vol] Negative [facility] - Hematology and Cell countsOrdered By: Roderick Mullen on 08-30-2024 Hemoglobin Ql (U) Negative [facility] - Specimen inform ationOrdered By: Roderick Mullen on 08-30-2024 Clarity (U) Clear [facility] Color (U) Dk Yellow [facility] - UrinalysisOrder ed By: Roderick Mullen on 08-30-2024 Nitrite Ql (U) Negative [facility] Protein Ql (U) Trace [facility] No Panel InformationOrdered By: Roderick Mullen on 08-30-2024 Urine Leukocytes Negatve [facility] Urine Non-Hemolyzed Blood Small [facility] Urgent Care Visit Reporton 0 08-30-2024 Urgent Care Visit Report [facility] [address], [address] [place] [address] OFFICE VISIT Date of Service: 08/30/24 MR#: [id number] Acct: [id number] Name: YAIR FRIEDMAN Rep #: [id number] : 1965 Provider: GARRETT Pedersen Age/Sex: 59/M Location: [facility] Status: Signed Intake Vital Signs 01/04/24 11:36 08/30/24 17:30 08/30/24 17:39 Height 5 ft 8 in 5 ft 8 in 5 ft 8 in Weight: 175 lb 6 oz BMI 26.6 BP 142/78 H Blood Pressure Location Lt brachial Position Sitting Respiration 16 Pulse 90 Pulse Source NIBP Temp 98.2 F Temp Source Oral Pulse Oximetry (%) 98 Oxygen Delivery Method room air Intake Visit Reasons: ABDOMINAL PAIN Chief Complaint: left testicular pain 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 Is patient in pain?: Yes Allergies bee venom protein (honey bee) Allergy (Severe, Verified 08/30/24 17:39) Anaphylaxis adhesive tape Adverse Reaction (Verified 08/30/24 17:39) Rash amoxicillin (From Augmentin) Adverse Reaction (Verified 08/30/24 17:39) Hives clavulanic acid (From Augmentin) Adverse Reaction (Verified 08/30/24 17:39) Hives oxycodone (From Percocet) Adverse Reaction (Verified 08/30/24 17:39) elevated bp, felt funny, chest tightness Medications ???Medication ???Instructions ???Recorded ???Confirmed ???Type valacyclovir 1 gram tablet 1,000 mg PO QHS HIV 01/07/2101/03 History abacavir 600 mg-dolutegravir 50 1 tab PO QHS HIV 05/16/23 01/04/24 History mg-lamivudine 300 mg tablet (Triumeq) terbinafine HCl 250 mg tablet 250 mg PO QDAY 12/29/23 01/04/24 H istory omeprazole 40 mg capsule,delayed 40 mg PO QHS GERD #90 caps 2 4 01/04/24 Rx release epinephrine 0.3 mg/0.3 mL 0.3 mg (0.3 mL) IM Q5-15M PRN 01/07 Rx injection, auto-injector anaphylaxis #2 ea scopolamine base 1 mg over 3 days 1 patch transdermal Q3D PRN motio n 01/30/24 Rx transdermal patch sickness #4 ea ceftriaxone 500 mg solution for 500 mg Recon Soln#1 Samples 08/30/24 Sample injection doxycycline monohydrate 100 mg 100 mg PO BID 10 days #20 tabs 08/30/24 Rx tablet Have you fallen in the past year?: No Nurse's Note: left testicular pain x 24 hours worsening. denies swelling/abd pain/blood in urine. pt hx kidney stones and elevated PSA, concerned for prostate issue or testicular infection. [facility] Medical History Rupture of right long head biceps tendon Normal exam Right shoulder pain Loss of hearing History of edema Non-smoker PONV (postoperative nausea and vomiting) Rectal pain Pain in both testicles History of kidney stones Cancer Arthritis Back pain Gastric reflux Left inguinal hernia Diarrhea Abdominal pain GERD (gastroesophageal reflux disease) AIDS Anal condyloma Anal dysplasia Weight loss Surgical History H/O lumbosacral spine surgery Hx of arthroscopy of shoulder History of esophagogastroduodenoscopy (EGD) History of colonoscopy History of left inguinal hernia repair History of shoulder surgery history left bicep tendon repair history left ulnar nerve repair History of bilateral carpal tunnel release Family History Mother Asthma Arthritis Diabetes Heart disease Hypertension High cholesterol Grandfather Cancer lung cancer Father Heart disease High cholesterol Hypertension Cancer skin cancer Social History Smoking Status: Never smoker alcohol intake: never substance use type: does not use HPI HPI Chief Complaint: left testicular pain Details: YAIR FRIEDMAN, is a 59 M who presents to the office today for complaint of left testicular pain. Patient states this started yesterday. He denies fever, chills or sweats. No nausea, vomiting, diarrhea. No pelvic or abdominal pain otherwise. Patient does states he has low back pain however has had this after causing the injury prior to the testicular pain. Patient does state having an appointment with his urologist in 4 days as he does have a history of elevated PSA levels. No other associated symptoms or alleviating/aggravating factors. ROS Const Constitutional: No other (As above) Exam Const General: cooperative and healthy appearing Resp Effort Inspection: normal respiratory effort Auscultation: Bilateral: Clear to Auscultation Cardio Rate: regular rate Rhythm: regular rhythm GI Inspection: normal to inspection Percussion: normal to percussion Palpation: soft, no hepatosplenomegaly, no guarding and nontender General: bimanual renal exam normal bilaterally and No CVA tenderness Scrotum: no ecchymosis, not tracy (more content not included)... Normal [facility] HIV Viral Load Quanton 06-09 HIV-1 RNA, PCR < 20 Normal . [facility] Comment on above: Result Comment: HIV- 1 RNA detected The reportable range for this assay is 20 to 10,000,000 copies HIV-1 RNA/mL. Performed By: #### L 100.0100, L501.5200, L501.6710, L501.2400, L501.2450, L500.4050 #### [facility] [address] [place], [address] log10 HIV-1 RNA TNP Normal . [facility] Comment on above: Result Comment: Resu lt Units: [id number]/mL Unable to calculate result since non-numeric result obtained for component test. Performed at: - [facility] [id number] Medical Equipment Repair Technician: Estuardo Masters MD, Phone: [phone] Performed By: #### L 100.0100, L501.5200, L501.6710, L501.2400, L501.2450, L500.4050 #### [facility] [address] [place], [address] CD4, T Lymph [place] 06-07-2024 % CD4 POS.LYMPH 28.0 Low 30.8-58.5 [facility] Comment on above: Performed By: #### L 100.0100, L501.5200, L501.6710, L501.2400, L501.2450, L500.4050 #### [facility] [address] [place], [address] ABSOLUTE CD4 392 /uL Normal 359-1519 [facility] Comment on above: Performed By: #### L 100.0100, L501.5200, L501.6710, L501.2400, L501.2450, L500.4050 #### [facility] [address] [place], [place], [facility] Basophils 0 Normal Not Estab. [facility] Comment on above: Performed By: #### L 100.0100, L501.5200, L501.6710, L501.2400, L501.2450, L500.4050 #### [facility] [address] [place], [address] Basos Absolute 0 x10E3/uL Normal 0.0-0.2 [facility] Comment on above: Performed By: #### L 100.0100, L501.5200, L501.6710, L501.2400, L501.2450, L500.4050 #### [facility] [address] [place], [address] Eos Absolute 0.1 x10E3/uL Normal 0.0-0.4 [facility] Comment on above: Performed By: #### L 100.0100, L501.5200, L501.6710, L501.2400, L501.2450, L500.4050 #### [facility] [address] [facility] [address] Eosinophils 1 Normal Not Estab. [facility] Comment on above: Performed By: #### L 100.0100, L501.5200, L501.6710, L501.2400, L501.2450, L500.4050 #### [facility] [address] [place], [address] Erythrocyte distribution width (RBC) [Ratio] 12.7 % Normal 11.6-15.4 [facility] Comment on above: Performed By: #### L 100.0100, L501.5200, L501.6710, L501.2400, L501.2450, L500.4050 #### [facility] [address] [place], [address] Hematocrit (Bld) [Volume fraction] 42.2 % Normal 37.5-51.0 [facility] Comment on above: Performed By: #### L 100.0100, L501.5200, L501.6710, L501.2400, L501.2450, L500.4050 #### [facility] [address] [place], [address] Heme Comment TNP Normal . [facility] Comment on above: Performed By: #### L 100.0100, L501.5200, L501.6710, L501.2400, L501.2450, L500.4050 #### [facility] [address] [place], [address] Hemoglobin (Bld) [Mass/Vol] 14.3 g/dL Normal 13.0-17.7 [facility] Comment on above: Performed By: #### L 100.0100, L501.5200, L501.6710, L501.2400, L501.2450, L500.4050 #### [facility] [address] [place], [address] Imm Grans Abs 0 x10E3/uL Normal 0.0-0.1 [facility] Comment on above: Result Comment: Perf ormed at: CB - [facility] [place] [address], [place], [place] [id number] Medical Equipment Repair Technician: Carrillo Finn PhD, Phone: [phone] Performed By: #### L 100.0100, L501.5200, L501.6710, L501.2400, L501.2450, L500.4050 #### [facility] [address] [place], [address] Immature Cells TNP Normal . [facility] Comment on above: Performed By: #### L 100.0100, L501.5200, L501.6710, L501.2400, L501.2450, L500.4050 #### [facility] [address] [place], [address] Immature Grans 0 Normal Not Estab. [facility] Comment on above: Performed By: #### L 100.0100, L501.5200, L501.6710, L501.2400, L501.2450, L500.4050 #### [facility] [address] [place], [address] Lymphocytes 23 Normal Not Estab. [facility] Comment on above: Performed By: #### L 100.0100, L501.5200, L501.6710, L501.2400, L501.2450, L500.4050 #### [facility] [address] [place], [address] Lymphocytes (Bld) [#/Vol] 1.4 10*3/uL Normal 0.7-3.1 [facility] Comment on above: Performed By: #### L 100.0100, L501.5200, L501.6710, L501.2400, L501.2450, L500.4050 #### [facility] [address] [place], [address] MCH (RBC) [Entitic mass] 34.5 pg High 26.6-33.0 [facility] Comment on above: Performed By: #### L 100.0100, L501.5200, L501.6710, L501.2400, L501.2450, L500.4050 #### [facility] [address] [place], [address] MCHC (RBC) [Mass/Vol] 33.9 g/dL Normal 31.5-35.7 [facility] Comment on above: Performed By: #### L 100.0100, L501.5200, L501.6710, L501.2400, L501.2450, L500.4050 #### [facility] [address] [place], [address] MCV (RBC) [Entitic vol] 102 fL High 79-97 [facility] Comment on above: Performed By: #### L 100.0100, L501.5200, L501.6710, L501.2400, L501.2450, L500.4050 #### [facility] [address] [place], [address] Monocytes 7 Normal Not Estab. [facility] Comment on above: Performed By: #### L 100.0100, L501.5200, L501.6710, L501.2400, L501.2450, L500.4050 #### [facility] [address] [place], [address] Monos Absolute 0.4 x10E3/uL Normal 0.1-0.9 [facility] Comment on above: Performed By: #### L 100.0100, L501.5200, L501.6710, L501.2400, L501.2450, L500.4050 #### [facility] [address] [place], [address] Neutro Absolute 4.1 x10E3/uL Normal 1.4-7.0 [facility] Comment on above: Performed By: #### L 100.0100, L501.5200, L501.6710, L501.2400, L501.2450, L500.4050 #### [facility] [address] [place], [address] Neutrophils 69 Normal Not Estab. [facility] Comment on above: Performed By: #### L 100.0100, L501.5200, L501.6710, L501.2400, L501.2450, L500.4050 #### [facility] [address] [place], [address] NRBC Count TNP Normal . [facility] Comment on above: Performed By: #### L 100.0100, L501.5200, L501.6710, L501.2400, L501.2450, L500.4050 #### [facility] [address] [place], [address] Platelets (Bld) [#/Vol] 234 10*3/uL Normal 150-450 [facility] Comment on above: Performed By: #### L 100.0100, L501.5200, L501.6710, L501.2400, L501.2450, L500.4050 #### [facility] [address] [place], [address] RBC (Bld) [#/Vol] 4.14 10*6/uL Normal 4.14-5.80 [facility] Comment on above: Performed By: #### L 100.0100, L501.5200, L501.6710, L501.2400, L501.2450, L500.4050 #### [facility] [address] [place], [address] WBC (Bld) [#/Vol] 6.0 10*3/uL Normal 3.4-10.8 [facility] Comment on above: Performed By: #### L 100.0100, L501.5200, L501.6710, L501.2400, L501.2450, L500.4050 #### [facility] [address] [place], [place], [address] Absolute CD4 countOrdered By : Jeremiah Syed on 06-05-2024 CD3+CD4+ (T4 helper) cells (Bld) [#/Vol] 392 /uL 359-1519 [facility] Absolute immature granulocyt e countOrdered By: Jeremiah Syed on 06-05-2024 Immature granulocytes (Bld) [#/Vol] 0 10*3/uL 0.0-0.1 [facility] Comment on above: Performed at: [address] [id number] Director: Carrillo Finn PhD, Phone: [phone] Absolute lymphocyte countOrd ered By: Jeremiah Syed on 06-05-2024 Lymphocytes Auto (Unsp spec) [#/Vol] 1.4 10*3/uL 0.7-3.1 [facility] Absolute monocyte countOrder ed By: Jeremiah Syed on 06-05-2024 Monocytes (Bld) [#/Vol] 0.4 10*3/uL 0.1-0.9 [facility] Absolute neutrophil countOrd ered By: Jeremiah Syed on 06-05-2024 Neutrophils (Bld) [#/Vol] 4.1 10*3/uL 1.4-7.0 [facility] Anion gap in Serum or Plasma Ordered By: Jeremiah Syed on 06-05-2024 Anion gap [Moles/Vol] 11 mmol/L 06-21 [facility] BUN/creatinine ratioOrdered By: Jeremiah Syed on 06-05-2024 Urea nitrogen/Creatinine [Mass ratio] 16.4 mg/mg - [facility] Basic Metabolic Profile (BMP )on 06-05-2024 BUN/CRE 16.4 RATIO Normal 11-26 [facility] Comment on above: Performed By: #### L 100.0100, L501.5200, L501.6710, L501.2400, L501.2450, L500.4050 #### [facility] [address] [place], [address] Calcium [Mass/Vol] 9.1 mg/dL Normal 7.6-11.0 [facility] Comment on above: Performed By: #### L 100.0100, L501.5200, L501.6710, L501.2400, L501.2450, L500.4050 #### [facility] [address] [place], [address] Chloride [Moles/Vol] 102 mmol/L Normal 98-108 [facility] Comment on above: Performed By: #### L 100.0100, L501.5200, L501.6710, L501.2400, L501.2450, L500.4050 #### [facility] [address] [place], [address] CO2 [Moles/Vol] 23.8 mmol/L Normal 21.0-32.0 [facility] Comment on above: Performed By: #### L 100.0100, L501.5200, L501.6710, L501.2400, L501.2450, L500.4050 #### [facility] [address] [place], [address] Creatinine [Mass/Vol] 0.84 mg/dL Normal 0.70-1.20 [facility] Comment on above: Performed By: #### L 100.0100, L501.5200, L501.6710, L501.2400, L501.2450, L500.4050 #### [facility] [address] [place], [address] GAP 11 Normal 5-15 [facility] Comment on above: Performed By: #### L 100.0100, L501.5200, L501.6710, L501.2400, L501.2450, L500.4050 #### [facility] [address] [place], [address] GFR/1.73 sq M.predicted among non-blacks MDRD (S/P/Bld) [Vol rate/Area] 101 mL/min/{1.73_m2} Normal >60 [facility] Comment on above: Result Comment: mL/m in/1.73m2 CKD-EPI Creatinine Equation (2020) Performed By: #### L 100.0100, L501.5200, L501.6710, L501.2400, L501.2450, L500.4050 #### [facility] [address] [place], [address] Glucose [Mass/Vol] 98 mg/dL Normal 70-99 [facility] Comment on above: Performed By: #### L 100.0100, L501.5200, L501.6710, L501.2400, L501.2450, L500.4050 #### [facility] [address] [place], [address] Potassium [Moles/Vol] 3.9 mmol/L Normal 3.3-5.1 [facility] Comment on above: Performed By: #### L 100.0100, L501.5200, L501.6710, L501.2400, L501.2450, L500.4050 #### [facility] [address] [place], [address] Sodium [Moles/Vol] 136 mmol/L Normal 133-145 [facility] Comment on above: Performed By: #### L 100.0100, L501.5200, L501.6710, L501.2400, L501.2450, L500.4050 #### [facility] [address] [place], [address] Urea nitrogen [Mass/Vol] 14 mg/dL Normal 4-19 [facility] Comment on above: Performed By: #### L 100.0100, L501.5200, L501.6710, L501.2400, L501.2450, L500.4050 #### [facility] [address] [place], [address] Basophils/100 WBC Auto (Bld) Ordered By: Jeremiah Syed on 06-05-2024 Basophils/100 WBC (Bld) 0 % Not Estab. [facility] Blood basophils count (numbe r/volume)Ordered By: Jeremiha Syed on 06-05-2024 Basophils (Bld) [#/Vol] 0 10*3/uL 0.0-0.2 [facility] Blood eosinophils count (num mary ann/volume)Ordered By: Jeremiah Syed on 06-05-2024 Eosinophils (Bld) [#/Vol] 0.1 10*3/uL 0.0-0.4 [facility] Blood hematocrit (volume fra ction)Ordered By: Jeremiah Syed on 06-05-2024 Hematocrit (Bld) [Volume fraction] 42.2 % 37.5-51.0 [facility] Blood immature cells/100 renetta kocytesOrdered By: Jeremiah Syed on 06-05-2024 Immature cells/100 WBC (Bld) TNP [facility] Comment on above: Test not performed Blood immature granulocytes/ 100 leukocytesOrdered By: Jeremiah Syed on 06-05-2024 Immature granulocytes/100 WBC (Bld) 0 % Not Estab. [facility] Blood platelets count (numbe r/volume)Ordered By: Jeremiah Syed on 06-05-2024 Platelets (Bld) [#/Vol] 234 10*3/uL 150-450 [facility] CBC-Complete Blood Cnt No Di ffon 06-05-2024 Erythrocyte distribution width (RBC) [Ratio] 12.6 % Normal 11.6-14.6 [facility] Comment on above: Performed By: #### L 100.0100, L501.5200, L501.6710, L501.2400, L501.2450, L500.4050 #### [facility] [address] [place], [address] Hematocrit (Bld) [Volume fraction] 40.5 % Normal 40-54 [facility] Comment on above: Performed By: #### L 100.0100, L501.5200, L501.6710, L501.2400, L501.2450, L500.4050 #### [facility] [address] [place], [address] Hemoglobin (Bld) [Mass/Vol] 14.2 g/dL Normal 13.0-16.5 [facility] Comment on above: Performed By: #### L 100.0100, L501.5200, L501.6710, L501.2400, L501.2450, L500.4050 #### [facility] [address] [place], [address] MCH (RBC) [Entitic mass] 35.1 pg High 27.0-32.0 [facility] Comment on above: Performed By: #### L 100.0100, L501.5200, L501.6710, L501.2400, L501.2450, L500.4050 #### [facility] [address] [place], [address] MCHC (RBC) [Mass/Vol] 35.1 g/dL Normal 32-36 [facility] Comment on above: Performed By: #### L 100.0100, L501.5200, L501.6710, L501.2400, L501.2450, L500.4050 #### [facility] [address] [place], [address] MCV (RBC) [Entitic vol] 100.0 fL High 80-94 [facility] Comment on above: Performed By: #### L 100.0100, L501.5200, L501.6710, L501.2400, L501.2450, L500.4050 #### [facility] [address] [place], [address] Platelet mean volume (Bld) [Entitic vol] 8.8 fL Normal 6.2-12.0 [facility] Comment on above: Performed By: #### L 100.0100, L501.5200, L501.6710, L501.2400, L501.2450, L500.4050 #### [facility] [address] [place], [address] Platelets (Bld) [#/Vol] 216 10*3/uL Normal 150-450 [facility] Comment on above: Performed By: #### L 100.0100, L501.5200, L501.6710, L501.2400, L501.2450, L500.4050 #### [facility] [address] [place], [address] RBC (Bld) [#/Vol] 4.05 10*6/uL Low 4.6-6.2 [facility] Comment on above: Performed By: #### L 100.0100, L501.5200, L501.6710, L501.2400, L501.2450, L500.4050 #### [facility] [address] [place], [address] RDW SD 46.2 fl High 35.1-43.9 [facility] Comment on above: Performed By: #### L 100.0100, L501.5200, L501.6710, L501.2400, L501.2450, L500.4050 #### [facility] [address] [place], [address] WBC (Bld) [#/Vol] 6.3 10*3/uL Normal 4.4-11.0 [facility] Comment on above: Performed By: #### L 100.0100, L501.5200, L501.6710, L501.2400, L501.2450, L500.4050 #### [facility] [address] [place], [address] Carbon dioxide, total [Moles /volume] in Central venous bloodOrdered By: Jeremiah Syed on 06-05-2024 CO2 [Moles/Vol] 23.8 mmol/L 21.0-32.0 [facility] Chloride assayOrdered By: Gracie Syed on 06-05-2024 Chloride [Moles/Vol] 102 mmol/L 98-108 [facility] Determination of erythrocyte mean corpuscular volume (MCV)Ordered By: Jeremiah Syed on 06-05-2024 MCV (RBC) [Entitic vol] 102 fL High 79-97 [facility] Eosinophils/100 WBC Auto (Bl d)Ordered By: Jeremiah Syed on 06-05-2024 Eosinophils/100 WBC (Bld) 1 % Not Estab. [facility] Erythrocyte distribution wid th ratioOrdered By: Jeremiah Syed on 06-05-2024 Erythrocyte distribution width (RBC) [Ratio] 12.6 % 11.6-14.6 [facility] Erythrocyte distribution width (RBC) [Ratio] 12.7 % 11.6-15.4 [facility] Erythrocyte distribution wid th standard deviationOrdered By: Jeremiah Syed on 06-05-2024 Erythrocyte distribution width (RBC) [Ratio] 46.2 fl High 35.1-43.9 [facility] Glomerular filtration rate ( GFR) estimation/1.73 sq m using serum, plasma, or whole bOrdered By: Jeremiah Syed on 06-05-2024 GFR/1.73 sq M.predicted among non-blacks MDRD (S/P/Bld) [Vol rate/Area] 101 mL/min/{1.73_m2} >60 [facility] Comment on above: mL/min/1.73m2 CKD-EP I Creatinine Equation (2020) Interpretation of morphologi c examination of blood (narrative result)Ordered By: Jeremiah Syed on 06-05-2024 Morphology Seferino (Bld) [Interp] TNP [facility] Comment on above: Test not performed Laboratory - Hematology and Cell countsOrdered By: Jeremiah Syed on 06-05-2024 MCH (RBC) [Entitic mass] 34.5 pg High 26.6-33.0 [facility] Lymphocytes/100 WBC Auto (Bl d)Ordered By: Jeremiah Syed on 06-05-2024 Lymphocytes/100 WBC (Bld) 23 % Not Estab. [facility] MCHC Auto (RBC) [Mass/Vol]Or dered By: Jeremiah Syed on 06-05-2024 MCHC (RBC) [Mass/Vol] 33.9 g/dL 31.5-35.7 [facility] Mean platelet volume determi nationOrdered By: Jeremiah Syed on 06-05-2024 Platelet mean volume (Bld) [Entitic vol] 8.8 fL 6.2-12.0 [facility] Monocyte detectionOrdered By : Jeremiah Syed on 06-05-2024 Monocytes/100 WBC (Bld) 7 % Not Estab. [facility] Neutrophil countOrdered By: Jeremiah Syed on 06-05-2024 Neutrophils/100 WBC (Bld) 69 % Not Estab. [facility] Nucleated RBC/100 WBC Auto ( Bld) [Ratio]Ordered By: Jeremiah Syed on 06-05-2024 Nucleated RBC/100 WBC (Bld) [Ratio] TNP [facility] Comment on above: Test not performed PSA,Total- [employer] 05-09 PSA, DIAGNOSTIC 1.55 ng/mL Normal 0.00-4.00 [facility] Comment on above: Result Comment: This test was performed using the [facility] tPSA method. Measured values of a patient??sample can vary depending on the testing procedure used. PSA values determined on patient samples by different testing procedures cannot be used interchangeably. If there is a change in PSA assays while monitoring therapy, sequential testing should be performed to confirm baseline values. Performed By: #### L 500.2500, L3890.0200, L3890.4000, L100.0500 #### [facility] [address] [place], [address] Percent of cells positive fo r CD4 antigenOrdered By: Jeremiah Syed on 06-05-2024 CD3+CD4+ (T4 helper) cells/100 cells (Unsp spec) 28.0 % Low 30.8-58.5 [facility] Plasma HIV 1 RNA viral load by probe and target amplification method (log number/voluOrdered By: Jeremiah Syed on 06-05-2024 HIV 1 RNA EBONY+probe [Log #/Vol] TNP [facility] Comment on above: Test not performedRe sult Units: [id number]/mLUnable to calculate result since non-numeric resultobtained for component test.Performed at: - [facility] [id number] Director: Estuardo Masters MD, Phone: [phone] Potassium measurement (mass/ volume)Ordered By: Jeremiah Syed on 06-05-2024 Potassium (Unsp spec) [Mass/Vol] 3.9 mmol/L 3.3-5.1 [facility] RBC Auto (Bld) [#/Vol]Ordere d By: Jeremiah Syed on 06-05-2024 RBC (Bld) [#/Vol] 4.14 10*6/uL 4.14-5.80 [facility] Serum creatinine measurement (mass/volume)Ordered By: Jeremiah Syed on 06-05-2024 Creatinine [Mass/Vol] 0.84 mg/dL 0.70-1.20 [facility] Serum glucose measurement (m ass/volume)Ordered By: Jeremiah Syed on 06-05-2024 Glucose [Mass/Vol] 98 mg/dL 70-99 [facility] Serum or plasma calcium gentry urement (mass/volume)Ordered By: Jeremiah Syed on 06-05-2024 Calcium [Mass/Vol] 9.1 mg/dL 7.6-11.0 [facility] Serum or plasma urea nitroge n measurement (mass/volume)Ordered By: Jeremiah Syed on 06-05-2024 Urea nitrogen [Mass/Vol] 14 mg/dL 4-19 [facility] Sodium levelOrdered By: Julio Syed on 06-05-2024 Sodium [Moles/Vol] 136 mmol/L 133-145 [facility] Urgent Care Visit Reporton 0 06-05-2024 Urgent Care Visit Report [facility] [address], [address] [place], [place] [id number] OFFICE VISIT Date of Service: 06/05/24 MR#: [id number] Acct: [id number] Name: YAIR FRIEDMAN Rep #: [id number] : 1965 Provider: GARRETT Rocha Age/Sex: 58/M Location: [facility] Status: Signed Intake Vital Signs 01/04/24 11:36 06/05/24 11:26 Height 5 ft 8 in Weight: 174 lb 4 oz BMI 26.4 BP 122/82 H 118/68 Blood Pressure Location Lt brachial Position Sitting Sitting Respiration 16 Pulse 87 81 Pulse Source Monitor Temp 98.0 F 98.1 F Temp Source Temporal Oral Pulse Oximetry (%) 95 97 Oxygen Delivery Method room air room air Intake Visit Reasons: COUGH/SINUS COMPLAINT/BILAT LEG RASH Accompanied by: Self Allergies bee venom protein (honey bee) Allergy (Severe, Verified 01/04/24 11:30) Anaphylaxis adhesive tape Adverse Reaction (Verified 01/04/24 11:30) Rash amoxicillin (From Augmentin) Adverse Reaction (Verified 01/04/24 11:30) Hives clavulanic acid (From Augmentin) Adverse Reaction (Verified 01/04/24 11:30) Hives oxycodone (From Percocet) Adverse Reaction (Verified 01/04/24 11:30) elevated bp, felt funny, chest tightness Nurse's Note: Patient has had a cough and sinus complaint since April 16. Patient states he was exposed to the sickness on april 09. Patient did a telehealth doctor appt and they gave him a AB which he took it all, but didn't help him. Patient states he is still coughing and having a hard time getting it out. Patient concerned for Pneomnia. Patient states his leg had spots on them and they were swollen. Patient drove home from [place] Tuesday. [facility] Medical History Rupture of right long head biceps tendon Normal exam Right shoulder pain Loss of hearing History of edema Non-smoker PONV (postoperative nausea and vomiting) Rectal pain Pain in both testicles History of kidney stones Cancer Arthritis Back pain Gastric reflux Left inguinal hernia Diarrhea Abdominal pain GERD (gastroesophageal reflux disease) AIDS Anal condyloma Anal dysplasia Weight loss Surgical History H/O lumbosacral spine surgery Hx of arthroscopy of shoulder History of esophagogastroduodenoscopy (EGD) History of colonoscopy History of left inguinal hernia repair History of shoulder surgery history left bicep tendon repair history left ulnar nerve repair History of bilateral carpal tunnel release Family History Mother Asthma Arthritis Diabetes Heart disease Hypertension High cholesterol Grandfather Cancer lung cancer Father Heart disease High cholesterol Hypertension Cancer skin cancer Social History Smoking Status: Never smoker alcohol intake: never substance use type: does not use HPI HPI Details: YAIR FRIEDMAN, is a 58 M who presents to the office today for [facility] for approximately 2-month history of persistent right facial pressure/congestion with purulent postnasal drip/cough. No complaints of fever, chills, myalgias, fatigue, runny nose, or nausea/vomiting/diarrhea. No complaints of chest pain/shortness of breath/dyspnea on exertion. No close contacts with similar complaints. Nonsmoker. No [id number] product daily to assist. No other associated symptoms and no other alleviating/aggravating factors. ROS Const Constitutional: No other (as above) Exam Const General: cooperative, healthy appearing and no acute distress Nutritional Appearance: average body habitus Orientation: alert, awake and oriented x3 HENMT Head: normal to inspection Ears: hearing grossly normal bilaterally, external ears normal, TM's normal bilaterally and EAC's normal Nose: external nose normal, nares normal, septum normal and no nasal discharge Face and sinus: normal facial exam, right maxillary sinus palpable tender (with right maxillary fullness to palpation) and face symmetric Mouth: oral mucosae normal, lip normal, tongue normal and oropharynx normal Throat: posterior oropharynx normal, tonsils normal, uvula midline and postnasal drainage (scant amount purulent) Eyes General: appearance normal, both eyes and all related structures Neck Neck: normal visual inspection, full ROM, no meningeal signs, supple and lymphadenopathy (R>L anterior cervical lymph node swelling/tender to palpation) Neck mass: No Thyroid: thyroid normal Chest Chest palpation inspection: normal inspection of the chest Resp Effort Inspection: normal respiratory effort and able to speak in complete sentences and no unsolicited cough during today's exam Auscultation: Bilat (more content not included)... Normal [facility] WBC countOrdered By: Jeremiah Syed on 06-05-2024 WBC (Bld) [#/Vol] 6.0 10*3/uL 3.4-10.8 [facility] Whole blood hemoglobin measu rement (mass/volume)Ordered By: Jeremiah Syed on 06-05-2024 Hemoglobin (Bld) [Mass/Vol] 14.3 g/dL 13.0-17.7 [facility] PSA,Total- Diagnosticon 01-07 PSA, DIAGNOSTIC 2.14 ng/mL Normal 0.0-4.0 [facility] Comment on above: Result Comment: This test was performed using the TPSA assay method for the [employer] chemistry system. Values obtained with different assay methods cannot be used interchangably. When changing PSA assays in the course of monitoring a patient, additional sequential testing should be carried out to confirm baseline values. Performed By: #### L 500.2500, L3890.0200, L3890.4000, L100.0500 #### [facility] [address] [place], [place], [id number] XR ABDOMEN 1 VIEWon 01-09-20 24 XR ABDOMEN 1 VIEW FINDINGS: No radiopaque stones. Obscured bilateral renal shadows and bladder. Small to moderate volume of ascending colon stool, no obstruction IMPRESSION: No radiopaque stones. TRANSCRIBED BY: ELECTRONICALLY SIGNED BY: Juan Carlos Ferrell MD Normal Not Available Testosterone, Total / Freeon 01-08-2024 TESTOSTER,FREE 11.76 ng/dL Normal 5.00-21.00 [facility] Comment on above: Order Comment: CLEAN CATCH Performed By: #### L 400.0001 #### [facility] [address] [place], [address] TESTOSTER,TOTAL 352 ng/dL Normal 264-916 [facility] Comment on above: Order Comment: CLEAN CATCH Result Comment: Adul t male reference interval is based on a population of healthy nonobese males (BMI <30) between 19 and 39 years old. sanjiv Cruz.al. JCEM 2017,102;2921-3331. PMID: [id number]. Performed By: #### L 400.0001 #### [facility] [address] [place], [address] TESTOSTERONE,%F 3.34 Normal 1.50-4.20 [facility] Comment on above: Order Comment: CLEAN CATCH Result Comment: Perf ormed at: - [facility] [address] [id number] Medical Equipment Repair Technician: Carrillo Finn PhD, Phone: [phone] Performed at: - [facility] [address] [id number] Medical Equipment Repair Technician: Estuardo Masters MD, Phone: [phone] Performed By: #### L 400.0001 #### [facility] [address] [place], [place], [address] MR/BMS.[facility] 01-04-2024 /BMS.[facility] Internal Medicine [address] [place] [address] OFFICE VISIT Date of Service: 01/04/24 MR#: [id number] Acct: [id number] Name: YAIR FRIEDMAN Rep #: [id number] : 1965 Provider: Dr. 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 Accompanied by: Self Is patient in pain?: Yes (back pain) Pain scale (1-10): 1 Allergies bee venom protein (honey bee) Allergy (Severe, Verified 01/04/24 11:30) Anaphylaxis adhesive tape Adverse Reaction (Verified 01/04/24 11:30) Rash amoxicillin (From Augmentin) Adverse Reaction (Verified 01/04/24 11:30) Hives clavulanic acid (From Augmentin) Adverse Reaction (Verified 01/04/24 11:30) Hives oxycodone (From Percocet) Adverse Reaction (Verified 01/04/24 11:30) elevated bp, felt funny, chest tightness Medications ???Medication ???Instructions ???Recorded ???Confirmed ???Type valacyclovir 1 gram tablet 1,000 mg PO QHS HIV 01/07/21 01/04/24 History abacavir 600 mg-dolutegravir 50 1 tab PO QHS HIV 05/16/23 01/04/24 History mg-lamivudine 300 mg tablet (Triumeq) terbinafine HCl 250 mg tablet 250 mg PO QDAY 12/29/23 01/04/24 History omeprazole 40 mg capsule,delayed 40 mg PO QHS GERD #90 caps 01/04/24 01/04/24 Rx release PFSH Medical History Rupture of right long head biceps tendon Normal exam Right shoulder pain Loss of hearing History of edema Non-smoker PONV (postoperative nausea and vomiting) Rectal pain Pain in both testicles History of kidney stones Cancer Arthritis Back pain Gastric reflux Left inguinal hernia Diarrhea Abdominal pain GERD (gastroesophageal reflux disease) AIDS Anal condyloma Anal dysplasia Weight loss Surgical History H/O lumbosacral spine surgery Hx of arthroscopy of shoulder History of esophagogastroduodenoscopy (EGD) History of colonoscopy History of left inguinal hernia repair History of shoulder surgery history left bicep tendon repair history left ulnar nerve repair History of bilateral carpal tunnel release Family History Mother Asthma Arthritis Diabetes Heart disease Hypertension High cholesterol Grandfather Cancer lung cancer Father Heart disease High cholesterol Hypertension Cancer skin cancer Social History Smoking Status: Never smoker alcohol intake: never substance use type: does not use HPI HPI Chief Complaint: discuss testosterone testing Details: YAIR FRIEDMAN, is a 58 M who presents to the office today for short-term follow-up, to discuss specifically an issue he is having with tiredness, lack of energy post exercise. 58-year-old gentleman who is generally speaking quite active during his days. He notes that after he had back surgery earlier this year, he has decided to get back to doing more regimented physical activity. Was initially building up towards using more weights. He is working with a professional here but he was noting increasing back discomfort. They changed tactics and he is gotten away from weights, concentrating more on just movement and then hopefully gradually add back weight to the regimen. He is doing cardiovascular exercise. He does a lot of physical activity scattered out through the day but this is the most concentrated that he is doing at any 1 time in terms of activity. He notes that on the days he is doing his exercise regimen when he comes home, he is quite exhausted, fatigued, tired. He wondered about testosterone. We discussed that extensively. Review of systems per chart. He denies episodes of chest pain, chest tightness, dyspnea on exertion. Earlier this year was doing some hiking, quite vigorous uphill climb, at high altitude and despite that had no problem with chest pain, chest tightness. Of note, his PSA is 3.4. Last year it was approximately 1.5. I have asked him to contact his urologist office to make sure that they have reviewed this. I would venture to guess since he just had a prostate exam with urology that they would perhaps wait 3 to 4 months and repeat with diagnostic PSA however I defer to (more content not included)... Normal [facility] PSA,Total - Annual Screenon 12-30-2023 PSA,TOT SCREEN 3.04 ng/mL Normal 0.00-4.00 [facility] Comment on above: Order Comment: CLEAN CATCH Result Comment: This test was performed using the TPSA assay method for the [employer] chemistry system. Values obtained with different assay methods cannot be used interchangably. When changing PSA assays in the course of monitoring a patient, additional sequential testing should be carried out to confirm baseline values. Performed By: #### L 400.0001 #### [facility] [place], [address] Orthopedic Visit Reporton Orthopedic Visit Report [facility] [place] [address] OFFICE VISIT Date of Service: 12/29/23 MR#: [id number] Acct: [id number] Name: YAIR FRIEDMAN Rep #: [id number] : 1965 Provider: Dr. Pramod joe MD Age/Sex: 58/M Location: [facility] Status: Signed Intake Vital Signs 08/25/23 14:46 12/28/23 16:18 Height 5 ft 8 in 5 ft 8 in Intake Visit Reasons: RIGHT SHOULDER Chief Complaint: f/u right shoulder Accompanied by: Self Is patient in pain?: No Allergies bee venom protein (honey bee) Allergy (Severe, Verified 12/29/23 10:28) Anaphylaxis adhesive tape Adverse Reaction (Verified 12/29/23 10:28) Rash amoxicillin (From Augmentin) Adverse Reaction (Verified 12/29/23 10:28) Hives clavulanic acid (From Augmentin) Adverse Reaction (Verified 12/29/23 10:28) Hives oxycodone (From Percocet) Adverse Reaction (Verified 12/29/23 10:28) elevated bp, felt funny, chest tightness Medications ???Medication ???Instructions ???Recorded ???Confirmed ???Type valacyclovir 1 gram tablet 1,000 mg PO QHS HIV 01/07/21 12/29/23 History omeprazole 40 mg capsule,delayed 40 mg PO QHS GERD 08/05/22 12/29/23 History release abacavir 600 mg-dolutegravir 50 1 tab PO QHS HIV 05/16/23 12/29/23 History mg-lamivudine 300 mg tablet (Triumeq) terbinafine HCl 250 mg tablet 250 mg PO QDAY 12/29/23 12/29/23 History PFSH Medical History (Updated 12/29/23 @ 10:48 by Pramod Fisher MD) Rupture of right long head biceps tendon Normal exam Right shoulder pain Loss of hearing History of edema Non-smoker PONV (postoperative nausea and vomiting) Rectal pain Pain in both testicles History of kidney stones Cancer Arthritis Back pain Gastric reflux Left inguinal hernia Diarrhea Abdominal pain GERD (gastroesophageal reflux disease) AIDS Anal condyloma Anal dysplasia Weight loss Surgical History H/O lumbosacral spine surgery Hx of arthroscopy of shoulder History of esophagogastroduodenoscopy (EGD) History of colonoscopy History of left inguinal hernia repair History of shoulder surgery history left bicep tendon repair history left ulnar nerve repair History of bilateral carpal tunnel release Family History Mother Asthma Arthritis Diabetes Heart disease Hypertension High cholesterol Grandfather Cancer lung cancer Father Heart disease High cholesterol Hypertension Cancer skin cancer Social History Smoking Status: Never smoker alcohol intake: never substance use type: does not use HPI RIGHT SHOULDER Details: This documentation accurately reflects the service provided and the decisions made by me, Dr. Pramod Fisher MD 12/29/23 1026. Part of today???s visit was documented by [ ], acting as scribe. YAIR FRIEDMAN is a 58 year old M here today for follow-up right shoulder pain. At last visit the patient was mostly having pain over the long head of the biceps and now he feels like there was a pop and tearing of the biceps and change in the contour of the shoulder. This was now about a week ago he was doing curls in the gym. There is no pain or cramping at this point. Coding Level of Care Code Off vis,est,level 3 Diagnoses Rupture of right long head biceps tendon S46.111A Assessment and Plan Assessment and Plan (1) Rupture of right long head biceps tendon: Status: Acute Plan: 58-year-old man with a rupture long head of the biceps right shoulder. I explained the diagnosis prognosis different treatment options. Typically these are treated nonoperatively as this does improve the patient's pain that was likely arising from the long head of the biceps. Gradually return back to normal activities and strength training over the next 6 weeks. If the patient is getting persistent cramping after 3 to 6 months of conservative care can consider long head of the biceps tenodesis this can help for biceps cramping in about 50% of cases. He understands and will follow-up as needed. Ortho Exam Right Shoulder Testing: Positive AROM-Forward Elevation 0-180 and PROM-External Rotation at side 0-60; Negative Hawkin's, Neer's, Speed's or TTP Biceps SHOULDER: There is change in the contour of the biceps consistent with a tear at the long head of the biceps proximally. 12/29/23 1049 Date Pramod Woodward Signature: Date (if applicable) CC: Normal [facility] Urgent Care Visit Reporton 1 02-26-2023 Urgent Care Visit Report [facility] [address] [place] [address] OFFICE VISIT Date of Service: 12/28/23 MR#: [id number] Acct: [id number] Name: YAIR FRIEDMAN Rep #: [id number] : 1965 Provider: GARRETT Rocha Age/Sex: 58/M Location: [facility] Status: Signed with Addenda ADDENDUM by GARRETT Rocha on 12/28/23 at 1734 HPI Details: [place] [place] [id number] Assessment and Plan Assessment and Plan (1) Normal exam: Status: Acute 12/28/23 1734 Date Len Baker cc: * Signed Intake Vital Signs 08/25/23 14:46 12/28/23 16:18 Height 5 ft 8 in 5 ft 8 in Weight: 173 lb 6 oz BMI 26.3 BP 118/76 Blood Pressure Location Rt brachial Position Sitting Respiration 16 Pulse 119 H Temp 97.6 F L Temp Source Oral Pulse Oximetry (%) 94 Oxygen Delivery Method room air Intake Visit Reasons: POST NASAL DRIP 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 Is patient in pain?: No Allergies bee venom protein (honey bee) Allergy (Severe, Verified 09/05/23 13:04) Anaphylaxis adhesive tape Adverse Reaction (Verified 09/05/23 13:04) Rash amoxicillin (From Augmentin) Adverse Reaction (Verified 09/05/23 13:04) Hives clavulanic acid (From Augmentin) Adverse Reaction (Verified 09/05/23 13:04) Hives oxycodone (From Percocet) Adverse Reaction (Verified 09/05/23 13:04) elevated bp, felt funny, chest tightness Have you fallen in the past year?: No Nurse's Note: pt presents post nasal drip with a concern of a sinus infection due to his smell changing started a new medication he is on Terbinafine he is wondering if that is changing his smell. [facility] Medical History (Updated 12/28/23 @ 17:32 by Len TUCKER, PA) Normal exam Right shoulder pain Loss of hearing History of edema Non-smoker PONV (postoperative nausea and vomiting) Rectal pain Pain in both testicles History of kidney stones Cancer Arthritis Back pain Gastric reflux Left inguinal hernia Diarrhea Abdominal pain GERD (gastroesophageal reflux disease) AIDS Anal condyloma Anal dysplasia Weight loss Surgical History (Updated 09/05/23 @ 13:05 by Angie Pfeiffer) H/O lumbosacral spine surgery Hx of arthroscopy of shoulder History of esophagogastroduodenoscopy (EGD) History of colonoscopy History of left inguinal hernia repair History of shoulder surgery history left bicep tendon repair history left ulnar nerve repair History of bilateral carpal tunnel release Family History Mother Asthma Arthritis Diabetes Heart disease Hypertension High cholesterol Grandfather Cancer lung cancer Father Heart disease High cholesterol Hypertension Cancer skin cancer Social History Smoking Status: Never smoker alcohol intake: never substance use type: does not use HPI HPI Chief Complaint: post nasal drip Details: YAIR FRIEDMAN, is a 58 M who presents to the office today for 1wk h/o foul "corn chip" smelling nasal discharge after starting terbinafine as prescribed by Dr. Asif (derm) as of 12/24/2023. He notes wanting to ensure he does not have a sinus faction or anything else that could require an antibiotic as he is leaving for vacation here in a few days. He notes no complaints of fever, chills, sweats, lightheadedness/dizziness, nausea/vomiting, or chest pain/shortness of breath/dyspnea on exertion. Nothing [id number] taken to assist with the exception of his maintenance Flonase that he uses on occasion he so states. No other associated symptoms and no other alleviating/aggravating factors. ROS Const Constitutional: No other (As above) Exam Const General: cooperative, healthy appearing and no acute distress Nutritional Appearance: average body habitus Orientation: alert and awake [facility] Head: normal to inspection Ears: hearing grossly normal bilaterally, external ears normal, TM's normal bilaterally and EAC's normal Nose: external nose normal, nares normal, septum normal and no nasal discharge Face and sinus: normal facial exam, sinuses nontender and face symmetric Mouth: oral mucosae normal, lip normal, tongue normal, oropharynx normal and moist mucous membranes Throat: posterior oropharynx normal, tonsils normal, uvula midline and no postnasal drainage Eyes General: appearance normal, both eyes and all related structures Neck Neck: normal visual inspection, full ROM, no lymphadenopathy, no meningeal signs and supple Neck mass: No Thyroid: thyroid normal Lymphatic: no lymphadenopathy noted Chest Chest palpation inspection: normal inspection of the chest Resp (more content not included)... Normal [facility] HIV Viral Load Quanton 12-07 HIV-1 RNA, PCR < 20 Normal . [facility] Comment on above: Result Comment: HIV- 1 RNA not detected The reportable range for this assay is 20 to 10,000,000 copies HIV-1 RNA/mL. Performed By: #### L 500.2500, L3890.0200, L3890.4000, L100.0500 #### [facility] [address] [place], [address] log10 HIV-1 RNA TNP Normal . [facility] Comment on above: Result Comment: Resu lt Units: elx38sskv/mL Unable to calculate result since non-numeric result obtained for component test. Performed at: [facility] [id number] Medical Equipment Repair Technician: Estuardo Masters MD, Phone: [phone] Performed By: #### L 500.2500, L3890.0200, L3890.4000, L100.0500 #### [facility] [address] [place], [address] CD4, T Lymph [place] 12-06-2023 % CD4 POS.LYMPH 39.2 Normal 30.8-58.5 [facility] Comment on above: Performed By: #### L 500.2500, L3890.0200, L3890.4000, L100.0500 #### [facility] [address] [place], [address] ABSOLUTE CD4 784 /uL Normal 359-1519 [facility] Comment on above: Performed By: #### L 500.2500, L3890.0200, L3890.4000, L100.0500 #### [facility] [address] [place], [address] Basophils 0 Normal Not Estab. [facility] Comment on above: Performed By: #### L 500.2500, L3890.0200, L3890.4000, L100.0500 #### [facility] [address] [place], [address] Basos Absolute 0 x10E3/uL Normal 0.0-0.2 [facility] Comment on above: Performed By: #### L 500.2500, L3890.0200, L3890.4000, L100.0500 #### [facility] [address] [place], [address] Eos Absolute 0.1 x10E3/uL Normal 0.0-0.4 [facility] Comment on above: Performed By: #### L 500.2500, L3890.0200, L3890.4000, L100.0500 #### [facility] [address] [place], [address] Eosinophils 1 Normal Not Estab. [facility] Comment on above: Performed By: #### L 500.2500, L3890.0200, L3890.4000, L100.0500 #### [facility] [address] [place], [address] Erythrocyte distribution width (RBC) [Ratio] 12.9 % Normal 11.6-15.4 [facility] Comment on above: Performed By: #### L 500.2500, L3890.0200, L3890.4000, L100.0500 #### [facility] [address] [place], [address] Hematocrit (Bld) [Volume fraction] 45.3 % Normal 37.5-51.0 [facility] Comment on above: Performed By: #### L 500.2500, L3890.0200, L3890.4000, L100.0500 #### [facility] [address] [place], [address] Heme Comment TNP Normal . [facility] Comment on above: Performed By: #### L 500.2500, L3890.0200, L3890.4000, L100.0500 #### [facility] [address] [place], [address] Hemoglobin (Bld) [Mass/Vol] 15.3 g/dL Normal 13.0-17.7 [facility] Comment on above: Performed By: #### L 500.2500, L3890.0200, L3890.4000, L100.0500 #### [facility] [address] [place], [address] Imm Grans Abs 0 x10E3/uL Normal 0.0-0.1 [facility] Comment on above: Result Comment: Perf ormed at: [facility] [id number] Medical Equipment Repair Technician: Carrillo Finn PhD, Phone: [phone] Performed By: #### L 500.2500, L3890.0200, L3890.4000, L100.0500 #### [facility] [address] [place], [address] Immature Cells TNP Normal . [facility] Comment on above: Performed By: #### L 500.2500, L3890.0200, L3890.4000, L100.0500 #### [facility] [address] [place], [address] Immature Grans 0 Normal Not Estab. [facility] Comment on above: Performed By: #### L 500.2500, L3890.0200, L3890.4000, L100.0500 #### [facility] [address] [place], [address] Lymphocytes 24 Normal Not Estab. [facility] Comment on above: Performed By: #### L 500.2500, L3890.0200, L3890.4000, L100.0500 #### [facility] [address] [place], [address] Lymphocytes (Bld) [#/Vol] 2.0 10*3/uL Normal 0.7-3.1 [facility] Comment on above: Performed By: #### L 500.2500, L3890.0200, L3890.4000, L100.0500 #### [facility] [address] [place], [address] MCH (RBC) [Entitic mass] 34.7 pg High 26.6-33.0 [facility] Comment on above: Performed By: #### L 500.2500, L3890.0200, L3890.4000, L100.0500 #### [facility] [address] [place], [address] MCHC (RBC) [Mass/Vol] 33.8 g/dL Normal 31.5-35.7 [facility] Comment on above: Performed By: #### L 500.2500, L3890.0200, L3890.4000, L100.0500 #### [facility] [address] [place], [address] MCV (RBC) [Entitic vol] 103 fL High 79-97 [facility] Comment on above: Performed By: #### L 500.2500, L3890.0200, L3890.4000, L100.0500 #### [facility] [address] [place], [address] Monocytes 8 Normal Not Estab. [facility] Comment on above: Performed By: #### L 500.2500, L3890.0200, L3890.4000, L100.0500 #### [facility] [address] [place], [address] Monos Absolute 0.6 x10E3/uL Normal 0.1-0.9 [facility] Comment on above: Performed By: #### L 500.2500, L3890.0200, L3890.4000, L100.0500 #### [facility] [address] [place], [address] Neutro Absolute 5.4 x10E3/uL Normal 1.4-7.0 [facility] Comment on above: Performed By: #### L 500.2500, L3890.0200, L3890.4000, L100.0500 #### [facility] [address] [place], [address] Neutrophils 67 Normal Not Estab. [facility] Comment on above: Performed By: #### L 500.2500, L3890.0200, L3890.4000, L100.0500 #### [facility] [address] [place], [address] NRBC Count TNP Normal . [facility] Comment on above: Performed By: #### L 500.2500, L3890.0200, L3890.4000, L100.0500 #### [facility] [address] [place], [address] Platelets (Bld) [#/Vol] 240 10*3/uL Normal 150-450 [facility] Comment on above: Performed By: #### L 500.2500, L3890.0200, L3890.4000, L100.0500 #### [facility] [address] [place], [address] RBC (Bld) [#/Vol] 4.41 10*6/uL Normal 4.14-5.80 [facility] Comment on above: Performed By: #### L 500.2500, L3890.0200, L3890.4000, L100.0500 #### [facility] [address] [place], [address] WBC (Bld) [#/Vol] 8.1 10*3/uL Normal 3.4-10.8 [facility] Comment on above: Performed By: #### L 500.2500, L3890.0200, L3890.4000, L100.0500 #### [facility] [address] [place], [address] Abdomen Single Viewon 2023 Abdomen Single View [facility] Imaging Services [address] [place] [address] Abdomen Single View MR#: [id number] Acct: [id number] Name: YAIR FRIEDMAN Rep #: [id number] : 1965 M 58 From: Chris Cramer PCP: Dr. Edwina Johnson MD Status: REG CLI Study: Abdomen Single View Date of Exam: 12/05/23 Exam# [id number] Ordering Dr: MINNA VERAS MD [id number] EXAM: XR ABDOMEN, 1 VIEW CLINICAL INDICATION: PERSONAL HISTORY OF URINARY CALCULI -- Z87.442 TECHNIQUE: Frontal supine view of the abdomen/pelvis. COMPARISON: 12/13/2022. FINDINGS: LOWER THORAX: No acute pathology. GASTROINTESTINAL TRACT: Unremarkable. Non-obstructive. No bowel or stomach distention. ORGANS: Unremarkable as visualized. No organomegaly. No abnormal calcifications. BONES/JOINTS: No acute pathology. SOFT TISSUES: No acute pathology. RAD/Abdomen Single View IMPRESSION: Non-obstructive bowel gas pattern. Electronically Signed: Chris Guajardo MD at 0:48 EDT , CC: Dr. Edwina Johnson MD; MINNA VERAS MD Barrelhead Inspector: Signed Normal [facility] Basic Metabolic Profile (BMP )on 12-05-2023 BUN/CRE 16.8 RATIO Normal 11-26 [facility] Comment on above: Performed By: #### L 500.2500, L3890.0200, L3890.4000, L100.0500 #### [facility] [address] [place], [address] CA,Total 9.2 mg/dL Normal 8.5-10.1 [facility] Comment on above: Performed By: #### L 500.2500, L3890.0200, L3890.4000, L100.0500 #### [facility] [address] [place], [address] Chloride [Moles/Vol] 105 mmol/L Normal 98-107 [facility] Comment on above: Performed By: #### L 500.2500, L3890.0200, L3890.4000, L100.0500 #### [facility] [address] [place], [address] CO2 [Moles/Vol] 26.0 mmol/L Normal 21.0-32.0 [facility] Comment on above: Performed By: #### L 500.2500, L3890.0200, L3890.4000, L100.0500 #### [facility] [address] [place], [address] Creatinine [Mass/Vol] 0.95 mg/dL Normal 0.70-1.30 [facility] Comment on above: Result Comment: The validity of the calculated GFR GFRAA in patients over 70 years has not been determined. Clinical correlation is essential. Performed By: #### L 500.2500, L3890.0200, L3890.4000, L100.0500 #### [facility] [address] [place], [address] EST GFR - AA 104 mL/min Normal >60 [facility] Comment on above: Result Comment: Afri can Norwegian GFR Calc Performed By: #### L 500.2500, L3890.0200, L3890.4000, L100.0500 #### [facility] [address] [place], [address] GAP 4 Low 5-15 [facility] Comment on above: Performed By: #### L 500.2500, L3890.0200, L3890.4000, L100.0500 #### [facility] [address] [place], [address] GFR/1.73 sq M.predicted among non-blacks MDRD (S/P/Bld) [Vol rate/Area] 86 mL/min/{1.73_m2} Normal >60 [facility] Comment on above: Result Comment: Non- GFR Calc Performed By: #### L 500.2500, L3890.0200, L3890.4000, L100.0500 #### [facility] [address] [place], [address] Glucose [Mass/Vol] 122 mg/dL High 74-106 [facility] Comment on above: Result Comment: Fast ing Glucose result from 100 to 125 mg/dL suggests IMPAIRED HOMEOSTASIS per A.D.A. criteria. Performed By: #### L 500.2500, L3890.0200, L3890.4000, L100.0500 #### [facility] [address] [place], [address] Potassium [Moles/Vol] 3.8 mmol/L Normal 3.5-5.1 [facility] Comment on above: Performed By: #### L 500.2500, L3890.0200, L3890.4000, L100.0500 #### [facility] [address] [place], [address] Sodium [Moles/Vol] 136 mmol/L Normal 136-145 [facility] Comment on above: Performed By: #### L 500.2500, L3890.0200, L3890.4000, L100.0500 #### [facility] [address] [place], [address] Urea nitrogen [Mass/Vol] 16 mg/dL Normal 7-18 [facility] Comment on above: Performed By: #### L 500.2500, L3890.0200, L3890.4000, L100.0500 #### [facility] [address] [place], [address] CBC-Complete Blood Cnt No Di ffon 12-05-2023 Erythrocyte distribution width (RBC) [Ratio] 12.7 % Normal 11.6-14.6 [facility] Comment on above: Performed By: #### L 500.2500, L3890.0200, L3890.4000, L100.0500 #### [facility] [address] [place], [address] Hematocrit (Bld) [Volume fraction] 44.3 % Normal 40-54 [facility] Comment on above: Performed By: #### L 500.2500, L3890.0200, L3890.4000, L100.0500 #### [facility] [address] [place], [address] Hemoglobin (Bld) [Mass/Vol] 14.9 g/dL Normal 13.0-16.5 [facility] Comment on above: Performed By: #### L 500.2500, L3890.0200, L3890.4000, L100.0500 #### [facility] [address] [place], [address] MCH (RBC) [Entitic mass] 33.4 pg High 27.0-32.0 [facility] Comment on above: Performed By: #### L 500.2500, L3890.0200, L3890.4000, L100.0500 #### [facility] [address] [place], [address] MCHC (RBC) [Mass/Vol] 33.6 g/dL Normal 32-36 [facility] Comment on above: Performed By: #### L 500.2500, L3890.0200, L3890.4000, L100.0500 #### [facility] [address] [place], [address] MCV (RBC) [Entitic vol] 99.3 fL High 80-94 [facility] Comment on above: Performed By: #### L 500.2500, L3890.0200, L3890.4000, L100.0500 #### [facility] [address] [place], [address] Platelet mean volume (Bld) [Entitic vol] 8.6 fL Normal 6.2-12.0 [facility] Comment on above: Performed By: #### L 500.2500, L3890.0200, L3890.4000, L100.0500 #### [facility] [address] [place], [address] Platelets (Bld) [#/Vol] 216 10*3/uL Normal 150-450 [facility] Comment on above: Performed By: #### L 500.2500, L3890.0200, L3890.4000, L100.0500 #### [facility] [address] [place], [address] RBC (Bld) [#/Vol] 4.46 10*6/uL Low 4.6-6.2 [facility] Comment on above: Performed By: #### L 500.2500, L3890.0200, L3890.4000, L100.0500 #### [facility] [address] [place], [address] RDW SD 45.7 fl High 35.1-43.9 [facility] Comment on above: Performed By: #### L 500.2500, L3890.0200, L3890.4000, L100.0500 #### [facility] [address] [place], [address] WBC (Bld) [#/Vol] 8.0 10*3/uL Normal 4.4-11.0 [facility] Comment on above: Performed By: #### L 500.2500, L3890.0200, L3890.4000, L100.0500 #### [facility] [address] [place], [address] Absolute lymphocyte countOrd ered By: Edwina Johnson on 05-16-2023 Lymphocytes Auto (Unsp spec) [#/Vol] 1.90 10*3/uL 0.83-4.51 [facility] Activated partial thrombopla stin time (aPTT) in platelet poor plasma by coagulation aOrdered By: Edwina Johnson on 05-16-2023 aPTT Coag (PPP) [Time] 26.9 s 24.1-36.2 [facility] Automated lymphocyte count a s percentage of total leukocytesOrdered By: Edwina Johnson on 05-16-2023 Lymphocytes/100 WBC Auto (Unsp spec) 35.9 % 19-41 [facility] Basophil percentageOrdered B y: Edwina Johnson on 05-16-2023 Basophil percentage 0-5 SEEN /hpf 0-5 [facility] Basophils/100 WBC (Bld) 0.4 % 0-1 [facility] Bilirubin [Mass/Vol] 0.50 mg/dL 0.20-1.00 [facility] Comment on above: For patients on eltr ombopag therapy, use of Dimension [place] TBIL is not recommended. Chloride [Moles/Vol] 105 mmol/L 98-107 [facility] Cholesterol [Mass/Vol] 185 mg/dL <200 [facility] Comment on above: <200 mg/dL Desirable 200-240 mg/dL Borderline >240 mg/dL High Risk Eosinophils/100 WBC (Bld) 1.1 % 0-5 [facility] Glucose [Mass/Vol] 99 mg/dL 74-106 [facility] Hemoglobin (Bld) [Mass/Vol] 14.3 g/dL 13.0-16.5 [facility] Monocytes/100 WBC (Bld) 11.9 % 0-10 [facility] Neutrophils (Bld) [#/Vol] 2.7 10*3/uL 2.0-7.7 [facility] Neutrophils/100 WBC (Bld) 50.3 % 47-70 [facility] Potassium [Moles/Vol] 3.7 mmol/L 3.5-5.1 [facility] Protein [Mass/Vol] 7.5 g/dL 6.4-8.2 [facility] Sodium [Moles/Vol] 141 mmol/L 136-145 [facility] Triglyceride [Mass/Vol] 212 mg/dL <199 [facility] Comment on above: The drugs N-Acetylcy steine and Metamizole may falsely depress this assay.Serum Triglycerides Reference Interval Normal <150 mg/dL Borderline high 150 - 199 mg/dL High 200 - 499 mg/dL Very High > or = 500 mg/dL WBC (Bld) [#/Vol] 5.3 10*3/uL 4.4-11.0 [facility] Bilirubin Test strip Ql (U)O rdered By: Edwina Johnson on 05-16-2023 Bilirubin Ql (U) 1 mg/dL Negative [facility] Comment on above: COLOR OF URINE MAY A FFECT DIPSTICK RESULTS. Determination of erythrocyte mean corpuscular volume (MCV)Ordered By: Edwina Johnson on 05-16-2023 MCV (RBC) [Entitic vol] 99.8 fL 80-94 [facility] Erythrocyte distribution wid th ratioOrdered By: Edwina Johnson on 05-16-2023 Erythrocyte distribution width (RBC) [Ratio] 12.7 % 11.6-14.6 [facility] Erythrocyte distribution wid th standard deviationOrdered By: Edwina Johnson on 05-16-2023 Erythrocyte distribution width (RBC) [Entitic vol] 46.3 fL 35.1-43.9 [facility] Hematocrit Auto (Bld) [Volum e fraction]Ordered By: Edwina Johnson on 05-16-2023 Hematocrit (Bld) [Volume fraction] 42.5 % 40-54 [facility] Immature granulocytes/100 WB C Auto (Bld)Ordered By: Edwina Johnson on 05-16-2023 Immature granulocytes/100 WBC (Bld) 0.400 % 0.0-0.9 [facility] Comment on above: IG% - Immature Granu locytes (promyelocytes, myelocytes and metamyelocytes) > 1% indicates that a LEFT SHIFT is Present. Ketones Test strip Ql (U)Ord ered By: Edwina Johnson on 05-16-2023 Ketones Ql (U) 5 mg/dl Negative [facility] - Chemistry and C hemistry - challengeOrdered By: Edwina Johnson on 05-16-2023 Albumin/Globulin [Mass ratio] 1.0 {ratio} 0.9-2.4 [facility] ALP [Catalytic activity/Vol] 76 U/L 45-117 [facility] ALT [Catalytic activity/Vol] 30 U/L 16-61 [facility] Cholesterol in HDL [Mass/Vol] 37 mg/dL >40 [facility] Comment on above: The drugs N-Acetylcy steine and Metamizole may falsely depress this assay. Reference Range HDL <40 mg/dL Low HDL Cholesterol HDL >or= 60 mg/dL High HDL Cholesterol Cholesterol in LDL [Mass/Vol] 106 mg/dL 0-130 [facility] CO2 [Moles/Vol] 28.0 mmol/L 21.0-32.0 [facility] Globulin (S) [Mass/Vol] 3.7 g/dL 2.2-4.2 [facility] Magnesium [Mass/Vol] 1.7 mg/dL 1.6-2.6 [facility] Urea nitrogen/Creatinine [Mass ratio] 20.1 mg/mg 10-20 [facility] - CoagulationOrde red By: Edwina Johnson on 05-16-2023 INR Coag (Bld) [Relative time] 1.0 {INR} [facility] PT Coag (PPP) [Time] 12.8 s 11.7-14.9 [facility] - Hematology and Cell countsOrdered By: Edwina Johnson on 05-16-2023 MCH (RBC) [Entitic mass] 33.6 pg 27.0-32.0 [facility] MCHC (RBC) [Mass/Vol] 33.6 g/dL 32-36 [facility] Nucleated RBC/100 WBC (Bld) [Ratio] 0 % 0-5 [facility] Platelet mean volume (Bld) [Entitic vol] 8.9 fL 6.2-12.0 [facility] Platelets (Bld) [#/Vol] 205 10*3/uL 150-450 [facility] Mucus LM Ql (Urine sed)Order ed By: Edwina Johnson on 05-16-2023 Mucus Ql (Urine sed) 2+ /hpf [facility] Nitrite Test strip Ql (U)Ord ered By: Edwina Johnson on 05-16-2023 Nitrite Ql (U) Negative Negative [facility] No Panel InformationOrdered By: Edwina Johnson on 05-16-2023 Estimated GFR (MDRD) Amer 112 mL/min >60 [facility] Comment on above: GFR Calc Estimated GFR (MDRD) Non-Af Amer 93 mL/min >60 [facility] Comment on above: Non- GFR Calc Urine RBC 0-5 SEEN /hpf 0-5 [facility] Vitamin D 25-Hydroxy 36.5 ng/mL [facility] Comment on above: Vitamin D 25(OH) Sta tus Range Deficiency <20 ng/mL (50nmol/L) Insufficiency 20 - 30 ng/mL (50 - 75 nmol/L) Sufficiency 30 - 100 ng/mL (75 - 250 nmol/L) Toxicity >100 ng/mL (>250 nmol/L) VLDL Cholesterol 42 mg/dL 5-40 [facility] Protein Test strip Ql (U)Ord ered By: Edwina Johnson on 05-16-2023 Protein Ql (U) 30 mg/dl Negative [facility] RBC Auto (Bld) [#/Vol]Ordere d By: Edwina Johnson on 05-16-2023 RBC (Bld) [#/Vol] 4.26 10*6/uL 4.6-6.2 [facility] Serum or plasma calcium gentry urement (mass/volume)Ordered By: Edwina Johnson on 05-16-2023 Calcium [Mass/Vol] 8.9 mg/dL 8.5-10.1 [facility] Serum or plasma creatinine m easurement (mass/volume)Ordered By: Edwina Johnson on 05-16-2023 Creatinine [Mass/Vol] 0.90 mg/dL 0.70-1.30 [facility] Comment on above: The validity of the calculated GFR & GFRAA in patients over 70 years has not been determined. Clinical correlation is essential. Serum or plasma thyroid stim ulating hormone (TSH) measurement (units/volume)Ordered By: Edwina Johnson on 05-16-2023 TSH Qn 1.25 uIU/mL 0.358-3.74 [facility] Serum or plasma urea nitroge n measurement (mass/volume)Ordered By: Edwina Johnson on 05-16-2023 Urea nitrogen [Mass/Vol] 18 mg/dL 7-18 [facility] Squamous epithelial cells de tection in urine sediment by light microscopyOrdered By: Edwina Johnson on 05-16-2023 Epithelial cells.squamous LM Ql (Urine sed) 0 SEEN /hpf 0-5 [facility] Thin prep Papanicolaou smear with manual screeningOrdered By: Edwina Johnson on 05-16-2023 Thin prep Papanicolaou smear with manual screening 3.8 g/dL 3.2-5.0 [facility] Thin prep Papanicolaou smear with manual screening 29 U/L 15-37 [facility] Thin prep Papanicolaou smear with manual screening 8 5-15 [facility] Urine blood detectionOrdered By: Edwina Johnson on 05-16-2023 RBC Ql (U) 10 /ul Negative [facility] Urine clarityOrdered By: Ghazal Johnson on 05-16-2023 Clarity (U) Sl. Cloudy Clear [facility] Urine color determinationOrd ered By: Edwina Johnson on 05-16-2023 Color (U) Yellow Yellow [facility] Urine glucose detectionOrder ed By: Edwina oJhnson on 05-16-2023 Glucose Ql (U) Normal mg/dl Normal [facility] Urine leukocyte esterase det ection by dipstickOrdered By: Edwina Johnson on 05-16-2023 Leukocyte esterase Test strip Ql (U) 25 /ul Negative [facility] Urine pHOrdered By: Edwina maier on 05-16-2023 pH (U) 5.0 [pH] 5.0 - 8.0 [facility] Urine sediment bacteria coun t by microscopy (number/high power field)Ordered By: Edwina Johnson on 05-16-2023 Bacteria LM.HPF (Urine sed) [#/Area] 1 /[HPF] None Seen [facility] Urine specific gravity measu rementOrdered By: Edwina Johnson on 05-16-2023 Specific gravity (U) [Rel density] 1.030 1.002-1.03 0 [facility] Urine urobilinogen measureme ntOrdered By: Edwina Johnson on 05-16-2023 Urobilinogen Ql (U) 1 mg/dl Normal [facility] Absolute immature granulocyt e countOrdered By: MINNA VERAS on 12-13-2022 Immature granulocytes (Bld) [#/Vol] 0 10*3/uL 0.0-0.1 [facility] Comment on above: Performed at: - [address] [id number] Director: Carrillo Finn PhD, Phone: [phone] Absolute lymphocyte countOrd ered By: MINNA VERAS on 12-13-2022 Lymphocytes Auto (Unsp spec) [#/Vol] 2.3 10*3/uL 0.7-3.1 [facility] Basophil percentageOrdered B y: MINNA VERAS on 12-13-2022 Monocytes (Bld) [#/Vol] 0.5 10*3/uL 0.1-0.9 [facility] Neutrophils (Bld) [#/Vol] 2.7 10*3/uL 1.4-7.0 [facility] Neutrophils/100 WBC (Bld) 48 % Not Estab. [facility] WBC (Bld) [#/Vol] 5.6 10*3/uL 3.4-10.8 [facility] Chloride [Moles/Vol] 103 mmol/L 98-107 [facility] Cholesterol [Mass/Vol] 207 mg/dL <200 [facility] Comment on above: <200 mg/dL Desirable 200-240 mg/dL Borderline >240 mg/dL High Risk Glucose [Mass/Vol] 96 mg/dL 74-106 [facility] Potassium [Moles/Vol] 4.0 mmol/L 3.5-5.1 [facility] Sodium [Moles/Vol] 137 mmol/L 136-145 [facility] Triglyceride [Mass/Vol] 213 mg/dL <199 [facility] Comment on above: The drugs N-Acetylcy steine and Metamizole may falsely depress this assay.Serum Triglycerides Reference Interval Normal <150 mg/dL Borderline high 150 - 199 mg/dL High 200 - 499 mg/dL Very High > or = 500 mg/dL Basophils/100 WBC Auto (Bld) Ordered By: MINNA VERAS on 12-13-2022 Basophils/100 WBC (Bld) 1 % Not Estab. [facility] Blood basophils count (numbe r/volume)Ordered By: MINNA VERAS on 12-13-2022 Basophils (Bld) [#/Vol] 0 10*3/uL 0.0-0.2 [facility] Blood eosinophils count (num mary ann/volume)Ordered By: MINNA VERAS on 12-13-2022 Eosinophils (Bld) [#/Vol] 0.1 10*3/uL 0.0-0.4 [facility] Blood hematocrit (volume fra ction)Ordered By: MINNA VERAS on 12-13-2022 Hematocrit (Bld) [Volume fraction] 42.5 % 37.5-51.0 [facility] Blood hemoglobin measurement (mass/volume)Ordered By: MINNA VERAS on 12-13-2022 Hemoglobin (Bld) [Mass/Vol] 14.5 g/dL 13.0-17.7 [facility] Blood immature cells/100 renetta kocytesOrdered By: MINNA VERAS on 12-13-2022 Immature cells/100 WBC (Bld) TNP [facility] Comment on above: Test not performed Blood immature granulocytes/ 100 leukocytesOrdered By: MINNA VERAS on 12-13-2022 Immature granulocytes/100 WBC (Bld) 0 % Not Estab. [facility] Blood platelet mean volumeOr dered By: MINNA VERAS on 12-13-2022 Platelet mean volume (Bld) [Entitic vol] 8.8 fL 6.2-12.0 [facility] Count of whole blood cells p ositive for CD3 and CD4 antigens (number/volume)Ordered By: MINNA VERAS on 12-13-2022 CD3+CD4+ (T4 helper) cells (Bld) [#/Vol] 842 /uL 359-1519 [facility] Determination of erythrocyte mean corpuscular volume (MCV)Ordered By: MINNA VERAS on 12-13-2022 MCV (RBC) [Entitic vol] 101 fL 79-97 [facility] Eosinophils/100 WBC Auto (Bl d)Ordered By: MINNA VERAS on 12-13-2022 Eosinophils/100 WBC (Bld) 1 % Not Estab. [facility] Erythrocyte distribution wid th ratioOrdered By: MINNA VERAS on 12-13-2022 Erythrocyte distribution width (RBC) [Ratio] 12.6 % 11.6-15.4 [facility] Interpretation of morphologi c examination of blood (narrative result)Ordered By: MINNA VERAS on 12-13-2022 Morphology Seferino (Bld) [Interp] [facility] Comment on above: Test not performed Laboratory - Chemistry and C hemistry - challengeOrdered By: MINNA VERAS on 12-13-2022 CO2 [Moles/Vol] 29.0 mmol/L 21.0-32.0 [facility] Urea nitrogen/Creatinine [Mass ratio] 16.6 mg/mg 10-20 [facility] - Hematology and Cell countsOrdered By: MINNA VERAS on 12-13-2022 Erythrocyte distribution width (RBC) [Entitic vol] 45.4 fL 35.1-43.9 [facility] Erythrocyte distribution width (RBC) [Ratio] 12.5 % 11.6-14.6 [facility] Lymphocytes/100 WBC Auto (Bl d)Ordered By: MINNA VERAS on 12-13-2022 Lymphocytes/100 WBC (Bld) 41 % Not Estab. [facility] MCHC Auto (RBC) [Mass/Vol]Or dered By: MINNA VERAS on 12-13-2022 MCHC (RBC) [Mass/Vol] 34.1 g/dL 31.5-35.7 [facility] No Panel InformationOrdered By: MNINA VERAS on 12-13-2022 Estimated GFR (MDRD) Amer 121 mL/min >60 [facility] Comment on above: GFR Calc Estimated GFR (MDRD) Non-Af Amer 100 mL/min >60 [facility] Comment on above: Non- GFR Calc Prostate Specific Antigen Screen 1.48 ng/mL 0.00-4.00 [facility] Comment on above: This test was perfor med using the TPSA assay method for theDiAbGenomicssion chemistry system. Values obtained with differentassay methods cannot be used interchangably.When changing PSA assays in the course of monitoring apatient, additional sequential testing should be carriedout to confirm baseline values. Nucleated RBC/100 WBC Auto ( Bld) [Ratio]Ordered By: MINNA VERAS on 12-13-2022 Nucleated RBC/100 WBC (Bld) [Ratio] TNP [facility] Comment on above: Test not performed Percent of cells positive fo r CD4 antigenOrdered By: MINNA VERAS on 12-13-2022 CD3+CD4+ (T4 helper) cells/100 cells (Unsp spec) 36.6 % 30.8-58.5 [facility] Platelets bldOrdered By: ASHWINI VERAS on 12-13-2022 Platelets (Bld) [#/Vol] 201 10*3/uL 150-450 [facility] RBC Auto (Bld) [#/Vol]Ordere d By: MINNA VERAS on 12-13-2022 RBC (Bld) [#/Vol] 4.20 10*6/uL 4.14-5.80 [facility] Serum or plasma calcium gentry urement (mass/volume)Ordered By: MINNA VERAS on 12-13-2022 Calcium [Mass/Vol] 9.0 mg/dL 8.5-10.1 [facility] Serum or plasma cholesterol in HDL measurement (mass/volume)Ordered By: MINNA VERAS on 12-13-2022 Cholesterol in HDL [Mass/Vol] 41 mg/dL >40 [facility] Comment on above: The drugs N-Acetylcy steine and Metamizole may falsely depress this assay. Reference Range HDL <40 mg/dL Low HDL Cholesterol HDL >or= 60 mg/dL High HDL Cholesterol Serum or plasma cholesterol in VLDL measurement (mass/volume)Ordered By: MINNA VERAS on 12-13-2022 Cholesterol in VLDL [Mass/Vol] 43 mg/dL 5-40 [facility] Serum or plasma creatinine m easurement (mass/volume)Ordered By: MINNA VERAS on 12-13-2022 Creatinine [Mass/Vol] 0.84 mg/dL 0.70-1.30 [facility] Comment on above: The validity of the calculated GFR & GFRAA in patients over 70 years has not been determined. Clinical correlation is essential. Serum or plasma low density lipoprotein (LDL) cholesterol measurement (mass/volume)Ordered By: MINNA VERAS on 12-13-2022 Cholesterol in LDL [Mass/Vol] 123 mg/dL 0-130 [facility] Serum or plasma urea nitroge n measurement (mass/volume)Ordered By: MINNA VERAS on 12-13-2022 Urea nitrogen [Mass/Vol] 14 mg/dL 7-18 [facility] Thin prep Papanicolaou smear with manual screeningOrdered By: MINNA VERAS on 12-13-2022 Thin prep Papanicolaou smear with manual screening 34.5 pg 26.6-33.0 [facility] Thin prep Papanicolaou smear with manual screening 9 % Not Estab. [facility] Thin prep Papanicolaou smear with manual screening 5 5-15 [facility] Telephone Encounteron 2022 [employer] Authentication Interface Message Text Outpatient lab results from [facility] Added to media folder Normal [facility] Telephone Encounteron 2022 [employer] Technician Authentication Interface Message Text [facility] outpatient lab results. Added to media folder. Normal [facility] Absolute immature granulocyt e countOrdered By: Dr. Johnson on 07-20-2022 Immature granulocytes (Bld) [#/Vol] 0 10*3/uL 0.0-0.1 [facility] Comment on above: Performed at: [address] Director: Carrillo Finn PhD, Phone: [phone] Absolute lymphocyte countOrd ered By: Dr. Johnson on 07-20-2022 Lymphocytes Auto (Unsp spec) [#/Vol] 2.5 10*3/uL 0.7-3.1 [facility] Basophil percentageOrdered B y: Dr. Johnson on 07-20-2022 Monocytes (Bld) [#/Vol] 0.6 10*3/uL 0.1-0.9 [facility] Neutrophils (Bld) [#/Vol] 3.1 10*3/uL 1.4-7.0 [facility] Neutrophils/100 WBC (Bld) 49 % Not Estab. [facility] WBC (Bld) [#/Vol] 6.3 10*3/uL 3.4-10.8 [facility] Bilirubin [Mass/Vol] 0.40 mg/dL 0.20-1.00 [facility] Comment on above: For patients on eltr ombopag therapy, use of Dimension [place] TBIL is not recommended. Chloride [Moles/Vol] 103 mmol/L 98-107 [facility] Cholesterol [Mass/Vol] 220 mg/dL <200 [facility] Comment on above: <200 mg/dL Desirable 200-240 mg/dL Borderline >240 mg/dL High Risk Glucose [Mass/Vol] 86 mg/dL 74-106 [facility] Potassium [Moles/Vol] 4.0 mmol/L 3.5-5.1 [facility] Protein [Mass/Vol] 8.0 g/dL 6.4-8.2 [facility] Sodium [Moles/Vol] 136 mmol/L 136-145 [facility] Triglyceride [Mass/Vol] 482 mg/dL <199 [facility] Comment on above: The drugs N-Acetylcy steine and Metamizole may falsely depress this assay. TRIGLYCERIDE IS GREATER THAN 400 mg/dL. LDL RESULT IS INVALID AND WILL NOT BE REPORTED.Serum Triglycerides Reference Interval Normal <150 mg/dL Borderline high 150 - 199 mg/dL High 200 - 499 mg/dL Very High > or = 500 mg/dL Basophils/100 WBC Auto (Bld) Ordered By: Dr. Johnson on 07-20-2022 Basophils/100 WBC (Bld) 1 % Not Estab. [facility] Blood basophils count (numbe r/volume)Ordered By: Dr. Johnson on 07-20-2022 Basophils (Bld) [#/Vol] 0 10*3/uL 0.0-0.2 [facility] Blood eosinophils count (num mary ann/volume)Ordered By: Dr. Johnson on 07-20-2022 Eosinophils (Bld) [#/Vol] 0.1 10*3/uL 0.0-0.4 [facility] Blood hematocrit (volume fra ction)Ordered By: Dr. Johnson on 07-20-2022 Hematocrit (Bld) [Volume fraction] 46.1 % 37.5-51.0 [facility] Blood hemoglobin measurement (mass/volume)Ordered By: Dr. Johnson on 07-20-2022 Hemoglobin (Bld) [Mass/Vol] 16.0 g/dL 13.0-17.7 [facility] Blood immature cells/100 renetta kocytesOrdered By: Dr. Johnson on 07-20-2022 Immature cells/100 [facility]) [facility] on [facility]: Test not performed Blood immature granulocytes/ 100 leukocytesOrdered By: Dr. Johnson on 07-20-2022 Immature granulocytes/100 WBC (Bld) 0 % Not Estab. [facility] Blood platelet mean volumeOr dered By: Dr. Johnson on 07-20-2022 Platelet mean volume (Bld) [Entitic vol] 8.9 fL 6.2-12.0 [facility] Count of whole blood cells p ositive for CD3 and CD4 antigens (number/volume)Ordered By: Dr. Johnson on 07-20-2022 CD3+CD4+ (T4 helper) cells (Bld) [#/Vol] 895 /uL 359-1519 [facility] Determination of erythrocyte mean corpuscular volume (MCV)Ordered By: Dr. Johnson on 07-20-2022 MCV (RBC) [Entitic vol] 99 fL 79-97 [facility] Eosinophils/100 WBC Auto (Bl d)Ordered By: Dr. Johnson on 07-20-2022 Eosinophils/100 WBC (Bld) 1 % Not Estab. [facility] Erythrocyte distribution wid th ratioOrdered By: Dr. Johnson on 07-20-2022 Erythrocyte distribution width (RBC) [Ratio] 12.5 % 11.6-15.4 [facility] Erythrocyte sedimentation ra teOrdered By: Dr. Johnson on 07-20-2022 ESR (Bld) [Velocity] 5 mm/h 0-20 [facility] Interpretation of morphologi c examination of blood (narrative result)Ordered By: Dr. Johnson on 07-20-2022 Morphology Seferino (Bld) [Interp] [facility] Comment on above: Test not performed Laboratory - Chemistry and C hemistry - challengeOrdered By: Dr. Johnson on 07-20-2022 ALP [Catalytic activity/Vol] 86 U/L 45-117 [facility] ALT [Catalytic activity/Vol] 24 U/L 16-61 [facility] CO2 [Moles/Vol] 28.0 mmol/L 21.0-32.0 [facility] Globulin (S) [Mass/Vol] 4.0 g/dL 2.2-4.2 [facility] Urea nitrogen/Creatinine [Mass ratio] 21.0 mg/mg 10-20 [facility] Laboratory - Hematology and Cell countsOrdered By: Dr. Johnson on 07-20-2022 Erythrocyte distribution width (RBC) [Entitic vol] 45.7 fL 35.1-43.9 [facility] Erythrocyte distribution width (RBC) [Ratio] 12.3 % 11.6-14.6 [facility] Lymphocytes/100 WBC Auto (Bl d)Ordered By: Dr. Johnson on 07-20-2022 Lymphocytes/100 WBC (Bld) 40 % Not Estab. [facility] MCHC Auto (RBC) [Mass/Vol]Or dered By: Dr. Johnson on 07-20-2022 MCHC (RBC) [Mass/Vol] 34.7 g/dL 31.5-35.7 [facility] No Panel InformationOrdered By: Dr. Johnson on 07-20-2022 HIV-1 RNA Ultraquantitative (PCR) < 20 copies/mL . [facility] Comment on above: HIV-1 RNA detectedTh e reportable range for this assay is 20 to 10,000,000copies HIV-1 RNA/mL. Estimated GFR (MDRD) Amer 136 mL/min >60 [facility] Comment on above: GFR Calc Estimated GFR (MDRD) Non-Af Amer 112 mL/min >60 [facility] Comment on above: Non- GFR Calc Vitamin D 25-Hydroxy 26.4 ng/mL [facility] Comment on above: Vitamin D 25(OH) Sta tus Range Deficiency <20 ng/mL (50nmol/L) Insufficiency 20 - 30 ng/mL (50 - 75 nmol/L) Sufficiency 30 - 100 ng/mL (75 - 250 nmol/L) Toxicity >100 ng/mL (>250 nmol/L) Nucleated RBC/100 WBC Auto ( Bld) [Ratio]Ordered By: Dr. Johnson on 07-20-2022 Nucleated RBC/100 WBC (Bld) [Ratio] [facility] Comment on above: Test not performed Percent of cells positive fo r CD4 antigenOrdered By: Dr. Johnson on 07-20-2022 CD3+CD4+ (T4 helper) cells/100 cells (Unsp spec) 35.8 % 30.8-58.5 [facility] Plasma HIV 1 RNA viral load by probe and target amplification method (log number/voluOrdered By: Dr. Johnson on 07-20-2022 HIV 1 RNA EBONY+probe [Log #/Vol] [facility] Comment on above: Test not performedRe sult Units: [id number]/mLUnable to calculate result since non-numeric resultobtained for component test.Performed at: - [facility] [id number] Director: Estuardo Masters MD, Phone: [phone] Platelets bldOrdered By: Dr. Johnson on 07-20-2022 Platelets (Bld) [#/Vol] 217 10*3/uL 150-450 [facility] RBC Auto (Bld) [#/Vol]Ordere d By: Dr. Johnson on 07-20-2022 RBC (Bld) [#/Vol] 4.68 10*6/uL 4.14-5.80 [facility] Serum or plasma C reactive p rotein measurement (mass/volume)Ordered By: Dr. Johnson on 07-20-2022 CRP [Mass/Vol] mg/L 0.0-3.0 [facility] Comment on above: C-Reactive Protein ( CRP) provides useful information for thediagnosis, therapy and monitoring of inflammatory processesand associated diseases. For the evaluation of Relative Riskfor Cardiovascular Disease, a High Sensitivity CRP (HSCRP)should be ordered. Serum or plasma albumin genrty urement (mass/volume)Ordered By: Dr. Johnson on 07-20-2022 Albumin [Mass/Vol] 4.0 g/dL 3.2-5.0 [facility] Serum or plasma albumin/glob ulin mass ratioOrdered By: Dr. Johnson on 07-20-2022 Albumin/Globulin [Mass ratio] 1.0 {ratio} 0.9-2.4 [facility] Serum or plasma calcium gentry urement (mass/volume)Ordered By: Dr. Johnson on 07-20-2022 Calcium [Mass/Vol] 9.0 mg/dL 8.5-10.1 [facility] Serum or plasma cholesterol in HDL measurement (mass/volume)Ordered By: Dr. Johnson on 07-20-2022 Cholesterol in HDL [Mass/Vol] 37 mg/dL >40 [facility] Comment on above: The drugs N-Acetylcy steine and Metamizole may falsely depress this assay. Reference Range HDL <40 mg/dL Low HDL Cholesterol HDL >or= 60 mg/dL High HDL Cholesterol Serum or plasma cholesterol in VLDL measurement (mass/volume)Ordered By: Dr. Johnson on 07-20-2022 Cholesterol in VLDL [Mass/Vol] [facility] Comment on above: Test not performed Serum or plasma creatinine m easurement (mass/volume)Ordered By: Dr. Johnson on 07-20-2022 Creatinine [Mass/Vol] 0.76 mg/dL 0.70-1.30 [facility] Comment on above: The validity of the calculated GFR & GFRAA in patients over 70 years has not been determined. Clinical correlation is essential. Serum or plasma low density lipoprotein (LDL) cholesterol measurement (mass/volume)Ordered By: Dr. Johnson on 07-20-2022 Cholesterol in LDL [Mass/Vol] [facility] Comment on above: Test not performed Serum or plasma urea nitroge n measurement (mass/volume)Ordered By: Dr. Johnson on 07-20-2022 Urea nitrogen [Mass/Vol] 16 mg/dL 7-18 [facility] Thin prep Papanicolaou smear with manual screeningOrdered By: Dr. Johnson on 07-20-2022 Thin prep Papanicolaou smear with manual screening 34.2 pg 26.6-33.0 [facility] Thin prep Papanicolaou smear with manual screening 9 % Not Estab. [facility] Thin prep Papanicolaou smear with manual screening 20 U/L 15-37 [facility] Thin prep Papanicolaou smear with manual screening 5 5-15 [facility] Whole blood hemoglobin A1c/t otal hemoglobin ratio (mass fraction)Ordered By: Dr. Johnson on 07-20-2022 HbA1c (Bld) [Mass fraction] 5.4 % 3.8-5.6 [facility] Comment on above: Normal < 5.7 % Predi abetic 5.7 - 6.4 % Diabetic >or= 6.5 % Please note range changes. Progress Noteson 07-19-2022 [employer] Authentication Interface Message Text Subjective: Patient seen by Dr. Beatty before and told there is psoriatic arthritis but the patient does not want to return to see him. Instead he decided to come see me. He says his optical fabricator says he has psoriatic arthritis. His orthopedic surgeon gave him prednisone which helped his joint pain so he concluded he has psoriatic arthritis. Has hand pain. Foot pain. Back pain. Fifteen years ago sent to line maintenance and told he has psoriatic arthritis But he declined treatment then. Was put on Otezla by optical fabricator which caused headache. Has had bilateral rotator cuff surgery. Has had left biceps tendon repair. Has muriel having right trigger thumb. All of these he feels is from psoriatic arthritis. Psoriasis for a very long time. Has been using topical. Otezla caused him headache. Did clear the rash up by 3 months which returned by month 4. Has not tried anything else. Has pain in feet, back pain, hand pain. Has had floaters. Has had antibiotics for eyes but not steroid eye drop. No oral or genial ulcer but has had psoriasis rash there which responded to topical steroid. Back pain all the time. Says he is fighting a sciatica attack. Supposed to have MRI of the back but his claustrophobia has not afforded him the abillity to get that done. Has had ?back x-rays perhaps in the last 6 months. But hasn ot had hand or foot x-rays. Whole hand swells up but no sausage digit. Never injured the right 1st MCP. Was told he has triggering there. HIV positive on meds. Followed twice a year. Bilateral rotator cuff repair, Left biceps repair. Bilateral carpal tunnel. Left ulnar nerve transposition. Exposed age 18. Not diagnosed till . Had rash when he was doing dishes in high school. Meds: per med list. Never smoked. Denies alcohol. Denies drug abuse. Allergies as listed. FH: mother with some sort of arthritis - ?degenerative. Nobody else with psoriasis. SOC: retired. with no children. Objective: WD, WN white man in NAD. VS noted. Patch os scaly skin over right elbow. Lungs: clear. COR: neg Abdomen: benign. Neck: full ROM. Shoulders: OK ROM. Elbows: no swelling, warmth. About 5 degree flexion contracture. Wrists: no swelling, warmth. Full ROM. MCP: bony prominence each worse on the right. PIP: minimal Najma's. DIP: minimal Heberden's. No flexor crepitus. Checker Loader: 4+/4+. No nail pits. Minimal onycholysis. Hips: slightly decreased ROM with FABERE on right due to pain but OK on left. Knees: slightly hypertrophic in feel but no swelling, no warmth, no effusion. Ankles: no warmth, no swelling. Full ROM. Achilles OK. Toes: non-tender. OK reversal of lumbar lordosis on forward flexion. Occiput to wall is zero. No relevant labs. No relevant imaging to review. Assessment: # mild psoriasis. # the only joint that looks like there could be psoriatic arthritis is possibly the right 1st MCP although even that could be just from a bit more exuberant osteoarthritis. # nothing else to obviously argue for psoriatic arthritis Plan: Check ESR, CRP to be drawn along with his regular HIV monitoring labs in [place]. Arthritis survey. Foot films. Pelvis. LS spine. If there is no definitive evidence for psoriatic arthritis on these x-rays, will consider ultrasound evaluation. F/U pending outcome of these tests. Holger [facility] MD 3:27 PM Normal [facility] [employer] Field Technician Authentication Interface Message Text Patient was identified by name and date of . Beata Hernandez Patient at risk for falls:No Falls Risk protocol implemented: No Normal [facility] [employer] [facility] XR ARTHRITIS SURVEY HAND/WRI STon 07-19-2022 XR ARTHRITIS SURVEY HAND/WRIST EXAMINATION: XR ARTHRITIS SURVEY HAND/WRIST 07/19/2022 04:46 PM CLINICAL HISTORY: psoriasis ASSOCIATED DIAGNOSIS: Arthralgia, unspecified joint Psoriasis ORDERING PROVIDER: HOLGER GRANT TECHNOLOGISTS NOTE: COMPARISON: None FINDINGS: PA and ball catcher radiographs were obtained of both hands and wrists. There is no evidence for an erosive arthropathy or significant degenerative changes. The bones are in anatomic alignment, and the joint spaces are maintained. No focal soft tissue abnormalities are identified. IMPRESSION: Unremarkable study MACRO: None Normal [facility] XR FOOT LEFT 3 VIEWSon 07-19 XR FOOT LEFT 3 VIEWS EXAMINATION: XR IRIS T LEFT 3 VIEWSPRO/LT 07/19/2022 04:47 PM CLINICAL HISTORY: psoriasis ASSOCIATED DIAGNOSIS: Arthralgia, unspecified joint Psoriasis ORDERING PROVIDER: HOLGER GRANT TECHNKRISTI NOTE: COMPARISON: None IMPRESSION: No acute left foot fracture or dislocation is identified. No radiopaque foreign bodies. The visualized portion of the distal tibia and fibula appears intact. Left foot MACRO: None Normal [facility] XR FOOT RIGHT 3 VIEWSon 07-08 XR FOOT RIGHT 3 VIEWS EXAMINATION: XR FO OT RIGHT 3 VIEWSPRO/RT 07/19/2022 04:48 PM CLINICAL HISTORY: foot pain ASSOCIATED DIAGNOSIS: Arthralgia, unspecified joint Psoriasis ORDERING PROVIDER: HOLGER GRANT TECHNKRISTI NOTE: COMPARISON: None IMPRESSION: No acute right foot fracture or dislocation is identified. No radiopaque foreign bodies. Right foot MACRO: None Normal [facility] XR L-SPINE AP+LATERAL 2-3 EWSon 07-19-2022 XR L-SPINE AP+LATERAL 2-3 VIEWS EXAMINATION: XR L-SPINE AP+LATERAL 2-3 VIEWS 07/19/2022 04:48 PM CLINICAL HISTORY: back pain ASSOCIATED DIAGNOSIS: Arthralgia, unspecified joint Psoriasis ORDERING PROVIDER: HOLGER GRANT TECHNKRISTI NOTE: COMPARISON: None FINDINGS: Heights of the lumbar vertebral bodies are maintained. No acute fracture or aggressive osseous lesion. There is no significant listhesis. There are mild multilevel degenerative changes, most prominent at L5-S1. No radiopaque density is projecting over the renal shadow to suggest stone. Moderate amount of stool burden. The sacroiliac joints are maintained. IMPRESSION: No compression deformity. MACRO: None Normal [facility] XR PELVIS SINGLE VIEWon 07-08 XR PELVIS SINGLE VIEW EXAMINATION: XR PE LVIS SINGLE VIEW 07/19/2022 04:47 PM CLINICAL HISTORY: back pain ASSOCIATED DIAGNOSIS: Arthralgia, unspecified joint Psoriasis ORDERING PROVIDER: HOLGER GRANT TECHNKRISTI NOTE: COMPARISON: None FINDINGS: No evidence of fracture or dislocation. Joint space of the hip joints are normal. Sacroiliac joints are intact. IMPRESSION: No evidence of acute fracture or dislocation. MACRO: None Normal [facility] [employer] [facility] No Panel Informationon 01-21 Prostate Specific Antigen Total 1.52 ng/mL 0.0-4.0 [facility] Work Phone: Comment on above: This test was perfor med using the TPSA assay method for the[employer] chemistry system. Values obtained with differentassay methods cannot be used interchangably.When changing PSA assays in the course of monitoring apatient, additional sequential testing should be carriedout to confirm baseline values. Basophil percentageon 2021 Chloride [Moles/Vol] 102 mmol/L 98-107 [facility] Work Phone: [phone] Glucose [Mass/Vol] 133 mg/dL 74-106 [facility] Work Phone: [phone] Comment on above: Fasting Glucose resu lt greater than or equal to 126 mg/dL suggests DIABETES MELLITUS per A.D.A. criteria. Potassium [Moles/Vol] 3.5 mmol/L 3.5-5.1 [facility] Work Phone: [phone] Sodium [Moles/Vol] 136 mmol/L 136-145 [facility] Work Phone: [phone] WBC (Bld) [#/Vol] 9.0 10*3/uL 4.4-11.0 [facility] Work Phone: [phone] Blood erythrocytes count (nu mber/volume)on 01-06-2022 RBC (Bld) [#/Vol] 4.11 10*6/uL 4.6-6.2 [facility] Work Phone: [phone] Blood hemoglobin measurement (mass/volume)on 01-06-2022 Hemoglobin (Bld) [Mass/Vol] 13.7 g/dL 13.0-16.5 [facility] Work Phone: [phone] Blood platelet mean volumeon 01-06-2022 Platelet mean volume (Bld) [Entitic vol] 8.6 fL 6.2-12.0 [facility] Work Phone: [phone] Determination of erythrocyte mean corpuscular volume (MCV)on 01-06-2022 MCV (RBC) [Entitic vol] 99.5 fL 80-94 [facility] Work Phone: [phone] Hematocrit Auto (Bld) [Volum e fraction]on 01-06-2022 Hematocrit (Bld) [Volume fraction] 40.9 % 40-54 [facility] Work Phone: [phone] Laboratory - Chemistry and C hemistry - challengeon 01-06-2022 CO2 [Moles/Vol] 30.0 mmol/L 21.0-32.0 [facility] Work Phone: [phone] Urea nitrogen/Creatinine [Mass ratio] 24.1 mg/mg 10-20 [facility] Work Phone: [phone] Laboratory - Hematology and Cell countson 01-06-2022 Erythrocyte distribution width (RBC) [Entitic vol] 44.3 fL 35.1-43.9 [facility] Work Phone: [phone] Erythrocyte distribution width (RBC) [Ratio] 12.1 % 11.6-14.6 [facility] Work Phone: [phone] MCH (RBC) [Entitic mass] 33.3 pg 27.0-32.0 [facility] Work Phone: [phone] MCHC Auto (RBC) [Mass/Vol]on 01-06-2022 MCHC (RBC) [Mass/Vol] 33.5 g/dL 32-36 [facility] Work Phone: No Panel Informationon 01-06 Estimated GFR (MDRD) Amer 131 mL/min >60 [facility] Work Phone: [phone] Comment on above: GFR Calc Estimated GFR (MDRD) Non-Af Amer 108 mL/min >60 [facility] Work Phone: [phone] Comment on above: Non- GFR Calc Hepatitis A Antibody Total Negative Negative [facility] Work Phone: [phone] Comment on above: Performed at: [facility] [employer] [id number] Director: Carrillo Finn PhD, Phone: [phone] Hepatitis A IgM Antibody Negative Negative [facility] Work Phone: [phone] Hepatitis B Core IgM Antibody Negative Negative [facility] Work Phone: [phone] Hepatitis C Antibody (EIA) <0.1 s/co ratio 0.0-0.9 [facility] Work Phone: Hepatitis C Antibody Comment Comment . [facility] Work Phone: Comment on above: NegativeNot infected with HCV, unless recent infection issuspected or other evidence exists to indicate HCVinfection. HIV-1 RNA Ultraquantitative (PCR) < 20 copies/mL . [facility] Work Phone: Comment on above: HIV-1 RNA not detect edThe reportable range for this assay is 20 to 10,000,000copies HIV-1 RNA/mL. Miscellaneous Test See comment [facility] Work Phone: Comment on above: TEST RESULT LIMITST- Cell Activation, CD8 SubsetsAbsolute CD 3 1732 /uL 622-2402% CD 3 Pos. Lymph. 75.3 % 57.5-86.2Absolute CD 4 [place] 844 /uL 359-1519% CD 4 Pos. Lymph. 36.7 % 30.8-58.5Absolute CD 8 (Supp) 863 /uL 109-897% CD 8 Pos. Lymph. 37.5 High % 12.0-35.5CD4/CD8 Ratio 0.98 0.92-3.72Abs.CD8+HLA-DR+Lymph 230 High /uL 0-117This test was developed and its performance characteristicsdetermined by [employer]. It has not been cleared or approvedby the Food and Drug Administration.% CD8+HLA-DR+ Lymphs 10.0 High % 0.0-4.9This test was developed and its performance characteristicsdetermined by [facility]. It has not been cleared or approvedby the Food and Drug Administration.% CD3+CD25+ Lymphs 17.0 % 4.9-25.9This test was developed and its performance characteristicsdetermined by [facility]. It has not been cleared or approvedby the Food and Drug Administration.Abs.CD3+CD25+ Lymphs 391 /uL 79-535This test was developed and its performance characteristicsdetermined by [facility]. It has not been cleared or approvedby the Food and Drug Administration.% CD8+CD38+ Lymphs 8.2 % 0.0-17.7This test was developed and its performance characteristicsdetermined by [facility]. It has not been cleared or approvedby the Food and Drug Administration.Abs.CD8+CD38+ Lymphs 189 /uL 0-381This test was developed and its performance characteristicsdetermined by [employer]. It has not been cleared or approvedby the Food and Drug Administration.WBC 8.4 x10E3/uL 3.4-10.8RBC 4.19 x10E6/uL 4.14-5.80Hemoglobin 14.1 g/dL 13.0-17.7Hematocrit 42.0 % 37.5-51.0MCV 100 High fL 79-97MCH 33.7 High pg 26.6-33.0MCHC 33.6 g/dL 31.5-35.7RDW 12.2 % 11.6-15.4Platelets 257 x10E3/uL 150-450Neutrophils 62 % Not Estab.Lymphs 27 % Not Estab.Monocytes 7 % Not Estab.Eos 3 % Not Estab.Basos 1 % Not Estab.Neutrophils (Absolute) 5.2 x10E3/uL 1.4-7.0Lymphs (Absolute) 2.3 x10E3/uL 0.7-3.1Monocytes(Absolute) 0.6 x10E3/uL 0.1-0.9Eos (Absolute) 0.2 x10E3/uL 0.0-0.4Baso (Absolute) 0.1 x10E3/uL 0.0-0.2Immature Granulocytes 0 % Not Estab.Immature Grans (Abs) 0.0 x10E3/uL 0.0-0.1 TESTING PERFORMED AT [facility]. ORIGINAL REPORT ON FILE IN LAB CONTAINS ADDITIONAL TEST SITE INFORMATION. Plasma HIV 1 RNA viral load by probe and target amplification method (log number/voluon 01-06-2022 HIV 1 RNA EBONY+probe [Log #/Vol] TNP [facility] Work Phone: [phone] Comment on above: Test not performedRe sult Units: [id number]/mLUnable to calculate result since non-numeric resultobtained for component test.Performed at: [facility] [employer] [id number] Director: Estuardo Masters MD, Phone: [phone] Platelets bldon 01-06-2022 Platelets (Bld) [#/Vol] 248 10*3/uL 150-450 [facility] Work Phone: [phone] Serum hepatitis B virus surf princess antibody IgG detectionon 01-06-2022 HBV surface IgG Ql (S) Non-Reactive [facility] Work Phone: [phone] Comment on above: Non Reactive: Incons istent with immunity less than <10 mIU/mL Reactive: Consistent with immunity greater than or equal to 10 mIU/mL Serum or plasma calcium gentry urement (mass/volume)on 01-06-2022 Calcium [Mass/Vol] 9.5 mg/dL 8.5-10.1 [facility] Work Phone: [phone] Serum or plasma creatinine m easurement (mass/volume)on 01-06-2022 Creatinine [Mass/Vol] 0.79 mg/dL 0.70-1.30 [facility] Work Phone: Comment on above: The validity of the calculated GFR & GFRAA in patients over 70 years has not been determined. Clinical correlation is essential. Serum or plasma hepatitis B virus surface antigen detection by immunoassayon 01-06-2022 HBV surface Ag IA Ql Negative Negative [facility] Work Phone: [phone] Serum or plasma urea nitroge n measurement (mass/volume)on 01-06-2022 Urea nitrogen [Mass/Vol] 19 mg/dL 7-18 [facility] Work Phone: [phone] Thin prep Papanicolaou smear with manual screeningon 01-06-2022 Thin prep Papanicolaou smear with manual screening 4 5-15 [facility] Work Phone: [phone] Alternaria alternata IgE ser umon 11-25-2021 A. alternata IgE Qn (S) <0.10 kU/L Class 0 [facility] Work Phone: [phone] Panel Informationon 11-25 Cat Hair Allergen <0.10 kU/L Class 0 [facility] Work Phone: [phone] Common Ragweed (Short) Allergen <0.10 kU/L Class 0 [facility] Work Phone: [phone] Immunoglobulin E 27 IU/mL 6-495 [facility] Work Phone: [phone] ([place]) Allergen IgE Ab <0.10 kU/L Class 0 [facility] Work Phone: [phone] Urine Allergen IgE Antibody <0.10 kU/L Class 0 [facility] Work Phone: Comment on above: Performed at: [email or web address] [place] [id number] Director: Estuardo Masters MD, Phone: [phone] [facility] Comment Comment . [facility] Work Phone: Comment on above: Levels of Specific I gE Class Description of Class ----- < 0.10 0 Negative 0.10 - 0.31 0/I Equivocal/Low 0.32 - 0.55 I Low 0.56 - 1.40 II Moderate 1.41 - 3.90 III High 3.91 - 19.00 IV Very High 19.01 - 100.00 V Very High >100.00 Very High Scallop Allergen <0.10 kU/L Class 0 [facility] Work Phone: [phone] Sesame Seed Allergen IgE Antibody <0.10 kU/L Class 0 [facility] Work Phone: [phone] Comment on above: Performed at: [email or web address] [place] [id number] Director: Estuardo Masters MD, Phone: [phone] Shrimp Allergen <0.10 kU/L Class 0 [facility] Work Phone: Blue [place] Tree Allergen <0.10 kU/L Class 0 [facility] Work Phone: Rough pigweed specific IgE a ntibody assayon 11-25-2021 Rough Pigweed IgE Qn (S) <0.10 kU/L Class 0 [facility] Work Phone: Serum Norwegian sycamore IgE antibody assay (units/volume)on 11-25-2021 Norwegian Armstrong IgE Qn (S) <0.10 kU/L Class 0 [facility] Work Phone: Serum Aspergillus fumigatus IgE antibody assay (units/volume)on 11-25-2021 A. fumigatus IgE Qn (S) <0.10 kU/L Class 0 [facility] Work Phone: Serum Bermuda grass IgE anti body assay (units/volume)on 11-25-2021 Bermuda grass IgE Qn (S) <0.10 kU/L Class 0 [facility] Work Phone: Serum Cladosporium herbarum IgE antibody assay (units/volume)on 11-25-2021 C. herbarum IgE Qn (S) <0.10 kU/L Class 0 [facility] Work Phone: Serum Dermatophagoides farin ae specific IgE antibody assay (units/volume)on 11-25-2021 Norwegian house dust mite IgE Qn (S) <0.10 kU/L Class 0 [facility] Work Phone: Serum house dust mi te IgE antibody assay (units/volume)on 11-25-2021 house dust mite IgE Qn (S) <0.10 kU/L Class 0 [facility] Work Phone: Serum Penicillium notatum Ig E antibody assay (units/volume)on 11-25-2021 P. notatum IgE Qn (S) <0.10 kU/L Class 0 [facility] Work Phone: Serum Periplaneta americana IgE antibody assay (units/volume)on 11-25-2021 Norwegian Cockroach IgE Qn (S) <0.10 kU/L Class 0 [facility] Work Phone: Serum Tunisian thistle specif ic IgE antibody assayon 11-25-2021 [place] IgE Qn (S) <0.10 kU/L Class 0 [facility] Work Phone: Serum birch specific IgE ant ibody assayon 11-25-2021 Silver Birch IgE Qn (S) <0.10 kU/L Class 0 [facility] Work Phone: Serum black walnut IgE antib samanta assay (units/volume)on 11-25-2021 Black Aubrey IgE Qn (S) <0.10 kU/L Class 0 [facility] Work Phone: Serum clam IgE antibody assa y (units/volume)on 11-25-2021 Clam IgE Qn (S) <0.10 kU/L Class 0 [facility] Work Phone: Serum codfish IgE antibody a ssay (units/volume)on 11-25-2021 Codfish IgE Qn (S) <0.10 kU/L Class 0 [facility] Work Phone: Serum corn IgE antibody assa y (units/volume)on 11-25-2021 [place] IgE Qn (S) <0.10 kU/L Class 0 [facility] Work Phone: Serum cottonwood IgE antibod y assay (units/volume)on 11-25-2021 [place] IgE Qn (S) <0.10 kU/L Class 0 [facility] Work Phone: Serum cow milk IgE antibody assay (units/volume)on 11-25-2021 Cow milk IgE Qn (S) <0.10 kU/L Class 0 [facility] Work Phone: Serum dog epithelium IgE ant ibody assay (units/volume)on 11-25-2021 Dog epithelium IgE Qn (S) <0.10 kU/L Class 0 [facility] Work Phone: Serum egg white IgE antibody assay (units/volume)on 11-25-2021 Egg white IgE Qn (S) <0.10 kU/L Class 0 [facility] Work Phone: Serum mountain cedar specifi c IgE antibody assayon 11-25-2021 Mountain Juniper IgE Qn (S) <0.10 kU/L Class 0 [facility] Work Phone: Serum peanut IgE antibody as say (units/volume)on 11-25-2021 Peanut IgE Qn (S) <0.10 kU/L Class 0 [facility] Work Phone: Serum pecan or hickory nut I gE antibody assay (units/volume)on 11-25-2021 Pecan or Cuming Nut IgE Qn (S) <0.10 kU/L Class 0 [facility] Work Phone: Serum sheep sorrel IgE antib samanta assay (units/volume)on 11-25-2021 Sheep [place] IgE Qn (S) <0.10 kU/L Class 0 [facility] Work Phone: Serum soybean IgE antibody a ssay (units/volume)on 11-25-2021 Soybean IgE Qn (S) <0.10 kU/L Class 0 [facility] Work Phone: Serum sancho IgE antibody a ssay (units/volume)on 11-25-2021 Sancho IgE Qn (S) <0.10 kU/L Class 0 [facility] Work Phone: Serum wheat IgE antibody ass ay (units/volume)on 11-25-2021 Wheat IgE Qn (S) <0.10 kU/L Class 0 [facility] Work Phone: Serum white dennis IgE antibody assay (units/volume)on 11-25-2021 White Dennis IgE Qn (S) <0.10 kU/L Class 0 [facility] Work Phone: Serum white elm IgE antibody assay (units/volume)on 11-25-2021 White Elm IgE Qn (S) <0.10 kU/L Class 0 [facility] Work Phone: Serum white mulberry IgE ant ibody assay (units/volume)on 11-25-2021 White mulberry IgE Qn (S) <0.10 kU/L Class 0 [facility] Work Phone: Absolute lymphocyte counton 11-23-2021 Lymphocytes Auto (Unsp spec) [#/Vol] 2.16 10*3/uL 0.83-4.51 [facility] Work Phone: Basophil percentageon 2021 Basophils/100 WBC (Bld) 0.5 % 0-1 [facility] Work Phone: Chloride [Moles/Vol] 104 mmol/L 98-107 [facility] Work Phone: Eosinophils/100 WBC (Bld) 1.0 % 0-5 [facility] Work Phone: Glucose [Mass/Vol] 106 mg/dL 74-106 [facility] Work Phone: Comment on above: Fasting Glucose resu lt from 100 to 125 mg/dL suggests IMPAIRED HOMEOSTASIS per A.D.A. criteria. Neutrophils (Bld) [#/Vol] 3.0 10*3/uL 2.0-7.7 [facility] Work Phone: Neutrophils/100 WBC (Bld) 50.2 % 47-70 [facility] Work Phone: Potassium [Moles/Vol] 4.1 mmol/L 3.5-5.1 [facility] Work Phone: Sodium [Moles/Vol] 140 mmol/L 136-145 [facility] Work Phone: WBC (Bld) [#/Vol] 5.9 10*3/uL 4.4-11.0 [facility] Work Phone: Blood erythrocytes count (nu mber/volume)on 11-23-2021 RBC (Bld) [#/Vol] 4.58 10*6/uL 4.6-6.2 [facility] Work Phone: Blood hemoglobin measurement (mass/volume)on 11-23-2021 Hemoglobin (Bld) [Mass/Vol] 15.4 g/dL 13.0-16.5 [facility] Work Phone: Blood lymphocytes/100 leukoc yteson 11-23-2021 Lymphocytes/100 WBC (Bld) 36.6 % 19-41 [facility] Work Phone: [phone] Blood monocytes/100 leukocyt eson 11-23-2021 Monocytes/100 WBC (Bld) 11.4 % 0-10 [facility] Work Phone: Blood platelet mean volumeon 11-23-2021 Platelet mean volume (Bld) [Entitic vol] 9.2 fL 6.2-12.0 [facility] Work Phone: Determination of erythrocyte mean corpuscular volume (MCV)on 11-23-2021 MCV (RBC) [Entitic vol] 99.3 fL 80-94 [facility] Work Phone: Hematocrit Auto (Bld) [Volum e fraction]on 11-23-2021 Hematocrit (Bld) [Volume fraction] 45.5 % 40-54 [facility] Work Phone: Laboratory - Chemistry and C hemistry - challengeon 11-23-2021 CO2 [Moles/Vol] 28.0 mmol/L 21.0-32.0 [facility] Work Phone: Urea nitrogen/Creatinine [Mass ratio] 17.0 mg/mg 10-20 [facility] Work Phone: Laboratory - Hematology and Cell countson 11-23-2021 Erythrocyte distribution width (RBC) [Entitic vol] 45.5 fL 35.1-43.9 [facility] Work Phone: Erythrocyte distribution width (RBC) [Ratio] 12.4 % 11.6-14.6 [facility] Work Phone: Immature granulocytes/100 WBC (Bld) 0.300 % 0.0-0.9 [facility] Work Phone: Comment on above: IG% - Immature Granu locytes (promyelocytes, myelocytes and metamyelocytes) > 1% indicates that a LEFT SHIFT is Present. MCH (RBC) [Entitic mass] 33.6 pg 27.0-32.0 [facility] Work Phone: Nucleated RBC/100 WBC (Bld) [Ratio] 0 % 0-5 [facility] Work Phone: [phone] MCHC Auto (RBC) [Mass/Vol]on 11-23-2021 MCHC (RBC) [Mass/Vol] 33.8 g/dL 32-36 [facility] Work Phone: No Panel Informationon 11-23 Estimated GFR (MDRD) Amer 114 mL/min >60 [facility] Work Phone: Comment on above: GFR Calc Estimated GFR (MDRD) Non-Af Amer 95 mL/min >60 [facility] Work Phone: Comment on above: Non- GFR Calc Platelets bldon 11-23-2021 Platelets (Bld) [#/Vol] 208 10*3/uL 150-450 [facility] Work Phone: Serum or plasma calcium gentry urement (mass/volume)on 11-23-2021 Calcium [Mass/Vol] 8.8 mg/dL 8.5-10.1 [facility] Work Phone: [phone] Serum or plasma creatinine m easurement (mass/volume)on 11-23-2021 Creatinine [Mass/Vol] 0.88 mg/dL 0.70-1.30 [facility] Work Phone: Comment on above: The validity of the calculated GFR & GFRAA in patients over 70 years has not been determined. Clinical correlation is essential. Serum or plasma urea nitroge n measurement (mass/volume)on 11-23-2021 Urea nitrogen [Mass/Vol] 15 mg/dL 7-18 [facility] Work Phone: [phone] Thin prep Papanicolaou smear with manual screeningon 11-23-2021 Thin prep Papanicolaou smear with manual screening 8 06-21 [facility] Work Phone: Telephone Encounteron 2021 [employer] Techn[employer] Authentication Interface Message Text From: Yair Friedman To: Tito Beatty MD Sent: 09/24/2021 12:22 PM EDT Subject: Question regarding BASIC METABOLIC PANEL After results should I start Sulfasalazine? I have started taking a aleve 1 tablet twice a day. Normal [facility] BASIC METABOLIC PANELon Anion gap [Moles/Vol] 9 mmol/L Low 10-20 [facility] Comment on above: Performed By: #### C H8, HEPATIC, URIC ####[facility] [id number] [place], [place], Calcium [Mass/Vol] 9.3 mg/dL Normal 8.4-10.4 [facility] Comment on above: Performed By: #### C H8, HEPATIC, URIC ####[facility] [id number] [place], [place], Chloride [Moles/Vol] 104 mmol/L Normal 97-111 [facility] Comment on above: Performed By: #### C H8, HEPATIC, URIC ####[facility] [id number] [place], CO2 [Moles/Vol] 27 mmol/L Normal 21-30 [facility] Comment on above: Performed By: #### C H8, HEPATIC, URIC ####[facility] [id number] [place], Creatinine [Mass/Vol] 0.78 mg/dL Low 0.80-1.30 [facility] Comment on above: Performed By: #### C H8, HEPATIC, URIC ####[facility] [id number] [place], ESTIMATED GFR (CKD-EPI) 105 mL/min/1.73sqm Normal >=60 [facility] Comment on above: Result Comment: 2020 CKD EPI Equation using Creatinine without Race Comment: Estimated glomerular filtration rate (eGFR) is calculated without a race coefficient. Values should be interpreted in the context of the patient's full clinical presentation. Reference: 1. Aryan C, Cristiano M, Michelet DC, et al.. A Unifying Approach for GFR Estimation: Recommendations of the NKF-ASN Task Force on Reassessing the Inclusion of Race in Diagnosing Kidney Disease. [place] Journal of Kidney Diseases 2021;79(2):268-88.e1. 2. N Engl J Med 1 Vol. 385 Issue 19 Pages 1979-0172 Performed By: #### C H8, HEPATIC, URIC ####[facility] [id number] [place], Glucose [Mass/Vol] 94 mg/dL Normal 68-110 [facility] Comment on above: Performed By: #### C H8, HEPATIC, URIC ####[facility] [id number] [place], Potassium [Moles/Vol] 3.9 mmol/L Normal 3.3-5.3 [facility] Comment on above: Performed By: #### C H8, HEPATIC, URIC ####[facility] [id number] [place], Sodium [Moles/Vol] 136 mmol/L Normal 135-148 [facility] Comment on above: Performed By: #### C H8, HEPATIC, URIC ####[facility] [id number] [place], Urea nitrogen [Mass/Vol] 9 mg/dL Normal 8-22 [facility] Comment on above: Performed By: #### C H8, HEPATIC, URIC ####[facility] [id number] [place], [place], Basic metabolic 2000 panelon 09-14-2021 Anion gap [Moles/Vol] 9 mmol/L [facility] Calcium [Mass/Vol] 9.3 mg/dL 8.4 - 10. 4 mg/dL [facility] Chloride [Moles/Vol] 104 mmol/L 97 - 11 1 mmol/L [facility] CO2 [Moles/Vol] 27 mmol/L 21 - 30 mmol/L [facility] Creatinine [Mass/Vol] 0.78 mg/dL Low 0.80 - 1.30 mg/dL [facility] GFR/1.73 sq M.predicted MDRD (S/P/Bld) [Vol rate/Area] 105 mL/min/{1.73_m2} >=60 mL/min/1.7 3sqm [facility] Comment on above: 2020 CKD EPI Equatio n using Creatinine without Race Comment: Estimated glomerular filtration rate (eGFR) is calculated without a race coefficient. Values should be interpreted in the context of the patient's full clinical presentation. Reference: 1. Aryan C, Cristiano M, Michelet DC, et al.. A Unifying Approach for GFR Estimation: Recommendations of the NKF-ASN Task Force on Reassessing the Inclusion of Race in Diagnosing Kidney Disease. [place] Journal of Kidney Diseases 202;79(2):268-88.e1. 2. N Engl J Med 2020 Vol. 385 Issue 19 Pages 4030-5027 Glucose [Mass/Vol] 94 mg/dL 68 - 110 mg/dL [facility] Interpretation and review of laboratory results Abnormal [facility] Potassium [Moles/Vol] 3.9 mmol/L 3.3 - 5.3 mmol/L [facility] Sodium [Moles/Vol] 136 mmol/L 135 - 148 mmol/L [facility] Urea nitrogen [Mass/Vol] 9 mg/dL 8 - 22 mg/dL [facility] CBC panel Auto (Bld)on 09-14 Erythrocyte distribution width (RBC) [Ratio] 13.5 % 11.5 - 14.5 % [facility] Hematocrit (Bld) [Volume fraction] 43.0 % 41.0 - 53.0 % [facility] Hemoglobin (Bld) [Mass/Vol] 14.7 g/dL 13.9 - 16.3 g/dL [facility] Interpretation and review of laboratory results Abnormal [facility] MCH (RBC) [Entitic mass] 33.9 pg 26.0 - 34.0 pg [facility] MCHC (RBC) [Mass/Vol] 34.1 g/dL 32.0 - 35.9 g/dL [facility] MCV (RBC) [Entitic vol] 99 fL 80 - 100 fL [facility] Platelet mean volume (Bld) [Entitic vol] 7.1 fL Low 7.5 - 11.2 fL [facility] Platelets (Bld) [#/Vol] 204 10*3/uL 150 - 400 K/uL [facility] RBC (Bld) [#/Vol] 4.33 10*6/uL Low [facility] WBC (Bld) [#/Vol] 5.1 10*3/uL 4.5 - 11.5 K/uL [facility] COMPLETE BLOOD COUNTon 09-14 Erythrocyte distribution width (RBC) [Ratio] 13.5 % Normal 11.5-14.5 [facility] Comment on above: Performed By: #### C BC ####[facility] [id number] [place], [place], Hematocrit (Bld) [Volume fraction] 43.0 % Normal 41.0-53.0 [facility] Comment on above: Performed By: #### C BC ####[facility] PATHOLOGY [id number] [place] [address], Hemoglobin (Bld) [Mass/Vol] 14.7 g/dL Normal 13.9-16.3 [facility] Comment on above: Performed By: #### C BC ####[facility] [id number] [place], MCH (RBC) [Entitic mass] 33.9 pg Normal 26.0-34.0 [facility] Comment on above: Performed By: #### C BC ####[facility] PATHOLOGY [id number] [place], MCHC (RBC) [Mass/Vol] 34.1 g/dL Normal 32.0-35.9 [facility] Comment on above: Performed By: #### C BC ####[facility] [id number] [place], MCV (RBC) [Entitic vol] 99 fL Normal 80-100 [facility] Comment on above: Performed By: #### C BC ####[facility] [id number] [place], Platelet mean volume (Bld) [Entitic vol] 7.1 fL Low 7.5-11.2 [facility] Comment on above: Performed By: #### C BC ####[facility] [id number] [place], Platelets (Bld) [#/Vol] 204 10*3/uL Normal 150-400 [facility] Comment on above: Performed By: #### C BC ####[facility] [id number] [place], RBC (Bld) [#/Vol] 4.33 10*6/uL Low 4.50-5.90 [facility] Comment on above: Performed By: #### C BC ####[facility]OLOG[facility] [id number] [place], WBC (Bld) [#/Vol] 5.1 10*3/uL Normal 4.5-11.5 [facility] Comment on above: Performed By: #### C BC ####[facility] [id number] [place], G6PD, QUALITATIVE SCREENon 0 09-14-2021 G-6-PD Normal enzyme activity Normal [place] l enzyme activity [facility] Comment on above: Performed By: #### G 6PD ####[facility] [id number] [place], HEPATIC FUNCTION PANELon Albumin [Mass/Vol] 4.1 g/dL Normal 3.4-5.1 [facility] Comment on above: Performed By: #### Burke H8, HEPATIC, URIC ####[facility] [id number] [place], ALK 60 IU/L Normal 40-200 [facility] Comment on above: Performed By: #### [place] H8, HEPATIC, URIC ####S PATHOLOGY [id number] [place], ALT [Catalytic activity/Vol] 23 U/L Normal 7-40 [facility] Comment on above: Performed By: #### [place] H8, HEPATIC, URIC ####S PATHOLOGY [id number] [place], AST [Catalytic activity/Vol] 25 U/L Normal 7-40 [facility] Comment on above: Performed By: #### C H8, HEPATIC, URIC ####[facility] [id number] [place], Bilirubin [Mass/Vol] 0.4 mg/dL Normal 0.1-1.5 [facility] Comment on above: Performed By: #### C H8, HEPATIC, URIC ####[facility] [id number] [place], Bilirubin.direct [Mass/Vol] 0.10 mg/dL Normal 0.10-0.30 [facility] Comment on above: Performed By: #### C H8, HEPATIC, URIC ####[facility] [id number] [place], Protein [Mass/Vol] 7.0 g/dL Normal 5.8-8.1 [facility] Comment on above: Performed By: #### C H8, HEPATIC, URIC ####[facility] [id number] [place], Albumin [Mass/Vol] 4.1 g/dL 3.4 - 5.1 g/dL [facility] ALP [Catalytic activity/Vol] 60 U/L [facility] ALT [Catalytic activity/Vol] 23 U/L [facility] AST [Catalytic activity/Vol] 25 U/L [facility] Bilirubin [Mass/Vol] 0.4 mg/dL 0.1 - 1 .5 mg/dL [facility] Bilirubin.direct [Mass/Vol] 0.10 mg/dL 0.10 - 0.30 mg/dL [facility] Protein [Mass/Vol] 7.0 g/dL 5.8 - 8.1 g/dL [facility] No Panel Informationon 09-14 Interpretation and review of laboratory results Normal [facility] 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 Possible psoriatic arthritis. 2. HIV disease. S: This 56-year-old man was advised to see me by his orthopedic doctor because of multiple joint pains in various areas including his hands, wrists, ankles, feet, knees, and shoulders. He indicates that he has had pain in multiple joints intermittently for several years but believes that his joint symptoms have been worse since he acquired COVID infection in December of last year. He has generally been followed by his orthopedic surgeon, who has carried out carpal tunnel releases bilaterally, ulnar nerve repair on the left, bicipital tendon repair on the left, and rotator cuff tear on the left. In recent months he was given a Medrol Dosepak and found this to be exceedingly helpful with dramatic resolution of all of his joint pains. Unfortunately, they returned of 1-2 weeks after he completed the Dosepak. He has occasionally taken ibuprofen but not regularly, with modest benefit. His worst symptoms have been in his ankles and feet and hands. He feels worst in the morning when he has stiffness that can last for several hours. He believes there is occasional swelling of the ankles and the feet. His past medical history is significant for psoriasis since age 18 for which he has been followed by a optical fabricator and treated mostly with topical agents. Within the past year or 2 he was started on Otezla by his optical fabricator and did find this to be quite helpful for both his skin and his joints, but was unable to afford it. Within the past several months he was hospitalized for kidney stones requiring surgical removal. He has a history of HIV for over 30 years and has remained on appropriate therapy and does have follow-up by his infectious disease specialists every 6 months, with generally normal CD4 counts. He has a history of mild GI upset for which he takes omeprazole. He is a nonsmoker. Family history discloses that his mother has an undisclosed type of arthritis, possibly osteoarthritis. On review of systems he denies fever, anorexia, chronic cough, shortness of breath, chest pain, ocular inflammation, frequent mouth sores, abdominal pain, or blood in the stool or hematuria. He does have intermittent diarrhea. His psoriasis generally involves his right elbow and to a lesser extent the scalp and genital area. Currently he uses topical agents with some benefit for these lesions. O: His blood pressure is 127/95 and his weight is 169 lb. He is ambulating without difficulty. The skin shows a small 3 cm patch of psoriasis on the right elbow. There is no psoriasis elsewhere. 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 There may be slight tenderness of the right wrist. Elbows are asymptomatic. Shoulders show full range of motion. Hip range of motion is normal. The knees are cool without effusions. Ankles are slightly tender and there is mild tenderness across the MTP joints of both feet but no swelling of small joints. He does have dystrophic toenails. Laboratory tests within the past month by his primary physician in [facility] disclosed creatinine of 1.51 with GFR of 50%. CBC was normal. Rheumatoid factor and [facility] were negative. CRP was 0.5. A: Today his examination is relatively unremarkable for swelling or tenderness of peripheral joints but his history does seem somewhat consistent with psoriatic arthritis. Unfortunately, he may have mild renal disease since he did recently have renal stones. We will need to investigate laboratory studies before we consider treatment for example with NSAIDs, or even DMARDs. P: 1. He will obtain BMP, LFTs, CBC, uric acid, and G6PD today. 2. We briefly discussed potential treatment options such as sulfasalazine or NSAIDs. 3. He will contact me in several days to discuss the results of his laboratory tests and decide regarding potential treatment. Tito Beatty MD Normal [facility] Soil Field Technician Authentication Interface Message Text Patient was identified by name and date of . Clary Aparicio Patient at risk for falls:No Falls Risk protocol implemented: No Normal [facility] URIC ACIDon 09-14-2021 Urate [Mass/Vol] 5.4 mg/dL Normal 2.0-7.3 [facility] Comment on above: Performed By: #### C H8, HEPATIC, URIC ####[facility] [id number] [place], [id number] Urate [Mass/Vol] 5.4 mg/dL 2.0 - 7.3 mg/dL [facility] Absolute lymphocyte counton 08-15-2021 Lymphocytes Auto (Unsp spec) [#/Vol] 2.71 10*3/uL 0.83-4.51 [facility] Work Phone: Basophil percentageon 2021 Basophil percentage 5-10 SEEN /hpf 0-5 [facility] Work Phone: Basophils/100 WBC (Bld) 0.6 % 0-1 [facility] Work Phone: Bilirubin [Mass/Vol] 0.20 mg/dL 0.20-1.00 [facility] Work Phone: Comment on above: For patients on eltr ombopag therapy, use of Dimension [place] TBIL is not recommended. Chloride [Moles/Vol] 104 mmol/L 98-107 [facility] Work Phone: Eosinophils/100 WBC (Bld) 1.1 % 0-5 [facility] Work Phone: [phone] Glucose [Mass/Vol] 115 mg/dL 74-106 [facility] Work Phone: Comment on above: Fasting Glucose resu lt from 100 to 125 mg/dL suggests IMPAIRED HOMEOSTASIS per A.D.A. criteria. Neutrophils (Bld) [#/Vol] 4.7 10*3/uL 2.0-7.7 [facility] Work Phone: Neutrophils/100 WBC (Bld) 55.0 % 47-70 [facility] Work Phone: [phone] Potassium [Moles/Vol] 3.9 mmol/L 3.5-5.1 [facility] Work Phone: Comment on above: Moderate Hemolysis, Result may be falsely increased. Protein [Mass/Vol] 7.5 g/dL 6.4-8.2 [facility] Work Phone: [phone] Sodium [Moles/Vol] 138 mmol/L 136-145 [facility] Work Phone: [phone] WBC (Bld) [#/Vol] 8.5 10*3/uL 4.4-11.0 [facility] Work Phone: Bilirubin Test strip Ql (U)o n 08-15-2021 Bilirubin Ql (U) 3 mg/dL Negative [facility] Work Phone: Comment on above: COLOR OF URINE MAY A FFECT DIPSTICK RESULTS. Blood erythrocytes count (nu mber/volume)on 08-15-2021 RBC (Bld) [#/Vol] 4.27 10*6/uL 4.6-6.2 [facility] Work Phone: Blood hemoglobin measurement (mass/volume)on 08-15-2021 Hemoglobin (Bld) [Mass/Vol] 14.8 g/dL 13.0-16.5 [facility] Work Phone: Blood lymphocytes/100 leukoc yteson 08-15-2021 Lymphocytes/100 WBC (Bld) 31.9 % 19-41 [facility] Work Phone: Blood monocytes/100 leukocyt eson 08-15-2021 Monocytes/100 WBC (Bld) 10.5 % 0-10 [facility] Work Phone: Blood platelet mean volumeon 08-15-2021 Platelet mean volume (Bld) [Entitic vol] 8.6 fL 6.2-12.0 [facility] Work Phone: Determination of erythrocyte mean corpuscular volume (MCV)on 08-15-2021 MCV (RBC) [Entitic vol] 100.2 fL 80-94 [facility] Work Phone: Direct bilirubinon 2 Bilirubin.direct [Mass/Vol] mg/dL 0.00-0.30 [facility] Work Phone: Hematocrit Auto (Bld) [Volum e fraction]on 08-15-2021 Hematocrit (Bld) [Volume fraction] 42.8 % 40-54 [facility] Work Phone: Ketones Test strip Ql (U)on 08-15-2021 Ketones Ql (U) 5 mg/dl Negative [facility] Work Phone: Laboratory - Chemistry and C hemistry - challengeon 08-15-2021 ALP [Catalytic activity/Vol] 79 U/L 45-117 [facility] Work Phone: ALT [Catalytic activity/Vol] 29 U/L 16-61 [facility] Work Phone: CO2 [Moles/Vol] 25.0 mmol/L 21.0-32.0 [facility] Work Phone: Globulin (S) [Mass/Vol] 3.6 g/dL 2.2-4.2 [facility] Work Phone: [phone] Lipase [Catalytic activity/Vol] 86 U/L 73-393 [facility] Work Phone: [phone] Urea nitrogen/Creatinine [Mass ratio] 14.3 mg/mg 10-20 [facility] Work Phone: [phone] Laboratory - Hematology and Cell countson 08-15-2021 Erythrocyte distribution width (RBC) [Entitic vol] 44.4 fL 35.1-43.9 [facility] Work Phone: [phone] Erythrocyte distribution width (RBC) [Ratio] 12.1 % 11.6-14.6 [facility] Work Phone: [phone] Immature granulocytes/100 WBC (Bld) 0.900 % 0.0-0.9 [facility] Work Phone: [phone] Comment on above: IG% - Immature Granu locytes (promyelocytes, myelocytes and metamyelocytes) > 1% indicates that a LEFT SHIFT is Present. MCH (RBC) [Entitic mass] 34.7 pg 27.0-32.0 [facility] Work Phone: Nucleated RBC/100 WBC (Bld) [Ratio] 0 % 0-5 [facility] Work Phone: [phone] MCHC Auto (RBC) [Mass/Vol]on 08-15-2021 MCHC (RBC) [Mass/Vol] 34.6 g/dL 32-36 [facility] Work Phone: Mucus LM Ql (Urine sed)on Mucus Ql (Urine sed) 0 SEEN /hpf [facility] Work Phone: [phone] Nitrite Test strip Ql (U)on 08-15-2021 Nitrite Ql (U) Positive Negative [facility] Work Phone: [phone] No Panel Informationon 08-15 Estimated Creatinine Clearance Calc 51.82 ml/min [facility] Work Phone: [phone] Estimated GFR (MDRD) Amer 60 mL/min >60 [facility] Work Phone: Comment on above: GFR Calc Estimated GFR (MDRD) Non-Af Amer 50 mL/min >60 [facility] Work Phone: Comment on above: Non- GFR Calc Platelets bldon 08-15-2021 Platelets (Bld) [#/Vol] 229 10*3/uL 150-450 [facility] Work Phone: Protein Test strip Ql (U)on 08-15-2021 Protein Ql (U) 100 mg/dl Negative [facility] Work Phone: [phone] Serum or plasma albumin gentry urement (mass/volume)on 08-15-2021 Albumin [Mass/Vol] 3.9 g/dL 3.2-5.0 [facility] Work Phone: [phone] Serum or plasma calcium gentry urement (mass/volume)on 08-15-2021 Calcium [Mass/Vol] 8.3 mg/dL 8.5-10.1 [facility] Work Phone: Serum or plasma creatinine m easurement (mass/volume)on 08-15-2021 Creatinine [Mass/Vol] 1.54 mg/dL 0.70-1.30 [facility] Work Phone: Comment on above: The validity of the calculated GFR & GFRAA in patients over 70 years has not been determined. Clinical correlation is essential. Serum or plasma urea nitroge n measurement (mass/volume)on 08-15-2021 Urea nitrogen [Mass/Vol] 22 mg/dL 7-18 [facility] Work Phone: [phone] Squamous epithelial cells de tection in urine sediment by light microscopyon 08-15-2021 Epithelial cells.squamous LM Ql (Urine sed) 0 SEEN /hpf 0-5 [facility] Work Phone: Thin prep Papanicolaou smear with manual screeningon 08-15-2021 Thin prep Papanicolaou smear with manual screening 30 U/L 15-37 [facility] Work Phone: Comment on above: Moderate Hemolysis, Result may be falsely increased. Thin prep Papanicolaou smear with manual screening 9 5-15 [facility] Work Phone: Urine blood detectionon RBC Ql (U) 250 /ul Negative [facility] Work Phone: RBC Ql (U) 10-25 SEEN /hpf 0-5 [facility] Work Phone: Urine clarityon 08-15-2021 Clarity (U) Cloudy Clear [facility] Work Phone: Urine color determinationon 08-15-2021 Color (U) Norma Yellow [facility] Work Phone: Urine glucose detectionon Glucose Ql (U) Normal mg/dl Normal [facility] Work Phone: Urine leukocyte esterase det ection by dipstickon 08-15-2021 Leukocyte esterase Test strip Ql (U) Negative Negative [facility] Work Phone: Urine pHon 08-15-2021 pH (U) 5.0 [pH] 5.0 - 8.0 [facility] Work Phone: Urine sediment bacteria coun t by microscopy (number/high power field)on 08-15-2021 Bacteria LM.HPF (Urine sed) [#/Area] 1 /[HPF] None Seen [facility] Work Phone: Urine specific gravity measu rementon 08-15-2021 Specific gravity (U) [Rel density] 1.030 1.002-1.03 0 [facility] Work Phone: Urobilinogen Auto test strip Ql (U)on 08-15-2021 Urobilinogen Ql (U) 8 mg/dl Normal [facility] Work Phone: No Panel Informationon 08-14 Prostate Specific Antigen Screen 1.36 ng/mL 0.00-4.00 [facility] Work Phone: Comment on above: This test was perfor med using the TPSA assay method [facility]. Values obtained with differentassay methods cannot be used interchangably.When changing PSA assays in the course of monitoring apatient, additional sequential testing should be carriedout to confirm baseline values. Basophil percentageon 2021 Basophil percentage 5-10 SEEN /hpf 0-5 [facility] Work Phone: Bilirubin Test strip Ql (U)o n 08-11-2021 Bilirubin Ql (U) Negative Negative [facility] Work Phone: Ketones Test strip Ql (U)on 08-11-2021 Ketones Ql (U) Negative Negative [facility] Work Phone: Laboratory - Chemistry and C hemistry - challengeon 08-11-2021 Bilirubin Ql (U) Small (1+) [facility] Work Phone: Ketones Ql (U) Trace (5) [facility] Work Phone: pH (U) 5.0 [pH] [facility] Work Phone: Specific gravity (U) [Rel density] >1.030 [facility] Work Phone: Urobilinogen (U) [Mass/Vol] 0.6961762 mg/dL [facility] Work Phone: [phone] Laboratory - Hematology and Cell countson 08-11-2021 Hemoglobin Ql (U) Trace [facility] Work Phone: Laboratory - Specimen inform ationon 08-11-2021 Clarity (U) Hazy [facility] Work Phone: Color (U) Dk Yellow [facility] Work Phone: Laboratory - Urinalysison Nitrite Ql (U) Negative [facility] Work Phone: Protein Ql (U) Trace [facility] Work Phone: Mucus LM Ql (Urine sed)on Mucus Ql (Urine sed) 0 SEEN /hpf [facility] Work Phone: Nitrite Test strip Ql (U)on 08-11-2021 Nitrite Ql (U) Negative Negative [facility] Work Phone: No Panel Informationon 08-11 Urine Leukocytes Negatve [facility] Work Phone: Urine Non-Hemolyzed Blood Non-Hemolyzed [facility] Work Phone: Protein Test strip Ql (U)on 08-11-2021 Protein Ql (U) 15 mg/dl Negative [facility] Work Phone: Squamous epithelial cells de tection in urine sediment by light microscopyon 08-11-2021 Epithelial cells.squamous LM Ql (Urine sed) 0-5 SEEN /hpf 0-5 [facility] Work Phone: Urine blood detectionon RBC Ql (U) Negative Negative [facility] Work Phone: RBC Ql (U) 0-5 SEEN /hpf 0-5 [facility] Work Phone: Urine clarityon 08-11-2021 Clarity (U) Clear Clear [facility] Work Phone: Urine color determinationon 08-11-2021 Color (U) Yellow Yellow [facility] Work Phone: Urine glucose detectionon Glucose Ql (U) Normal mg/dl Normal [facility] Work Phone: Urine leukocyte esterase det ection by dipstickon 08-11-2021 Leukocyte esterase Test strip Ql (U) Negative Negative [facility] Work Phone: Urine pHon 08-11-2021 pH (U) 6.0 [pH] 5.0 - 8.0 [facility] Work Phone: Urine sediment bacteria coun t by microscopy (number/high power field)on 08-11-2021 Bacteria LM.HPF (Urine sed) [#/Area] RARE /hpf None Seen [facility] Work Phone: Urine specific gravity measu rementon 08-11-2021 Specific gravity (U) [Rel density] 1.030 1.002-1.03 0 [facility] Work Phone: Urobilinogen Auto test strip Ql (U)on 08-11-2021 Urobilinogen Ql (U) Normal mg/dl Normal [facility] Work Phone: Whole blood hemoglobin A1c/t otal hemoglobin ratio (mass fraction)on 07-07-2021 HbA1c (Bld) [Mass fraction] 5.4 % 3.8-5.6 [facility] Work Phone: Comment on above: Normal < 5.7 % Predi abetic 5.7 - 6.4 % Diabetic >or= 6.5 % Please note range changes. Absolute lymphocyte counton 06-25-2021 Lymphocytes Auto (Unsp spec) [#/Vol] 1.70 10*3/uL 0.83-4.51 [facility] Work Phone: Basophil percentageon 2021 Basophil percentage 0-5 SEEN /hpf 0-5 [facility] Work Phone: Basophil percentage Not Reportable [facility] Work Phone: Basophils/100 WBC (Bld) 0.4 % 0-1 [facility] Work Phone: Bilirubin [Mass/Vol] 0.30 mg/dL 0.20-1.00 [facility] Work Phone: Comment on above: For patients on eltr ombopag therapy, use of Dimension [place] TBIL is not recommended. Chloride [Moles/Vol] 106 mmol/L 98-107 [facility] Work Phone: Eosinophils/100 WBC (Bld) 1.6 % 0-5 [facility] Work Phone: Glucose [Mass/Vol] 107 mg/dL 74-106 [facility] Work Phone: Comment on above: Fasting Glucose resu lt from 100 to 125 mg/dL suggests IMPAIRED HOMEOSTASIS per A.D.A. criteria. Neutrophils (Bld) [#/Vol] 2.1 10*3/uL 2.0-7.7 [facility] Work Phone: Neutrophils/100 WBC (Bld) 46.7 % 47-70 [facility] Work Phone: Potassium [Moles/Vol] 3.7 mmol/L 3.5-5.1 [facility] Work Phone: Protein [Mass/Vol] 7.4 g/dL 6.4-8.2 [facility] Work Phone: Sodium [Moles/Vol] 138 mmol/L 136-145 [facility] Work Phone: WBC (Bld) [#/Vol] 4.5 10*3/uL 4.4-11.0 [facility] Work Phone: Bilirubin Test strip Ql (U)o n 06-25-2021 Bilirubin Ql (U) Negative Negative [facility] Work Phone: Blood erythrocytes count (nu mber/volume)on 06-25-2021 RBC (Bld) [#/Vol] 4.07 10*6/uL 4.6-[facility] Blood hemoglobin measurement (mass/volume)on 06-25-2021 Hemoglobin (Bld) [Mass/Vol] 14.0 g/dL 13.0-16.5 [facility] Work Phone: Blood lymphocytes/100 leukoc yteson 06-25-2021 Lymphocytes/100 WBC (Bld) 37.9 % 19-41 [facility] Work Phone: Blood monocytes/100 leukocyt eson 06-25-2021 Monocytes/100 WBC (Bld) 13.2 % 0-10 [facility] Work Phone: Blood platelet mean volumeon 06-25-2021 Platelet mean volume (Bld) [Entitic vol] 9.2 fL 6.2-12.0 [facility] Work Phone: Determination of erythrocyte mean corpuscular volume (MCV)on 06-25-2021 MCV (RBC) [Entitic vol] 101.7 fL 80-94 [facility] Work Phone: Erythrocyte sedimentation ra gee 06-25-2021 ESR (Bld) [Velocity] 11 mm/h 0-20 [facility] Work Phone: Hematocrit Auto (Bld) [Volum e fraction]on 06-25-2021 Hematocrit (Bld) [Volume fraction] 41.4 % 40-54 [facility] Work Phone: Ketones Test strip Ql (U)on 06-25-2021 Ketones Ql (U) Negative Negative [facility] Work Phone: Laboratory - Chemistry and C hemistry - challengeon 06-25-2021 Cobalamin (Vitamin B12) [Mass/Vol] 280 pg/mL 211-911 [facility] Work Phone: ALP [Catalytic activity/Vol] 72 U/L 45-117 [facility] Work Phone: ALT [Catalytic activity/Vol] 28 U/L 16-61 [facility] Work Phone: CO2 [Moles/Vol] 27.0 mmol/L 21.0-32.0 [facility] Work Phone: Free T4 [Mass/Vol] 1.02 ng/dL 0.76-1.46 [facility] Work Phone: Globulin (S) [Mass/Vol] 3.6 g/dL 2.2-4.2 [facility] Work Phone: Magnesium [Mass/Vol] 1.9 mg/dL 1.6-2.6 [facility] Work Phone: Urea nitrogen/Creatinine [Mass ratio] 28.6 mg/mg 10-20 [facility] Work Phone: Laboratory - Hematology and Cell countson 06-25-2021 Erythrocyte distribution width (RBC) [Entitic vol] 45.0 fL 35.1-43.9 [facility] Work Phone: Erythrocyte distribution width (RBC) [Ratio] 12.0 % 11.6-14.6 [facility] Work Phone: [phone] Immature granulocytes/100 WBC (Bld) 0.200 % 0.0-0.9 [facility] Work Phone: [phone] Comment on above: IG% - Immature Granu locytes (promyelocytes, myelocytes and metamyelocytes) > 1% indicates that a LEFT SHIFT is Present. MCH (RBC) [Entitic mass] 34.4 pg 27.0-32.0 [facility] Work Phone: [phone] Nucleated RBC/100 WBC (Bld) [Ratio] 0.4 % 0-5 [facility] Work Phone: [phone] MCHC Auto (RBC) [Mass/Vol]on 06-25-2021 MCHC (RBC) [Mass/Vol] 33.8 g/dL 32-36 [facility] Work Phone: [phone] Mucus LM Ql (Urine sed)on Mucus Ql (Urine sed) 0 SEEN /hpf [facility] Work Phone: [phone] Nitrite Test strip Ql (U)on 06-25-2021 Nitrite Ql (U) Negative Negative [facility] Work Phone: [phone] No Panel Informationon 06-25 Anti-Nuclear Antibody Screen Negative Negative [facility] Work Phone: [phone] Comment on above: Performed at: [place] [id number] Director: Carrillo Finn PhD, Phone: [phone] Centromere B Antibody Not Reportable [facility] Work Phone: [phone] Estimated GFR (MDRD) Amer 150 mL/min >60 [facility] Work Phone: [phone] Comment on above: GFR Calc Estimated GFR (MDRD) Non-Af Amer 124 mL/min >60 [facility] Work Phone: [phone] Comment on above: Non- GFR Calc Free Triiodothyronine (T3) pg/dL 3.3 pg/mL 2.18-3.98 [facility] Work Phone: COMMUTATOR UNDERCUTTER Antibody Not Reportable [facility] Work Phone: Thyroid Stimulating Hormone (TSH) 0.96 uIU/mL 0.358-3.74 [facility] Work Phone: Vitamin D 25-Hydroxy 21.9 ng/mL [facility] Work Phone: Comment on above: Vitamin D 25(OH) Sta tus Range Deficiency <20 ng/mL (50nmol/L) Insufficiency 20 - 30 ng/mL (50 - 75 nmol/L) Sufficiency 30 - 100 ng/mL (75 - 250 nmol/L) Toxicity >100 ng/mL (>250 nmol/L) Platelets bldon 06-25-2021 Platelets (Bld) [#/Vol] 226 10*3/uL 150-450 [facility] Work Phone: Protein Test strip Ql (U)on 06-25-2021 Protein Ql (U) 15 mg/dl Negative [facility] Work Phone: Serum DNA double strand anti body assay (units/volume)on 06-25-2021 DNA double strand Ab Qn (S) Not Reportable [facility] Work Phone: Serum Zuleima-1 antibody assay (u nits/volume)on 06-25-2021 Zuleima-1 extractable nuclear Ab Qn (S) Not Reportable [facility] Work Phone: Serum Scl-70 extractable nuc lear antibody assay (units/volume)on 06-25-2021 SCL-70 extractable nuclear Ab Qn (S) Not Reportable [facility] Work Phone: Serum [place] extractable nucl ear antibody detectionon 06-25-2021 [place] extractable nuclear Ab Ql (S) Not Reportable [facility] Work Phone: Serum cyclic citrullinated p eptide IgG antibody assay (units/volume)on 06-25-2021 Cyclic citrullinated peptide IgG Qn 5 units 0-19 [facility] Work Phone: Comment on above: Negative <20 Weak po sitive 20 - 39 Moderate positive 40 - 59 Strong positive >59Performed at: [facility] [id number] [place], [place] [id number] Director: Estuardo Masters MD, Phone: [phone] Serum or plasma C reactive p rotein measurement (mass/volume)on 06-25-2021 CRP [Mass/Vol] 5.14 mg/L 0.0-3.0 [facility] Work Phone: Comment on above: C-Reactive Protein ( CRP) provides useful information for thediagnosis, therapy and monitoring of inflammatory processesand associated diseases. For the evaluation of Relative Riskfor Cardiovascular Disease, a High Sensitivity CRP (HSCRP)should be ordered. Serum or plasma albumin gentry urement (mass/volume)on 06-25-2021 Albumin [Mass/Vol] 3.8 g/dL 3.2-5.0 [facility] Work Phone: Serum or plasma albumin/glob ulin mass ratioon 06-25-2021 Albumin/Globulin [Mass ratio] 1.1 {ratio} 0.9-2.4 [facility] Work Phone: Serum or plasma calcium gentry urement (mass/volume)on 06-25-2021 Calcium [Mass/Vol] 8.4 mg/dL 8.5-10.1 [facility] Work Phone: Serum or plasma creatinine m easurement (mass/volume)on 06-25-2021 Creatinine [Mass/Vol] 0.70 mg/dL 0.70-1.30 [facility] Work Phone: Comment on above: The validity of the calculated GFR & GFRAA in patients over 70 years has not been determined. Clinical correlation is essential. Serum or plasma folate measu rement (mass/volume)on 06-25-2021 Folate [Mass/Vol] 13.80 ng/mL 3.1-55.4 [facility] Work Phone: Serum or plasma urea nitroge n measurement (mass/volume)on 06-25-2021 Urea nitrogen [Mass/Vol] 20 mg/dL 7-18 [facility] Work Phone: Serum rheumatoid factor dete ctionon 06-25-2021 Rheumatoid factor Ql (S) < 10.0 IU/mL <15 [facility] Work Phone: Squamous epithelial cells de tection in urine sediment by light microscopyon 06-25-2021 Epithelial cells.squamous LM Ql (Urine sed) 0-5 SEEN /hpf 0-5 [facility] Work Phone: Thin prep Papanicolaou smear with manual screeningon 06-25-2021 Thin prep Papanicolaou smear with manual screening 20 U/L 15-37 [facility] Work Phone: Thin prep Papanicolaou smear with manual screening 5 5-15 [facility] Work Phone: Urine blood detectionon 06-07 RBC Ql (U) 25 /ul Negative [facility] Work Phone: RBC Ql (U) 0-5 SEEN /hpf 0-5 [facility] Work Phone: Urine clarityon 06-25-2021 Clarity (U) Clear Clear [facility] Work Phone: Urine color determinationon 06-25-2021 Color (U) Straw Yellow [facility] Work Phone: Urine glucose detectionon Glucose Ql (U) Normal mg/dl Normal [facility] Work Phone: Urine leukocyte esterase det ection by dipstickon 06-25-2021 Leukocyte esterase Test strip Ql (U) 25 /ul Negative [facility] Work Phone: Urine pHon 06-25-2021 pH (U) 6.0 [pH] 5.0 - 8.0 [facility] Work Phone: Urine sediment bacteria coun t by microscopy (number/high power field)on 06-25-2021 Bacteria LM.HPF (Urine sed) [#/Area] RARE /hpf None Seen [facility] Work Phone: Urine specific gravity measu rementon 06-25-2021 Specific gravity (U) [Rel density] 1.020 1.002-1.03 0 [facility] Work Phone: Urobilinogen Auto test strip Ql (U)on 06-25-2021 Urobilinogen Ql (U) Normal mg/dl Normal [facility] Work Phone: Absolute lymphocyte counton 06-22-2021 Lymphocytes Auto (Unsp spec) [#/Vol] 4.43 10*3/uL 0.83-4.51 [facility] Work Phone: Basophil percentageon 2021 Basophil percentage 0-5 SEEN /hpf 0-5 [facility] Work Phone: Basophils/100 WBC (Bld) 0.3 % 0-1 [facility] Work Phone: Bilirubin [Mass/Vol] 0.50 mg/dL 0.20-1.00 [facility] Work Phone: Comment on above: For patients on eltr ombopag therapy, use of Dimension [place] TBIL is not recommended. Chloride [Moles/Vol] 107 mmol/L 98-107 [facility] Work Phone: Eosinophils/100 WBC (Bld) 1.1 % 0-5 [facility] Work Phone: Glucose [Mass/Vol] 113 mg/dL 74-106 [facility] Work Phone: Comment on above: Fasting Glucose resu lt from 100 to 125 mg/dL suggests IMPAIRED HOMEOSTASIS per A.D.A. criteria. Neutrophils (Bld) [#/Vol] 3.5 10*3/uL 2.0-7.7 [facility] Work Phone: Neutrophils/100 WBC (Bld) 38.9 % 47-70 [facility] Work Phone: Potassium [Moles/Vol] 3.2 mmol/L 3.5-5.1 [facility] Work Phone: Protein [Mass/Vol] 7.7 g/dL 6.4-8.2 [facility] Work Phone: Sodium [Moles/Vol] 142 mmol/L 136-145 [facility] Work Phone: WBC (Bld) [#/Vol] 9.1 10*3/uL 4.4-11.0 [facility] Work Phone: Bilirubin Test strip Ql (U)o n 06-22-2021 Bilirubin Ql (U) Negative Negative [facility] Work Phone: [phone] Blood erythrocytes count (nu mber/volume)on 06-22-2021 RBC (Bld) [#/Vol] 4.23 10*6/uL 4.6-6.2 [facility] Work Phone: [phone] Blood hemoglobin measurement (mass/volume)on 06-22-2021 Hemoglobin (Bld) [Mass/Vol] 14.7 g/dL 13.0-16.5 [facility] Work Phone: Blood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 Problem List As Of Date 12/16/2020 Noted Resolved MASS IN ANUS [R19.8] 04/17/2008 VIRAL WARTS NOS [B07.9] 05/27/2008 CONDYLOMA ACUMINATUM [A63.0] 05/27/2008 HIV (human immunodeficiency virus infection) (H*07/19/2017 Encounter Status:Closed by LU PHILLIP MA on 12/18/20 Normal [facility] CORONAVIRUS PCR [CCL]on 03-10 REF LAB REPORT Negative Normal [facility] Comment on above: Performed By: #### [id number] #### [facility],[address] [place] [address] SEND TO IC? NO Normal [facility] Comment on above: Performed By: #### [id number] #### [facility],[address] [place] [address] COVID 19 Result [employer] SUPERINTENDENT Negative Normal [facility] Comment on above: Result Comment: Nega tive for COVID19 (SARS CoV2) by PCR. This test was developed and its performance characteristics determined by [facility] [place]. This test has been authorized by FDA under an Emergency Use Authorization (EUA). This test has been validated in accordance with the FDA's Guidance Document Policy for Diagnostics Testing in Laboratories Certified to Perform High Complexity Testing under CLIA prior to Emergency use Authorization for Coronavirus Disease 2019 during the Public Health Emergency" issued on April 07, 2019. [id number] [place] [address] Juanito oChen III, M.D. [id number] Performed By: #### 2 [id number] #### [place] [address] COVID 19 Source [employer] SUPERINTENDENT Nasopharyngeal Swab Normal [facility] Comment on above: Result Comment: Jorge ected on 03/18 AT 2335: Previously reported as U Performed By: #### [id number] #### [facility],[address] [place], [place] [id number] Coronavirus 2019on 1 COVID 19 Result [employer] SUPERINTENDENT Normal Negative for COVID19 (SARS CoV2) by PCR. [facility] Comment on above: Result Comment: Nega tive for This test was developed and its performance characteristics determined by [facility] [place]. This test has been authorized by FDA under an Emergency Use Authorization (EUA). This test has been validated in accordance with the FDA's Guidance Document "Policy for Diagnostics Testing in Laboratories Certified to Perform High Complexity Testing under CLIA prior to Emergency use Authorization for Coronavirus Disease 2019 during the Public Health Emergency" issued on April 07, 2019. COVID19 (SARS This test was developed and its performance characteristics determined by [facility] [place]. This test has been authorized by FDA under an Emergency Use Authorization (EUA). This test has been validated in accordance with the FDA's Guidance Document "Policy for Diagnostics Testing in Laboratories Certified to Perform High Complexity Testing under CLIA prior to Emergency use Authorization for Coronavirus Disease 2019 during the Public Health Emergency" issued on April 07, 2019. CoV2) by PCR. This test was developed and its performance characteristics determined by [facility] [place]. This test has been authorized by FDA under an Emergency Use Authorization (EUA). This test has been validated in accordance with the FDA's Guidance Document "Policy for Diagnostics Testing in Laboratories Certified to Perform High Complexity Testing under CLIA prior to Emergency use Authorization for Coronavirus Disease 2019 during the Public Health Emergency" issued on April 07, 2019. COVID 19 Source [employer] SUPERINTENDENT Normal [facility] Comment on above: Result Comment: Naso pharyngeal Corrected on 03/18 AT 2335: Previously reported as U Swab Corrected on 03/18 AT 2335: Previously reported as U Culture, urine Bacteria identified Cx Nom (U) Culture exhibits no growth. [facility] Work Phone: No Panel Information Nasal Screen MRSA/MSSA [facility] Work Phone: Vital Signs Date Time Vital Sign Value Performing Clinician Facility 10-24-2024 21:05-0400 Body temperature 98.2 [degF] Dr. Edwina Johnson MD Work Phone: [facility] 10-24-2024 21:05-0400 Diastolic blood pressure 96 mm[Hg] Dr. Edwina Johnson MD Work Phone: [facility] 10-24-2024 21:05-0400 Heart rate 97 /min Dr. Edwina Johnson MD Work Phone: [facility] 10-24-2024 21:05-0400 Respiratory rate 20 /min Dr. Edwina Johnsno MD Work Phone: [facility] 10-24-2024 21:05-0400 SaO2% (BldA) [Mass fraction] 99 % Dr. Edwina Johnson MD Work Phone: [facility] 10-24-2024 21:05-0400 Systolic blood pressure 131 mm[Hg] Dr. Edwina Johnson MD Work Phone: [facility] 10-24-2024 16:56-0400 Body mass index (BMI) [Ratio] 27 kg/m2 Dr. Edwina Johnson MD Work Phone: [facility] 10-24-2024 16:56-0400 Body weight 80.[address] Edwina Johnson MD Work Phone: [facility] 10-24-2024 16:52-0400 Body height 172.[address] Edwina Johnson MD Work Phone: [facility] 10-22-2024 09:39-0400 Body height 172.[address] Edwina Johnson MD Work Phone: [facility] 10-22-2024 09:39-0400 Body mass index (BMI) [Ratio] 26.6 kg/m2 Dr. Edwina Johnson MD Work Phone: [facility] 10-22-2024 09:39-0400 Body weight 79.[address] Edwina Johnson MD Work Phone: [facility] 10-04-2024 09:56-0400 Body height 172.[address] Edwina Johnson MD Work Phone: [facility] 10-04-2024 09:56-0400 Body mass index (BMI) [Ratio] 26.7 kg/m2 Dr. Edwina Johnson MD Work Phone: [facility] 10-04-2024 09:56-0400 Body weight 79.[address] Edwina Johnson MD Work Phone: [facility] 09-17-2024 08:33-0400 Body height 172.[address] Edwina Johnson MD Work Phone: [facility] 09-17-2024 08:33-0400 Body mass index (BMI) [Ratio] 26.7 kg/m2 Dr. Edwina Johnson MD Work Phone: [facility] 09-17-2024 08:33-0400 Body temperature 98.6 [degF] Dr. Edwina Johnson MD Work Phone: [facility] 09-17-2024 08:33-0400 Body weight 79.[address] Edwina Johnson MD Work Phone: [facility] 09-17-2024 08:33-0400 Diastolic blood pressure 82 mm[Hg] Dr. Edwina Johnson MD Work Phone: [facility] 09-17-2024 08:33-0400 Heart rate 87 /min Dr. Edwina Johnson MD Work Phone: [facility] 09-17-2024 08:33-0400 Respiratory rate 16 /min Dr. Edwina Johnson MD Work Phone: [facility] 09-17-2024 08:33-0400 SaO2% (BldA) [Mass fraction] 96 % Dr. Edwina Johnson MD Work Phone: [facility] 09-17-2024 08:33-0400 Systolic blood pressure 122 mm[Hg] Dr. Edwina Johnson MD Work Phone: [facility] 08-30-2024 17:39-0400 Body height 172.[address] Edwina Johnson MD Work Phone: [facility] 08-30-2024 17:39-0400 Body mass index (BMI) [Ratio] 26.6 kg/m2 Dr. Edwina Johnson MD Work Phone: [facility] 08-30-2024 17:39-0400 Body temperature 98.2 [degF] Dr. Edwina Johnson MD Work Phone: [facility] 08-30-2024 17:39-0400 Body weight 79.[address] Edwina Johnson MD Work Phone: [facility] 08-30-2024 17:39-0400 Diastolic blood pressure 78 mm[Hg] Dr. Edwina Johnson MD Work Phone: [facility] 08-30-2024 17:39-0400 Heart rate 90 /min Dr. Edwina Johnson MD Work Phone: [facility] 08-30-2024 17:39-0400 Respiratory rate 16 /min Dr. Edwina Johnson MD Work Phone: [facility] 08-30-2024 17:39-0400 SaO2% (BldA) [Mass fraction] 98 % Dr. Edwina Johnson MD Work Phone: [facility] 08-30-2024 17:39-0400 Systolic blood pressure 142 mm[Hg] Dr. Edwina Johnson MD Work Phone: [facility] 06-05-2024 11:26-0400 Body temperature 98.1 [degF] Dr. Edwina Johnson MD Work Phone: [facility] 06-05-2024 11:26-0400 Diastolic blood pressure 68 mm[Hg] Dr. Edwina Johnson MD Work Phone: [facility] 06-05-2024 11:26-0400 Heart rate 81 /min Dr. Edwina Johnson MD Work Phone: [facility] 06-05-2024 11:26-0400 SaO2% (BldA) [Mass fraction] 97 % Dr. Edwina Johnson MD Work Phone: [facility] 06-05-2024 11:26-0400 Systolic blood pressure 118 mm[Hg] Dr. Edwina Johnson MD Work Phone: [facility] 05-16-2023 08:09-0400 Body height 172.[address] Edwina Johnson Work Phone: [facility] 05-16-2023 08:09-0400 Body mass index (BMI) [Ratio] 26.2 kg/m2 Dr. Edwina Johnson Work Phone: [facility] 05-16-2023 08:09-0400 Body temperature 98.2 [degF] Dr. Edwina Johnson Work Phone: [facility] 05-16-2023 08:09-0400 Body weight 78.[address] Edwina Johnson Work Phone: [facility] 05-16-2023 08:09-0400 Diastolic blood pressure 90 mm[Hg] Dr. Edwina Johnson Work Phone: [facility] 05-16-2023 08:09-0400 Heart rate 105 /min Dr. Edwina Johnson Work Phone: [facility] 05-16-2023 08:09-0400 Respiratory rate 16 /min Dr. Edwina Johnson Work Phone: [facility] 05-16-2023 08:09-0400 SaO2% (BldA) [Mass fraction] 98 % Dr. Edwina Johnson Work Phone: [facility] 05-16-2023 08:09-0400 Systolic blood pressure 134 mm[Hg] Dr. Edwina Johnson Work Phone: [facility] 01-25-2023 10:58-0500 Body mass index (BMI) [Ratio] 27.1 kg/m2 Dr. Edwina Johnson Work Phone: [facility] 01-25-2023 10:58-0500 Body weight 80.[address] Edwina Johnson Work Phone: [facility] 08-12-2022 08:45-0400 Body temperature 97 [degF] [facility] 08-12-2022 08:45-0400 Diastolic blood pressure 84 mm[Hg] [facility] 08-12-2022 08:45-0400 Heart rate 70 /min [facility] 08-12-2022 08:45-0400 Respiratory rate 16 /min [facility] 08-12-2022 08:45-0400 SaO2% (BldA) [Mass fraction] 100 % [facility] 08-12-2022 08:45-0400 Systolic blood pressure 117 mm[Hg] [facility] 08-12-2022 06:38-0400 Body height 172.72 cm [facility] 08-12-2022 06:38-0400 Body mass index (BMI) [Ratio] 26 kg/m2 [facility] 08-12-2022 06:38-0400 Body weight 77.8 kg [facility] 12-25-2021 15:29-0500 Body temperature 97.1 [degF] Dr. Edwina Johnson Work Phone: [facility] Work Phone: 12-25-2021 15:29-0500 Diastolic blood pressure 84 mm[Hg] Dr. Edwina Johnson Work Phone: [facility] Work Phone: 12-25-2021 15:29-0500 Heart rate 87 /min Dr. Edwina Johnson Work Phone: [facility] Work Phone: 12-25-2021 15:29-0500 Respiratory rate 16 /min Dr. Edwina Johnson Work Phone: [facility] Work Phone: 12-25-2021 15:29-0500 SaO2% (BldA) [Mass fraction] 96 % Dr. Edwina Johnson Work Phone: [facility] Work Phone: 12-25-2021 15:29-0500 Systolic blood pressure 123 mm[Hg] Dr. Edwina Johnson Work Phone: [facility] Work Phone: 12-25-2021 10:34-0500 Body height 172.[address] Edwina Johnson Work Phone: [facility] Work Phone: 12-25-2021 10:34-0500 Body mass index (BMI) [Ratio] 25.7 kg/m2 Dr. Edwina Johnson Work Phone: [facility] Work Phone: 12-25-2021 10:34-0500 Body weight 76.[address] Edwina Johnson Work Phone: [facility] Work Phone: 09-14-2021 13:07-0400 Body temperature 97.5 [degF] Tito Beatty MD Work Phone: [employer] 09-14-2021 13:07-0400 Body weight 76.66 kg Tito Beatty MD Work Phone: [employer] 09-14-2021 13:07-0400 Diastolic blood pressure 95 mm[Hg] Tito Beatty MD Work Phone: [employer] 09-14-2021 13:07-0400 Heart rate 98 /min Tito Beatty MD Work Phone: [employer] 09-14-2021 13:07-0400 Systolic blood pressure 127 mm[Hg] [facility] 08-15-2021 03:34-0400 Diastolic blood pressure 72 mm[Hg] Dr. Alessandro Roberson Work Phone: [facility] Work Phone: 08-15-2021 03:34-0400 Heart rate 78 /min Dr. Alessandro Roberson Work Phone: [facility] Work Phone: 08-15-2021 03:34-0400 Respiratory rate 18 /min Dr. Alessandro Roberson Work Phone: [facility] Work Phone: 08-15-2021 03:34-0400 SaO2% (BldA) [Mass fraction] 99 % Dr. Alessandro Roberson Work Phone: [facility] Work Phone: 08-15-2021 03:34-0400 Systolic blood pressure 132 mm[Hg] Dr. Alessandro Roberson Work Phone: [facility] Work Phone: 08-14-2021 23:52-0400 Body height 172.[address] Alessandro Roberson Work Phone: [facility] Work Phone: 08-14-2021 23:52-0400 Body mass index (BMI) [Ratio] 25.4 kg/m2 Dr. Alessandro Roberson Work Phone: [facility] Work Phone: 08-14-2021 23:52-0400 Body temperature 97.8 [degF] Dr. Alessandro Rboerson Work Phone: [facility] Work Phone: 08-14-2021 23:52-0400 Body weight 75.[address] Alessandro Roberson Work Phone: [facility] Work Phone: 08-11-2021 14:41-0400 Body mass index (BMI) [Ratio] 25.4 kg/m2 Dr. Alessandro Roberson Work Phone: [facility] Work Phone: 08-11-2021 14:41-0400 Body temperature 98 [degF] Dr. Alessandro Roberson Work Phone: [facility] Work Phone: 08-11-2021 14:41-0400 Body weight 75.[address] Alessandro Roberson Work Phone: [facility] Work Phone: 08-11-2021 14:41-0400 Diastolic blood pressure 78 mm[Hg] Dr. Alessandro Roberson Work Phone: [facility] Work Phone: 08-11-2021 14:41-0400 Heart rate 93 /min Dr. Alessandro Roberson Work Phone: [facility] Work Phone: 08-11-2021 14:41-0400 Respiratory rate 18 /min Dr. Alessandro Roberson Work Phone: [facility] Work Phone: 08-11-2021 14:41-0400 SaO2% (BldA) [Mass fraction] 98 % Dr. Alessandro Roberson Work Phone: [facility] Work Phone: 08-11-2021 14:41-0400 Systolic blood pressure 110 mm[Hg] Dr. Alessandro Roberson Work Phone: [facility] Work Phone: 07-09-2021 09:33-0400 Body mass index (BMI) [Ratio] 25.4 kg/m2 Dr. Alessandro Roberson Work Phone: [facility] Work Phone: 07-09-2021 09:33-0400 Body temperature 97.9 [degF] Dr. Alessandro Roberson Work Phone: [facility] Work Phone: 07-09-2021 09:33-0400 Body weight 75.[address] Alessandro Roberson Work Phone: [facility] Work Phone: 07-09-2021 09:33-0400 Diastolic blood pressure 74 mm[Hg] Dr. Alessandro Roberson Work Phone: [facility] Work Phone: 07-09-2021 09:33-0400 Heart rate 88 /min Dr. Alessandro Roberson Work Phone: [facility] Work Phone: 07-09-2021 09:33-0400 Respiratory rate 16 /min Dr. Alessandro Roberson Work Phone: [facility] Work Phone: 07-09-2021 09:33-0400 SaO2% (BldA) [Mass fraction] 99 % Dr. Alessandro Roberson Work Phone: [facility] Work Phone: 07-09-2021 09:33-0400 Systolic blood pressure 116 mm[Hg] Dr. Alessandro Roberson Work Phone: [facility] Work Phone: 07-09-2021 09:33-0400 Body height 172.[address] Alessandro Roberson Work Phone: [facility] Work Phone: 07-09-2021 09:33-0400 Body mass index (BMI) [Ratio] 25.4 kg/m2 Dr. Alessandro Roberson Work Phone: [facility] Work Phone: 07-09-2021 09:33-0400 Body temperature 97.9 [degF] Dr. Alessandro Roberson Work Phone: [facility] Work Phone: 07-09-2021 09:33-0400 Body weight 75.[address] Alessandro Roberson Work Phone: [facility] Work Phone: 07-09-2021 09:33-0400 Diastolic blood pressure 74 mm[Hg] Dr. Alessandro Roberson Work Phone: [facility] Work Phone: 07-09-2021 09:33-0400 Heart rate 88 /min Dr. Alessandro Roberson Work Phone: [facility] Work Phone: 07-09-2021 09:33-0400 Respiratory rate 16 /min Dr. Alessandro Roberson Work Phone: [facility] Work Phone: 07-09-2021 09:33-0400 SaO2% (BldA) [Mass fraction] 99 % Dr. Alessandro Roberson Work Phone: [facility] Work Phone: 07-09-2021 09:33-0400 Systolic blood pressure 116 mm[Hg] Dr. Alessandro Roberson Work Phone: [facility] Work Phone: 06-25-2021 09:06-0400 Body mass index (BMI) [Ratio] 25.5 kg/m2 Dr. Alessandro Roberson Work Phone: [facility] Work Phone: 06-25-2021 09:06-0400 Body temperature 98.4 [degF] Dr. Alessandro Roberson Work Phone: [facility] Work Phone: 06-25-2021 09:06-0400 Body weight 76.[address] Alessandro Roberson Work Phone: [facility] Work Phone: 06-25-2021 09:06-0400 Diastolic blood pressure 78 mm[Hg] Dr. Alessandro Roberson Work Phone: [facility] Work Phone: 06-25-2021 09:06-0400 Heart rate 102 /min Dr. Alessandro Roberson Work Phone: [facility] Work Phone: 06-25-2021 09:06-0400 Respiratory rate 14 /min Dr. Alessandro Roberson Work Phone: [facility] Work Phone: 06-25-2021 09:06-0400 SaO2% (BldA) [Mass fraction] 98 % Dr. Alessandro Roberson Work Phone: [facility] Work Phone: 06-25-2021 09:06-0400 Systolic blood pressure 120 mm[Hg] Dr. Alessandro Roberson Work Phone: [facility] Work Phone: 06-25-2021 09:06-0400 Body height 172.[address] Alessandro Roberson Work Phone: [facility] Work Phone: 06-25-2021 09:06-0400 Body mass index (BMI) [Ratio] 25.5 kg/m2 Dr. Alessandro Roberson Work Phone: [facility] Work Phone: 06-25-2021 09:06-0400 Body temperature 98.4 [degF] Dr. Alessandro Roberson Work Phone: [facility] Work Phone: 06-25-2021 09:06-0400 Body weight 76.[address] Alessandro Roberson Work Phone: [facility] Work Phone: 06-25-2021 09:06-0400 Diastolic blood pressure 78 mm[Hg] Dr. Alessandro Roberson Work Phone: [facility] Work Phone: 06-25-2021 09:06-0400 Heart rate 102 /min Dr. Alessandro Roberson Work Phone: [facility] Work Phone: 06-25-2021 09:06-0400 Respiratory rate 14 /min Dr. Alessandro Roberson Work Phone: [facility] Work Phone: 06-25-2021 09:06-0400 SaO2% (BldA) [Mass fraction] 98 % Dr. Alessandro Roberson Work Phone: [facility] Work Phone: 06-25-2021 09:06-0400 Systolic blood pressure 120 mm[Hg] Dr. Alessandro Roberson Work Phone: [facility] Work Phone: 06-22-2021 04:24-0400 Diastolic blood pressure 89 mm[Hg] [facility] Work Phone: 06-22-2021 04:24-0400 Heart rate 115 /min [facility] Work Phone: 06-22-2021 04:24-0400 Respiratory rate 20 /min [facility] Work Phone: 06-22-2021 04:24-0400 SaO2% (BldA) [Mass fraction] 96 % [facility] Work Phone: 06-22-2021 04:24-0400 Systolic blood pressure 131 mm[Hg] [facility] Work Phone: 06-22-2021 00:12-0400 Body height 172.72 cm [facility] Work Phone: 06-22-2021 00:12-0400 Body mass index (BMI) [Ratio] 25 kg/m2 [facility] Work Phone: 06-22-2021 00:12-0400 Body temperature 96.8 [degF] [facility] Work Phone: 06-22-2021 00:12-0400 Body weight 74.84 kg [facility] Work Phone: Encounters Encounter Date Encounter Type Care Provider Facility Start: 11-26-2024 End: 11-26-2024 ambulatory Edwina Johnson Facility:[facility] Start: 11-08-2024 End: 11-08-[address] Edwina Johnson MD Work Phone: -Laboratory Specimen Start: 11-08-2024 End: 11-08-2024 Patient encounter procedure Peter Mitchell DO -Laboratory Specimen Work Phone: Start: 11-07-2024 End: 11-07-2024 Patient encounter procedure Peter Mitchell DO -Laboratory Work Phone: Start: 11-07-2024 End: 11-08-[address] Edwina Johnson MD Work Phone: -[facility] Start: 10-24-2024 End: 10-24-2024 Emergency department patient visit Dr. Edwina Johnson MD Work Phone: -Emergency Department Work Phone: Start: 10-23-2024 End: 10-23-[address] Edwina Johnson MD -[facility] Work Phone: Start: 10-23-2024 End: 10-23-[address] Edwina Johnson MD Work Phone: -[facility] Start: 10-23-2024 End: 10-23-2024 ambulatory Edwina Johnson Facility:[facility] Start: 10-11-2024 Encounter for genera l adult medical examination without abnormal findings Edwinabecca Johnson [facility] Start: 10-11-[address] Pramod Fisher MD -Physical Therapy Work Phone: Start: 10-11-2024 ambulatory Pramod Fisher Facility :[facility] Start: 10-05-2024 End: 10-05-[address] Edwina Johnson MD Work Phone: -Laboratory Start: 10-05-2024 End: 10-05-[address] Edwina Johnson MD -Laboratory Work Phone: Start: 10-04-2024 End: 10-04-[address] Dhruv Novak MD -[facility] Start: 10-04-2024 End: 10-05-[address] Edwina Johnson MD Work Phone: -[facility] Start: 09-17-2024 End: 09-17-[address] Edwina Johnson MD -[facility] Work Phone: Start: 09-17-2024 End: 09-17-[address] Edwina Johnson MD [facility] Start: 09-17-2024 End: 09-17-[address] Edwina Johnson MD Work Phone: -[facility] Start: 08-30-2024 End: 08-30-[address] Edwina Johnson MD Work Phone: -[facility] Start: 08-30-2024 End: 08-30-2024 Patient encounter procedure Roderick TUCKER -[facility] Work Phone: Start: 08-30-2024 End: 08-30-2024 ambulatory Roderick TUCKER Facility:[facility] Start: 06-05-2024 End: 06-05-2024 Patient encounter procedure MINNA VERAS MD -Laboratory Work Phone: Start: 06-05-2024 End: 06-05-2024 Patient encounter procedure Len TUCKER -[facility] Work Phone: Start: 06-05-2024 End: 06-05-2024 ambulatory Edwina Johnson Facility:[facility] Start: 06-05-2024 End: 06-05-2024 ambulatory Edwina Johnson Facility:[facility] Start: 01-19-2024 End: 01-19-2024 [facility] Start: 01-09-2024 ambulatory RICHARDSON GAUTHIER [facility] Start: 01-04-2024 End: 01-04-2024 ambulatory No Primary Care Physician Facility:[facility] Start: 12-29-2023 End: 12-30-2023 ambulatory No Primary Care Physician Facility:[facility] Start: 12-28-[address] Edwina Johnson MD Work Phone: [facility] Start: 12-28-2023 End: 12-28-2023 ambulatory Deering Kunal Facility:[facility] Start: 12-05-2023 End: 12-05-2023 ambulatory [facility] Facility:[facility] Start: 05-16-2023 End: 05-16-[address] Edwina Johnson Work Phone: [facility] Work Phone: Start: 05-16-[address] Edwina Johnson Work Phone: [facility] Start: 05-16-2023 End: 05-16-2023 Emergency department patient visit Dr. Edwina Johnson Work Phone: [facility] Start: 05-16-2023 End: 05-16-2023 Encounter for general adult medical examination without abnormal findings Dr. Edwina Johnson Work Phone: [facility] Start: 05-16-2023 End: 05-16-[address] Edwina Johnson Work Phone: [facility] Work Phone: Start: 03-13-2023 Letter encounter Tito talley MD Work Phone: [facility] Start: 01-25-2023 End: 01-25-[address] Edwina Johnson Work Phone: [facility] Work Phone: Start: 12-13-2022 End: 12-13-2022 ambulatory [facility] Work Phone: Start: 12-13-2022 End: 12-13-2022 Patient encounter procedure [facility]Labor[facility] Work Phone: Start: 08-12-2022 End: 08-12-2022 Admission to same day surgery center [facility] Start: 08-12-2022 End: 08-12-2022 ambulatory [facility] Work Phone: Start: 08-03-2022 End: 08-03-2022 ambulatory [facility] Work Phone: Start: 08-03-2022 End: 08-03-2022 Patient encounter procedure [facility], [facility] Work Phone: Start: 07-23-2022 Telephone encounter Holger [facility] MD Work Phone: [facility] Rheumatology (Arthritis) Start: 07-20-2022 End: 07-20-2022 ambulatory [facility] Work Phone: Start: 07-20-2022 End: 07-20-2022 Patient encounter procedure [facility]Labor[facility] Start: 07-19-2022 End: 07-20-2022 ambulatory UNKNOWN PROVIDER Facility:[facility] Start: 07-19-2022 End: 07-19-2022 ambulatory UNKNOWN PROVIDER Facility:[facility] Start: 07-19-2022 Letter encounter Tito talley MD Work Phone: [facility] (Arth[facility] Start: 03-16-2022 Letter encounter iTto talley MD Work Phone: [facility] Start: 02-10-2022 Patient encounter status [facility] Start: 01-28-2022 End: 01-28-[address] Edwina Johnson Work Phone: [facility] Work Phone: Start: 01-28-2022 End: 01-28-[address] Edwina Johnson Work Phone: [facility], [facility] Start: 01-21-2022 End: 01-21-[address] Edwina Johnson Work Phone: [facility] Work Phone: Start: 01-21-2022 End: 01-21-[address] Edwina Johnson Work Phone: [facility] Start: 01-06-2022 End: 01-06-[address] Edwina Johnson Work Phone: [facility] Start: 12-25-2021 End: 12-25-2021 Admission to same day surgery center Dr. Edwina Johnson Work Phone: [facility] Start: 11-25-2021 End: 11-25-[address] Edwina Johnson Work Phone: [facility] Work Phone: Start: 11-25-2021 End: 11-25-[address] Edwina Johnson Work Phone: [facility] Start: 11-23-2021 End: 11-23-[address] Edwina Johnson Work Phone: [facility] Work Phone: Start: 11-23-2021 End: 11-23-[address] Edwina Johnson Work Phone: [facility], [facility] Start: 11-23-2021 Non-patient / Non-visit Dr. Layla Johnson Work Phone: [facility] Start: 09-24-2021 ambulatory Tito Beatty MD Work Phone: [facility] Rhe[facility]ology (Arthritis) Comment on above: Question regarding B ASIC METABOLIC PANEL Start: 09-24-2021 E-mail encounter fro m caregiver Tito Beatty MD Work Phone: [facility] (Arthritis) Start: 09-14-2021 End: 09-14-2021 ambulatory UNKNOWN PROVIDER Facility:[facility] Start: 09-14-2021 Letter encounter Mychart Provider [facility] MyChart Department Start: 09-14-2021 End: 09-14-2021 Office outpatient new 45 minutes Tito Beatty MD Work Phone: [facility] (Arthritis) Comment on above: Psoriatic arthritis (HCC) (Primary Dx) Start: 08-14-2021 End: 08-15-2021 Emergency department patient visit Dr. Alessandro Roberson Work Phone: [facility] Start: 08-14-2021 End: 08-14-[address] Alessandro Roberson Work Phone: [facility] Start: 08-11-2021 End: 08-11-[address] Alessandro Roberson Work Phone: [facility] Start: 07-09-2021 End: 07-09-[address] Alessandro Roberson Work Phone: [facility] Start: 07-07-2021 End: 07-07-[address] Alessandro Roberson Work Phone: [facility] Start: 06-25-2021 End: 06-25-[address] Alessandro Roberson Work Phone: [facility], [facility] Start: 06-25-2021 End: 06-25-[address] Alessandro Roberson Work Phone: [facility] Start: 06-22-2021 End: 06-22-2021 Emergency department patient visit [facility] Start: 06-03-2021 End: 06-03-2021 Patient encounter procedure [facility] Start: 03-18-2020 Encounter for preprocedural laboratory examination [facility] Start: 03-18-2020 End: 03-18-2020 Patient encounter procedure CHRIS Paula [facility] Encounter for preprocedural laboratory examination [facility] Procedures Date Procedure Procedure Detail Performing Clinician Start: 11-08-2024 Cl[address] diff[address] e detection Dr. Edwina Johnson MD Work Phone: Start: 11-08-[address] Edwina Johnson MD Work Phone: Start: 11-08-2024 Measurement of occul t blood in stool specimen using immunoassay Dr. Edwina Johnson MD Work Phone: Start: 11-08-[address] Edwina Johnson MD Work Phone: Start: 11-08-2024 Iadna-dna/rna gi pth gn multiplex probe tq 6-11 Dr. Edwina Johnson MD Work Phone: Start: 11-07-2024 Antibody to centrome re measurement Dr. Edwina Johnson MD Work Phone: Comment on above: Test not performed Previous reported re sult: TNP AIEdited by: ROSA on 11/12/24:2206 AMENDED REPORT 11/12/242206 ANTI-CENT B previously reported as: Test not performed Start: 11-07-2024 Antibody to extracta ble nuclear antigen measurement Dr. Edwina Johnson MD Work Phone: Comment on above: Test not performed Previous reported re sult: TNP AIEdited by: INFCE on 11/12/24:2206 AMENDED REPORT 11/12/242206 [facility] previously reported as: Test not performed Start: 11-07-2024 Antibody to ZULEIMA-[address] Edwina Johnson MD Work Phone: Comment on above: Test not performed Previous reported re sult: TNP AIEdited by: INFCE on 11/12/24:2206 AMENDED REPORT 11/12/242206 ANTI-ZULEIMA previously reported as: Test not performed Start: 11-07-2024 Antibody to lupus La protein measurement Dr. Edwina Johnson MD Work Phone: Start: 11-07-2024 Antibody to SS-A measurement Dr. Edwina Johnson MD Work Phone: Start: 11-07-[address] Edwina Johnson MD Work Phone: Comment on above: Test not performed Previous reported re sult: TNP AIEdited by: INFCE on 11/12/24:2206 AMENDED REPORT 11/12/242206 ANTICHROMATIN previously reported as: Test not performed Start: 11-07-[address] Vandana Johnson MD Work Phone: Start: 11-07-[address] Edwina Johnson MD Work Phone: Start: 11-07-2024 COMMUTATOR UNDERCUTTER antibody measurement Dr. Edwina Johnson MD Work Phone: Comment on above: Test not performed Previous reported re sult: TNP AIEdited by: INFCE on 11/12/24:2206 AMENDED REPORT 11/12/242206 COMMUTATOR UNDERCUTTER Ab previously reported as: Test not performed Start: 11-07-[address] Edwina Johnson MD Work Phone: Start: 10-24-2024 Urnls dip stick/tabl et reagent auto microscopy Dr. Edwina Johnson MD Work Phone: Start: 10-24-2024 CT angiography of ch est with contrast Dr. Edwina Johnson MD Work Phone: Start: 10-24-[address] Edwina Johnson MD Work Phone: Start: 10-24-2024 Ct abdomen & pelvis w/contrast material Dr. Edwina Johnson MD Work Phone: Start: 10-24-2024 End: 10-24-2024 Radex ankle complete minimum [address] Edwina Johnson MD Work Phone: Start: 10-05-[address] Ghazal Johnson MD Work Phone: Comment on above: Performed at: [address] [id number] Director: Carrillo Finn PhD, Phone: [phone] Start: 10-05-2024 Antibody to centrome re measurement Dr. Edwina Johnson MD Work Phone: Comment on above: Test not performed Start: 10-05-2024 Antibody to extracta ble nuclear antigen measurement Dr. Edwina Johnson MD Work Phone: Comment on above: Test not performed Start: 10-05-2024 Antibody to ZULEIMA-[address] Edwina Johnson MD Work Phone: Comment on above: Test not performed Start: 10-05-2024 Antibody to lupus La protein measurement Dr. Edwina Johnson MD Work Phone: Start: 10-05-2024 Antibody to SS-A measurement Dr. Edwina Johnson MD Work Phone: Start: 10-05-[address] Edwina Johnson MD Work Phone: Comment on above: Test not performed Start: 10-05-2024 COMMUTATOR UNDERCUTTER antibody measurement Dr. Edwina Johnson MD Work Phone: Comment on above: Test not performed Start: 10-05-2024 Vitamin D, 25-hydrox y measurement Dr. Edwina Johnosn MD Work Phone: Comment on above: Vitamin D StatusDefi ciency: <20 ng/mL (50nmol/L)Insufficiency: 20-30 ng/mL (50-75 nmol/L)Sufficiency: 30-100 ng/mL (75-250 nmol/L)Toxicity: >100 ng/mL (>250 nmol/L) Start: 10-04-2024 X-ray of foot, three or more views Dr. Edwina Johnson MD Work Phone: Start: 10-04-2024 X-ray of knee, four or more views Dr. Edwina Johnson MD Work Phone: Start: 08-31-[address] Edwina Johnson MD Work Phone: Start: 06-05-2024 Assay of prostate specific antigen total Dr. Edwina Johnson MD Work Phone: Comment on above: This test was perfor med using the [employer] tPSA method. Measured values of a patient sample can vary depending on the testing procedure used. PSA values determined on patient samples by different testing procedures cannot be used interchangeably. If there is a change in PSA assays while monitoring therapy, sequential testing should be performed to confirm baseline values. Start: 06-05-2024 PCR test for HIV 1 Dr. Edwina Johnson MD Work Phone: Comment on above: HIV-1 RNA detectedTh e reportable range for this assay is 20 to 10,000,000copies HIV-1 RNA/mL. Start: 12-13-2022 Diagnostic radiograp hy of abdomen Start: 08-12-2022 Release of trigger finger Start: 08-03-2022 X-ray of eye for for eign body Start: 01-28-2022 Diagnostic radiograp hy of abdomen Dr. Edwina Johnson Work Phone: Start: 11-23-[address] Edwina Johnson Work Phone: Start: 09-14-2021 Assay of blood/uric acid Tito Beatty MD Work Phone: Start: 09-14-2021 Hepatic function panel Tito Beatty MD Work Phone: Start: 08-15-2021 Computed tomography of abdomen and pelvis with intravenous contrast Dr. Alessandro Roberson Work Phone: Start: 06-22-2021 CT of abdomen and pe lvis without contrast History of repair of inguinal hernia History of left inguinal hernia repair Nasal Screen MRSA/MSSA Dr. Callie Johnson Work Phone: Urine culture Dr. Alessandro Weber en Work Phone: Plan of Treatment Date Care Activity Detail Author Start: 12-03-2024 ambulatory Ambulatory Facility:[facility] Start: 11-08-2024 Giardia Antigen (CHUNG) Giardia Antigen (CHUNG) [facility] Start: 11-08-2024 Ova and Parasites Ova and Parasites [facility] Start: 11-08-2024 [facility] Start: 11-07-2024 Celiac disease screen [facility] Start: 11-07-2024 Immunoglobulin measurement [facility] Start: 11-07-2024 Serum immunofixation [facility] Start: 11-07-2024 End: 11-07-2024 [facility] Start: 11-07-2024 Measurement of occult blood in stool specimen using immunoassay [facility] Start: 11-07-2024 Protein measurement [facility] Start: 10-24-2024 [facility] Start: 10-04-2024 X-ray of foot, three or more views Foot min 3 Views [facility] Start: 10-04-2024 X-ray of knee, four or more views Knee 4 or More Views [facility] Start: 10-04-2024 XR Foot GE 3 Views [facility] Start: 10-04-2024 XR Knee GE 4 Views [facility] Start: 05-16-2023 Patient referral [facility] Work Phone: Start: 05-16-2023 Evaluation of diagnostic study results [facility] Start: 10-08-2022 COVID-19 Vaccine () COVID-19 Vaccine () [facility] Start: 10-08-2022 Influenza vaccination Influenza Vaccine (#1) [facility] Start: 08-12-2022 Patient discharge [facility] Start: 08-12-2022 Ambulation without limitation [facility] Start: 08-12-2022 Application of ice collar, cap or bag [facility] Start: 08-12-2022 Catheterization of vein [facility] Start: 08-12-2022 Elevation of affected extremity [facility] Start: 08-12-2022 Following clinical pathway protocol [facility] Start: 08-12-2022 Procedure discontinued [facility] Start: 08-12-2022 Taking patient vital signs [facility] Start: 08-12-2022 Vital signs measurements [facility] Start: 08-12-2022 [facility] Start: 08-12-2022 Application of intermittent pneumatic compression device [facility] Start: 08-12-2022 Medical regimen orders management [facility] Start: 08-12-2022 Medication education [facility] Start: 12-25-2021 Anes arthrs humeral h/n strnclav & shoulder nos ANESTH SURGERY OF SHOULDER [facility] Work Phone: Start: 12-25-2021 Arthroscopy shoulder distal claviculectomy ROBERT ARTHRS G DSTL CLAVICLC [facility] Work Phone: Start: 12-25-2021 Arthroscopy shoulder rotator cuff repair [facility]ERT ARTHRS [facility] [id number] CUF RPR [facility] Work Phone: Start: 12-25-2021 Arthroscopy shoulder w/coracoacrm ligmnt release ROBERT ARTHRS SRG DECOMPRESSION [facility] Work Phone: Start: 12-25-2021 Injection aa&/strd brachial plexus NJX AA&/STRD BRACH PLEXUS [facility] Work Phone: Start: 12-25-2021 Patient discharge [facility] Work Phone: Start: 12-25-2021 Ambulation without limitation [facility] Work Phone: Start: 12-25-2021 Application of ice collar, cap or bag [facility] Work Phone: Start: 12-25-2021 Catheterization of vein [facility] Work Phone: Start: 12-25-2021 Following clinical pathway protocol [facility] Work Phone: Start: 12-25-2021 Procedure discontinued [facility] Work Phone: Start: 12-25-2021 Taking patient vital signs [facility] Work Phone: Start: 12-25-2021 Vital signs measurements [facility] Work Phone: Start: 12-25-2021 Wound care [facility] Work Phone: Start: 12-25-2021 [facility] Work Phone: Start: 12-25-2021 Medical regimen orders management [facility] Work Phone: Start: 12-25-2021 Medication education [facility] Work Phone: Start: 11-25-2021 [facility] Work Phone: Start: 11-07-2021 Influenza vaccination Influenza Vaccine (#1) [facility] Start: 08-15-2021 [facility] Work Phone: Start: 08-11-2021 Patient referral [facility] Work Phone: Start: 10-01-2020 COVID-19 Vaccine (3 - Booster for Moderna series) COVID-19 Vaccine (3 - Booster for Moderna series) [facility] Start: 06-26-2020 COVID-19 Vaccine (2 - Booster for Moderna series) COVID-19 Vaccine (2 - Booster for Moderna series) [facility] Start: 06-26-2020 COVID-19 Vaccine (3 - Booster for Moderna series) COVID-19 Vaccine (3 - Booster for Moderna series) [facility] Start: 06-12-2015 Measurement of occult blood in single stool specimen FIT [facility] Start: 06-12-2015 Screening for malignant neoplasm of colon CRC Screening [facility] Start: 06-12-2015 Shingles (RZV) Vaccine (1 of 2) Shingles (RZV) Vaccine (1 of 2) [facility] Start: 2010 Screening for malignant neoplasm of colon [facility] Start: 2000 Lipid panel Cholesterol [facility] Start: 06-12-1983 Hepatitis C screening Hepatitis C Antibody [facility] Start: 06-12-1983 Tetanus + diphtheria + acellular pertussis vaccine (product) Tdap Booster [facility] Start: 1980 HIV screening HIV Test [facility] Start: 1965 Hepatitis B vaccination Hepatitis B (HBV) Vaccine (1 of 3 - 3-dose series) [facility] Start: 1965 Screening for malignant neoplasm of colon [facility] Albumin [Moles/volum e] in Serum or Plasma [facility] Albumin/Globulin ratio [facility] Alternaria alternata IgE Ab [Units/volume] in Serum [facility] Work Phone: Norwegian Cockroach I gE Ab [Units/volume] in Serum [facility] Work Phone: Norwegian house dust mite IgE Ab [Units/volume] in Serum [facility] Work Phone: Amylase [Enzymatic activity/volume] in Serum or Plasma [facility] Antibody to lupus La protein measurement [facility] Antibody to SS-A measurement [facility] Aspergillus fumigatus [facility] Work Phone: Bacteria identified in Urine by Culture Urine Culture [facility] Work Phone: Beef IgE Ab [Units/v olume] in Serum [facility] Bermuda grass IgE Ab [Units/volume] in Serum [facility] Work Phone: Box elder [facility] Work Phone: C reactive protein [Mass/volume] in Serum or Plasma [facility] C reactive protein [Mass/volume] in Serum or Plasma [facility] Cat dander [facility] Work Phone: CBC W Auto Different ial panel - Blood [facility] Chitobioside IgA Ab [Units/volume] in Serum or Plasma by Immunoassay [facility] Chocolate IgE Ab [Units/volume] in Serum [facility] Cladosporium herbaru m IgE Ab [Units/volume] in Serum [facility] Work Phone: Clam IgE Ab [Units/v olume] in Serum [facility] Work Phone: Clostridioides diffi cile DNA [Presence] in Unspecified specimen by EBONY with probe detection [facility] Codfish IgE Ab [Unit s/volume] in Serum [facility] Work Phone: Codfish IgE Ab [Unit s/volume] in Serum [facility] Common Ragweed IgE A b [Units/volume] in Serum [facility] Work Phone: Comprehensive metabo lic 1999 panel - Serum or Plasma [facility] metabo lic 1999 panel - Serum or Plasma [facility] [place] IgE Ab [Units/v olume] in Serum [facility] Work Phone: [place] IgE Ab [Units/v olume] in Serum [facility] [place] [facility] Work Phone: Cow milk IgE Ab [Units/volume] in Serum [facility] Work Phone: Cow milk IgE Ab [Units/volume] in Serum [facility] Cytoplasmic ANCA Screen [facility] DNA double strand Ab [Units/volume] in Serum [facility] Dog epithelium IgE A b [Units/volume] in Serum [facility] Work Phone: Egg white IgE Ab [Units/volume] in Serum [facility] Work Phone: Elastase.pancreatic [Presence] in Stool [facility] Electrocardiographic procedure [facility] Work Phone: Electrophoresis: [id number] [facility] Electrophoresis: abel ma globulin [facility] Erythrocyte sediment ation rate [facility] house dust mite IgE Ab [Units/volume] in Serum [facility] Work Phone: Fat [Presence] in Stool [facility] Food [facility]ST [facility] Giardia lamblia antigen assay [facility] Globulin measurement [facility] Ilek-[id number] dehydrogenase screen G6PD, QUALITATIVE SCREEN Lab Routine Psoriatic arthritis (HCC) 09/14/2021 2:20 PM EDT [facility] [employer] Work Phone: Hemoglobin A1c/Hemoglobin.total in Blood [facility] HIV 1 RNA [#/volume] (viral load) in Unspecified specimen by EBONY with probe detection [facility] HIV 1 RNA [Log #/vol ume] (viral load) in Unspecified specimen by EBONY with probe detection [facility] IgA [Mass/volume] in Serum or Plasma [facility] IgE [Units/volume] i n Serum or Plasma [facility] IgG [Mass/volume] in Serum or Plasma [facility] IgM [Mass/volume] in Serum or Plasma [facility] Immunoglobulin E measurement [facility] Work Phone: Laboratory data interpretation [facility] Lactoferrin [Presenc e] in Stool by Immunoassay [facility] Laminaribioside IgG Ab [Units/volume] in Serum or Plasma by Immunoassay [facility] Lipid 1996 panel - S boogie or Plasma [facility] Magnesium measurement [facility] Mannobioside IgG Ab [Units/volume] in Serum or Plasma by Immunoassay [facility] Measurement of funga l antibody [facility] Mouse urine proteins [facility] Work Phone: Neutrophil cytoplasm ic Ab.classic [Units/volume] in Serum [facility] Neutrophil cytoplasm ic Ab.perinuclear.atypical [Titer] in Serum by Immunofluorescence [facility] Nucleic acid assay [facility] Ova OR parasites identification [facility] P-ANCA measurement [facility] Patient Education [facility] Work Phone: Patient referral [facility] Work Phone: Peanut IgE Ab [Units /volume] in Serum [facility] Work Phone: Peanut IgE Ab [Units /volume] in Serum [facility] Pecan or Cuming Nut IgE Ab [Units/volume] in Serum [facility] Work Phone: Pork IgE Ab [Units/v olume] in Serum [facility] Protein electrophore sis panel - Serum or Plasma [facility] Rough Pigweed IgE Ab [Units/volume] in Serum [facility] Work Phone: [place] IgE Ab [Units /volume] in Serum [facility] Scallop [facility] Work Phone: Sesame seed [facility] Work Phone: Sheep [place] IgE Ab [Units/volume] in Serum [facility] Work Phone: Shrimp IgE Ab [Units /volume] in Serum [facility] Work Phone: Shrimp IgE Ab [Units /volume] in Serum [facility] Silver Birch IgE Ab [Units/volume] in Serum [facility] Work Phone: Soybean IgE Ab [Unit s/volume] in Serum [facility] Work Phone: Soybean IgE Ab [Unit s/volume] in Serum [facility] Testosterone Free [Mass/volume] in Serum or Plasma [facility] Sancho IgE Ab [Unit s/volume] in Serum [facility] Work Phone: Tissue transglutamin ase IgA Ab [Units/volume] in Serum [facility] Tree pollen [facility] Work Phone: Triacylglycerol lipa se measurement [facility] Tuna IgE Ab [Units/v olume] in Serum [facility] Vitamin B12 measurement [facility] Vitamin D, 25-hydrox y measurement [facility] Aubrey [facility] Work Phone: Wheat IgE Ab [Units/ volume] in Serum [facility] Work Phone: Wheat IgE Ab [Units/ volume] in Serum [facility] White Dennis IgE Ab [Units/volume] in Serum [facility] Work Phone: White Elm IgE Ab [Units/volume] in Serum [facility] Work Phone: White mulberry IgE A b [Units/volume] in Serum [facility] Work Phone: Whole Egg IgE Ab [Units/volume] in Serum [facility] Immunizations Immunization Date Immunization Notes Care Provider Fa cility 05-01-2020 Moderna Monovalent ( 12+ yrs) COVID-19 vaccine, mRNA, spike protein, LNP, PF, 100 mcg/0.5 mL (LJZ=117) Tito Beatty MD Work Phone: [facility] 04-02-2020 Moderna Monovalent ( 12+ yrs) COVID-19 vaccine, mRNA, spike protein, LNP, PF, 100 mcg/0.5 mL (GFH=052) Tito Beatty MD Work Phone: [facility] 12-03-2019 influenza, injectabl e, quadrivalent, contains preservative Mychart Provider [facility] 12-03-2019 influenza virus vacc ine, unspecified formulation Mychart Provider [facility] Payers Date Payer Category Payer Self-pay [id number] 2021 Unknown [id number] 2021 Unknown [employer] [id number] 2021-Present [phone] [address] [address] [place] [address] Indemnity [id number] 1965 Unknown [id number] 2.0.1.798222.3.579.2.651 1965 Unknown [id number] 2.0.1.085571.3.579.2.732 1965 Unknown [id number] 2..1.233584.3.579.2.732 1965 Unknown [id number] 2..1.301146.3.579.2.732 1965 Unknown [id number] 2.16.840.1.444555.3.579.2.732 1965 Unknown [id number] 2.840.1.257416.3.579.2.732 1965 Unknown [id number] 2.840.1.153865.3.579.2.732 1965 Unknown [id number] 2.840.1.191977.3.579.2.732 1965 Unknown [id number] 2.840.1.462433.3.579.2.125 9 Unknown [id number] Unknown [id number] 2.840.1.678172.3.579.2.462 Unknown [id number] 2.840.1.063828.3.579.2.462 Unknown [id number] 2.840.1.393284.3.579.2.462 Unknown [id number] 2.840.1.780242.3.579.2.462 Unknown [id number] 2.840.1.140877.3.579.2.462 Unknown [id number] 2.840.1.477691.3.579.2.462 Unknown [id number] 2.840.1.686355.3.579.2.462 Unknown [id number] 2.840.1.430104.3.579.2.462 Unknown [id number] 2.840.1.165187.3.579.2.462 Unknown [id number] 2.840.1.661612.3.579.2.462 Unknown [id number] 2.16840.1.293506.3.579.2.462 Unknown [id number] 2.840.1.599736.3.579.2.462 Unknown [id number] 2.840.1.153292.3.579.2.462 Unknown [id number] 2.16.840.1.377146.3.579.2.462 Unknown [id number] 2.16.840.1.911144.3.579.2.462 Unknown [id number] 2.16.840.1.857873.3.579.2.462 Unknown [id number] 2.16.840.1.041739.3.579.2.462 Unknown [id number] 2.16.840.1.887476.3.579.2.462 Unknown [id number] 2.16.840.1.666707.3.579.2.462 Unknown [id number] 2.16.840.1.769479.3.579.2.462 Unknown [id number] 2.16.840.1.940852.3.579.2.462 Unknown [id number] 2.16.840.1.510800.3.579.2.462 Unknown [id number] 2.16.840.1.476521.3.579.2.462 Unknown [id number] 2.16.840.1.822013.3.579.2.462 Social History Date Type Detail Facility Start: 02-10-2021 End: 05-16-2023 Tobacco smoking status PAIS Unknown if ever smoked [facility] Start: 1965 Sex Assigned At Male [facility] Start: 1965 Sex Assigned At Not on file [facility] Start: 07-19-2022 End: 10-24-2024 Tobacco smoking status PAIS Never smoked tobacco [facility] Start: 07-19-2022 Tobacco use and exposure Smokeless tobacco non-user [facility] Gender identity Not on file [facility] Medical Equipment Procedure Code Equipment Code Equipment Origin al Text Equipment Identifier Dates Arthroscopy, shoulder, with rotator cuff repair FIBERTAPE FDA Start: 12-25-2021 Arthroscopy, shoulder, with rotator cuff repair FIBERTAPE FDA Start: 12-25-2021 Arthroscopy, shoulder, with rotator cuff repair FIBERTAPE [id number] FDA Start: 12-25-2021 Arthroscopy, shoulder, with rotator cuff repair FIBERTAPE [id number] FDA Start: 12-25-2021 Arthroscopy, shoulder, with rotator cuff repair ([id number]) Tendon/ligament bone anchor, bioabsorbable [id number] FDA Start: 12-25-2021 Arthroscopy, shoulder, with rotator cuff repair FIBERTAPE FDA Start: 12-25-2021 Arthroscopy, shoulder, with rotator cuff repair FIBERTAPE FDA Start: 12-25-2021 Arthroscopy, shoulder, with rotator cuff repair FIBERTAPE [id number] FDA Start: 12-25-2021 Arthroscopy, shoulder, with rotator cuff repair FIBERTAPE [id number] FDA Start: 12-25-2021 Arthroscopy, shoulder, with rotator cuff repair FIBERTAPE FDA Start: 12-25-2021 Arthroscopy, shoulder, with rotator cuff repair FIBERTAPE FDA Start: 12-25-2021 Arthroscopy, shoulder, with rotator cuff repair FIBERTAPE [id number] FDA Start: 12-25-2021 Arthroscopy, shoulder, with rotator cuff repair FIBERTAPE [id number] FDA Start: 12-25-2021 Arthroscopy, shoulder, with rotator cuff repair FIBERTAPE FDA Start: 12-25-2021 Arthroscopy, shoulder, with rotator cuff repair FIBERTAPE FDA Start: 12-25-2021 Arthroscopy, shoulder, with rotator cuff repair FIBERTAPE [id number] FDA Start: 12-25-2021 Arthroscopy, shoulder, with rotator cuff repair FIBERTAPE [id number] FDA Start: 12-25-2021 Arthroscopy, shoulder, with rotator cuff repair FIBERTAPE FDA Start: 12-25-2021 Arthroscopy, shoulder, with rotator cuff repair FIBERTAPE FDA Start: 12-25-2021 Arthroscopy, shoulder, with rotator cuff repair FIBERTAPE [id number] FDA Start: 12-25-2021 Arthroscopy, shoulder, with rotator cuff repair FIBERTAPE [id number] FDA Start: 12-25-2021 Arthroscopy, shoulder, with rotator cuff repair FIBERTAPE FDA Start: 12-25-2021 Arthroscopy, shoulder, with rotator cuff repair FIBERTAPE FDA Start: 12-25-2021 Arthroscopy, shoulder, with rotator cuff repair FIBERTAPE [id number] FDA Start: 12-25-2021 Arthroscopy, shoulder, with rotator cuff repair FIBERTAPE [id number] FDA Start: 12-25-2021 Arthroscopy, shoulder, with rotator cuff repair FIBERTAPE FDA Start: 12-25-2021 Arthroscopy, shoulder, with rotator cuff repair FIBERTAPE FDA Start: 12-25-2021 Arthroscopy, shoulder, with rotator cuff repair FIBERTAPE [id number] FDA Start: 12-25-2021 Arthroscopy, shoulder, with rotator cuff repair FIBERTAPE [id number] FDA Start: 12-25-2021 Arthroscopy, shoulder, with rotator cuff repair FIBERTAPE FDA Start: 12-25-2021 Arthroscopy, shoulder, with rotator cuff repair FIBERTAPE FDA Start: 12-25-2021 Arthroscopy, shoulder, with rotator cuff repair FIBERTAPE [id number] FDA Start: 12-25-2021 Arthroscopy, shoulder, with rotator cuff repair FIBERTAPE [id number] FDA Start: 12-25-2021 Arthroscopy, shoulder, with rotator cuff repair FIBERTAPE FDA Start: 12-25-2021 Arthroscopy, shoulder, with rotator cuff repair FIBERTAPE FDA Start: 12-25-2021 Arthroscopy, shoulder, with rotator cuff repair FIBERTAPE [id number] FDA Start: 12-25-2021 Arthroscopy, shoulder, with rotator cuff repair FIBERTAPE [id number] FDA Start: 12-25-2021 Arthroscopy, shoulder, with rotator cuff repair FIBERTAPE FDA Start: 12-25-2021 Arthroscopy, shoulder, with rotator cuff repair FIBERTAPE FDA Start: 12-25-2021 Arthroscopy, shoulder, with rotator cuff repair FIBERTAPE [id number] FDA Start: 12-25-2021 Arthroscopy, shoulder, with rotator cuff repair FIBERTAPE [id number] FDA Start: 12-25-2021 Arthroscopy, shoulder, with rotator cuff repair FIBERTAPE FDA Start: 12-25-2021 Arthroscopy, shoulder, with rotator cuff repair FIBERTAPE FDA Start: 12-25-2021 Arthroscopy, shoulder, with rotator cuff repair FIBERTAPE AR-[id number] FDA Start: 12-25-2021 Arthroscopy, shoulder, with rotator cuff repair FIBERTAPE AR-[id number] FDA Start: 12-25-2021 Arthroscopy, shoulder, with rotator cuff repair FIBERTAPE FDA Start: 12-25-2021 Arthroscopy, shoulder, with rotator cuff repair FIBERTAPE FDA Start: 12-25-2021 Arthroscopy, shoulder, with rotator cuff repair FIBERTAPE [id number] FDA Start: 12-25-2021 Arthroscopy, shoulder, with rotator cuff repair FIBERTAPE [id number] FDA Start: 12-25-2021 Arthroscopy, shoulder, with rotator cuff repair FIBERTAPE FDA Start: 12-25-2021 Arthroscopy, shoulder, with rotator cuff repair FIBERTAPE FDA Start: 12-25-2021 Arthroscopy, shoulder, with rotator cuff repair FIBERTAPE [id number] FDA Start: 12-25-2021 Arthroscopy, shoulder, with rotator cuff repair FIBERTAPE [id number] FDA Start: 12-25-2021 Arthroscopy, shoulder, with rotator cuff repair FIBERTAPE FDA Start: 12-25-2021 Arthroscopy, shoulder, with rotator cuff repair FIBERTAPE FDA Start: 12-25-2021 Arthroscopy, shoulder, with rotator cuff repair FIBERTAPE [id number] FDA Start: 12-25-2021 Arthroscopy, shoulder, with rotator cuff repair FIBERTAPE [id number] FDA Start: 12-25-2021 Arthroscopy, shoulder, with rotator cuff repair FIBERTAPE FDA Start: 12-25-2021 Arthroscopy, shoulder, with rotator cuff repair FIBERTAPE FDA Start: 12-25-2021 Arthroscopy, shoulder, with rotator cuff repair FIBERTAPE [id number] FDA Start: 12-25-2021 Arthroscopy, shoulder, with rotator cuff repair FIBERTAPE [id number] FDA Start: 12-25-2021 Arthroscopy, shoulder, with rotator cuff repair FIBERTAPE FDA Start: 12-25-2021 Arthroscopy, shoulder, with rotator cuff repair FIBERTAPE FDA Start: 12-25-2021 Arthroscopy, shoulder, with rotator cuff repair FIBERTAPE [id number] FDA Start: 12-25-2021 Arthroscopy, shoulder, with rotator cuff repair FIBERTAPE [id number] FDA Start: 12-25-2021 Arthroscopy, shoulder, with rotator cuff repair FIBERTAPE FDA Start: 12-25-2021 Arthroscopy, shoulder, with rotator cuff repair FIBERTAPE FDA Start: 12-25-2021 Arthroscopy, shoulder, with rotator cuff repair FIBERTAPE [id number] FDA Start: 12-25-2021 Arthroscopy, shoulder, with rotator cuff repair FIBERTAPE [id number] FDA Start: 12-25-2021 Arthroscopy, shoulder, with rotator cuff repair FIBERTAPE FDA Start: 12-25-2021 Arthroscopy, shoulder, with rotator cuff repair FIBERTAPE FDA Start: 12-25-2021 Arthroscopy, shoulder, with rotator cuff repair FIBERTAPE [id number] FDA Start: 12-25-2021 Arthroscopy, shoulder, with rotator cuff repair FIBERTAPE [id number] FDA Start: 12-25-2021 Arthroscopy, shoulder, with rotator cuff repair FIBERTAPE FDA Start: 12-25-2021 Arthroscopy, shoulder, with rotator cuff repair FIBERTAPE FDA Start: 12-25-2021 Arthroscopy, shoulder, with rotator cuff repair FIBERTAPE [id number] FDA Start: 12-25-2021 Arthroscopy, shoulder, with rotator cuff repair FIBERTAPE [id number] FDA Start: 12-25-2021 MESH,PRO FOOD BEVERAGE SERVER [id number] FDA Sta rt: 01-29-2021 MESH,PRO FOOD BEVERAGE SERVER [id number] FDA Sta rt: 01-29-2021 MESH,PRO FOOD BEVERAGE SERVER [id number] FDA Sta rt: 01-29-2021 MESH,PRO FOOD BEVERAGE SERVER [id number] FDA Sta rt: 01-29-2021 MESH,PRO FOOD BEVERAGE SERVER [id number] FDA Sta rt: 01-29-2021 MESH,PRO FOOD BEVERAGE SERVER [id number] FDA Sta rt: 01-29-2021 MESH,PRO FOOD BEVERAGE SERVER [id number] FDA Sta rt: 01-29-2021 MESH,PRO FOOD BEVERAGE SERVER [id number] FDA Sta rt: 01-29-2021 MESH,PRO FOOD BEVERAGE SERVER [id number] FDA Sta rt: 01-29-2021 MESH,PRO FOOD BEVERAGE SERVER [id number] FDA Sta rt: 01-29-2021 MESH,PRO FOOD BEVERAGE SERVER [id number] FDA Sta rt: 01-29-2021 MESH,PRO FOOD BEVERAGE SERVER [id number] FDA Sta rt: 01-29-2021 MESH,PRO FOOD BEVERAGE SERVER [id number] FDA Sta rt: 01-29-2021 MESH,PRO FOOD BEVERAGE SERVER [id number] FDA Sta rt: 01-29-2021 MESH,PRO FOOD BEVERAGE SERVER [id number] FDA Sta rt: 01-29-2021 MESH,PRO FOOD BEVERAGE SERVER [id number] FDA Sta rt: 01-29-2021 MESH,PRO FOOD BEVERAGE SERVER [id number] FDA Sta rt: 01-29-2021 MESH,PRO FOOD BEVERAGE SERVER [id number] FDA Sta rt: 01-29-2021 MESH,PRO FOOD BEVERAGE SERVER [id number] FDA Sta rt: 01-29-2021 MESH,PRO FOOD BEVERAGE SERVER [id number] FDA Sta rt: 01-29-2021 MESH,PRO FOOD BEVERAGE SERVER [id number] FDA Sta rt: 01-29-2021 MESH,PRO FOOD BEVERAGE SERVER [id number] FDA Sta rt: 01-29-2021 MESH,PRO FOOD BEVERAGE SERVER [id number] FDA Sta rt: 01-29-2021 MESH,PRO FOOD BEVERAGE SERVER [id number] FDA Sta rt: 01-29-2021 MESH,PRO FOOD BEVERAGE SERVER [id number] FDA Sta rt: 01-29-2021 MESH,PRO FOOD BEVERAGE SERVER [id number] FDA Sta rt: 01-29-2021 MESH,PRO FOOD BEVERAGE SERVER [id number] FDA Sta rt: 01-29-2021 Goals Date Patient Goal Desired Activity /State Mental Status Date Assessment Result Facility 08-12-2022 Cognitive function Voice/Name [facility] Work Phone: 12-25-2021 Cognitive function Voice/Name [facility] Work Phone: 08-15-2021 Cognitive function Level Of Cons ciousness Awake;Alert;Appropriate;Follow s Commands [facility] Work Phone: Clinical Notes 01-27-2021 to 11-07-2024 Note Date & Type Note Facility 11-07-2024 Progress note [facility] 11-07-2024 Progress note Note Date/Time November 07, 2024 2:15pm [facility] [address] [place] [address] OFFICE VISIT Date of Service: 11/07/24 MR#: [id number] Acct: [id number] Name: YAIR FRIEDMAN Callie Rep #: [id number] : 1965 Provider: Peter Mitchell DO Age/Sex: 59/M Location: [facility] [email or web address] Status: Signed Intake Vital Signs 09/17/24 08:33 10/24/24 16:52 Height 5 ft 8 in 5 ft 8 in Intake Visit Reasons: GERD PRE COLONOSCOPY Allergies bee venom protein (honey bee) Allergy (Severe, Verified 10/23/24 08:29) Anaphylaxis adhesive tape Adverse Reaction (Verified 10/23/24 08:29) Rash amoxicillin (From Augmentin) Adverse Reaction (Verified 10/23/24 08:29) Hives clavulanic acid (From Augmentin) Adverse Reaction (Verified 10/23/24 08:29) Hives oxycodone (From Percocet) Adverse Reaction (Verified 10/23/24 08:29) elevated bp, felt funny, chest tightness Medications ?Medication ?Instructions ?Recorded ?Confirmed ?Type valacyclovir 1 gram tablet 1,000 mg PO QHS HIV 1 11/07/24 History abacavir 600 mg-dolutegravir 50 1 tab PO QHS HIV 05/1511/07/24 History mg-lamivudine 300 mg tablet (Triumeq) omeprazole 40 mg capsule,delayed 40 mg PO QHS GERD #90 caps 01/04/24 11/07/24 Rx release epinephrine 0.3 mg/0.3 mL 0.3 mg (0.3 mL) IM Q5-15M VA N 01/17/24 11/07/24 Rx injection, auto-injector anaphylaxis #2 ea cetirizine 5 mg tablet (Zyrtec) 5 mg PO QDAY PRN aller gy symptoms 10/23/24 11/07/24 History Nurse's Note: Pt was scheduled for EGD and Colonoscopy after todays visit for 12/03. Reviewed prep in office and was given prep instructions sheet. [facility] Medical History Acute pancreatitis Upper abdominal pain Left knee pain Achilles tendinitis of both lower extremities Rupture of right long head biceps tendon Normal exam Right shoulder pain Loss of hearing History of edema Non-smoker PONV (postoperative nausea and vomiting) Rectal pain Pain in both testicles History of kidney stones Cancer Arthritis Back pain Gastric reflux Left inguinal hernia Diarrhea Abdominal pain GERD (gastroesophageal reflux disease) AIDS Anal condyloma Anal dysplasia Weight loss Surgical History H/O lumbosacral spine surgery Hx of arthroscopy of shoulder History of esophagogastroduodenoscopy (EGD) History of colonoscopy History of left inguinal hernia repair History of shoulder surgery history left bicep tendon repair history left ulnar nerve repair History of bilateral carpal tunnel release Family History Mother Asthma Arthritis Diabetes Heart disease Hypertension High cholesterol Grandfather Cancer lung cancer Father Heart disease High cholesterol Hypertension Cancer skin cancer Social History Smoking Status: Never smoker alcohol intake: never substance use type: does not use HPI HPI Details: YAIR FRIEDMAN, is a 59 M who presents to the office today for initial consult. 59-year-old gentleman with a long history of gastroesophageal reflux disease, currently managed on Nexium therapy. 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 He expresses concern about the potential long-term effects of his conditions. HIV:?On triple therapy, CD4 count of 298, and negative viral load on recent blood work. He also admits to 20 to 25-year history of diarrhea. He says that his diarrhea is mostly fatty associated with cramping and urgency. He denies any fever or nocturnal symptoms. He also has?intermittent abdominal pain and elevated lipase, but with a normal CT scan.? ROS Const Constitutional: Positive for fatigue; No fever(s) or weight change ENT ENT: No difficulty swallowing Gastro GI: Positive for diarrhea; No abdominal pain, belching, bloating, change in bowel habits, change in stool character, coffee ground emesis, constipation, cramping, heartburn, difficulty swallowing, feeling full early, excessive flatus, incontinent of stools, Vomiting blood/hematemesis, Blood in stool, loose stools, Black,tarry stools, nausea/dyspepsia, pain with swallowing, vomiting or other Musc Musculoskeletal: Positive for joint pain, back pain, joint swelling, numbness, stiffness and tingling Skin Skin: No yellowing of the eye or itchy eyes Neuro Neurology: Positive for numbness and tingling Psych Psychiatric: No anxiety and No depression Endo Endocrine: Positive for fatigue; No weight change Aller/Imm Allergy/Immunologic: No itchy eyes Benito/Lymp Hematologic/Lymphatic: No easy bleeding or easy bruising Exam Const General: cooperative and healthy appearing Cardio Rate: regular rate Rhythm: regular rhythm GI Inspection: normal to inspection Percussion: normal to percussion Palpation: soft, no hepatosplenomegaly, no guarding and nontender Skin General: no rashes or lesions noted Neuro General: patient alert Psych Appearance: grossly normal Mental Status: mental status grossly normal Assessment and Plan Assessment and Plan (1) Acute pancreatitis: Status: Acute (2) Upper abdominal pain: Status: Acute (3) Diarrhea: Status: Acute Qualifiers: Diarrhea type: unspecified type Qualified Code(s): R19.7 - Diarrhea, unspecified (4) GERD (gastroesophageal reflux disease): Status: Acute Qualifiers: Esophagitis presence: esophagitis presence not specified Qualified Code(s): K21.9 - Gastro-esophageal reflux disease without esophagitis (5) Mild anal dysplasia, histologically confirmed: Status: Acute (6) Hiatal hernia: Status: Acute Plan: 59-year-old gentleman with well-controlled HIV (negative viral load), but with moderate immunosuppression (CD4 298), presenting with chronic diarrhea and long-standing GERD. Problem list: * Chronic Diarrhea:?The etiology needs to be determined. Given the CD4 count is in the 200-500 range, common bacterial pathogens are more likely than opportunistic infections like CMV or?Cryptosporidium, which are more common with CD4 counts <50-100. Side effects of ART are another common cause in this patient population. HIV enteropathy is a diagnosis of exclusion. * Gastroesophageal Reflux Disease (GERD):?While GERD is common, endoscopy may be warranted to evaluate for alternative esophageal pathologies or complications in an HIV patient, such as alise esophagitis or ulcers. Persistent GERD symptoms despite PPI therapy may indicate a need for further investigation. * Anal Squamous Cell Dysplasia s/p Resection:?This history of HPV-related disease warrants consideration for repeat endoscopic evaluation, particularly if there are new anorectal symptoms. * HIV infection, controlled:?While the viral load is negative, the CD4 count suggests moderate immunosuppression. This may increase the risk of certain GI infections or malignancies compared to the general population. * * Medication-induced hyperlipasemia:?Some antiretroviral drugs, particularly older NRTIs like didanosine and stavudine, are known to cause pancreatitis, but modern regimens are generally less associated with this risk. Newer ARTs can still cause asymptomatic, mild to moderate elevations in lipase, which are common in HIV-positive patients. * HIV-related pancreatic inflammation:?HIV itself can be toxic to the pancreas, and in patients with low CD4 counts (though not this patient), opportunistic infections can be a cause. However, HIV-related inflammation of the pancreas can occur even without severe immunosuppression. * Non-pancreatic causes of hyperlipasemia:?Elevated lipase can result from numerous conditions other than pancreatitis, such as renal insufficiency, other intra-abdominal inflammation (hepatobiliary or gastrointestinal), malignancies, or macro-lipasemia. * Chronic pancreatitis:?While the CT was normal, mild or equivocal changes can be missed, and this could be an intermittent presentation. Endoscopic ultrasound (EUS) is more sensitive for detecting mild chronic pancreatitis. * Other intra-abdominal pathology:?Other gastrointestinal or hepatobiliary issues, such as cholecystitis, peptic ulcer disease, or bowel obstruction, can cause elevated lipase and abdominal pain, though the CT was normal in this case. Plan: * EGD :?Reasonable to investigate persistent GERD symptoms despite PPI therapy and to rule out opportunistic esophagitis or other pathology given the patient's HIV status. * Colonoscopy :?Justified for the workup of chronic diarrhea, especially if stool studies are negative. It can help evaluate for infectious colitis, inflammatory bowel disease, or malignancies, especially in the context of the anal dysplasia history. * Diagnostic: * Perform stool studies for infectious workup (culture, O&P, PCR panel,?C. difficile). * Schedule combined upper endoscopy (EGD) and colonoscopy to evaluate chronic symptoms, especially given the history of anal dysplasia and the patient's desire for the procedure. Biopsies should be taken as indicated. * Confirm with the patient any specific symptoms (bleeding, pain) concerning for anal cancer recurrence. High-resolution anoscopy should be considered if there are new or concerning anal symptoms. * Repeat lipase measurement to check for resolution or persistence. * Consider further hepatobiliary imaging, such as a magnetic resonance ch olangiopancreatography (MRCP), if suspicion for biliary obstruction remains despite the normal CT. * If lipase remains elevated and symptoms persist, consider endoscopic ultrasound (EUS) to further evaluate for occult pancreatic disease, such as early chronic pancreatitis. * Therapeutic: * Pain control: Recommend supportive measures, including avoidance of alcohol and narcotics, as these may worsen hyperlipasemia or cause pancreatitis. * Symptom management: Monitor for any change in symptoms. * Medications: * Continue triple ART and Nexium. * Consider a therapeutic trial for diarrhea (e.g., antidiarrheal agents) depending on the results of stool studies, if appropriate. Orders: Orders Celiac Disease Profile Today K21.9 - Gastro-esophageal reflux disease without esophagitis, K44.9 - Diaphragmatic hernia without obstruction or gangrene, K62.82 - Dysplasia of anus, K85.90 - Acute pancreatitis without necrosis or infection, unspecified, R10.10 - Upper abdominal pain, unspecified, R19.7 - Diarrhea, unspecified ANTHONY + Protein Elect, Serum Today K21.9 - Gastro-esophageal reflux disease without esophagitis, K44.9 - Diaphragmatic hernia without obstruction or gangrene, K62.82 - Dysplasia of anus, K85.90 - Acute pancreatitis without necrosis or infection, unspecified, R10.10 - Upper abdominal pain, unspecified, R19.7 - Diarrhea, unspecified LDH Today K21.9 - Gastro-esophageal reflux disease without esophagitis, K44.9 -Diaphragmatic hernia without obstruction or gangrene, K62.82 - Dysplasia of anus, K85.90 - Acute pancreatitis without necrosis or infection, unspecified, R10.10 - Upper abdominal pain, unspecified, R19.7 - Diarrhea, unspecified ANCA Today K21.9 - Gastro-esophageal reflux disease without esophagitis, K44.9 - Diaphragmatic hernia without obstruction or gangrene, K62.82 - Dysplasia of anus, K85.90 - Acute pancreatitis without necrosis or infection, unspecified, R10.10 - Upper abdominal pain, unspecified, R19.7 - Diarrhea, unspecified CRP Today K21.9 - Gastro-esophageal reflux disease without esophagitis, K44.9 -Diaphragmatic hernia without obstruction or gangrene, K62.82 - Dysplasia of anus, K85.90 - Acute pancreatitis without necrosis or infection, unspecified, R10.10- Upper abdominal pain, unspecified, R19.7 - Diarrhea, unspecified Erythrocyte Sed Rate Today K21.9 - Gastro-esophageal reflux disease without esophagitis, K44.9 - Diaphragmatic hernia without obstruction or gangrene, K62.82 - Dysplasia of anus, K85.90 - Acute pancreatitis without necrosis or infection, unspecified, R10.10 - Upper abdominal pain, unspecified, R19.7 - Diarrhea, unspecified Immunoglobulins G/A/M/E Today K21.9 - Gastro-esophageal reflux disease without esophagitis, K44.9 - Diaphragmatic hernia without obstruction or gangrene, K62.82 - Dysplasia of anus, K85.90 - Acute pancreatitis without necrosis or infection, unspecified, R10.10 - Upper abdominal pain, unspecified, R19.7 - Diarrhea, unspecified Allergen, Food Profile 14 Today K21.9 - Gastro-esophageal reflux disease without esophagitis, K44.9 - Diaphragmatic hernia without obstruction or gangrene, K62.82 - Dysplasia of anus, K85.90 - Acute pancreatitis without necrosis or infection, unspecified, R10.10 - Upper abdominal pain, unspecified, R19.7 - Diarrhea, unspecified [facility] Comprehensive Panel Today K21.9 - Gastro-esophageal reflux disease without esophagitis, K44.9 - Diaphragmatic hernia without obstruction or gangrene, K62.82 - Dysplasia of anus, K85.90 - Acute pancreatitis without necrosis or infection, unspecified, R10.10 - Upper abdominal pain, unspecified, R19.7 - Diarrhea, unspecified ENTERIC PATHOGEN PANEL STOOL Today K21.9 - Gastro-esophageal reflux disease without esophagitis, K44.9 - Diaphragmatic hernia without obstruction or gangrene, K58.9 - Irritable bowel syndrome, unspecified, K62.82 - Dysplasia of anus, K85.90 - Acute pancreatitis without necrosis or infection, unspecified, R10.10 - Upper abdominal pain, unspecified, R19.7 - Diarrhea, unspecified Stool Lactoferrin/WBC Today K21.9 - Gastro-esophageal reflux disease without esophagitis, K44.9 - Diaphragmatic hernia without obstruction or gangrene, K58.9- Irritable bowel syndrome, unspecified, K62.82 - Dysplasia of anus, K85.90 - Acute pancreatitis without necrosis or infection, unspecified, R10.10 - Upper abdominal pain, unspecified, R19.7 - Diarrhea, unspecified CDIFF (PCR) Today K21.9 - Gastro-esophageal reflux disease without esophagitis,K44.9 - Diaphragmatic hernia without obstruction or gangrene, K62.82 - Dysplasiaof anus, K85.90 - Acute pancreatitis without necrosis or infection, unspecified,R10.10 - Upper abdominal pain, unspecified, R19.7 - Diarrhea, unspecified Pancreatic Elastase, Fecal Today K21.9 - Gastro-esophageal reflux disease without esophagitis, K44.9 - Diaphragmatic hernia without obstruction or gangrene, K62.82 - Dysplasia of anus, K85.90 - Acute pancreatitis without necrosis or infection, unspecified, R10.10 - Upper abdominal pain, unspecified, R19.7 - Diarrhea, unspecified OVA+PARA w/Giardia EIA [id number] Today K21.9 - Gastro-esophageal reflux disease without esophagitis, K44.9 - Diaphragmatic hernia without obstruction or gangrene, K62.82 - Dysplasia of anus, K85.90 - Acute pancreatitis without necrosis or infection, unspecified, R10.10 - Upper abdominal pain, unspecified, R19.7 - Diarrhea, unspecified Calprotectin, Stool Today K21.9 - Gastro-esophageal reflux disease without esophagitis, K44.9 - Diaphragmatic hernia without obstruction or gangrene, K62.82 - Dysplasia of anus, K85.90 - Acute pancreatitis without necrosis or infection, unspecified, R10.10 - Upper abdominal pain, unspecified, R19.7 - Diarrhea, unspecified Stool Occult Blood iFOB Today K21.9 - Gastro-esophageal reflux disease without esophagitis, K44.9 - Diaphragmatic hernia without obstruction or gangrene, K62.82 - Dysplasia of anus, K85.90 - Acute pancreatitis without necrosis or infection, unspecified, R10.10 - Upper abdominal pain, unspecified, R19.7 - Diarrhea, unspecified Fecal Fat, Qualitative Today K21.9 - Gastro-esophageal reflux disease without esophagitis, K44.9 - Diaphragmatic hernia without obstruction or gangrene, K62.82 - Dysplasia of anus, K85.90 - Acute pancreatitis without necrosis or infection, unspecified, R10.10 - Upper abdominal pain, unspecified, R19.7 - Diarrhea, unspecified IBD Expanded Profile Today K21.9 - Gastro-esophageal reflux disease without esophagitis, K44.9 - Diaphragmatic hernia without obstruction or gangrene, K62.82- Dysplasia of anus, K85.90 - Acute pancreatitis without necrosis or infection, unspecified, R10.10 - Upper abdominal pain, unspecified, R19.7 - Diarrhea, unspecified Coding Level of Care Code Off vis,new,level 4 Diagnoses Acute pancreatitis K85.90 Upper abdominal pain R10.10 Diarrhea, unspecified type R19.7 Diarrhea type: unspecified type Gastroesophageal reflux disease, esophagitis presence not specified K21.9 Esophagitis presence: esophagitis presence not specified Mild anal dysplasia, histologically confirmed K62.82 Hiatal hernia K44.9 11/07/24 1705 <Electronically signed by Peter cramer DO> Date _ Peter Mitchell DO Cosigner Signature: Date (if applicable) CC: ~ [facility] Work Phone: [phone] Discharge summary [facility] Medical Records Department [address] [place] [address] Emergency Department Summary 10/24/24 MR#: [id number] Acct: [id number] Name: YAIR FRIEDMAN Rep #:[id number] : 1965 59 From: Zack marie DO PCP: Dr. Edwina Johnson MD Status:REG ER Location: ED HPI History of Present Illness Chief Complaint: Abd Pain Narrative Narrative: Chief complaint and HPI: 59-year-old male with past medical history of GERD, HIV/AIDS presents for evaluation of acute pancreatitis. Patient states over theekend he was at a wedding in which he developed epigastric abdominal pain. States the pain improved but then worsened. Saw his PCP outpatientwho told himthat his labs showed pancreatitis. He was scheduled for an outpatient CT abdomen pelvisbut pain worsened and was told to come to the ED by PCP. He states prior to arrival to the emergency department, he did trip in his trailer at home in which he twisted his right ankle. Currently swollen and endorsing pain. Denies any numbness or tingling. Denies daily alcohol use. Previous abdominal surgery of her hernia. Denies any blood thinners. Denies any fever, chills, shortness of breath, chest pain, diarrhea, constipation, dysuria. Does endorse nausea. Review of systems: See HPI Medications: As listed on the chart Allergies: As listed on the chart PFSH: Per chart Vital signs: As listed on the chart. Reviewed. Physical exam: Gen: A&O x3 Head: Normocephalic, atraumatic Eyes: No sclera icterus, conjunctiva clear ENT: Moist mucous membranes Neck: Trachea midline, No JVD CV: Tachycardic, regular rhythm, no murmurs, no peripheral edema Resp: Lungs CTA BL, no w/r/c GI: Abd soft, non-distended, tender to palpation in the epigastrium, no r/r/g Musc: Full ROM in all extremities except limited in the right ankle secondary topain and swelling, DP/PT pulses +2 bilaterally, sensation intact, good capillaryrefill, Achilles intact without tenderness, patient has tenderness to palpation of the ankle mostly at the lateral malleolus where most of the swelling is located Skin: Warm, dry Neuro: Alert, oriented, grossly intact, sensation intact Psych: Cooperative, appropriate mood and affect [facility] Medical History (Updated 10/23/24 @ 12:[address] Edwina Johnson MD) Acute pancreatitis Upper abdominal pain Left knee pain Achilles tendinitis of both lower extremities Rupture of right long head biceps tendon Normal exam Right shoulder pain Loss of hearing History of edema Non-smoker PONV (postoperative nausea and vomiting) Rectal pain Pain in both testicles History of kidney stones Cancer Arthritis Back pain Gastric reflux Left inguinal hernia Diarrhea Abdominal pain GERD (gastroesophageal reflux disease) AIDS Anal condyloma Anal dysplasia Weight loss Home Medications ?Medication ?Instructions ?Recorded ?Last Taken ?Type valacyclovir 1 gram tablet 1,000 mg PO QHS HIV 1 Unknown History abacavir 600 mg-dolutegravir 50 1 tab PO QHS HIV 05/15 Unknown History mg-lamivudine 300 mg tablet (Triumeq) omeprazole 40 mg capsule,delayed 40 mg PO QHS GERD #90 caps 01/04/24 Unknown Rx release epinephrine 0.3 mg/0.3 mL 0.3 mg (0.3 mL) IM Q5-15M VA N 01/17/24 Unknown Rx injection, auto-injector anaphylaxis #2 ea cetirizine 5 mg tablet (Zyrtec) 5 mg PO QDAY PRN aller gy symptoms 10/23/24 Unknown History Allergy/AdvReac Type Severity Reaction Status Date / Time bee venom protein (honey bee) Allergy Severe Anaphylaxis Verified 10/23/24 08:29 adhesive tape AdvReac Rash Verified 10/23/24 08:29 amoxicillin (From Augmentin) AdvReac Hives Verified 10/23/24 08:29 clavulanic acid (From AdvReac Hives Verified 10/23/24 08:29 Augmentin) oxycodone (From Percocet) AdvReac elevated Verified 10/23/24 08:29 bp, felt funny, chest tightness Family History Mother Asthma Arthritis Diabetes Heart disease Hypertension High cholesterol Grandfather Cancer lung cancer Father Heart disease High cholesterol Hypertension Cancer skin cancer Surgical History H/O lumbosacral spine surgery Hx of arthroscopy of shoulder History of esophagogastroduodenoscopy (EGD) History of colonoscopy History of left inguinal hernia repair History of shoulder surgery history left bicep tendon repair history left ulnar nerve repair History of bilateral carpal tunnel release Social History Smoking Status: Never smoker alcohol intake: never substance use type: does not use EXAM Physical Exam Const Vital Signs: 10/24/24 16:52 10/24/24 18:52 10/24/24 20:00 Temperature 97.9 F Temperature Source Oral Pulse Rate 130 H 117 H 100 Respiratory Rate 17 22 H 16 Blood Pressure 163/100 H 125/90 H 129/96 H Blood Pressure Mean 121 101 107 Pulse Ox 100 99 100 Oxygen Delivery Method Room Air MDM MDM MDM Narrative Medical decision making narrative: 59-year-old male with past medical history of GERD, HIV/AIDS presents for evaluation of acute pancreatitis. Patient states over the weekend he was at a wedding in which he developed epigastric abdominal pain. States the pain improved but then worsened. Saw his PCP outpatient who told him that his labs showed pancreatitis. He was scheduled for an outpatient CT abdomen pelvis but pain worsened and was told to come to the ED by PCP. Complains of right ankle pain as he twisted it prior to arrival. Differential diagnosis includes but is not limited to acute pancreatitis, pseudocyst, electrolyte abnormality, dehydration, UTI, fracture, sprain. NS bolus, morphine, Zofran ordered. Abdominal pain workup ordered including CT abdomen and pelvis. Will obtain x-ray of the ankle. Suspect less likely cardiac etiology. EKG reviewed. EKG andchest x-ray reviewed. Will level on BNP as patient has no history of heart failure. CBC without leukocytosis or anemia. Platelets unremarkable. CMP unremarkable exc ept for mildly elevated AST of 48. No hyperbilirubinemia. Lipase unremarkable. Troponin unremarkable x2. Lactic acid unremarkable. At this point in time, no clear etiology to explain patient's abdominal pain. He states it is in his epigastrium and radiates to his back. Low suspicion for dissection however cannot rule out. Will obtain CTA of the chest. X-ray of theankle was personally reviewed interpreted by me, ED physician. No fracture or dislocation. Radiology in agreement. Pain and swelling likely due to sprain. Aircast ordered with crutches as needed. BNP unremarkable. CTA negative for dissection or PE. Patient has small hiatal hernia. Hepatic steatosis. Heart normal in size. No pericard ial effusion. UA negative for UTI. At this point in time, no clear etiology to explain patient's epigastric abdominal pain. On reevaluation he states that his abdominal pain has resolved. He still endorses pain in the ankle. Patient stable to discharge home. Follow-up with orthopedics for his rightankle sprain. Follow-up with primary care physician for his epigastric pain. May be secondary to his known GERD. Return back to the ED if symptoms change or worsen. Motrin and Tylenol as needed for pain. Was given education on RICE therapy. He confirmed understand the plan. Patientstable to discharge home. Vitals have improved with pain management. EKG: Interpreted by me/EM physician: EKG shows sinus tachycardia with a heart rate of121. No acute ischemic changes. Diagnostic: Interpreted by me/EM physician: X-ray shows cardiomegaly with mild vascular congestion. No large effusion, pneumothorax, pneumonia. Radiology in agreement. Impression: 1. Epigastric abdominal pain 2. Right ankle sprain Lab Data Labs: Laboratory Results - last 24 hr 10/24/24 10/24/24 10/24/24 17:45 19:21 19:55 WBC 8.3 RBC 4.53 L Hgb 15.0 Hct 44.4 MCV 98.0 H MCH 33.1 H MCHC 33.8 RDW Std Deviation 43.8 RDW Coeff of Micheline 12.1 Plt Count 232 MPV 8.6 Immature Gran % (Auto) 0.500 Neut % (Auto) 63.9 Lymph % (Auto) 22.9 Hardee % (Auto) 10.9 H Eos % (Auto) 1.3 Baso % (Auto) 0.5 Absolute Neuts (auto) 5.3 Absolute Lymphs (auto) 1.90 Nucleated RBC % 0 Sodium 142 Potassium 4.1 Chloride 105 Carbon Dioxide 23.5 Anion Gap 14 BUN 14 Creatinine 1.08 Estim Creat Clear Calc 71.25 Est GFR (MDRD) Non-Af 79 BUN/Creatinine Ratio 13.1 Glucose 86 Lactic Acid < 1.0 Calcium 10.3 Total Bilirubin 0.37 Direct Bilirubin 0.15 AST 48 H ALT 28 Alkaline Phosphatase 79 Troponin T High Sens 9 Troponin T Hi Sens 2 Hr 9 NT pro BNP II < 36 Total Protein 8.3 Albumin 4.5 Globulin 3.8 Lipase 64 Urine Color Straw Urine Clarity Clear Urine pH 6.0 Ur Specific [place] 1.010 Urine Protein 15 H Urine Glucose (UA) Normal Urine Ketones 15 H Urine Occult Blood 10 H Urine Nitrite Negative Urine Bilirubin Negative Urine Urobilinogen Normal Ur Leukocyte Esterase Negative Urine RBC 0-5 SEEN Urine WBC 0-5 SEEN Ur Squamous Epith Cells 0-5 SEEN Urine Bacteria 0 SEEN Urine Mucus 0 SEEN Radiography Diagnostic Testing: Clinical Impression(s) from Imaging Studies Ankle X-Ray 10/24/24 17:31 IMPRESSION: No acute fracture or dislocation. Reading Location: [facility] Abdomen/Pelvis CT 10/24/24 17:32 IMPRESSION: No acute abdominopelvic abnormalities. Reading Location: [facility] Chest X-Ray 10/24/24 18:10 IMPRESSION: Cardiomegaly, with vascular congestion and interstitial edema. No airspace consolidation or sizable pleural effusion. Reading Location: [facility] Chest CTA 10/24/24 18:44 IMPRESSION: No acute intrathoracic pathology. No aortic aneurysm or dissection. Reading Location: [facility] Discharge Plan Triage Chief Complaint: Abd Pain ED Provider: Zack Prabhakar Dx/Rx/DC Orders Prescriptions: No Action valacyclovir 1 gram tablet 1,000 mg PO QHS omeprazole 40 mg capsule,delayed release(DR/EC) 40 mg PO QHS Qty: 90 3RF cetirizine [Zyrtec] 5 mg tablet 5 mg PO QDAY PRN (Reason: allergy symptoms) Triumeq 600-50-300 mg tablet 1 tab PO QHS epinephrine 0.3 mg/0.3 mL auto-injector 0.3 mg IM Q5-15M PRN (Reason: anaphylaxis) Qty: 2 1RF Rx Instructions: do not exceed 3 doses per episode Primary Care Provider: Edwina Johnson Referrals: Edwina Johnson MD [Primary Care Provider, Internal Medicine - [facility]] Print Language: Greek What to do if you have Problems For any increased pain, shortness of breath, bleeding, nausea or vomiting, chestpain, or any unexpected problems, contact your Primary Care Provider. Call [facility] ([phone]) or report tothe closest Emergency Room. Call 911 if necessary. 10/24/242056 Cosigner Signature (if applicable): CC: Dr. Edwina Johnson MD ~ Signed [facility]09-17-2025 Radiology Diagnostic study note [facility] Imaging Services [address] [place] [address] CTA Chest W/WO Contrast MR#: [id number] Acct: [id number] Name: YAIR FRIEDMAN Rep #: [id number] : 1965 M 59 From: Checo Jorge MD PCP: Dr. Edwina Johnson MD Status: REG ER Study:CTA Chest W/WO Contrast Date of Exam: 10/24/24 Exam# [id number] Ordering Dr: Zack Fry DO PROCEDURE: CTA CHEST W/WO CONTRAST 10/24/2024 REASON FOR EXAM: DISSECTION TECHNIQUE: Procedure Code: CTCTACHWW Modality: CT Procedure: CTA CHEST W/WO CONTRAST Multiplanar Sagittal and Coronal images were obtained. 3D post processing was performed. CONTRAST: Isovue 370 VOLUME: 100 mL One or more dose reduction techniques were used (e.g., Automated exposure control, adjustment of the mA and/or kV according to patient size, use of iterative reconstruction technique). RADIATION DOSE SUMMARY: DLP: 514.35 mGycm COMPARISON: CTA chest 01/30/2021. FINDINGS: THORACIC AORTA: Normal in course and caliber. No aneurysm or dissection. No significant atherosclerotic disease. Conventional three-vessel aortic arch branching. PULMONARY VESSELS: Normal in caliber. No pulmonary arterial emboli. MEDIASTINUM: Unremarkable. No lymphadenopathy. HEART: Normal in size. No pericardial effusion. No significant coronary arterycalcification. LUNGS/PLEURA: Clear. No airspace consolidation or findings of pulmonary edema. No pneumothorax or pleural effusions. The central airways are patent. UPPER ABDOMEN: Small hiatal hernia. Hepatic steatosis. BONES: Mild degenerative changes of the thoracic spine. CT/CTA Chest W/WO Contrast IMPRESSION: No acute intrathoracic pathology. No aortic aneurysm or dissection. Reading Location: [facility] CC: Dr. Zack Prabhakar DO; Dr. Edwina Johnson MD ~ Barrelhead Inspector: Signed [facility]09-17-2025 Radiology Diagnostic study note [facility] Imaging Services [address] [place] [address] Chest 1 View (Portable) MR#: [id number] Acct: [id number] Name: YAIR FRIEDMAN Rep #: [id number] : 1965 M 59 From: Checo Jorge MD PCP: Dr. Edwina Johnson MD Status: REG ER Study:Chest 1 View (Portable) Date of Exam: 10/24/24 Exam# [id number] Ordering Dr: Zack Fry DO PROCEDURE: CHEST 1 VIEW (PORTABLE) 10/24/2024 REASON FOR EXAM: EPIGASTIC PAIN TECHNIQUE: Frontal view of the chest. COMPARISON: None. FINDINGS: Cardiomegaly, with central vascular congestion, and probable interstitial pulmonary edema. No pneumothorax or sizable pleural effusion. Mild degenerative changes of the spine. RAD/Chest 1 View (Portable) IMPRESSION: Cardiomegaly, with vascular congestion and interstitial edema. No airspace consolidation or sizable pleural effusion. Reading Location: [id number] CC: Dr. Zack Prabhakar DO; Dr. Edwina Johnson MD ~ Barrelhead Inspector: Signed [facility]09-17-2025 Radiology Diagnostic study note [facility] Imaging Services [address] [place] [address] Ankle min 3 Views MR#: [id number] Acct: [id number] Name: YAIR FRIEDMAN Rep #: [id number] : 1965 M 59 From: Checo Jorge MD PCP: Dr. Edwina Johnson MD Status: REG ER Study:Ankle min 3 Views Date of Exam: Exam# [id number] Ordering Dr: Zack Fry DO PROCEDURE: RIGHT ANKLE MIN 3 VIEWS 10/24/2024 REASON FOR EXAM: PAIN TECHNIQUE: Procedure Code: RADANK Modality: DX Procedure: ANKLE MIN 3 VIEWS Laterality: Right COMPARISON: None. FINDINGS: No acute fracture or dislocation. Alignment is anatomic. Preserved joint spaces.No aggressive osseous lesion. No marked soft tissue swelling or radiopaque foreign body. RAD/Ankle min 3 Views IMPRESSION: No acute fracture or dislocation. Reading Location: [facility] CC: Dr. Zack Prabhakar DO; Dr. Edwina Johnson MD ~ Barrelhead Inspector: Signed [facility]09-17-2025 Radiology Diagnostic study note [facility] Imaging Services [address] [place], [place] [address] Abdomen/Pelvis W IV Cont ONLY MR#: [id number] Acct: [id number] Name: YAIR FRIEDMAN Rep #: [id number] : 1965 M 59 From: Christian Colindres MD PCP: Dr. Edwina Johnson MD Status: REG ER Study:Abdomen/Pelvis W IV Cont ONLY Date of E xam: 10/24/24 Exam# [id number] Ordering Dr: Zack Fry DO PROCEDURE: ABDOMEN/PELVIS W IV CONT ONLY 10/24/2024 REASON FOR EXAM: EPIGASTRIC ABDOMINAL PAIN TECHNIQUE: Procedure Code: CTABDPELIV Modality: CT Procedure: ABDOMEN/PELVIS W IV CONT ONLY Coronal and Sagittal reconstruction series were provided. CONTRAST: Isovue 370 VOLUME: 100 mL One or more dose reduction techniques were used (e.g., Automated exposure control, adjustment of the mA and/or kV according to patient size, use of iterative reconstruction technique. RADIATION DOSE SUMMARY: CTDlvol: 15.73 mGy DLP: 823.19 mGycm COMPARISON: None. FINDINGS: Lung bases: Clear. Liver: Unremarkable. Gallbladder: Unremarkable. No biliary dilation. Spleen: Unremarkable. Pancreas: Unremarkable. Adrenals: Unremarkable. Kidneys: No hydronephrosis or nephrolithiasis. Bladder: Unremarkable. Reproductive Organs: Unremarkable. Bowel: No bowel wall thickening or bowel obstruction. Appendix: Unremarkable. Lymph nodes: No lymphadenopathy. Vasculature: No aneurysm. Peritoneum / Retroperitoneum: No free air or free fluid. Bones: No acute bony abnormalities. CT/Abdomen/Pelvis W IV Cont ONLY IMPRESSION: No acute abdominopelvic abnormalities. Reading Location: [facility] CC: Dr. Zack Prabhakar DO; Dr. Edwina Johnson MD ~ Barrelhead Inspector: Signed [facility]09-17-2025 Discharge summary Author Zack Prabhakar [facility] Note Date/Time October 24, 2024 8:57pm [facility] Medical Records Department [address] [place] [address] Emergency Department Summary 10/24/24 MR#: [id number] Acct: [id number] Name: YAIR FRIEDMAN Rep #:[id number] : 1965 59 From: Zack Winchester ggett DO PCP: Dr. Edwina Johnson MD Status:REG ER Location: ED HPI History of Present Illness Chief Complaint: Abd Pain Narrative Narrative: Chief complaint and HPI: 59-year-old male with past medical history of GERD, HIV/AIDS presents for evaluation of acute pancreatitis. Patient states over theweekend he was at a wedding in which he developed epigastric abdominal pain. States the pain improved but then worsened. Saw his PCP outpatient who told himthat his labs showed pancreatitis. He was scheduled for an outpatient CT abdomen pelvis but pain worsened and was told to come to the ED by PCP. He states prior to arrival to the emergency department, he did trip in his trailer at home in which he twisted his right ankle. Currently swollen and endorsing pain. Denies any numbness or tingling. Denies daily alcohol use. Previous abdominal surgery of her hernia. Denies any blood thinners. Denies any fever, chills, shortness of breath, chest pain, diarrhea, constipation, dysuria. Does endorse nausea. Review of systems: See HPI Medications: As listed on the chart Allergies: As listed on the chart PFSH: Per chart Vital signs: As listed on the chart. Reviewed. Physical exam: Gen: A&O x3 Head: Normocephalic, atraumatic Eyes: No sclera icterus, conjunctiva clear ENT: Moist mucous membranes Neck: Trachea midline, No JVD CV: Tachycardic, regular rhythm, no murmurs, no peripheral edema Resp: Lungs CTA BL, no w/r/c GI: Abd soft, non-distended, tender to palpation in the epigastrium, no r/r/g Musc: Full ROM in all extremities except limited in the right ankle secondary topain and swelling, DP/PT pulses +2 bilaterally, sensation intact, good capillaryrefill, Achilles intact without tenderness, patient has tenderness to palpation of the ankle mostly at the lateral malleolus where most of the swelling is located Skin: Warm, dry Neuro: Alert, oriented, grossly intact, sensation intact Psych: Cooperative, appropriate mood and affect [facility] Medical History (Updated 10/23/24 @ 12:[address] Edwina Johnson MD) Acute pancreatitis Upper abdominal pain Left knee pain Achilles tendinitis of both lower extremities Rupture of right long head biceps tendon Normal exam Right shoulder pain Loss of hearing History of edema Non-smoker PONV (postoperative nausea and vomiting) Rectal pain Pain in both testicles History of kidney stones Cancer Arthritis Back pain Gastric reflux Left inguinal hernia Diarrhea Abdominal pain GERD (gastroesophageal reflux disease) AIDS Anal condyloma Anal dysplasia Weight loss Home Medications ?Medication ?Instructions ?Recorded ?Last Taken ?Type valacyclovir 1 gram tablet 1,000 mg PO QHS HIV 1 Unknown History abacavir 600 mg-dolutegravir 50 1 tab PO QHS HIV 05/15 Unknown History mg-lamivudine 300 mg tablet (Triumeq) omeprazole 40 mg capsule,delayed 40 mg PO QHS GERD #90 caps 01/04/24 Unknown Rx release epinephrine 0.3 mg/0.3 mL 0.3 mg (0.3 mL) IM Q5-15M [facility] N 01/17/24 Unknown Rx injection, auto-injector anaphylaxis #2 ea cetirizine 5 mg tablet (Zyrtec) 5 mg PO QDAY PRN aller gy symptoms 10/23/24 Unknown History Allergy/AdvReac Type Severity Reaction Status Date / Time bee venom protein (honey bee) Allergy Severe Anaphylaxis Verified 10/23/24 08:29 adhesive tape AdvReac Rash Verified 10/23/24 08:29 amoxicillin (From Augmentin) AdvReac Hives Verified 10/23/24 08:29 clavulanic acid (From AdvReac Hives Verified 10/23/24 08:29 Augmentin) oxycodone (From Percocet) AdvReac elevated Verified 10/23/24 08:29 bp, felt funny, chest tightness Family History Mother Asthma Arthritis Diabetes Heart disease Hypertension High cholesterol Grandfather Cancer lung cancer Father Heart disease High cholesterol Hypertension Cancer skin cancer Surgical History H/O lumbosacral spine surgery Hx of arthroscopy of shoulder History of esophagogastroduodenoscopy (EGD) History of colonoscopy History of left inguinal hernia repair History of shoulder surgery history left bicep tendon repair history left ulnar nerve repair History of bilateral carpal tunnel release Social History Smoking Status: Never smoker alcohol intake: never substance use type: does not use EXAM Physical Exam Const Vital Signs: 10/24/24 16:52 10/24/24 18:52 10/24/24 20:00 Temperature 97.9 F Temperature Source Oral Pulse Rate 130 H 117 H 100 Respiratory Rate 17 22 H 16 Blood Pressure 163/100 H 125/90 H 129/96 H Blood Pressure Mean 121 101 107 Pulse Ox 100 99 100 Oxygen Delivery Method Room Air MDM MDM MDM Narrative Medical decision making narrative: 59-year-old male with past medical history of GERD, HIV/AIDS presents for evaluation of acute pancreatitis. Patient states over the weekend he was at a wedding in which he developed epigastric abdominal pain. States the pain improved but then worsened. Saw his PCP outpatient who told him that his labs showed pancreatitis. He was scheduled for an outpatient CT abdomen pelvis but pain worsened and was told to come to the ED by PCP. Complains of right ankle pain as he twisted it prior to arrival. Differential diagnosis includes but is not limited to acute pancreatitis, pseudocyst, electrolyte abnormality, dehydration, UTI, fracture, sprain. NS bolus, morphine, Zofran ordered. Abdominal pain workup ordered including CT abdomen and pelvis. Will obtain x-ray of the ankle. Suspect less likely cardiac etiology. EKG reviewed. EKG andchest x-ray reviewed. Will level on BNP as patient has no history of heart failure. CBC without leukocytosis or anemia. Platelets unremarkable. CMP unremarkable except for mildly elevated AST of 48. No hyperbilirubinemia. Lipase unremarkable. Troponin unremarkable x2. Lactic acid unremarkable. At this point in time, no clear etiology to explain patient's abdominal pain. He states it is in his epigastrium and radiates to his back. Low suspicion for dissection however cannot rule out. Will obtain CTA of the chest. X-ray of theankle was personally reviewed interpreted by me, ED physician. No fracture or dislocation. Radiology in agreement. Pain and swelling likely due to sprain. Aircast ordered with crutches as needed. BNP unremarkable. CTA negative for dissection or PE. Patient has small hiatal hernia. Hepatic steatosis. Heart normal in size. No pericardial effusion. UA negative for UTI. At this point in time, no clear etiology to explain patient's epigastric abdominal pain. On reevaluation he states that his abdominal pain has resolved. He still endorses pain in the ankle. Patient stable to discharge home. Follow-up with orthopedics for his right ankle sprain. Follow-up with primary care physician for his epigastric pain. May be secondary to his known GERD. Return back to the ED if symptoms change or worsen. Motrin and Tylenol as needed for pain. Was given education on RICE therapy. He confirmed understand the plan. Patientstable to discharge home. Vitals have improved with pain management. EKG: Interpreted by me/EM physician: EKG shows sinus tachycardia with a heart rate of121. No acute ischemic changes. Diagnostic: Interpreted by me/EM physician: X-ray shows cardiomegaly with mild vascular congestion. No large effusion, pneumothorax, pneumonia. Radiology in agreement. Impression: 1. Epigastric abdominal pain 2. Right ankle sprain Lab Data Labs: Laboratory Results - last 24 hr 10/24/24 10/24/24 10/24/24 17:45 19:21 19:55 WBC 8.3 RBC 4.53 L Hgb 15.0 Hct 44.4 MCV 98.0 H MCH 33.1 H MCHC 33.8 RDW Std Deviation 43.8 RDW Coeff of Micheline 12.1 Plt Count 232 MPV 8.6 Immature Gran % (Auto) 0.500 Neut % (Auto) 63.9 Lymph % (Auto) 22.9 [place] % (Auto) 10.9 H Eos % (Auto) 1.3 Baso % (Auto) 0.5 Absolute Neuts (auto) 5.3 Absolute Lymphs (auto) 1.90 Nucleated RBC % 0 Sodium 142 Potassium 4.1 Chloride 105 Carbon Dioxide 23.5 Anion Gap 14 BUN 14 Creatinine 1.08 Estim Creat Clear Calc 71.25 Est GFR (MDRD) Non-Af 79 BUN/Creatinine Ratio 13.1 Glucose 86 Lactic Acid < 1.0 Calcium 10.3 Total Bilirubin 0.37 Direct Bilirubin 0.15 AST 48 H ALT 28 Alkaline Phosphatase 79 Troponin T High Sens 9 Troponin T Hi Sens 2 Hr 9 NT pro BNP II < 36 Total Protein 8.3 Albumin 4.5 Globulin 3.8 Lipase 64 Urine Color Straw Urine Clarity Clear Urine pH 6.0 Ur Specific [place] 1.010 Urine Protein 15 H Urine Glucose (UA) Normal Urine Ketones 15 H Urine Occult Blood 10 H Urine Nitrite Negative Urine Bilirubin Negative Urine Urobilinogen Normal Ur Leukocyte Esterase Negative Urine RBC 0-5 SEEN Urine WBC 0-5 SEEN Ur Squamous Epith Cells 0-5 SEEN Urine Bacteria 0 SEEN Urine Mucus 0 SEEN Radiography Diagnostic Testing: Clinical Impression(s) from Imaging Studies Ankle X-Ray 10/24/24 17:31 IMPRESSION: No acute fracture or dislocation. Reading Location: [id number] Abdomen/Pelvis CT 10/24/24 17:32 IMPRESSION: No acute abdominopelvic abnormalities. Reading Location: [id number] Chest X-Ray 10/24/24 18:10 IMPRESSION: Cardiomegaly, with vascular congestion and interstitial edema. No airspace consolidation or sizable pleural effusion. Reading Location: [facility] Chest CTA 10/24/24 18:44 IMPRESSION: No acute intrathoracic pathology. No aortic aneurysm or dissection. Reading Location: [id number] Discharge Plan Triage Chief Complaint: Abd Pain ED Provider: Zack Prabhakar Dx/Rx/DC Orders Prescriptions: No Action valacyclovir 1 gram tablet 1,000 mg PO QHS omeprazole 40 mg capsule,delayed release(DR/EC) 40 mg PO QHS Qty: 90 3RF cetirizine [Zyrtec] 5 mg tablet 5 mg PO QDAY PRN (Reason: allergy symptoms) Triumeq 600-50-300 mg tablet 1 tab PO QHS epinephrine 0.3 mg/0.3 mL auto-injector 0.3 mg IM Q5-15M PRN (Reason: anaphylaxis) Qty: 2 1RF Rx Instructions: do not exceed 3 doses per episode Primary Care Provider: Edwina Johnson Referrals: Edwina Johnson MD [Primary Care Provider, Internal Medicine - [facility]] Print Language: Greek What to do if you have Problems For any increased pain, shortness of breath, bleeding, nausea or vomiting, chestpain, or any unexpected problems, contact your Primary Care Provider. Call [facility] ([phone]) or report to the closest Emergency Room. Call 911 if necessary. 10/24/242056 <Electronically signed by Zack Prabhakar DO> Cosigner Signature (if applicable): CC: Dr. Edwina Johnson MD ~ Signed [facility] Work Phone: 1(599) 599-924107-24-2025 Evaluation note* Diagnosis Onset Date Resolution Status Admit Date Epididymitis, left acute August 082024 5:32pm [facility] Work Phone: 1(798) 380-485107-24-2025 Evaluation note* Diagnosis Onset Date Resolution Status Admit Date Epididymitis, left acute August 082024 5:32pm DDD (degenerative disc disease), lumbar acute September 17 8:24am Encounter for wellness examination in adult acute September 8:24am GERD (gastroesophageal reflu x disease) acute September 17 8:24am HIV carrier acute September 17, 2024 8:24am [facility] Work Phone: 1(963) 927-814507-24-2025 Evaluation note* Diagnosis Onset Date Resolution Status Admit Date Epididymitis, left acute August 082024 5:32pm DDD (degenerative disc disease), lumbar acute September 17 8:24am Encounter for wellness examination in adult acute September 8:24am GERD (gastroesophageal reflu x disease) acute September 17 8:24am HIV carrier acute September 17, 2024 8:24am Achilles tendinitis of both lower extremities acute October 04, 2 025 9:54am Left knee pain acute September 9:54am [facility] Work Phone: 1(586) 236-255407-24-2025 Evaluation note* Diagnosis Onset Date Resolution Status Admit Date Epididymitis, left acute August 082024 5:32pm DDD (degenerative disc disease), lumbar acute September 17 8:24am Encounter for wellness examination in adult acute September 8:24am GERD (gastroesophageal reflu x disease) acute September 17 8:24am HIV carrier acute [place] 11th, 2025 8:24am Achilles tendinitis of both lower extremities acute October 04, 2 025 9:54am Left knee pain acute September 9:54am Upper abdominal pain acute Oct 8:24am [facility] Work Phone: 1(692) 413-505007-24-2025 Evaluation note* Diagnosis Onset Date Resolution Status Admit Date Epididymitis, left acute August 082024 5:32pm DDD (degenerative disc disease), lumbar acute September 17 8:24am Encounter for wellness examination in adult acute September 8:24am GERD (gastroesophageal reflu x disease) acute September 17 8:24am HIV carrier acute September 17, 2024 8:24am Achilles tendinitis of both lower extremities acute October 04, 025 9:54am Left knee pain acute September 9:54am Upper abdominal pain acute Oct 8:24am Acute pancreatitis acute 2024 1:19pm Diarrhea acute November 07 1:19pm GERD (gastroesophageal reflu x disease) acute November 07 1:19pm Hiatal hernia acute November 1:19pm Mild anal dysplasia, histologically confirmed acute November 07, 2024 1:19pm Upper abdominal pain acute 2024 1:19pm [facility] Work Phone: 1(190) 834-339107-06-2023 Procedure [facility] 07-23-2022 Telephone encounter Note* Telephone Encounter - Anju Triana - 07/23/2022 8:27 AM EDT Outpatient lab results from [facility] Added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 2024 End: June 05, 2024 MINNA VERAS MD Attending Provider Active Start: June 05, 2024 End: June 05, 2024 MINNA VERAS MD Referring Provider Active Start: June 05, 2024 End: June 05, 2024 Dr. Jeremiah Syed MD Other Provider Active Start: June 05, 2024 End: June 05, 2024 Team Status: Inactive Member Role/Relationship Status Dates Dr. Edwina Johnson MD Primary Care Provider Active Start: August 30, 2024 End: August 30, 2024 Dr. Edwina Johnson MD Referring Provider Active Start: August 30, 2024 End: August 30, 2024 Roderick TUCKER PA Attending Provider Active Sta rt: August 30, 2024 End: August 30, 2024 Team Status: Inactive Member Role/Relationship Status Dates Dr. Edwina Johnson MD Primary Care Provider Active Start: August 30, 2024 End: August 30, 2024 Roderick TUCKER, PA Attending Provider Active Sta rt: August 30, 2024 End: August 30, 2024 Team Status: Inactive Member Role/Relationship Status Dates Dr. Edwina Johnson MD Primary Care Provider Active Start: August 30, 2024 End: August 30, 2024 Dr. Edwina Johnson MD Referring Provider Active Start: August 30, 2024 End: August 30, 2024 Roderick TUCKER PA Attending Provider Active Sta rt: August 30, 2024 End: August 30, 2024 Team Status: Inactive Member Role/Relationship Status Dates Dr. Edwina Johnson MD Primary Care Provider Active Start: September 17, 2024 End: September 17, 2024 Dr. Edwina Johnson MD Attending Provider Active Start: September 17, 2024 End: September 17, 2024 Team Status: Inactive Member Role/Relationship Status Dates Dr. Edwina Johnson MD Primary Care Provider Active Start: August 30, 2024 End: August 30, 2024 Roderick TUCKER, PA Attending Provider Active Sta rt: August 30, 2024 End: August 30, 2024 Team Status: Inactive Member Role/Relationship Status Dates Dr. Edwina Johnson MD Primary Care Provider Active Start: August 30, 2024 End: August 30, 2024 Dr. Edwina Johnson MD Referring Provider Active Start: August 30, 2024 End: August 30, 2024 GARRETT Palomares Attending Provider Active Sta rt: August 30, 2024 End: August 30, 2024 Team Status: Inactive Member Role/Relationship Status Dates Dr. Edwina Johnson MD Primary Care Provider Active Start: September 17, 2024 End: September 17, 2024 Dr. Edwina Johnson MD Attending Provider Active Start: September 17, 2024 End: September 17, 2024 Team Status: Active Member Role/Relationship Status Dates Dr. Edwina Johnson MD Primary Care Provider Active Start: October 04, 2024 Dr. Edwina Johnson MD Referring Provider Active Start: October 04, 2024 Pramod Fisher MD Attending Provider Active St art: October 04, 2024 Team Status: Inactive Member Role/Relationship Status Dates Dr. Edwina Johnson MD Primary Care Provider Active Start: October 04, 2024 End: October 04, 2024 Dr. Dhruv Novak MD Attending Provider Active S tart: October 04, 2024 End: October 04, 2024 Team Status: Inactive Member Role/Relationship Status Dates Dr. Edwina Johnson MD Primary Care Provider Active Start: October 04, 2024 End: October 04, 2024 Dr. Edwina Johnson MD Referring Provider Active Start: October 04, 2024 End: October 04, 2024 Pramod Fisher MD Attending Provider Active St art: October 04, 2024 End: October 04, 2024 Team Status: Inactive Member Role/Relationship Status Dates Dr. Edwina Johnson MD Primary Care Provider Active Start: October 05, 2024 End: October 05, 2024 Dr. Edwina Johnson MD Attending Provider Active Start: October 05, 2024 End: October 05, 2024 Dr. Edwina Johnson MD Referring Provider Active Start: October 05, 2024 End: October 05, 2024 Pramod Fisher MD Other Provider Active Start: October 05, 2024 End: October 05, 2024 Team Status: Active Member Role/Relationship Status Dates Dr. Edwina Johnson MD Primary Care Provider Active Start: October 11, 2024 Pramod Fisher MD Attending Provider Active St art: October 11, 2024 Pramod Fisher MD Referring Provider Active St art: October 11, 2024 Team Status: Inactive Member Role/Relationship Status Dates Dr. Edwina Johnson MD Primary Care Provider Active Start: October 23, 2024 End: October 23, 2024 Dr. Edwina Johnson MD Attending Provider Active Start: October 23, 2024 End: October 23, 2024 Team Status: Active Member Role/Relationship Status Dates Dr. Edwina Johnson MD Primary care physician Active Team Status: Inactive Member Role/Relationship Status Dates Dr. Edwina Johnson MD Primary care physician Active Start: August 30, 2024 End: August 30, 2024 GARRETT Palomares Attending physician Active St art: August 30, 2024 End: August 30, 2024 Team Status: Inactive Member Role/Relationship Status Dates Dr. Edwina Johnson MD Primary care physician Active Start: August 30, 2024 End: August 30, 2024 Dr. Edwina Johnson MD Referring Provider Active Start: August 30, 2024 End: August 30, 2024 GARRETT Palomares Attending physician Active St art: August 30, 2024 End: August 30, 2024 Team Status: Inactive Member Role/Relationship Status Dates Dr. Edwina Johnson MD Primary care physician Active Start: September 17, 2024 End: September 17, 2024 Dr. Edwina Johnson MD Attending physician Active Start: September 17, 2024 End: September 17, 2024 Team Status: Inactive Member Role/Relationship Status Dates Dr. Edwina Johnson MD Primary care physician Active Start: October 04, 2024 End: October 04, 2024 Dr. Edwina Johnson MD Referring Provider Active Start: October 04, 2024 End: October 04, 2024 Pramod Fisher MD Attending physician Active S tart: October 04, 2024 End: October 04, 2024 Team Status: Inactive Member Role/Relationship Status Dates Dr. Edwina Johnson MD Primary care physician Active Start: October 04, 2024 End: October 04, 2024 Dr. Dhruv Novak MD Attending physician Active Start: October 04, 2024 End: October 04, 2024 Team Status: Inactive Member Role/Relationship Status Dates Dr. Edwina Johnson MD Primary care physician Active Start: October 05, 2024 End: October 05, 2024 Dr. Edwina Johnson MD Attending physician Active Start: October 05, 2024 End: October 05, 2024 Dr. Edwina Johnson MD Referring Provider Active Start: October 05, 2024 End: October 05, 2024 Pramod Fisher MD Nurse Practitioner Active St art: October 05, 2024 End: October 05, 2024 Team Status: Active Member Role/Relationship Status Dates Dr. Edwina Johnson MD Primary care physician Active Start: October 11, 2024 Pramod Fisher MD Attending physician Active S tart: October 11, 2024 Pramod Fisher MD Referring Provider Active St art: October 11, 2024 Team Status: Inactive Member Role/Relationship Status Dates Dr. Edwina Johnson MD Primary care physician Active Start: October 23, 2024 End: October 23, 2024 Dr. Edwina Johnson MD Attending physician Active Start: October 23, 2024 End: October 23, 2024 Team Status: Active Member Role/Relationship Status Dates Dr. Edwina Johnson MD Primary care physician Active Start: October 23, 2024 Dr. Edwina Johnson MD Attending physician Active Start: October 23, 2024 Dr. Edwina Johnson MD Referring Provider Active Start: October 23, 2024 Team Status: Inactive Member Role/Relationship Status Dates Dr. Edwina Johnson MD Primary care physician Active Start: October 24, 2024 End: October 24, 2024 Dr. Zack Prabhakar DO Emergency Department Physician Active Start: October 24, 2024 End: October 24, 2024 Team Status: Inactive Member Role/Relationship Status Dates Dr. Edwina Johnson MD Primary care physician Active Start: August 30, 2024 End: August 30, 2024 Roderick TUCKER, PA Attending physician Active St art: August 30, 2024 End: August 30, 2024 Team Status: Inactive Member Role/Relationship Status Dates Dr. Edwina Johnson MD Primary care physician Active Start: August 30, 2024 End: August 30, 2024 Dr. Edwina Johnson MD Referring Provider Active Start: August 30, 2024 End: August 30, 2024 Roderick TUCKER PA Attending physician Active St art: August 30, 2024 End: August 30, 2024 Team Status: Inactive Member Role/Relationship Status Dates Dr. Edwina Johnson MD Primary care physician Active Start: September 17, 2024 End: September 17, 2024 Dr. Edwina Johnson MD Attending physician Active Start: September 17, 2024 End: September 17, 2024 Team Status: Inactive Member Role/Relationship Status Dates Dr. Edwina Johnson MD Primary care physician Active Start: October 04, 2024 End: October 04, 2024 Dr. Edwina Johnson MD Referring Provider Active Start: October 04, 2024 End: October 04, 2024 Pramod Fisher MD Attending physician Active S tart: October 04, 2024 End: October 04, 2024 Team Status: Inactive Member Role/Relationship Status Dates Dr. Edwina Johnson MD Primary care physician Active Start: October 04, 2024 End: October 04, 2024 Dr. Dhruv Novak MD Attending physician Active Start: October 04, 2024 End: October 04, 2024 Team Status: Inactive Member Role/Relationship Status Dates Dr. Edwina Johnson MD Primary care physician Active Start: October 05, 2024 End: October 05, 2024 Dr. Edwina Johnson MD Attending physician Active Start: October 05, 2024 End: October 05, 2024 Dr. Edwina Johnson MD Referring Provider Active Start: October 05, 2024 End: October 05, 2024 Pramod Fisher MD Nurse Practitioner Active St art: October 05, 2024 End: October 05, 2024 Team Status: Active Member Role/Relationship Status Dates Dr. Edwina Johnson MD Primary care physician Active Start: October 11, 2024 Pramod Fisher MD Attending physician Active S tart: October 11, 2024 Pramod Fisher MD Referring Provider Active St art: October 11, 2024 Team Status: Inactive Member Role/Relationship Status Dates Dr. Edwina Johnson MD Primary care physician Active Start: October 23, 2024 End: October 23, 2024 Dr. Edwina Johnson MD Attending physician Active Start: October 23, 2024 End: October 23, 2024 Team Status: Inactive Member Role/Relationship Status Dates Dr. Edwina Johnson MD Primary care physician Active Start: October 23, 2024 End: October 23, 2024 Dr. Edwina Johnson MD Attending physician Active Start: October 23, 2024 End: October 23, 2024 Dr. Edwina Johnson MD Referring Provider Active Start: October 23, 2024 End: October 23, 2024 Team Status: Inactive Member Role/Relationship Status Dates Dr. Edwina Johnson MD Primary care physician Active Start: October 24, 2024 End: October 24, 2024 Dr. Zack Prabhakar DO Attending physician Active Start: October End: October 24, 2024 Dr. Zack Prabhakar DO Emergency Department Physician Active Start: October 24, 2024 End: October 24, 2024 Team Status: Inactive Member Role/Relationship Status Dates Dr. Edwina Johnson MD Primary care physician Active Start: October 23, 2024 End: October 23, 2024 Dr. Edwina Johnson MD Attending physician Active Start: October 23, 2024 End: October 23, 2024 Dr. Edwina Johnson MD Referring Provider Active Start: October 23, 2024 End: October 23, 2024 Team Status: Inactive Member Role/Relationship Status Dates Dr. Edwina Johnson MD Primary care physician Active Start: October 24, 2024 End: October 24, 2024 Dr. Zack Prabhakar DO Attending physician Active Start: October End: October 24, 2024 Dr. Zack Prabhakar DO Emergency Department Physician Active Start: October 24, 2024 End: October 24, 2024 Team Status: Inactive Member Role/Relationship Status Dates Dr. Edwina Johnson MD Referring Provider Active Start: November 07, 2024 End: November 07, 2024 Dr. Peter Mitchell DO Attending physician Active Start: November 07, 2024 End: November 07, 2024 Team Status: Active Member Role/Relationship Status Dates Dr. Edwina Johnson MD Primary care physician Active Start: November 07, 2024 Dr. Peter Mitchell DO Attending physician Active Start: November 07, 2024 Dr. Peter Mitchell DO Referring Provider Active Start: November 07, 2024 Team Status: Inactive Member Role/Relationship Status Dates Dr. Edwina Johnson MD Primary care physician Active Start: November 07, 2024 End: November 07, 2024 Dr. Peter Mitchell DO Attending physician Active Start: November 07, 2024 End: November 07, 2024 Dr. Peter Mitchell DO Referring Provider Active Start: November 07, 2024 End: November 07, 2024 Team Status: Active Member Role/Relationship Status Dates Dr. Edwina Johnson MD Primary care physician Active Start: November 08, 2024 Dr. Peter Mitchell DO Attending physician Active Start: November 08, 2024 Dr. Peter Mitchell DO Referring Provider Active Start: November 08, 2024 Team Status: Inactive Member Role/Relationship Status Dates Dr. Edwina Johnson MD Primary care physician Active Start: November 08, 2024 End: November 08, 2024 Dr. Peter Mitchell DO Attending physician Active Start: November 08, 2024 End: November 08, 2024 Dr. Peter Mitchell DO Referring Provider Active Start: November 08, 2024 End: November 08, 2024 FOR RECORDS PERTAINING TO PATIENTS WHO ARE OR HAVE BEEN ENROLLED IN A CHEMICAL DEPENDENCY/SUBSTANCEABUSE PROGRAM, SOME INFORMATION MAY BE OMITTED. This clinical summary was aggregated from multiple sources. Caution should be exercised in using it in the provision of clinical care. This summary normalizes information from multiple sources, and as a consequence, information in this document may materially change the coding, format and clinical context of patient data. In addition, data may be omitted in some cases. CLINICAL DECISIONS SHOULD BE BASED ON THE PRIMARY CLINICAL RECORDS. [employer] [facility]. provides no warranty or guarantee of the accuracy or completeness of information in this document.
[2024-12-03] MEDS: Lactated Ringers 1,000 ML 15 ML IV (07:03)
--- NOTE | 2024-12-03 07:17 | HP.PCM_ITS ---
HPI - General General Date of Admission: 12/03/24 Date of Service: 12/03/24 Chief Complaint: GERD, abdominal pain and squamous cell dysplasia of the anus HPI Narrative YAIR MILLS, is a 59 M who presents [ YAIR MILLS, is a 59 M who presents to the office today for initial consult. 59-year-old gentleman with a long history of gastroesophageal reflux disease, currently managed on Nexium therapy. 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 He expresses concern about the potential long-term effects of his conditions. HIV: On triple therapy, CD4 count of 298, and negative viral load on recent blood work. He also admits to 20 to 25-year history of diarrhea. He says that his diarrhea is mostly fatty associated with cramping and urgency. He denies any fever or nocturnal symptoms. He also has intermittent abdominal pain and elevated lipase, but with a normal CT scan. [facility] Medical History History of hiatal hernia Acute pancreatitis Upper abdominal pain Left knee pain Achilles tendinitis of both lower extremities Rupture of right long head biceps tendon Normal exam Right shoulder pain History of edema Non-smoker PONV (postoperative nausea and vomiting) Rectal pain Pain in both testicles History of kidney stones Cancer Arthritis Back pain Gastric reflux Left inguinal hernia Diarrhea Abdominal pain GERD (gastroesophageal reflux disease) AIDS Anal condyloma Anal dysplasia Weight loss Home Medications Medication Instructions Recorded Last Taken Type valacyclovir 1 gram tablet 1,000 mg PO QHS HIV 1 12/01/24 History abacavir 600 mg-dolutegravir 50 1 tab PO QHS HIV 05/1512/02/24 History mg-lamivudine 300 mg tablet (Triumeq) omeprazole 40 mg capsule,delayed 40 mg PO QHS GERD #90 caps 01/04/24 12/02/24 Rx release epinephrine 0.3 mg/0.3 mL 0.3 mg (0.3 mL) IM Q5-15M OR N 01/17/24 Unknown Rx injection, auto-injector anaphylaxis #2 ea cetirizine 5 mg tablet (Zyrtec) 5 mg PO QHS allergy sy mptoms 10/23/24 12/01/24 History Allergy/AdvReac Type Severity Reaction Status Date / Time bee venom protein (honey bee) Allergy Severe Anaphylaxis Verified 12/03/24 06:51 adhesive tape AdvReac Rash Verified 12/03/24 06:51 amoxicillin (From Augmentin) AdvReac Hives Verified 12/03/24 06:51 clavulanic acid (From AdvReac Hives Verified 12/03/24 06:51 Augmentin) oxycodone (From Percocet) AdvReac elevated Verified 12/03/24 06:51 bp, felt funny, chest tightness Family History Mother Asthma Arthritis Diabetes Heart disease Hypertension High cholesterol Grandfather Cancer lung cancer Father Heart disease High cholesterol Hypertension Cancer skin cancer Surgical History H/O lumbosacral spine surgery Hx of arthroscopy of shoulder History of esophagogastroduodenoscopy (EGD) History of colonoscopy History of left inguinal hernia repair History of shoulder surgery history left bicep tendon repair history left ulnar nerve repair History of bilateral carpal tunnel release Social History Smoking Status: Never smoker alcohol intake: never substance use type: does not use ROS Constitutional Constitutional: Denies fatigue, fever(s), poor appetite, weight gain or weight loss Gastrointestinal Gastrointestinal: Denies belching, bloating, change in bowel habits, change in stool character, chewing difficulty, coffee ground emesis, constipation, cramping, diarrhea, dyspepsia, dysphagia, early satiety, excessive flatus, fecal incontinence, heartburn, hematemesis, hematochezia, hemorrhoids, loose stools, melena, nausea, odynophagia, rectal bleeding, tenesmus, vomiting or weight changes Vital Signs Vital Signs Vital Signs: 12/03/24 06:53 12/03/24 06:53 Temperature 97.4 F L Temperature Source Temporal Pulse Rate 94 Respiratory Rate 18 Respiratory Pattern Normal Blood Pressure 121/90 H Blood Pressure Mean 100 Blood Pressure Source Monitor Blood Pressure Position Semi-Fowlers Blood Pressure Location Right Arm Pulse Ox 98 Oxygen Delivery Method Room Air Weight Weight: 171 lb 11.841 oz Body Mass Index (BMI) 26.1 Physical Exam Const alert, oriented x3, no apparent distress and healthy appearing General Appearance: cooperative GI normal to inspection, nondistended, normoactive bowel sounds, soft to palpation, non-tender and non-distended Percussion: normal to percussion Rectal Exam: deferred Assessment & Plan Assessment/Plan (1) Hiatal hernia: (2) Abdominal pain: QUALIFIERS: Abdominal location: right lower quadrant Qualified Code(s): R10.31 - Right lower quadrant pain (3) Diarrhea: QUALIFIERS: Diarrhea type: unspecified type Qualified Code(s): R19.7 - Diarrhea, unspecified (4) GERD (gastroesophageal reflux disease): QUALIFIERS: Esophagitis presence: esophagitis presence not specified Qualified Code(s): K21.9 - Gastro-esophageal reflux disease without esophagitis PLAN: Assessment and Plan Assessment and Plan (1) Acute pancreatitis: Status: Acute (2) Upper abdominal pain: Status: Acute (3) Diarrhea: Status: Acute Qualifiers: Diarrhea type: unspecified type Qualified Code(s): R19.7 - Diarrhea, unspecified (4) GERD (gastroesophageal reflux disease): Status: Acute Qualifiers: Esophagitis presence: esophagitis presence not specified Qualified Code(s): K21.9 - Gastro-esophageal reflux disease without esophagitis (5) Mild anal dysplasia, histologically confirmed: Status: Acute (6) Hiatal hernia: Status: Acute Plan: 59-year-old gentleman with well-controlled HIV (negative viral load), but with moderate immunosuppression (CD4 298), presenting with chronic diarrhea and long- standing GERD. Problem list: * Chronic Diarrhea: The etiology needs to be determined. Given the CD4 count is in the 200-500 range, common bacterial pathogens are more likely than opportunistic infections like CMV or Cryptosporidium, which are more common with CD4 counts <50-100. Side effects of ART are another common cause in this patient population. HIV enteropathy is a diagnosis of exclusion. * Gastroesophageal Reflux Disease (GERD): While GERD is common, endoscopy may be warranted to evaluate for alternative esophageal pathologies or complications in an HIV patient, such as alise esophagitis or ulcers. Persistent GERD symptoms despite PPI therapy may indicate a need for further investigation. * Anal Squamous Cell Dysplasia s/p Resection: This history of HPV-related disease warrants consideration for repeat endoscopic evaluation, particularly if there are new anorectal symptoms. * HIV infection, controlled: While the viral load is negative, the CD4 count suggests moderate immunosuppression. This may increase the risk of certain GI infections or malignancies compared to the general population. * * Medication-induced hyperlipasemia: Some antiretroviral drugs, particularly older NRTIs like didanosine and stavudine, are known to cause pancreatitis, but modern regimens are generally less associated with this risk. Newer ARTs can still cause asymptomatic, mild to moderate elevations in lipase, which are common in HIV-positive patients. * HIV-related pancreatic inflammation: HIV itself can be toxic to the pancreas, and in patients with low CD4 counts (though not this patient), opportunistic infections can be a cause. However, HIV-related inflammation of the pancreas can occur even without severe immunosuppression. * Non-pancreatic causes of hyperlipasemia: Elevated lipase can result from numerous conditions other than pancreatitis, such as renal insufficiency, other intra-abdominal inflammation (hepatobiliary or gastrointestinal), malignancies, or macro-lipasemia. * Chronic pancreatitis: While the CT was normal, mild or equivocal changes can be missed, and this could be an intermittent presentation. Endoscopic ultrasound (EUS) is more sensitive for detecting mild chronic pancreatitis. * Other intra-abdominal pathology: Other gastrointestinal or hepatobiliary issues, such as cholecystitis, peptic ulcer disease, or bowel obstruction, can cause elevated lipase and abdominal pain, though the CT was normal in this case. Plan: * EGD : Reasonable to investigate persistent GERD symptoms despite PPI therapy and to rule out opportunistic esophagitis or other pathology given the patient's HIV status. * Colonoscopy : Justified for the workup of chronic diarrhea, especially if stool studies are negative. It can help evaluate for infectious colitis, inflammatory bowel disease, or malignancies, especially in the context of the anal dysplasia history. * Diagnostic: * Perform stool studies for infectious workup (culture, O&P, PCR panel, C. difficile). * Schedule combined upper endoscopy (EGD) and colonoscopy to evaluate chronic symptoms, especially given the history of anal dysplasia and the patient's desire for the procedure. Biopsies should be taken as indicated. * Confirm with the patient any specific symptoms (bleeding, pain) concerning for anal cancer recurrence. High-resolution anoscopy should be considered if there are new or concerning anal symptoms. * Repeat lipase measurement to check for resolution or persistence. * Consider further hepatobiliary imaging, such as a magnetic resonance cholangiopancreatography (MRCP), if suspicion for biliary obstruction remains despite the normal CT. * If lipase remains elevated and symptoms persist, consider endoscopic ultrasound (EUS) to further evaluate for occult pancreatic disease, such as early chronic pancreatitis. * Therapeutic: * Pain control: Recommend supportive measures, including avoidance of alcohol and narcotics, as these may worsen hyperlipasemia or cause pancreatitis. * Symptom management: Monitor for any change in symptoms. * Medications: * Continue triple ART and Nexium. * Consider a therapeutic trial for diarrhea (e.g., antidiarrheal agents) depending on the results of stool studies, if appropriate. ]
--- NOTE | 2024-12-03 07:30 | COLBX_PTH ---
PATIENT: YAIR MILLS LOC: EN U#:[id number] AGE/SX: 59/M ROOM: RE12/03/[address]: Dr. Peter Mitchell DO : 1965 BED: DIS: 12/03/2024 SPEC #: [id number] RECD: 12/03/24 09:32 STATUS: UBALDO MARILYN #: [id number] JOHN: 12/03/24 07:[address]: Peter Mitchell DEPT: SURGICAL PATHOLOGY RECD BY: Fuad Rascon ENTERED: 12/03/24 10:33 SP TYPE: COLON BX OTHR DR: Dr. Edwina Johnson MD Tissues: A - Duodenum, NOS B - Gastric mucous membrane C - Ileum, NOS D - COLON BIOPSY E - Anal region Procedures: Immunohistochemical Stains Surgery Specimen Level IV HEADER OPERATION: Colonoscopy with biopsy and Argon Plasma Coagulation, EGD with biopsy PRE-OP DIAGNOSIS: Hiatal hernia, abdominal pain, diarrhea, GERD TISSUE SUBMITTED: A- Duodenum biopsy, B- Gastric body biopsy, C- Terminal ileum biopsy, D- Random colon and polyp biopsy, E- Anal random junction biopsy MICROSCOPIC DIAGNOSIS A. Duodenum, biopsy: - Normal villous architecture with no specific pathologic change. - Negative for increased intraepithelial lymphocytes. B. Gastric body, biopsy: - Chronic gastritis. - IHC negative for H. pylori organisms. C. Terminal ileum, biopsy: - No specific pathologic change. D. Colon, random, biopsy: - Focal active colitis - see note. Note: Focal mild acute inflammation is noted without features of chronicity. This is a nonspecific finding which may result from bowel prep artifact, mild infection, medication injury (eg: NSAIDs) and ischemia. Recommend correlation with clinical and endoscopic findings. E. Anus, random, biopsy: - Focal hyperplastic crypt change suggestive of hyperplastic polyp. MICROSCOPIC DESCRIPTION Slides are reviewed. All matched controls reacted appropriately. These tests were developed and their performance characteristics determined by [facility]. They may not have been cleared or approved by the U.S. Food and Drug Administration. The FDA has determined that such clearance or approval is not necessary. The above immunohistochemical markers and/or special stains have been reviewed by the Pathologist. GROSS DESCRIPTION A. Received in fixative is one container labeled with the patient's name and designated "Duodenum biopsy." The specimen consists of multiple irregular fragments of brandt tissue that in aggregate measure 0.8 x 0.5 x 0.1 cm. The specimen is totally submitted in one cassette. B. Received in fixative is one container labeled with the patient's name and designated "Gastric body biopsy." The specimen consists of multiple irregular fragments of brandt tissue that in aggregate measure 0.8 x 0.4 x 0.1 cm. The specimen is totally submitted in one cassette. C. Received in fixative is one container labeled with the patient's name and designated "Terminal ileum biopsy." The specimen consists of multiple irregular fragments of brandt tissue that in aggregate measure 1.2 x 0.5 x 0.1 cm. The specimen is totally submitted in one cassette. D. Received in fixative is one container labeled with the patient's name and designated "Random colon and polyp biopsy." The specimen consists of multiple irregular fragments of brandt tissue that in aggregate measure 1.9 x 1 x 0.2 cm. The specimen is totally submitted in one cassette. E. Received in fixative is one container labeled with the patient's name and designated "Anal random junction biopsy." The specimen consists of one irregular fragment of brandt tissue that measures 0.4 cm. The specimen is totally submitted in one cassette. TX 12/03/2024 CPT:43330s9,92464
--- NOTE | 2024-12-03 07:32 | PCM.PRE.AN2 ---
ASA Classification* ASA Classification ASA Classification: 3 Assessment & Plan Anesthesia* Anesthesia Assessment Anesthesia Assessment: Discussed sedation and/or anesthesia options, risks, benefits, and alternatives with patient/parents/legal guardian/POA. Questions invited. The patient/parents/legal guardian/POA seems to understand and agrees to proceed with anesthesia plan. Reviewed the physical assessment, medical history, allergy history and patient home medications list prior to surgery/procedure/anesthetic and documented any changes. Performed airway and anesthesia risk assessments. Anesthesia Type Anesthesia Type: MAC History Source History Obtained from:: Patient and Chart Anesthesia Focused Assessment* Temperature: 97.4 F Pulse Rate: 94 Blood Pressure: 121/90 Respiratory Rate: 18 Pulse Ox: 98 Oxygen Delivery Method: Room Air Airway Assessment Mouth opens: >3 cm Mallampati Score: IV Teeth Condition: Caps/Crowns (Patient has a crown. It is tight it is tight.) and Missing (Patient has a missing left lower molar. Rest are tight.) Neck Range of motion (ROM): Limited ROM (Somewhat Decreased) Labs Anesthesia Preop lab: CBC WBC, (4.4-11.0) 8.3 K/mm3 10/24/24, 17:45 RBC, (4.6-6.2) 4.53 M/mm3 L 10/24/24, 17:45 Hgb, (13.0-16.5) 15.0 g/dL 10/24/24, 17:45 Hct, (40-54) 44.4 % 10/24/24, 17:45 Plt Count, (150-450) 232 K/mm3 10/24/24, 17:45 CHEMISTRY Potassium, (3.3-5.1) 4.1 mmol/L 10/24/24, 17:45 Sodium, (133-145) 142 mmol/L 10/24/24, 17:45 Magnesium, (1.5-2.2) 2.1 mg/dL 10/23/24, :15 BUN, (4-19) 14 mg/dL 10/24/24, 17:45 Creatinine, (0.70-1.20) 1.08 mg/dL 10/24/24, 17:45 Glucose, (70-99) 86 mg/dL 10/24/24, 17:45 TSH, (0.300-4.200) 3.340 uIU/mL 10/05/24, 08:19 COAG PT, (11.7-14.9) 12.8 SECONDS 05/16/23, 08:55 Pre-Assessment Diagnosis/Proposed Procedure Planned Operative Procedure(s): EGD, COLONOSCOPY Anesthesia History 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 When Was Last Pacemaker Check QUESTION #4 FULL TEXT: You/Your Family Experience fever (hyperthermia) with Anesthesia Last Oral Intake Last Oral intake: Last Oral Intake NPO since 03:00 12/03/24 06:53 Meds taken in AM with sips of water? 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 Female No 11/30/24 09:49 HX of Motion Sickness Yes 11/30/24 09:49 HX of N/V After Surgery Yes 11/30/24 09:49 Non-Smoker Yes 11/30/24 09:49 Duration of Surgery greater No 11/30/24 09:49 than 60 minutes Number of Risk Factors 3 11/30/24 09:49 PONV Score Moderate Risk 11/30/24 09:49 Height & Weight Height & Weight: Anesthesia: Height & Weight Height 5 ft 8 in 12/03/24 06:53 Weight: 77.9 kg 12/03/24 06:53 Body Mass Index (BMI) 26.1 12/03/24 06:53 Respiratory Assessment Respiratory Assessment - student ministry pastor: Respiratory Tract Infection Hx - student ministry pastor Hx Respiratory Tract Infection No 11/30/24 09:49 STOP Sleep Apnea STOP Sleep Apnea - student ministry pastor: STOP Sleep Apnea - student ministry pastor Hx Hypertension No 11/30/24 09:49 Hx Sleep Apnea No 11/30/24 09:49 CPAP BIPAP Do you snore loudly (louder No 11/30/24 09:49 than talking or can be heard Do you often feel tired/ No 11/30/24 09:49 fatigued/ sleepy during daytime? Has anyone observed you stop No 11/30/24 09:49 breathing during sleep? STOP Results Negative 11/30/24 09:49 QUESTION #5 FULL TEXT : Do you snore loudly (louder than talking or can be heard through closed doors)? 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 Specify any problems Hx of Preganancy in last 3 N/A 11/30/24 09:49 Months Nurse Filling Out Transfusion MGRIFFITH 11/30/24 09:49 & Questions: Date: 11/30/24 11/30/24 09:49 Time: 09:51 11/30/24 09:49 Patient unable to answer at this time (ie. confused, unrespo /Reproduction History /Reproductive History - student ministry pastor: /Reproductive Hx- student ministry pastor Hx Now Gestational Age (in weeks): EDC: Hx Hx Para Hx Section SAB No 10/22/24 09:39 Active Medications Active Medications: Current Medications Generic Name Dose Route Start Last Admin Trade Name Freq PRN Reason Stop Dose Admin Lactated Ringer's 1,000 mls @ 15 mls/hr 12/03/24 06:45 12/03/24 07:03 IV 15 mls/hr .Q48H LUKAS Administration PFSH Medical History History of hiatal hernia Acute pancreatitis Upper abdominal pain Left knee pain Achilles tendinitis of both lower extremities Rupture of right long head biceps tendon Normal exam Right shoulder pain History of edema Non-smoker PONV (postoperative nausea and vomiting) Rectal pain Pain in both testicles History of kidney stones Cancer Arthritis Back pain Gastric reflux Left inguinal hernia Diarrhea Abdominal pain GERD (gastroesophageal reflux disease) AIDS Anal condyloma Anal dysplasia Weight loss Home Medications Medication Instructions Recorded Last Taken Type valacyclovir 1 gram tablet 1,000 mg PO QHS HIV 01/07/21 12/01/24 History abacavir 600 mg-dolutegravir 50 1 tab PO QHS HIV 05/16/23 12/02/24 History mg-lamivudine 300 mg tablet (Triumeq) omeprazole 40 mg capsule,delayed 40 mg PO QHS GERD #90 caps 01/04/24 12/02/24 Rx release epinephrine 0.3 mg/0.3 mL 0.3 mg (0.3 mL) IM Q5-15M PRN 01/17/24 Unknown Rx injection, auto-injector anaphylaxis #2 ea cetirizine 5 mg tablet (Zyrtec) 5 mg PO QHS allergy symptoms 10/23/24 12/01/24 History Allergy/AdvReac Type Severity Reaction Status Date / Time bee venom protein (honey bee) Allergy Severe Anaphylaxis Verified 12/03/24 06:51 adhesive tape AdvReac Rash Verified 12/03/24 06:51 amoxicillin (From Augmentin) AdvReac Hives Verified 12/03/24 06:51 clavulanic acid (From AdvReac Hives Verified 12/03/24 06:51 Augmentin) oxycodone (From Percocet) AdvReac elevated Verified 12/03/24 06:51 bp, felt funny, chest tightness Family History Mother Asthma Arthritis Diabetes Heart disease Hypertension High cholesterol Grandfather Cancer lung cancer Father Heart disease High cholesterol Hypertension Cancer skin cancer Surgical History H/O lumbosacral spine surgery Hx of arthroscopy of shoulder History of esophagogastroduodenoscopy (EGD) History of colonoscopy History of left inguinal hernia repair History of shoulder surgery history left bicep tendon repair history left ulnar nerve repair History of bilateral carpal tunnel release Social History Smoking Status: Never smoker alcohol intake: never substance use type: does not use Review of Systems (Anesthesia) ROS Narrative System reviewed and no additional complaints, except as documented.
--- NOTE | 2024-12-03 08:38 | OP.EGD_ITS ---
Patient Name: Bruno Friedman Procedure Date: 12/03/2024 7:44 AM Date of : 1965 Age: 59 Procedure: Upper GI endoscopy Indications: Epigastric abdominal pain, Abdominal pain in the right upper quadrant, Generalized abdominal pain, Functional Dyspepsia, Heartburn Providers: Peter Mitchell DO Referring MD: Edwina Johnson Medicines: Monitored Anesthesia Care Patient Profile: This is a 59 year old male. Refer to note in patient chart for documentation of history and physical. Patient has symptoms of chronic abdominal cramping, acute right upper quadrant abdominal pain, acute left lower quadrant abdominal pain, chronic epigastric abdominal pain, chronic global abdominal pain, chronic dyspepsia, acute heartburn and chronic nausea. Complications: No immediate complications. Procedure: Pre-Anesthesia Assessment: - Prior to the procedure, a History and Physical was performed, and patient medications and allergies were reviewed. The patient is competent. The risks and benefits of the procedure and the sedation options and risks were discussed with the patient. All questions were answered and informed consent was obtained. Patient identification and proposed procedure were verified by the physician in the pre-procedure area. Mental Status Examination: alert and oriented. Airway Examination: normal oropharyngeal airway and neck mobility. Respiratory Examination: clear to auscultation. CV Examination: normal. Prophylactic Antibiotics: The patient does not require prophylactic antibiotics. Prior Anticoagulants: The patient has taken no anticoagulant or antiplatelet agents except for NSAID medication. ASA Grade Assessment: II - A patient with mild systemic disease. After reviewing the risks and benefits, the patient was deemed in satisfactory condition to undergo the procedure. The anesthesia plan was to use monitored anesthesia care (MAC). Immediately prior to administration of medications, the patient was re-assessed for adequacy to receive sedatives. The heart rate, respiratory rate, oxygen saturations, blood pressure, adequacy of pulmonary ventilation, and response to care were monitored throughout the procedure. The physical status of the patient was re-assessed after the procedure. After obtaining informed consent, the endoscope was passed under direct vision. Throughout the procedure, the patient's blood pressure, pulse, and oxygen saturations were monitored continuously. The Colonoscope was introduced through the mouth, and advanced to the third part of the duodenum. Small bowel enteroscopy was deemed necessary. The upper GI endoscopy was accomplished without difficulty. The patient tolerated the procedure well. Scope In: 7:56:38 AM Scope Out: 8:02:30 AM Total Procedure Duration Time 0 hours 5 minutes 52 seconds Findings: No gross lesions were noted in the entire esophagus. Patchy mildly erythematous mucosa without bleeding was found in the gastric body. Biopsies were taken with a cold forceps for histology. Biopsies were taken with a cold forceps for Helicobacter pylori testing. Verification of patient identification for the specimen was done. Estimated blood loss was minimal. Patchy mildly erythematous mucosa without active bleeding and with no stigmata of bleeding was found in the entire duodenum. Impression: - No gross lesions in the entire esophagus. - Erythematous mucosa in the gastric body. Biopsied. - Erythematous duodenopathy. Recommendation: - Discharge patient to home. - Resume previous diet. - Continue present medications. - Await pathology results. Procedure Code(s): --- Professional --- 76717, Small intestinal endoscopy, enteroscopy beyond second portion of duodenum, not including ileum; with biopsy, single or multiple CPT copyright 2021 [employer]. All rights reserved. The codes documented in this report are preliminary and upon certified medical records coder review may be revised to meet current compliance requirements. Peter Mitchell DO 12/03/2024 8:37:28 AM This report has been signed electronically. Number of Addenda: 0 Note Initiated On: 12/03/2024 7:44 AM
--- NOTE | 2024-12-03 08:38 | OP.PROVAT_ITS ---
12/03/2024 Edwina Johnson [facility] [address] [place] [address] Re : Upper GI endoscopy procedure for Bruno Friedman Dear Dr. Johnson This procedure was performed on Tuesday, December 03, 2024. My impressions and recommendations are as follows: Impressions : - No gross lesions in the entire esophagus. - Erythematous mucosa in the gastric body. Biopsied. - Erythematous duodenopathy. Recommendations : - Discharge patient to home. - Resume previous diet. - Continue present medications. - Await pathology results. My findings are described in the full procedure note, which is enclosed. If I can be of further assistance, please feel free to contact me at . Sincerely, Peter Mitchell, 12/03/2024 8:37:28 AM This report has been signed electronically.
--- NOTE | 2024-12-03 08:39 | PCM.POST.ANE ---
Anesthesia: Postop Eval I Current Vital Signs Temperature: 97 F Pulse Rate: 79 Blood Pressure: 115/80 Respiratory Rate: 16 Pulse Ox: 97 Oxygen Delivery Method: Room Air Assessment Airway patent: Yes Spontaneous unlabored respirations: Yes Mental status: Asleep nausea: No Vomiting: No Anesthesia Complication: No Fluid Hydration Crystalloid volume administer (ml): 800 Total IV fluid infused: 800 Progress Note Anesthesia document: Postop Eval 1 completed: Yes
--- NOTE | 2024-12-03 08:42 | OP.COLON_ITS ---
Patient Name: Bruno Friedman Procedure Date: 12/03/2024 8:02 AM Date of : 1965 Age: 59 Procedure: Colonoscopy Indications: Epigastric abdominal pain, Abdominal pain in the left lower quadrant, Abdominal pain in the right lower quadrant, Clinically significant diarrhea of unexplained origin, Hematochezia Providers: Peter Mitchell DO Referring MD: Edwina Johnson Medicines: Monitored Anesthesia Care Patient Profile: This is a 59 year old male. Refer to note in patient chart for documentation of history and physical. Patient has symptoms of chronic abdominal cramping, acute right upper quadrant abdominal pain, acute left lower quadrant abdominal pain, chronic epigastric abdominal pain, chronic global abdominal pain, chronic dyspepsia, acute heartburn and chronic nausea. Last Colonoscopy: several years ago. Complications: No immediate complications. Procedure: Pre-Anesthesia Assessment: - Prior to the procedure, a History and Physical was performed, and patient medications and allergies were reviewed. The patient is competent. The risks and benefits of the procedure and the sedation options and risks were discussed with the patient. All questions were answered and informed consent was obtained. Patient identification and proposed procedure were verified by the physician in the pre-procedure area. Mental Status Examination: alert and oriented. Airway Examination: normal oropharyngeal airway and neck mobility. Respiratory Examination: clear to auscultation. CV Examination: normal. Prophylactic Antibiotics: The patient does not require prophylactic antibiotics. Prior Anticoagulants: The patient has taken no anticoagulant or antiplatelet agents except for NSAID medication. ASA Grade Assessment: II - A patient with mild systemic disease. After reviewing the risks and benefits, the patient was deemed in satisfactory condition to undergo the procedure. The anesthesia plan was to use monitored anesthesia care (MAC). Immediately prior to administration of medications, the patient was re-assessed for adequacy to receive sedatives. The heart rate, respiratory rate, oxygen saturations, blood pressure, adequacy of pulmonary ventilation, and response to care were monitored throughout the procedure. The physical status of the patient was re-assessed after the procedure. After I obtained informed consent, the scope was passed under direct vision. Throughout the procedure, the patient's blood pressure, pulse, and oxygen saturations were monitored continuously. The Colonoscope was introduced through the anus and advanced to the terminal ileum. The colonoscopy was performed without difficulty. The patient tolerated the procedure well. The quality of the bowel preparation was adequate. The terminal ileum, ileocecal valve, appendiceal orifice, and rectum were photographed. Scope In: 8:04:09 AM Scope Withdrawal Time 0 hours 22 minutes 6 seconds Scope Out: 8:28:45 AM Total Procedure Duration Time 0 hours 24 minutes 36 seconds Findings: The perianal and digital rectal examinations were normal. The mucosa vascular pattern at the anus and in the rectum was locally increased. Biopsies were taken with a cold forceps for histology. Verification of patient identification for the specimen was done. Estimated blood loss was minimal. Coagulation for tissue destruction using argon plasma at 0.3 liters/minute and 20 wilson was successful. Estimated blood loss was minimal. A 5 mm polyp was found in the sigmoid colon. The polyp was sessile. The polyp was removed with a jumbo cold forceps. Resection and retrieval were complete. Verification of patient identification for the specimen was done. Estimated blood loss was minimal. An area of mildly congested mucosa was found in the rectum, in the sigmoid colon, in the transverse colon, at the hepatic flexure and in the ascending colon. Biopsies were taken with a cold forceps for histology. Verification of patient identification for the specimen was done. Estimated blood loss was minimal. The terminal ileum appeared normal. Biopsies were taken with a cold forceps for histology. Verification of patient identification for the specimen was done. Estimated blood loss was minimal. Impression: - Increased mucosa vascular pattern at the anus and in the rectum. Biopsied. Treated with argon plasma coagulation (APC). - One 5 mm polyp in the sigmoid colon, removed with a jumbo cold forceps. Resected and retrieved. - Congested mucosa in the rectum, in the sigmoid colon, in the transverse colon, at the hepatic flexure and in the ascending colon. Biopsied. - The examined portion of the ileum was normal. Biopsied. Recommendation: - Discharge patient to home. - Resume previous diet. - Continue present medications. - Await pathology results. - Repeat colonoscopy in 5 years for surveillance. Procedure Code(s): --- Professional --- 90186, Colonoscopy, flexible; with ablation of tumor(s), polyp(s), or other lesion(s) (includes pre- and post-dilation and guide wire passage, when performed) 02731, 59, Colonoscopy, flexible; with biopsy, single or multiple CPT copyright 2021 [employer]. All rights reserved. The codes documented in this report are preliminary and upon laborer shipyard review may be revised to meet current compliance requirements. Peter Mitchell DO 12/03/2024 8:42:24 AM This report has been signed electronically. Number of Addenda: 0 Note Initiated On: 12/03/2024 8:02 AM
--- NOTE | 2024-12-03 08:43 | OP.PROVAT_ITS ---
12/03/2024 Edwina Johnson [facility] [address] [place] [address] Re : Colonoscopy procedure for Bruno Friedman Dear Dr. Johnson This procedure was performed on Tuesday, December 03, 2024. My impressions and recommendations are as follows: Impressions : - Increased mucosa vascular pattern at the anus and in the rectum. Biopsied. Treated with argon plasma coagulation (APC). - One 5 mm polyp in the sigmoid colon, removed with a jumbo cold forceps. Resected and retrieved. - Congested mucosa in the rectum, in the sigmoid colon, in the transverse colon, at the hepatic flexure and in the ascending colon. Biopsied. - The examined portion of the ileum was normal. Biopsied. Recommendations : - Discharge patient to home. - Resume previous diet. - Continue present medications. - Await pathology results. - Repeat colonoscopy in 5 years for surveillance. My findings are described in the full procedure note, which is enclosed. If I can be of further assistance, please feel free to contact me at . Sincerely, Peter Mitchell, 12/03/2024 8:42:24 AM This report has been signed electronically.
--- NOTE | 2024-12-03 12:11 | PCM.POSTANE2 ---
Anesthesia Postop Eval I Sum Postop Eval Completion status Anesthesia document: Postop Eval 1 completed: Yes Anesthesia Postop Eval I Summary Anesthesia Postop Eval I Summary: Anesthesia Postop Eval I: Assessment Summary Airway patent Yes 12/03/24 08:40 [email or web address] Spontaneous unlabored Yes 12/03/24 08:40 [email or web address] respirations Mental status Asleep 12/03/24 08:40 [email or web address] nausea No 12/03/24 08:40 [email or web address] Vomiting No 12/03/24 08:40 [email or web address] Anesthesia Postop Eval I: Fluid Summary Crystalloid volume administer 800 12/03/24 08:40 [email or web address] (ml) Colloids volume administered ( ml) Blood Product volume administered (ml) Total IV fluid infused 800 12/03/24 08:40 [email or web address] Anesthesia Postop Eval I: Summary Notes Anesthesia Complication No 12/03/24 08:40 [email or web address] Anesthesia Complication Comment: Post-operative progress note Anesthesia: Postop Eval II Evaluation Mental status: Awake and Calm Pain Level: 0 nausea: No Vomiting: No Complications Anesthesia Complication: No
== END 2024-12-03 09:18 | disposition home or self-care (01) ==
LOC: EN 06:32 → AC 06:33
PROVIDERS: PCP Internal Medicine; Referring Provider Internal Medicine; Visit Provider Internal Medicine Gastroenterology
PROC: 0DJD8ZZ Inspection of Lower Intestinal Tract, Via Natural or Artificial Opening Endoscopic (ICD-10-PCS; CPT 45378; principal; 2024-12-03 07:25)
DX: K21.9 Gastro-esophageal reflux disease without esophagitis (principal); B20 Human immunodeficiency virus [HIV] disease; K85.90 Acute pancreatitis without necrosis or infection, unspecified; K44.9 Diaphragmatic hernia without obstruction or gangrene; K63.5 Polyp of colon; K62.82 Dysplasia of anus; R10.10 Upper abdominal pain, unspecified; R10.31 Right lower quadrant pain; Z79.899 Other long term (current) drug therapy; K29.50 Unspecified chronic gastritis without bleeding; K52.9 Noninfective gastroenteritis and colitis, unspecified; K31.89 Other diseases of stomach and duodenum; K62.89 Other specified diseases of anus and rectum; K63.89 Other specified diseases of intestine
CPT/HCPCS: 44361; 45380; 45388; 88305; 88342; C1889; J2405

== ENCOUNTER → 2024-12-07 | Outpatient (CLI) | payer MEDICAID, SELFPAY ==
--- NOTE | 2024-12-07 16:45 | RAD_ITS ---
PROCEDURE: RAD/Abdomen Single View
[2024-12-07 17:25] LABS: Hematocrit 40.5 % (40-54); Hemoglobin 13.6 g/dL (13.0-16.5); Mean Corp Hgb Conc 33.6 g/dL (32-36); Mean Corpuscular Volume 98.3 fL (80-94); Mean Platelet Vol. 8.7 fl (6.2-12.0); Platelet Count 209 K/mm3 (150-450); RBC Distribution Width CV 12.9 % (11.6-14.6); RBC Distribution Width SD 46.8 fl (35.1-43.9); Red Blood Count 4.12 M/mm3 (4.6-6.2); White Blood Count 8.3 K/mm3 (4.4-11.0)
[2024-12-07 17:46] LABS: Anion Gap 11 (5-15); BUN 17 mg/dL (4-19); BUN/Creat Ratio 17.5 RATIO (10-20); Calcium,Total 9.0 mg/dL (7.6-11.0); Carbon Dioxide 25.2 mmol/L (21.0-32.0); Chloride 103 mmol/L (98-108); Glucose 96 mg/dL (70-99); PSA,Total- Diagnostic 1.78 ng/mL (0.00-4.00); Potassium 3.9 mmol/L (3.3-5.1)
[2024-12-10 13:08] LABS: Hematocrit 39.3 % (37.5-51.0); Hemoglobin 13.5 g/dL (13.0-17.7); MCH 34.4 pg (26.6-33.0); MCHC 34.4 g/dL (31.5-35.7); MCV 100 fL (79-97); Percent % CD4 Pos. Lymph. 43.5 % (30.8-58.5); RDW 13.1 % (11.6-15.4)
[2024-12-11 18:08] LABS: HIV-1 RNA by PCR, Quant. < 20 copies/mL (.)
== END | disposition home or self-care (01) ==
PROVIDERS: Internal Medicine Infectious Disease; PCP Internal Medicine; Referring Provider Urology; Visit Provider Urology
DX: B20 Human immunodeficiency virus [HIV] disease (principal); N20.1 Calculus of ureter
CPT/HCPCS: 36415; 74018; 80048; 84153; 85027; 86361; 87536